=== PATIENT | female | born 1940 | race Caucasian/White ===

== ENCOUNTER 2017-05-14 11:09 | Inpatient (IN) | payer MEDICARE, MEDICAID ==
[~2017-05-14] VITALS: Ht 157.5 cm; Wt 67.7 kg
[~2017-05-14 11:09] MED LIST: BISA-42 PO; ERGO2000 PO; ERGO500027 PO; GLIM4TAB2 PO; LEVO500T59 PO; METF-620 PO; OXYC1TAB8 PO
[2017-05-14] MEDS ORDERED: HYDROcodone/APAP 5/325MG 1 TAB TABLET PO PRN (11:45)
[2017-05-14 11:46] LABS: BASO # 0.1 x10^3/uL (0.0-0.2); BASO % 1 % (0-3); EOS % 3 % (0-3); HEMATOCRIT 37.8 % (36.0-47.0); HEMOGLOBIN 12.8 g/dL (12.0-15.5); LYMPH # 2.2 x10^3/uL (1.0-4.8); LYMPH % 27 % (24-48); MEAN CORPUSCULAR HEMOGLOBIN 29 pg (25-35); MEAN CORPUSCULAR HGB CONC 34 g/dL (31-37); MEAN CORPUSCULAR VOLUME 85 fL (79-100); MONO % 9 % (0-9); NEUT % 61 % (31-73); PLATELET COUNT 182 x10^3/uL (140-400); RED BLOOD COUNT 4.46 x10^6/uL (3.50-5.40); RED CELL DISTRIBUTION WIDTH 16.2 % (11.5-14.5); WHITE BLOOD COUNT 8.3 x10^3/uL (4.0-11.0)
[2017-05-14 11:56] LABS: CALCIUM 8.7 mg/dL (8.5-10.1); CREATININE 0.9 mg/dL (0.6-1.0); GFR 60.7; POTASSIUM 4.2 mmol/L (3.5-5.1)
--- NOTE | 2017-05-14 11:57 | RAD ---
Indication pain in left arm. A single view of the chest was obtained. Comparison is made to an examination 08/11/2016. There are suspect background changes of emphysema or fibrosis. There is no consolidated pneumonia. Heart size is unchanged. There is no gross congestive heart failure. Significant pleural fluid is not seen and there is no pneumothorax. A prosthetic valve is noted. IMPRESSION: No acute or focal process is seen in the chest
[2017-05-14 12:02] LABS: DIRECT BILIRUBIN 0.1 mg/dL (0.0-0.2); TOTAL BILIRUBIN 0.5 mg/dL (0.2-1.0); TOTAL PROTEIN 7.4 g/dL (6.4-8.2)
--- NOTE | 2017-05-14 12:05 | PHYS DOC ---
Past Medical History Past Medical History: COPD, Diabetes-Type II, High Cholesterol Additional Past Medical Histor: CHRONIC BACK PAIN Past Surgical History: Cholecystectomy, Other Additional Past Surgical Histo: HERNIA, heart valve, cardiac stent Alcohol Use: None Drug Use: None Adult General Chief Complaint Chief Complaint: UPPER EXTREMITY PAIN HPI HPI 76-year-old female presenting to the emergency department today with left shoulder pain that is moderate intermittent sharp and present since approximately 8:30 this morning. She has a history of stent placement. She also reports recently having a heart valve replacement. The pain radiates down her left arm. Review of systems is negative for chest pain shortness of breath fevers chills cough nausea vomiting or diaphoresis. She denies unilateral leg swelling hemoptysis personal or family history of blood clotting disorders. All other review of systems is negative unless otherwise noted in history of present illness. ED course: 76-year-old female presenting with left shoulder pain. Triage vital signs afebrile with a normal pulse. Physical exam shows clear lungs to auscultation bilaterally. Regular rate and rhythm. Otherwise the lower extremities are without evidence of unilateral leg swelling. No clinical evidence of DVT. Abdomen is soft and nontender. Chest x-ray reviewed by myself shows no obvious infiltrate or pneumothorax present. No obvious acute cardiopulmonary process present. EKG reviewed by myself shows sinus rhythm with a regular rate. ST segments are congruent. Not suggestive of ACS. Mild nonspecific intraventricular conduction block. Troponin came back positive. Patient received the remainder of the aspirin as she had received aspirin prior to arrival. Serial troponins ordered. Patient admitted to our hospitalist team for further evaluation workup and care with cardiology consultation. Review of Systems Review of Systems SEE ABOVE. Current Medications Current Medications Current Medications Medications (Trade) Dose Ordered Sig/Luisito Start Time Stop Time Status Last Admin Dose Admin Acetaminophen/ Hydrocodone Bitart (Lortab 5/325) 2 tab PRN 1X PRN 05/14/17 11:45 Allergies Allergies Allergies Coded Allergies Type Severity Reaction Last Updated Verified No Known Drug Allergies 07/30/15 No Physical Exam Physical Exam SEE ABOVE Constitutional: Well developed, well nourished, no acute distress, non-toxic appearance. [] HENT: Normocephalic, atraumatic, bilateral external ears normal, oropharynx moist, no oral exudates, nose normal. [] Eyes: PERRLA, EOMI, conjunctiva normal, no discharge. [] Neck: Normal range of motion, no tenderness, supple, no stridor. [] Cardiovascular:Heart rate regular rhythm, no murmur [] Lungs & Thorax: Bilateral breath sounds clear to auscultation [] Abdomen: Bowel sounds normal, soft, no tenderness, no masses, no pulsatile masses. [] Skin: Warm, dry, no erythema, no rash. [] Back: No tenderness, no CVA tenderness. [] Extremities: No tenderness, no cyanosis, no clubbing, ROM intact, no edema. [] Neurologic: Alert and oriented X 3, normal motor function, normal sensory function, no focal deficits noted. [] Psychologic: Affect normal, judgement normal, mood normal. [] Current Patient Data Vital Signs Vital Signs Date Time Temp Pulse Resp B/P (MAP) Pulse Ox O2 Delivery O2 Flow Rate FiO2 05/14/17 12:00 69 18 145/76 (99) 99 Room Air 05/14/17 11:09 98.0 98.0 Lab Values Laboratory Tests Test 05/14/17 11:25 White Blood Count 8.3 x10^3/uL (4.0-11.0) Red Blood Count 4.46 x10^6/uL (3.50-5.40) Hemoglobin 12.8 g/dL (12.0-15.5) Hematocrit 37.8 % (36.0-47.0) Mean Corpuscular Volume 85 fL (79-100) Mean Corpuscular Hemoglobin 29 pg (25-35) Mean Corpuscular Hemoglobin Concent 34 g/dL (31-37) Red Cell Distribution Width 16.2 % (11.5-14.5) H Platelet Count 182 x10^3/uL (140-400) Neutrophils (%) (Auto) 61 % (31-73) Lymphocytes (%) (Auto) 27 % (24-48) Monocytes (%) (Auto) 9 % (0-9) Eosinophils (%) (Auto) 3 % (0-3) Basophils (%) (Auto) 1 % (0-3) Neutrophils # (Auto) 5.1 x10^3uL (1.8-7.7) Lymphocytes # (Auto) 2.2 x10^3/uL (1.0-4.8) Monocytes # (Auto) 0.7 x10^3/uL (0.0-1.1) Eosinophils # (Auto) 0.2 x10^3/uL (0.0-0.7) Basophils # (Auto) 0.1 x10^3/uL (0.0-0.2) Sodium Level 142 mmol/L (136-145) Potassium Level 4.2 mmol/L (3.5-5.1) Chloride Level 104 mmol/L (98-107) Carbon Dioxide Level 24 mmol/L (21-32) Anion Gap 14 (6-14) Blood Urea Nitrogen 19 mg/dL (7-20) Creatinine 0.9 mg/dL (0.6-1.0) Estimated GFR (Cockcroft-Gault) 60.7 Glucose Level 129 mg/dL (70-99) H Calcium Level 8.7 mg/dL (8.5-10.1) Magnesium Level 1.4 mg/dL (1.8-2.4) L Total Bilirubin 0.5 mg/dL (0.2-1.0) Direct Bilirubin 0.1 mg/dL (0.0-0.2) Aspartate Amino Transferase (AST) 18 U/L (15-37) Alanine Aminotransferase (ALT) 21 U/L (14-59) Alkaline Phosphatase 59 U/L (46-116) Troponin I Quantitative 0.119 ng/mL (0.000-0.055) HQ-Etp-F-Type Natriuretic Peptide 223 pg/mL (0-449) Total Protein 7.4 g/dL (6.4-8.2) Albumin 4.0 g/dL (3.4-5.0) Lipase 189 U/L (73-393) Laboratory Tests 05/14/17 11:25 Laboratory Tests 05/14/17 11:25 EKG EKG [] Radiology/Procedures Radiology/Procedures [] Course & Med Decision Making Course & Med Decision Making Pertinent Labs and Imaging studies reviewed. (See chart for details) [] Dragon Disclaimer Dragon Disclaimer This electronic medical record was generated, in whole or in part, using a voice recognition dictation system. Departure Departure Impression: Primary Impression: Left shoulder pain Additional Impressions: Non-STEMI (non-ST elevated myocardial infarction) Magnesium deficiency Disposition: ADMITTED INPATIENT Condition: STABLE Referrals: TERESITA DURAN MD (PCP) Problem Qualifiers CHELY DUPREE MD May 14, 2017 12:05
[2017-05-14] MEDS ORDERED: ONDANSETRON PF 4 MG/2 ML VIAL. IV PRN (12:15)
[2017-05-14] MEDS ORDERED: MORPHINE SULFATE 2 MG/ML DISP.SYRIN. IV PRN (12:15)
--- NOTE | 2017-05-14 12:36 | EKG ---
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
[2017-05-14] MEDS ORDERED: ASPIRIN CHEWABLE 81 MG TABLET. PO ONE (12:45)
[2017-05-14 13:30] VITALS: BP 158/65
[2017-05-14] MEDS ORDERED: MAGNESIUM SULFATE 4GM 100 ML IV ONE (16:00)
[2017-05-14] MEDS ORDERED: OMEG1CAP6 PO (16:48)
[2017-05-14] MEDS ORDERED: BISACODYL 5 MG TABLET.DR. PO PRN (17:00)
[2017-05-14] MEDS: GLIMEPIRIDE 2 MG TABLET. PO SCH (17:16)
[2017-05-14] MEDS ORDERED: NITROGLYCERIN SUBLINGUAL 0.4 MG BOTTLE OF 25. SL PRN (17:30)
[2017-05-14 18:00] VITALS: BP 139/83
[2017-05-14 19:05] VITALS: BP 126/59
--- NOTE | 2017-05-14 19:58 | HP ---
ADMIT DATE: 05/14/2017 CHIEF COMPLAINT: Arm pain. HISTORY OF PRESENT ILLNESS: The patient is a 76-year-old woman with recent history of aortic valve repair and stent placement at [facility] in November of this year. She had been doing well since until this morning at about 8:30 when she started to have left-sided, sharp, stabbing type arm pain that actually radiated down to her wrist. This persisted for a while. She actually got worse when she was in scientologist and she has decided to come to the Emergency Room to make sure she was okay. She did not have any other symptoms. Denies chest pain, shortness of breath, diaphoresis, nausea, vomiting or dizziness. In the ER, she was found with mildly elevated troponin at 0.119 and was admitted for rule out ACS. The patient relates that she actually was out in the sun all day on Monday doing a yard sale with her daughter. She states she "paid for it" in the evening with being very ill, no vomiting, but nausea and overheated. She felt better by Monday. PAST MEDICAL HISTORY: CAD, aortic valve repair, COPD, diabetes mellitus and chronic back pain. FAMILY HISTORY: Positive for diabetes in mother and sisters. SOCIAL HISTORY: Lives by herself. Quit smoking about 7 years ago. No toxic habits. ALLERGIES: No known drug allergies. MEDICATIONS: MAR reconciled with home medications. REVIEW OF SYSTEMS: Her arm pain now has completely resolved. She has no symptoms in entire organ system review. PHYSICAL EXAMINATION: VITAL SIGNS: From today show blood pressure of 158/65, heart rate of 79, respiratory rate at 18. She is afebrile. GENERAL: This is a well-nourished 76-year-old woman, alert and oriented, in no acute distress, very pleasant. HEENT: Shows no scleral icterus. NECK: Supple without any lymphadenopathy. LUNGS: Clear to auscultation bilaterally. HEART: Has regular rate and rhythm without any murmurs. ABDOMEN: Has positive bowel sounds, soft, nontender. EXTREMITIES: Show no edema. SKIN: Warm, soft and dry without any rash. LABORATORY DATA: CBC with a WBC of 8.3, hemoglobin 12.8, platelets of 182. Chemistries with a BUN and creatinine of 19 and 0.9, normal electrolytes. Troponin 0.119. ProBNP within normal. Magnesium at 1.4. IMAGING STUDIES: Chest x-ray in the Emergency Room reveals no acute or focal process seen in the chest. ASSESSMENT AND PLAN: The patient is a 76-year-old woman with heart disease who now presents with sharp stabbing left arm pain. Suspect this is more related to the hypomagnesemia. The latter will be corrected with IV magnesium. Nevertheless, she does have recent heart surgery and stent placements as well as an elevated troponin. We will rule her out for ACS, obtain Cardiology input in the morning. For her diabetes, we will hold her home medication of metformin, continue glimepiride for now. Substitute with insulin sliding scale. Interestingly, she is not on any blood pressure medications in the form of beta laurence or OSVALDO inhibitor. Her blood pressure currently is slightly elevated. We will start her on low dose beta laurence here. For prophylaxis, she will be started on heparin as well as H2 laurence. CHRISTIANO KEY MD DR: AFIA/erinn JOB#: [id number] / [id number] LANI
[2017-05-14] MEDS: OMEGA-3 FATTY ACIDS/FISH OIL 1,000 MG CAPSULE. PO SCH (20:25)
[2017-05-14] MEDS: oxyCODONE/APAP 7.5/325 1 TAB TABLET PO PRN (20:26)
[2017-05-14] MEDS: METOPROLOL TART IMMED RELEASE 25 MG TABLET. PO SCH (20:31)
[2017-05-14 22:22] VITALS: BP 127/70
[2017-05-15 00:29] LABS: BASO # 0.1 x10^3/uL (0.0-0.2); BASO % 1 % (0-3); EOS % 4 % (0-3); HEMATOCRIT 38.5 % (36.0-47.0); HEMOGLOBIN 12.6 g/dL (12.0-15.5); LYMPH # 1.8 x10^3/uL (1.0-4.8); LYMPH % 23 % (24-48); MEAN CORPUSCULAR HEMOGLOBIN 28 pg (25-35); MEAN CORPUSCULAR HGB CONC 33 g/dL (31-37); MEAN CORPUSCULAR VOLUME 87 fL (79-100); MONO % 9 % (0-9); NEUT % 63 % (31-73); PLATELET COUNT 166 x10^3/uL (140-400); RED BLOOD COUNT 4.45 x10^6/uL (3.50-5.40); RED CELL DISTRIBUTION WIDTH 16.8 % (11.5-14.5); WHITE BLOOD COUNT 7.8 x10^3/uL (4.0-11.0)
--- NOTE | 2017-05-15 00:42 | ACF ---
Admission Forms Criteria MYOCARDIAL INFARCTION Clinical Indications for Admission to Inpatient Care (Place 'X' for any and all applicable criteria): Admission is indicated for 1 or more of the following (1)(2)(3)(4): [ X]I. Acute MO [ ]II. Contraindications and/or Inappropriate clinical situations for Observational Care in patients with Myocardial Infarction, when ANY ONE of the following is required: [ ]a) Patient with High risk of cardiac embolism (e.g, patients with previous cardiac embolism, LVEF < 40%, age >75 and patients with prosthetic valve) 18 [ ]b) Patient with Moderate risk including DM patient, CAD and patient aged 65-75 18 [ ]c) Patient with any change in cardiac biomarker especially troponin should be managed as high risk in an inpatient setting 19 [ ]d) Physician judgement irrespective of ECG and other diagnostic findings 20 [ ]III.General contraindications and/or Inappropriate clinical situations for Observational Care in patients with Myocardial Infarction, when ANY ONE of the following is required: [ ]a) Prediction of prolongation of LOS based on ANY ONE of the following may be considered as a contraindication for observational care 2, 3, 4, 5, 6, 7, 8, 9, 10, 11 [ ]i) Age > 65 yrs. [ ]ii) Patient arriving by ambulance [ ]iii) Patient with high acuity [ ]iv) Patient requiring vital sign monitoring [ ]v) Patient on IV medication [ ]b) Systolic blood pressures greater than or equal to 180mmHg 3,12 [ ]c) Patient with altered mental status including delirium and other alteration of consciousness, (3) [ ]d) Patient whose discharge disposition will be to a fpc home or rehabilitation home should not be managed in Emergency Department Observation Unit. CMS rule requires 3 days hospital stay before such placement. 3,13 [ ]e) Patient with failure to thrive due to broad array of etiologies 3 ,16,17 [ ]f) Inability to ambulate 3,14 Extended stay beyond goal length of stay may be needed for (1)(18)(20)(24)(25): [ ]a) Hemodynamic instability, persisting symptoms after intensive medical management, or recurring severe, prolonged symptoms [ ]b) Intravascular procedural complications such as acute vessel closure, stent thrombosis, stent malposition, or vessel dissection (26)(27)(28) [ ]c) Extravascular procedural complications such as retroperitoneal hematoma , pericardial effusion, or cardiac tamponade [ ]d) Entry site complications causing bleeding, hematoma or distal ischemia and requiring ongoing monitoring, surgical repair or surgical thrombectomy. Dangerous arrhythmia [ ]e) Complicated percutaneous coronary intervention (e.g., unsuccessful percutaneous coronary intervention or percutaneous coronary intervention of non- [place] vessel) [ ]f) Urgent or emergent surgery for complications of MO (e.g., ventricular rupture, valvular insufficiency) [ ]g) Surgical revascularization via coronary artery bypass graft [ ]h) Heart failure (e.g., pulmonary edema) [ ]i) Unstable pulmonary comorbidities, including COPD or pneumonia (31) [ ]j) Acute renal failure The original [employer] content created by [employer] has been revised. The portions of the content which have been revised are identified through the use of italic text or in bold, and [facility] [employer] has neither reviewed nor approved the modified material. All other unmodified content is copyright [facility] [employer] Please see references footnoted in the original [facility] edition 2016 Admission Criteria Met?: Yes DAVID CROOK May 15, 2017 00:42 CHELY DUPREE MD May 15, 2017 18:08
[2017-05-15 00:44] LABS: CALCIUM 8.7 mg/dL (8.5-10.1); CREATININE 0.9 mg/dL (0.6-1.0); GFR 60.7
[2017-05-15 01:42] LABS: CHOLESTEROL/HDL RATIO 3.1
[2017-05-15 03:33] VITALS: BP 107/59
[2017-05-15 07:00] VITALS: BP 89/43
[2017-05-15] MEDS: ASPIRIN CHEWABLE 81 MG TABLET. PO SCH (09:03)
[2017-05-15] MEDS: GLIMEPIRIDE 2 MG TABLET. PO SCH ×2 (09:03→18:14)
[2017-05-15] MEDS: oxyCODONE/APAP 7.5/325 1 TAB TABLET PO PRN ×2 (09:04→19:16)
[2017-05-15] MEDS: METOPROLOL TART IMMED RELEASE 25 MG TABLET. PO SCH ×2 (09:10→20:46)
--- NOTE | 2017-05-15 09:33 | PDOC2 ---
RADHA RIVAS PRACTICAL NURSE CLINICAL COORDINATOR 05/15/17 0933: CARDIAC CONSULT DATE OF CONSULT Date of Consult DATE: 05/15/17 TIME: 09:03 REASON FOR CONSULT Reason for Consult: Chest pain REFERRING PHYSICIAN Referring Physician: Melchor SOURCE Source: Chart review, Patient HISTORY OF PRESENT ILLNESS HISTORY OF PRESENT ILLNESS This is a pleasant 76 yo female admitted for complains of left arm pain. Reports of left upper chest pain but more of left arm pain sharp in consistency lasting all day yesterday intermittently. 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 Denies any nausea, palpitations, dizziness, changes in her activity tolerance. She does have EUGENE but blames it on her COPD and no changes as far as her baseline. Reports compliance with her cardiac medications. She is positive for PCI/stent 10/2016 and TAVR 11/2016. Denies any recent falls, shoulder injury, GERD, nor heavy lifting. PAST MEDICAL HISTORY Cardiovascular: CAD, HTN, Hyperlipidemia, Aortic stenosis, Other (AAA, PAD, carotid artery disease) Pulmonary: COPD, Pneumonia, Other (pulmonary fibrosis) CENTRAL NERVOUS SYSTEM: Other (meningioma) GI: Constipation Heme/Onc: No pertinent hx Hepatobiliary: No pertinent hx Psych: No pertinent hx Musculoskeletal: low back pain, Osteoarthritis Rheumatologic: No pertinent hx Infectious disease: No pertinent hx ENT: No pertinent hx Renal/: UTI Endocrine: Diabetes (2) PAST SURGICAL HISTORY Past Surgical History: Cholecystectomy, Cataract Removal, Other (bilateral arterial stents; TAVR; PCI/stent x1 vessel) SOCIAL HISTORY Smoke: No (royer) ALCOHOL: none Drugs: None Lives: with Family CURRENT MEDICATIONS CURRENT MEDICATIONS Current Medications Medications (Trade) Dose Ordered Sig/Luisito Route PRN Reason Start Time Stop Time Status Last Admin Dose Admin Aspirin (Children'S Aspirin) 162 mg 1X ONCE PO 05/14/17 12:45 05/14/17 12:46 DC 05/14/17 12:45 Magnesium Sulfate/ Dextrose 100 ml @ 25 mls/hr 1X ONCE IV 05/14/17 16:00 05/14/17 19:59 DC 05/14/17 16:47 Fish Oil (Fish Oil) 1,000 mg HS PO 05/14/17 21:00 05/14/17 20:25 Oxycodone/ Acetaminophen (Percocet 7.5/ 325) 1 tab PRN Q6HRS PRN PO PAIN 05/14/17 17:00 05/14/17 20:26 Glimepiride (Amaryl) 4 mg BIDWMEALS PO 05/14/17 17:00 05/14/17 17:16 Metoprolol Tartrate (Lopressor) 12.5 mg BID PO 05/14/17 21:00 05/14/17 20:31 ALLERGIES ALLERGIES: Coded Allergies: No Known Drug Allergies (Unverified , 07/30/15) ROS Review of System 14 point ROS evaluated with pertinent positives noted per HPI PHYSICAL EXAM General: Alert, Oriented X3, Cooperative, No acute distress HEENT: Atraumatic, Mucous membr. moist/pink Lungs: Clear to auscultation, Normal air movement, Other (upper wheeze) Heart: Regular rate, Normal S1, Normal S2, Other (3/6 systolic murmur to EUS border) Abdomen: Normal bowel sounds Extremities: No cyanosis, No edema Skin: No breakdown, No significant lesion Neuro: Normal speech, Sensation intact Psych/Mental Status: Mental status NL, Mood NL MUSCULOSKELETAL: Osteoarthritic changes both hands VITALS VITALS Vital Signs Date Time Temp Pulse Resp B/P (MAP) Pulse Ox O2 Delivery O2 Flow Rate FiO2 05/15/17 07:40 Room Air 05/15/17 07:00 97.6 60 20 89/43 (58) 92 97.6 LABS Lab: Laboratory Tests Test 05/14/17 11:25 05/14/17 18:10 05/15/17 00:20 05/15/17 07:49 White Blood Count 8.3 x10^3/uL (4.0-11.0) 7.8 x10^3/uL (4.0-11.0) Red Blood Count 4.46 x10^6/uL (3.50-5.40) 4.45 x10^6/uL (3.50-5.40) Hemoglobin 12.8 g/dL (12.0-15.5) 12.6 g/dL (12.0-15.5) Hematocrit 37.8 % (36.0-47.0) 38.5 % (36.0-47.0) Mean Corpuscular Volume 85 fL (79-100) 87 fL (79-100) Mean Corpuscular Hemoglobin 29 pg (25-35) 28 pg (25-35) Mean Corpuscular Hemoglobin Concent 34 g/dL (31-37) 33 g/dL (31-37) Red Cell Distribution Width 16.2 % (11.5-14.5) 16.8 % (11.5-14.5) Platelet Count 182 x10^3/uL (140-400) 166 x10^3/uL (140-400) Neutrophils (%) (Auto) 61 % (31-73) 63 % (31-73) Lymphocytes (%) (Auto) 27 % (24-48) 23 % (24-48) Monocytes (%) (Auto) 9 % (0-9) 9 % (0-9) Eosinophils (%) (Auto) 3 % (0-3) 4 % (0-3) Basophils (%) (Auto) 1 % (0-3) 1 % (0-3) Neutrophils # (Auto) 5.1 x10^3uL (1.8-7.7) 4.9 x10^3uL (1.8-7.7) Lymphocytes # (Auto) 2.2 x10^3/uL (1.0-4.8) 1.8 x10^3/uL (1.0-4.8) Monocytes # (Auto) 0.7 x10^3/uL (0.0-1.1) 0.7 x10^3/uL (0.0-1.1) Eosinophils # (Auto) 0.2 x10^3/uL (0.0-0.7) 0.3 x10^3/uL (0.0-0.7) Basophils # (Auto) 0.1 x10^3/uL (0.0-0.2) 0.1 x10^3/uL (0.0-0.2) Sodium Level 142 mmol/L (136-145) 144 mmol/L (136-145) Potassium Level 4.2 mmol/L (3.5-5.1) 4.0 mmol/L (3.5-5.1) Chloride Level 104 mmol/L (98-107) 105 mmol/L (98-107) Carbon Dioxide Level 24 mmol/L (21-32) 30 mmol/L (21-32) Anion Gap 14 (6-14) 9 (6-14) Blood Urea Nitrogen 19 mg/dL (7-20) 16 mg/dL (7-20) Creatinine 0.9 mg/dL (0.6-1.0) 0.9 mg/dL (0.6-1.0) Estimated GFR (Cockcroft-Gault) 60.7 60.7 Glucose Level 129 mg/dL (70-99) 187 mg/dL (70-99) Calcium Level 8.7 mg/dL (8.5-10.1) 8.7 mg/dL (8.5-10.1) Magnesium Level 1.4 mg/dL (1.8-2.4) Total Bilirubin 0.5 mg/dL (0.2-1.0) Direct Bilirubin 0.1 mg/dL (0.0-0.2) Aspartate Amino Transf (AST/SGOT) 18 U/L (15-37) Alanine Aminotransferase (ALT/SGPT) 21 U/L (14-59) Alkaline Phosphatase 59 U/L (46-116) Troponin I Quantitative 0.119 ng/mL (0.000-0.055) 0.110 ng/mL (0.000-0.055) 0.113 ng/mL (0.000-0.055) NM-Mkf-C-Type Natriuretic Peptide 223 pg/mL (0-449) Total Protein 7.4 g/dL (6.4-8.2) Albumin 4.0 g/dL (3.4-5.0) Lipase 189 U/L (73-393) Triglycerides Level 169 mg/dL (0-150) Cholesterol Level 85 mg/dL (0-200) LDL Cholesterol, Calculated 24 mg/dL (0-100) VLDL Cholesterol, Calculated 34 mg/dL (0-40) Non-HDL Cholesterol Calculated 58 mg/dL (0-129) HDL Cholesterol 27 mg/dL (40-60) Cholesterol/HDL Ratio 3.1 Glucose (Fingerstick) 107 mg/dL (70-99) ASSESSMENT/PLAN ASSESSMENT/PLAN 1. Atypical chest pain: mainly increasing left arm pain. Troponin peaked at 0.119 likely demand mediated with valvular disease. 2. 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 COPD: stable 4. DM2/HLP 5. Hx of meningioma: noted via brain MRI 07/2016. MRI done also 2017 and verbalized bigger. 6. Hx of PAD with stents and small AAA 7. Chronic LBBB Recommendations 1. Possibly MSK but with elevated troponin, persistent left arm pain will consider for MPI tomorrow. 2. Records reviewed as noted below. 3. TTE today. 4. Resume DAPT. 5. Secondary prevention [facility] Cardiology chart review. * 12/20/2016 * significant for severe symptomatic , severe mitral annular calcification, CAD, moderate infrarenal AAA, chronic diastolic CHF, HLP, DM2, Pulmonary fibrosis/COPD, gastrectomy, Mild to moderate bilateral carotid artery disease * 11/22/2016 PCI/ANNA to LCx: minimal irregularities to LM, 20% to proximal LAD , and 20% to RCA mid vessel * TAVR 12/06/2016 * Last EF at 75% * Via CTA patent stents to right and left common iliac arteries, severe stenosis to celiac artery and moderate stenosis to left renal artery Problems: NIA LÓPEZ MD 05/15/17 1700: CARDIAC CONSULT ALLERGIES ALLERGIES: Coded Allergies: No Known Drug Allergies (Unverified , 07/30/15) ASSESSMENT/PLAN ASSESSMENT/PLAN Patient seen and examined. Agree with CHILD CARE GIVER's assessment and plan. Chest pain with atypical features. Troponin level slightly elevated, most likely demand ischemia. 2-D echo showed normal LV systolic function without any obvious wall motion abnormalities. Plan for Lexiscan nuclear stress test tomorrow in lieu of her history of coronary artery disease. Bioprosthetic AVR appears well seated and functioning well on echo. Thank you for your consultation. Problems: RADHA RIVAS APRN May 15, 2017 09:33 NIA LÓPEZ MD May 15, 2017 17:00
[2017-05-15 11:00] VITALS: BP 109/56
[2017-05-15] MEDS: CLOPIDOGREL BISULFATE 75 MG TABLET PO SCH (11:04)
[2017-05-15] MEDS ORDERED: METO25TA4 PO (11:18)
[2017-05-15] MEDS ORDERED: METF-620 PO (11:18)
--- NOTE | 2017-05-15 14:17 | PDOC ---
Provider Note Provider Note 05/15/2017 1400 [facility] Cardiology chart review. * 12/20/2016 * significant for severe symptomatic , severe mitral annular calcification, CAD, moderate infrarenal AAA, chronic diastolic CHF, HLP, DM2, Pulmonary fibrosis/COPD, gastrectomy, Mild to moderate bilateral carotid artery disease * 11/22/2016 PCI/ANNA to LCx: minimal irregularities to LM, 20% to proximal LAD , and 20% to RCA mid vessel * TAVR 12/06/2016 * Last EF at 75% * Via CTA patent stents to right and left common iliac arteries, severe stenosis to celiac artery and moderate stenosis to left renal artery RADHA RIVAS DENTAL SCHEDULING COORDINATOR May 15, 2017 14:17
[2017-05-15 15:00] VITALS: BP 114/55
--- NOTE | 2017-05-15 15:34 | CARD ---
APPROVED REPORT EXAM: Two-dimensional and M-mode echocardiogram with Doppler and color Doppler. Other Information Quality : Poor INDICATION Cardiac Disease: CAD AVR IN NOVEMBER, ELEVATED TROPONIN, ABNORMAL EKG 2D DIMENSIONS RVDd2.9 (2.9-3.5cm)Left Atrium(2D)3.6 (1.6-4.0cm) IVSd1.1 (0.7-1.1cm)Aortic Root(2D)2.1 (2.0-3.7cm) LVDd5.5 (3.9-5.9cm)LVOT Diameter1.8 (1.8-2.4cm) PWd0.9 (0.7-1.1cm)LVDs4.7 (2.5-4.0cm) SV45.0 mlLVEF(%)50.0 (>50%) Aortic Valve AoV Peak Marv.174.8cm/sAoV VTI40.3cm AO Peak GR.12.2mmHgLVOT Peak Marv.95.1cm/s LVOT VTI 21.27cmAO Mean GR.6mmHg SAE (VMAX)1.11yp2WFB (VTI)1.25cm2 Mitral Valve MV E Gmikildi82.7cm/sMV DECEL HOKN656xc MV A Wioqyeyv937.3cm/sMV E Mean Gr.2mmHg MV [id number]/A Ratio0.6 MV A Nkoevvet041huVUX (PHT)1.95cm2 TDI E/Lateral E'9.4E/Medial E'6.8 Tricuspid Valve TR P. Vqhzkytm748kp/sTR Peak Gr.20mmHg Pulmonary Vein S1 Qkcdvbux17.9cm/sD2 Qdbdklhd61.1cm/s LEFT VENTRICLE The left ventricle is normal size. There is normal left ventricular wall thickness. The left ventricu lar systolic function is normal and the ejection fraction is within normal range. EF 55% Grossly norm al wall motion. Limited images. Transmitral Doppler flow pattern is Grade I-abnormal relaxation patte rn. RIGHT VENTRICLE The right ventricle is normal size. There is normal right ventricular wall thickness. The right ventr icular systolic function is normal. ATRIA The left atrium size is normal. The right atrium size is normal. The interatrial septum is intact wit h no evidence for an atrial septal defect or patent foramen ovale as noted on 2-D or Doppler imaging. AORTIC VALVE Not well visualized. Known recent Jero TAVR Doppler and Color Flow revealed no significant aortic r egurgitation. There is no significant aortic valvular stenosis. MITRAL VALVE The mitral valve leaflets are calcified. Doppler and Color Flow revealed mild mitral regurgitation. TRICUSPID VALVE The tricuspid valve is normal in structure and function. Doppler and Color Flow revealed trace to mil d tricuspid regurgitation. The PA pressure was estimated at 23 mmHg. PULMONIC VALVE NOT WELL VISUALIZED GREAT VESSELS The aortic root is normal in size. Normal pulmonary venous flow (Doppler). The IVC is normal in size and collapses >50% with inspiration. PERICARDIAL EFFUSION There is no pleural effusion. There is no evidence of significant pericardial effusion. Critical Notification Critical Value: No <Conclusion> The left ventricular systolic function is normal and the ejection fraction is within normal range. EF 55% Grossly normal wall motion. Limited images.
--- NOTE | 2017-05-15 15:41 | PDOC ---
PROGRESS NOTES Chief Complaint Chief Complaint 1. left arm pain, resolved, denies chest pain, but + troponin 2. 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 COPD 4. DM2/HLP 5. Hx of meningioma: noted via brain MRI 07/2016. MRI done also 2016 and verbalized mildly bigger. 6. Hx of PAD with stents and small AAA 7. Chronic LBBB chronic back pain plan: fu with card, MPI tmr as per card cont home meds ssi dvt ppx History of Present Illness History of Present Illness no chest pain, sob, left arm pain gone wants to go home but + troponin Vitals Vitals Vital Signs Date Time Temp Pulse Resp B/P (MAP) Pulse Ox O2 Delivery O2 Flow Rate FiO2 05/15/17 15:00 97.7 56 20 114/55 (74) 95 Room Air 97.7 Physical Exam General: Alert, Oriented X3, Cooperative, No acute distress Heart: Regular rate, Normal S1, Normal S2, Other (3/6 systolic murmur to EUS border) Lungs: Wheezing (bl mild) Abdomen: Normal bowel sounds Extremities: No cyanosis, No edema Skin: No breakdown, No significant lesion Labs LABS Laboratory Tests Test 05/14/17 18:10 05/15/17 00:20 05/15/17 07:49 05/15/17 11:49 Troponin I Quantitative 0.110 ng/mL (0.000-0.055) 0.113 ng/mL (0.000-0.055) White Blood Count 7.8 x10^3/uL (4.0-11.0) Red Blood Count 4.45 x10^6/uL (3.50-5.40) Hemoglobin 12.6 g/dL (12.0-15.5) Hematocrit 38.5 % (36.0-47.0) Mean Corpuscular Volume 87 fL (79-100) Mean Corpuscular Hemoglobin 28 pg (25-35) Mean Corpuscular Hemoglobin Concent 33 g/dL (31-37) Red Cell Distribution Width 16.8 % (11.5-14.5) Platelet Count 166 x10^3/uL (140-400) Neutrophils (%) (Auto) 63 % (31-73) Lymphocytes (%) (Auto) 23 % (24-48) Monocytes (%) (Auto) 9 % (0-9) Eosinophils (%) (Auto) 4 % (0-3) Basophils (%) (Auto) 1 % (0-3) Neutrophils # (Auto) 4.9 x10^3uL (1.8-7.7) Lymphocytes # (Auto) 1.8 x10^3/uL (1.0-4.8) Monocytes # (Auto) 0.7 x10^3/uL (0.0-1.1) Eosinophils # (Auto) 0.3 x10^3/uL (0.0-0.7) Basophils # (Auto) 0.1 x10^3/uL (0.0-0.2) Sodium Level 144 mmol/L (136-145) Potassium Level 4.0 mmol/L (3.5-5.1) Chloride Level 105 mmol/L (98-107) Carbon Dioxide Level 30 mmol/L (21-32) Anion Gap 9 (6-14) Blood Urea Nitrogen 16 mg/dL (7-20) Creatinine 0.9 mg/dL (0.6-1.0) Estimated GFR (Cockcroft-Gault) 60.7 Glucose Level 187 mg/dL (70-99) Calcium Level 8.7 mg/dL (8.5-10.1) Triglycerides Level 169 mg/dL (0-150) Cholesterol Level 85 mg/dL (0-200) LDL Cholesterol, Calculated 24 mg/dL (0-100) VLDL Cholesterol, Calculated 34 mg/dL (0-40) Non-HDL Cholesterol Calculated 58 mg/dL (0-129) HDL Cholesterol 27 mg/dL (40-60) Cholesterol/HDL Ratio 3.1 Glucose (Fingerstick) 107 mg/dL (70-99) 158 mg/dL (70-99) Test 05/15/17 14:40 Magnesium Level 2.0 mg/dL (1.8-2.4) Troponin I Quantitative 0.113 ng/mL (0.000-0.055) Review of Systems Review of Systems no fever, chills, sob or chest pain Assessment and Plan Assessmemt and Plan Problems Medical Problems: (1) Left shoulder pain Status: Acute (2) Magnesium deficiency Status: Acute (3) Non-STEMI (non-ST elevated myocardial infarction) Status: Acute Problems: Comment Review of Relevant I have reviewed the following items neida (where applicable) has been applied. Labs Laboratory Tests Test 05/14/17 11:25 05/14/17 18:10 05/15/17 00:20 05/15/17 07:49 White Blood Count 8.3 x10^3/uL (4.0-11.0) 7.8 x10^3/uL (4.0-11.0) Red Blood Count 4.46 x10^6/uL (3.50-5.40) 4.45 x10^6/uL (3.50-5.40) Hemoglobin 12.8 g/dL (12.0-15.5) 12.6 g/dL (12.0-15.5) Hematocrit 37.8 % (36.0-47.0) 38.5 % (36.0-47.0) Mean Corpuscular Volume 85 fL (79-100) 87 fL (79-100) Mean Corpuscular Hemoglobin 29 pg (25-35) 28 pg (25-35) Mean Corpuscular Hemoglobin Concent 34 g/dL (31-37) 33 g/dL (31-37) Red Cell Distribution Width 16.2 % (11.5-14.5) 16.8 % (11.5-14.5) Platelet Count 182 x10^3/uL (140-400) 166 x10^3/uL (140-400) Neutrophils (%) (Auto) 61 % (31-73) 63 % (31-73) Lymphocytes (%) (Auto) 27 % (24-48) 23 % (24-48) Monocytes (%) (Auto) 9 % (0-9) 9 % (0-9) Eosinophils (%) (Auto) 3 % (0-3) 4 % (0-3) Basophils (%) (Auto) 1 % (0-3) 1 % (0-3) Neutrophils # (Auto) 5.1 x10^3uL (1.8-7.7) 4.9 x10^3uL (1.8-7.7) Lymphocytes # (Auto) 2.2 x10^3/uL (1.0-4.8) 1.8 x10^3/uL (1.0-4.8) Monocytes # (Auto) 0.7 x10^3/uL (0.0-1.1) 0.7 x10^3/uL (0.0-1.1) Eosinophils # (Auto) 0.2 x10^3/uL (0.0-0.7) 0.3 x10^3/uL (0.0-0.7) Basophils # (Auto) 0.1 x10^3/uL (0.0-0.2) 0.1 x10^3/uL (0.0-0.2) Sodium Level 142 mmol/L (136-145) 144 mmol/L (136-145) Potassium Level 4.2 mmol/L (3.5-5.1) 4.0 mmol/L (3.5-5.1) Chloride Level 104 mmol/L (98-107) 105 mmol/L (98-107) Carbon Dioxide Level 24 mmol/L (21-32) 30 mmol/L (21-32) Anion Gap 14 (6-14) 9 (6-14) Blood Urea Nitrogen 19 mg/dL (7-20) 16 mg/dL (7-20) Creatinine 0.9 mg/dL (0.6-1.0) 0.9 mg/dL (0.6-1.0) Estimated GFR (Cockcroft-Gault) 60.7 60.7 Glucose Level 129 mg/dL (70-99) 187 mg/dL (70-99) Calcium Level 8.7 mg/dL (8.5-10.1) 8.7 mg/dL (8.5-10.1) Magnesium Level 1.4 mg/dL (1.8-2.4) Total Bilirubin 0.5 mg/dL (0.2-1.0) Direct Bilirubin 0.1 mg/dL (0.0-0.2) Aspartate Amino Transf (AST/SGOT) 18 U/L (15-37) Alanine Aminotransferase (ALT/SGPT) 21 U/L (14-59) Alkaline Phosphatase 59 U/L (46-116) Troponin I Quantitative 0.119 ng/mL (0.000-0.055) 0.110 ng/mL (0.000-0.055) 0.113 ng/mL (0.000-0.055) XI-Ypz-C-Type Natriuretic Peptide 223 pg/mL (0-449) Total Protein 7.4 g/dL (6.4-8.2) Albumin 4.0 g/dL (3.4-5.0) Lipase 189 U/L (73-393) Triglycerides Level 169 mg/dL (0-150) Cholesterol Level 85 mg/dL (0-200) LDL Cholesterol, Calculated 24 mg/dL (0-100) VLDL Cholesterol, Calculated 34 mg/dL (0-40) Non-HDL Cholesterol Calculated 58 mg/dL (0-129) HDL Cholesterol 27 mg/dL (40-60) Cholesterol/HDL Ratio 3.1 Glucose (Fingerstick) 107 mg/dL (70-99) Test 05/15/17 11:49 05/15/17 14:40 Glucose (Fingerstick) 158 mg/dL (70-99) Magnesium Level 2.0 mg/dL (1.8-2.4) Troponin I Quantitative 0.113 ng/mL (0.000-0.055) Laboratory Tests Test 05/14/17 18:10 05/15/17 00:20 05/15/17 07:49 05/15/17 11:49 Troponin I Quantitative 0.110 ng/mL (0.000-0.055) 0.113 ng/mL (0.000-0.055) White Blood Count 7.8 x10^3/uL (4.0-11.0) Red Blood Count 4.45 x10^6/uL (3.50-5.40) Hemoglobin 12.6 g/dL (12.0-15.5) Hematocrit 38.5 % (36.0-47.0) Mean Corpuscular Volume 87 fL (79-100) Mean Corpuscular Hemoglobin 28 pg (25-35) Mean Corpuscular Hemoglobin Concent 33 g/dL (31-37) Red Cell Distribution Width 16.8 % (11.5-14.5) Platelet Count 166 x10^3/uL (140-400) Neutrophils (%) (Auto) 63 % (31-73) Lymphocytes (%) (Auto) 23 % (24-48) Monocytes (%) (Auto) 9 % (0-9) Eosinophils (%) (Auto) 4 % (0-3) Basophils (%) (Auto) 1 % (0-3) Neutrophils # (Auto) 4.9 x10^3uL (1.8-7.7) Lymphocytes # (Auto) 1.8 x10^3/uL (1.0-4.8) Monocytes # (Auto) 0.7 x10^3/uL (0.0-1.1) Eosinophils # (Auto) 0.3 x10^3/uL (0.0-0.7) Basophils # (Auto) 0.1 x10^3/uL (0.0-0.2) Sodium Level 144 mmol/L (136-145) Potassium Level 4.0 mmol/L (3.5-5.1) Chloride Level 105 mmol/L (98-107) Carbon Dioxide Level 30 mmol/L (21-32) Anion Gap 9 (6-14) Blood Urea Nitrogen 16 mg/dL (7-20) Creatinine 0.9 mg/dL (0.6-1.0) Estimated GFR (Cockcroft-Gault) 60.7 Glucose Level 187 mg/dL (70-99) Calcium Level 8.7 mg/dL (8.5-10.1) Triglycerides Level 169 mg/dL (0-150) Cholesterol Level 85 mg/dL (0-200) LDL Cholesterol, Calculated 24 mg/dL (0-100) VLDL Cholesterol, Calculated 34 mg/dL (0-40) Non-HDL Cholesterol Calculated 58 mg/dL (0-129) HDL Cholesterol 27 mg/dL (40-60) Cholesterol/HDL Ratio 3.1 Glucose (Fingerstick) 107 mg/dL (70-99) 158 mg/dL (70-99) Test 05/15/17 14:40 Magnesium Level 2.0 mg/dL (1.8-2.4) Troponin I Quantitative 0.113 ng/mL (0.000-0.055) Medications Current Medications Acetaminophen/ Hydrocodone Bitart (Lortab 5/325) 2 tab PRN 1X PRN PO pain; Start 05/14/17 at 11:45 Ondansetron HCl (Zofran) 4 mg PRN Q8HRS PRN IV NAUSEA/VOMITING; Start 05/14/17 at 12:15; Stop 05/15/17 at 12:14; Status DC Morphine Sulfate 2 mg PRN Q2HR PRN IV PAIN; Start 05/14/17 at 12:15; Stop 05/15 at 12:14; Status DC Aspirin (Children'S Aspirin) 162 mg 1X ONCE PO Last administered on 05/14/17 12:45; Start 05/14/17 at 12:45; Stop 05/14/17 at 12:46; Status DC Magnesium Sulfate/ Dextrose 100 ml @ 25 mls/hr 1X ONCE IV Last administered on 05/14/17 16:47; Start 05/14/17 at 16:00; Stop 05/14/17 at 19:59; Status DC Bisacodyl (Dulcolax Tab) 5 mg PRN DAILY PRN PO CONSTIPATION; Start 05/14/17 at 17:00 Ergocalciferol (Vitamin D2) 50,000 unit WEEKLY PO ; Start 05/21/17 at 09:00 Metformin HCl (Glucophage) 1,000 mg BID PO Last administered on 05/15/17 09:03 ; Start 05/14/17 at 21:00 Fish Oil (Fish Oil) 1,000 mg HS PO Last administered on 05/14/17 20:25; Start 05/14/17 at 21:00 Oxycodone/ Acetaminophen (Percocet 7.5/ 325) 1 tab PRN Q6HRS PRN PO PAIN Last administered on 05/15/17 09:04; Start 05/14/17 at 17:00 Glimepiride (Amaryl) 4 mg BIDWMEALS PO Last administered on 05/15/17 09:03; Start 05/14/17 at 17:00 Nitroglycerin (Nitrostat) 0.4 mg PRN Q5MIN PRN SL CHEST PAIN; Start 05/14/17 at 17:30 Metoprolol Tartrate (Lopressor) 12.5 mg BID PO Last administered on 05/15/17 09:10; Start 05/14/17 at 21:00 Aspirin (Children'S Aspirin) 81 mg DAILYWBKFT PO Last administered on 09:03; Start 05/15/17 at 08:00 Clopidogrel Bisulfate (Plavix) 75 mg DAILYWBKFT PO Last administered on 11:04; Start 05/15/17 at 10:00 Active Scripts Active Reported Metformin Hcl 1,000 Mg Tablet 1,000 PO BID Metoprolol Tartrate 25 Mg Tablet 12.5 PO DAILY Fish Oil 1,000 Mg Capsule (Beatty-3 Fatty Acids/Fish Oil) 1 Each Capsule 1 Each PO HS Oxycodon-Acetaminophen 7.5-325 (Oxycodone Hcl/Acetaminophen) 1 Each Tablet 1 Each PO PRN Q6HRS PRN Dulcolax (Bisacodyl) 5 Mg Tablet.dr 5 Mg PO PRN DAILY PRN Vitamin D2 (Ergocalciferol (Vitamin D2)) 50,000 Unit Capsule 1 Cap PO WEEKLY Glimepiride 4 Mg Tablet 1 Tab PO BID Vitals/I & O Vital Sign - Last 24 Hours 05/14/17 05/14/17 05/14/17 05/14/17 18:00 19:05 19:05 20:26 Temp 98.1 98.1 Pulse 78 73 Resp 16 16 B/P (MAP) 139/83 (101) 126/59 (81) Pulse Ox 94 98 O2 Delivery Room Air Room Air Room Air 05/14/17 05/14/17 05/15/17 05/15/17 20:31 22:22 03:33 07:00 Temp 98.2 98.2 97.6 98.2 98.2 97.6 Pulse 88 92 66 60 Resp 18 16 20 B/P (MAP) 126/59 127/70 (89) 107/59 (75) 89/43 (58) Pulse Ox 91 93 92 O2 Delivery Room Air Room Air Room Air 05/15/17 05/15/17 05/15/17 05/15/17 07:40 09:04 09:10 10:00 Pulse 60 Resp 20 20 B/P (MAP) 116/74 Pulse Ox 92 93 O2 Delivery Room Air Room Air Room Air 05/15/17 05/15/17 11:00 15:00 Temp 97.6 97.7 97.6 97.7 Pulse 55 56 Resp 20 20 B/P (MAP) 109/56 (73) 114/55 (74) Pulse Ox 93 95 O2 Delivery Room Air Intake and Output 05/14/17 05/14/17 05/15/17 15:00 23:00 07:00 Intake Total 200 ml 360 ml Output Total 200 ml Balance 0 ml 360 ml AMBER DE LA PAZ MD May 15, 2017 15:41
[2017-05-15] MEDS ORDERED: ALBUTEROL SULFATE 2.5 MG/3 ML NEBU. NEB PRN (15:45)
[2017-05-15] MEDS ORDERED: DEXTROSE 50% 25 GM / 50ML DISP.SYRIN. IV PRN (15:45)
[2017-05-15] MEDS ORDERED: ENOXAPARIN 40 MG/0.4 ML SYRINGE. SQ SCH (16:00)
[2017-05-15] MEDS: INSULIN ASPART 300 UNITS/3 ML INSULN.PEN SQ SCH (17:00)
[2017-05-15 18:32] VITALS: BP 133/76
[2017-05-15] MEDS: OMEGA-3 FATTY ACIDS/FISH OIL 1,000 MG CAPSULE. PO SCH (20:45)
[2017-05-15 22:18] VITALS: BP 134/50
[2017-05-16 03:33] VITALS: BP 107/69
[2017-05-16 05:13] LABS: BASO # 0.1 x10^3/uL (0.0-0.2); BASO % 1 % (0-3); EOS % 5 % (0-3); HEMATOCRIT 37.1 % (36.0-47.0); HEMOGLOBIN 11.9 g/dL (12.0-15.5); LYMPH # 1.8 x10^3/uL (1.0-4.8); LYMPH % 29 % (24-48); MEAN CORPUSCULAR HEMOGLOBIN 28 pg (25-35); MEAN CORPUSCULAR HGB CONC 32 g/dL (31-37); MEAN CORPUSCULAR VOLUME 88 fL (79-100); MONO % 12 % (0-9); NEUT % 53 % (31-73); PLATELET COUNT 153 x10^3/uL (140-400); RED BLOOD COUNT 4.22 x10^6/uL (3.50-5.40); RED CELL DISTRIBUTION WIDTH 17.1 % (11.5-14.5); WHITE BLOOD COUNT 6.4 x10^3/uL (4.0-11.0)
[2017-05-16 06:01] LABS: CREATININE 0.8 mg/dL (0.6-1.0); GFR 69.6; MAGNESIUM 1.7 mg/dL (1.8-2.4); POTASSIUM 4.4 mmol/L (3.5-5.1)
[2017-05-16 07:00] VITALS: BP 114/70
[2017-05-16 07:15] LABS: BILIRUBIN,URINE NEGATIVE (NEG); GLUCOSE,URINE NEGATIVE (NEG); NITRITE,URINE NEGATIVE (NEG); PH,URINE 7.5; PROTEIN,URINE NEGATIVE (NEG-TRACE)
[2017-05-16 07:36] LABS: BACTERIA,URINE MANY /HPF (0-FEW); SQUAMOUS EPITHELIAL CELL,UR MOD /LPF
[2017-05-16 07:37] LABS: RBC,URINE FOBS /HPF (0-2)
[2017-05-16] MEDS: INSULIN ASPART 300 UNITS/3 ML INSULN.PEN SQ SCH ×2 (08:00→12:00)
[2017-05-16] MEDS ORDERED: REGADENOSON 0.4 MG/5 ML DISP.SYRIN. IV ONE (08:30)
[2017-05-16] MEDS: oxyCODONE/APAP 7.5/325 1 TAB TABLET PO PRN (08:51)
[2017-05-16] MEDS: GLIMEPIRIDE 2 MG TABLET. PO SCH (09:36)
[2017-05-16] MEDS: METOPROLOL TART IMMED RELEASE 25 MG TABLET. PO SCH (09:37)
[2017-05-16] MEDS: CLOPIDOGREL BISULFATE 75 MG TABLET PO SCH (09:37)
[2017-05-16] MEDS: ASPIRIN CHEWABLE 81 MG TABLET. PO SCH (09:37)
[2017-05-16 11:00] VITALS: BP 110/43
[2017-05-16] MEDS ORDERED: MAGNESIUM SULFATE 2GM 50 ML IV ONE (13:00)
--- NOTE | 2017-05-16 13:31 | PDOC ---
RADHA RIVAS [employer] 05/16/17 1330: CARDIO Progress Notes Date and Time Date of Service Time of Evaluation 1250 Subjective Subjective: No Chest Pain, No shortness of breath, No Palpitations, No Dizziness Vitals Vitals Vital Signs Date Time Temp Pulse Resp B/P (MAP) Pulse Ox O2 Delivery O2 Flow Rate FiO2 05/16/17 11:51 20 Room Air 05/16/17 11:00 97.7 61 110/43 (65) 93 97.7 Weight Weight [ ] Input and Output Intake and Output Intake and Output 05/16/17 06:59 Intake Total 100 ml Output Total 1500 ml Balance -1400 ml Intake Oral 100 ml Output Urine Total 1500 ml # Voids 2 Laboratory Labs Laboratory Tests Test 05/15/17 14:40 05/15/17 16:59 05/15/17 20:45 05/16/17 04:25 Magnesium Level 2.0 mg/dL (1.8-2.4) 1.7 mg/dL (1.8-2.4) Troponin I Quantitative 0.113 ng/mL (0.000-0.055) Glucose (Fingerstick) 115 mg/dL (70-99) 165 mg/dL (70-99) White Blood Count 6.4 x10^3/uL (4.0-11.0) Red Blood Count 4.22 x10^6/uL (3.50-5.40) Hemoglobin 11.9 g/dL (12.0-15.5) Hematocrit 37.1 % (36.0-47.0) Mean Corpuscular Volume 88 fL (79-100) Mean Corpuscular Hemoglobin 28 pg (25-35) Mean Corpuscular Hemoglobin Concent 32 g/dL (31-37) Red Cell Distribution Width 17.1 % (11.5-14.5) Platelet Count 153 x10^3/uL (140-400) Neutrophils (%) (Auto) 53 % (31-73) Lymphocytes (%) (Auto) 29 % (24-48) Monocytes (%) (Auto) 12 % (0-9) Eosinophils (%) (Auto) 5 % (0-3) Basophils (%) (Auto) 1 % (0-3) Neutrophils # (Auto) 3.4 x10^3uL (1.8-7.7) Lymphocytes # (Auto) 1.8 x10^3/uL (1.0-4.8) Monocytes # (Auto) 0.8 x10^3/uL (0.0-1.1) Eosinophils # (Auto) 0.3 x10^3/uL (0.0-0.7) Basophils # (Auto) 0.1 x10^3/uL (0.0-0.2) Sodium Level 145 mmol/L (136-145) Potassium Level 4.4 mmol/L (3.5-5.1) Chloride Level 107 mmol/L (98-107) Carbon Dioxide Level 28 mmol/L (21-32) Anion Gap 10 (6-14) Blood Urea Nitrogen 18 mg/dL (7-20) Creatinine 0.8 mg/dL (0.6-1.0) Estimated GFR (Cockcroft-Gault) 69.6 Glucose Level 130 mg/dL (70-99) Calcium Level 8.0 mg/dL (8.5-10.1) Test 05/16/17 06:55 05/16/17 08:06 05/16/17 11:53 Urine Collection Type Void Urine Color Yellow Urine Clarity Cloudy Urine pH 7.5 Urine Specific Wells 1.020 Urine Protein Negative mg/dL (NEG-TRACE) Urine Glucose (UA) Negative mg/dL (NEG) Urine Ketones (Stick) Negative mg/dL (NEG) Urine Blood Negative (NEG) Urine Nitrite Negative (NEG) Urine Bilirubin Negative (NEG) Urine Urobilinogen Dipstick 1.0 mg/dL (0.2 mg/dL) Urine Leukocyte Esterase Moderate (NEG) Urine RBC Fobs /HPF (0-2) Urine WBC 5-10 /HPF (0-4) Urine Squamous Epithelial Cells Mod /LPF Urine Bacteria Many /HPF (0-FEW) Urine Mucus Slight /LPF Glucose (Fingerstick) 125 mg/dL (70-99) 185 mg/dL (70-99) Physical Exam HEENT: Neck Supple W Full Motion Chest: Symmetric LUNGS: Clear to Auscultation Heart: S1S2, RRR (SR) Abdomen: Soft N/T Extremities: No Edema, No Calf Tenderness Neurology: alert, oriented, follow commands Assessment Assessment HOme if MPI neg. follow up with [facility] cardiology 1. Atypical chest pain 2. CAD: S/P PCI/stent x1 10/2016 3. TAVR 11/2016 4. Chronic LBBB Recommendations 1. Continue secondary prevention 2. TTE with well seated AV 3. Contineu with DAPT and secondary prevention measures. 4. May DC if MPI is negative 5. F/U with [facility] =cardiology NIA LÓPEZ MD 05/16/17 1720: CARDIO Progress Notes Assessment Assessment Patient seen and examined. Agree with DATA PROGRAMMER's assessment and plan. MPI did not show any significant ischemia. s/p TAVR - stable. Okay for discharge from cardiac standpoint. Follow-up with primary supply chain coordinator at [facility]. RADHA RIVAS APRN May 16, 2017 13:30 NIA LÓPEZ MD May 16, 2017 17:20
--- NOTE | 2017-05-16 14:46 | RAD ---
APPROVED REPORT Test Type: Pharmacological Stress Nurse/Tech: Joanna Carson R.N. Test Indications: Elevated troponin/chest pain. Cardiac History: Stents, valve surgery, HTN Medications: SEE EMR Medical History: COPD, former smoker, quit 8 years ago, DM. Resting ECG: SR, BBB Resting Heart Rate: 65 bpm Resting Blood Pressure: 134/53mmHg Pretest Chest Pain: None Nurse/Tech Notes S1S2, lungs CTA, diminished throughout, denied chest pain or SOA. Denied dizziness. Consent: The procedure was explained to the patient in lay terms. Informed consent was witnessed. Sheldon eout was entered into [employer]. History and Stress Test performed by Joanna Carson R.N. Pharm. Details Pharmacologic stress testing was performed using 0.4mg per 5ml of regadenoson given intravenously ove r 7-10 seconds. Stress Symptoms Extremely SOA. POST EXERCISE Reason for Termination: Infusion complete Max HR: 65 bpm Max Blood Pressure: 134/53mmHg Blood Pressure response to exercise: Normal blood pressure response during stress. Heart Rate response to exercise: Normal Chest Pain: No. Arrhythmia: Yes. Multiple PVC's ST Change: No. INTERPRETATION Stress EKG Conclusion: No acute changes were noted. Imaging Protocol IMAGE PROTOCOL: Rest Tc-99m/stress Tc-99m 1 day Rest: Stress: Viability: Radiopharm.Tc99m HxoupbbddTf99l Sestamibi Mtlz50hJk 33.6mCi Duration 15min. 10min. Img Date 05/16/2017 Inj-Img Ktlp75dql. 60min. Rest Admin Site:IV - Left HandAdministrator:Regulo Dunlap RT (R)(N) Stress Admin Site: IV - Left HandAdministrator: Lisa Quiroga RT (R)(N) Viability Admin Site: [facility] [place] Net: STRESS DATA End Diast. Vol.61.0mlAv. Heart Rate62.0bpm End Syst. Vol.12.0mlCO Index BSA0.0L/min Myocardial Kttq927.0gEject. Duabohvt27.0% Stress Rates Pk. Fill Rate1.94EDV/secLVtime Pk. Fill 254.50msec Pk. Empty Rate3.30ESV/secLVtime Pk. Ezkup572.84msec 10/25 Pk. Fill1.37EDV/sec Stress Scores Regional WT0.00Summed WT3.00 Regional WM0.00Summed WM2.00 LV Perfusion There is a mild to moderate intensity, small in size, fixed apical perfusion defect suggestive of preethi or infarct. This may also be partially related to LBBB. Wall Motion Grossly normal. EF > 70% LV Perf. Quant 17 Seg. SSS8.00 17 Seg. SRS9.00 17 Seg. SDS2.00 Stress Defect Extent (% LAD)17.50Rest Defect Extent (% LAD)31.30Rev. Defect Extent (% LAD)0.00 Stress Defect Extent (% LCX) 15.00Rest Defect Extent (% LCX)2.50Rev. Defect Extent (% LCX)0.00 Stress Defect Extent (% RCA)2.20Rest Defect Extent (% RCA)0.00Rev. Defect Extent (% RCA)0.00 Stress Defect Extent (% JOSE LUIS)13.30Rest Defect Extent (% JOSE LUIS)16.10Rev. Defect Extent (% JOSE LUIS)0.00 Other Information Quality:Fair Risk Assessment: Low Risk Conclusion 1. Non-diagnostic EKG due to LBBB 2. Fixed apical perfusion defect, likely artifact. No ischemia or infarct noted. 3. Normal EF at > 70% 4. Low risk study
[2017-05-16 15:00] VITALS: BP 133/51
[2017-05-16] MEDS ORDERED: ASPI-630 PO (16:22)
--- NOTE | 2017-05-16 16:27 | PDOC3 ---
Discharge Summary [facility] Date of Admission: May 14, 2017 Discharge Date: May 16, 2017 Admitting Diagnosis 1. left arm pain, resolved, denies chest pain, but + troponin, not clear etiology 2. 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 COPD 4. DM2/HLP 5. Hx of meningioma: noted via brain MRI 07/2016. MRI done also 2017 and verbalized mildly bigger. 6. Hx of PAD with stents and small AAA 7. Chronic LBBB chronic back pain Problems: Final Diagnosis CONSULTS card Brief Hospital Course Ms. Irby is a 76 old F, h/o PCI, TAVr This year, came for left arm pain, no pain on 2nd day, denies chest pain, sob. MPI neg. troponin slightly high, not sure why wo HTN or tachycardia. dc home dc time 35min General: Alert, Oriented X3, Cooperative, No acute distress Heart: Regular rate, Normal S1, Normal S2, Other (3/6 systolic murmur to EUS border) Lungs: Wheezing (bl mild) Abdomen: Normal bowel sounds Extremities: No cyanosis, No edema Skin: No breakdown, No significant lesion Problems: Disposition home CONDITION AT DISCHARGE: Improved, Stable Diet cardiac Scheduled Aspirin (Aspirin), 81 MG PO DAILYWBKFT Ergocalciferol (Vitamin D2) (Vitamin D2), 1 CAP PO WEEKLY, (Reported) Glimepiride (Glimepiride), 1 TAB PO BID, (Reported) Metformin Hcl (Metformin Hcl), 1,000 PO BID, (Reported) Metoprolol Tartrate (Metoprolol Tartrate), 12.5 PO DAILY, (Reported) [place]-3 Fatty Acids/Fish Oil (Fish Oil 1,000 Mg Capsule), 1 EACH PO HS, ( Reported) Scheduled PRN Bisacodyl (Dulcolax), 5 MG PO PRN DAILY PRN for CONSTIPATION, (Reported) Oxycodone Hcl/Acetaminophen (Oxycodon-Acetaminophen 7.5-325), 1 EACH PO PRN Q6HRS PRN for PAIN, (Reported) Discontinued Medications Ergocalciferol (Vitamin D2) (Vitamin D2), 2,000 UNIT PO DAILY, (Reported) Follow Up pcp and card in 2 weeks AMBER DE LA PAZ MD May 16, 2017 16:27
[2017-05-21] MEDS ORDERED: ERGOCALCIFEROL (VITAMIN D2) 50,000 UNIT CAPSULE. PO SCH (09:00)
== END 2017-05-16 17:25 | disposition home or self-care (01) | DRG 282 ==
LOC: ER 11:09 → 2 SOUTH 12:12
PROVIDERS: ADMIT Internal Medicine Hematology & Oncology; ATTEND Internal Medicine Hematology & Oncology
DX: I21.4 Non-ST elevation (NSTEMI) myocardial infarction (principal); E78.5 Hyperlipidemia, unspecified; G89.29 Other chronic pain; I10 Essential (primary) hypertension; I25.10 Atherosclerotic heart disease of native coronary artery without angina pectoris; I44.7 Left bundle-branch block, unspecified; J44.9 Chronic obstructive pulmonary disease, unspecified; I71.4 Abdominal aortic aneurysm, without rupture; M25.512 Pain in left shoulder; M19.90 Unspecified osteoarthritis, unspecified site; E11.51 Type 2 diabetes mellitus with diabetic peripheral angiopathy without gangrene; E63.8 Other specified nutritional deficiencies; M54.9 Dorsalgia, unspecified; Z83.3 Family history of diabetes mellitus; Z86.011 Personal history of benign neoplasm of the brain; Z86.74 Personal history of sudden cardiac arrest; Z87.891 Personal history of nicotine dependence; Z95.2 Presence of prosthetic heart valve; Z95.5 Presence of coronary angioplasty implant and graft; Z87.01 Personal history of pneumonia (recurrent); Z87.440 Personal history of urinary (tract) infections; Z90.49 Acquired absence of other specified parts of digestive tract; Z98.49 Cataract extraction status, unspecified eye
CPT/HCPCS: 36415; 71010; 78452; 80048; 80061; 80076; 81001; 82962; 83690; 83735; 83880; 84484; 85027; 87086; 93005; 93017; 93306; 94250; 96374; 96375; 96376; A9500; J1650; J1815; J2785; J3475; J7060; 99285-25

== ENCOUNTER → 2017-08-02 | Outpatient (CLI) | payer MEDICARE, MEDICAID ==
[~2017-08-02] MED LIST changes: +ASPI-630 PO; +METO25TA4 PO; +OMEG1CAP6 PO
[2017-08-02 09:36] LABS: CALCIUM 8.2 mg/dL (8.5-10.1); CREATININE 0.9 mg/dL (0.6-1.0); GFR 60.6; MAGNESIUM 1.5 mg/dL (1.8-2.4); POTASSIUM 4.9 mmol/L (3.5-5.1)
== END | disposition home or self-care (01) ==
LOC: LAB 09:05
PROVIDERS: ATTEND Internal Medicine Cardiovascular Disease
DX: I11.9 Hypertensive heart disease without heart failure (principal); E11.9 Type 2 diabetes mellitus without complications
CPT/HCPCS: 36415; 80048; 83036; 83735

== ENCOUNTER → 2017-08-09 | Outpatient (CLI) | payer MEDICARE, MEDICAID ==
[~2017-08-09] MED LIST changes: +ATOR40TA59 PO; +CLOP75TA PO; +GADOBUTROL 7.5 MMOL/7.5 ML VIAL IV ONE
--- NOTE | 2017-08-09 11:42 | KCIC ---
MRI of the Brain without and with Contrast 08/09/2017 Clinical History: Meningioma. Dizziness.. Technique: Unenhanced T1-weighted sagittal and axial and FLAIR, T2-weighted, gradient echo and diffusion-weighted axial images of the brain were obtained. After the intravenous administration of 6 cc of Gadavist, enhanced T1-weighted axial, sagittal and coronal images of the brain were obtained. Findings: Comparison study is dated 08/01/2016. There is generalized parenchymal atrophy. Patchy, confluent and multiple small scattered areas of abnormally increased signal intensity are seen within the periventricular and subcortical white matter of both cerebral hemispheres on the FLAIR and T2-weighted images consistent with areas of small vessel ischemic disease. These have not significantly changed. An old area of lacunar infarction seen involving the periventricular white matter of the left temporal/parietal lobe. This measures 6 mm in size. An old area of lacunar infarction is seen involving the periventricular white matter of the left frontal lobe. This measures 9 mm in size. An enhancing extra-axial mass is seen arising superiorly and posteriorly from the mid aspect of the sphenoid bone extending just to the left of midline consistent with a meningioma. It measures 1.8 x 1.7 x 1.6 cm in transverse, AP and craniocaudal dimensions. It has not significantly changed in size when compared to the previous examination. There is very mild mass effect upon the inferior left frontal lobe which is unchanged. No acute parenchymal abnormality is seen. There is no MRI evidence of acute ischemia/infarction. No area of abnormal parenchymal contrast enhancement is noted. Mild mucosal thickening is seen scattered throughout the paranasal sinuses. Normal flow voids are seen within the major vascular structures surrounding the brain parenchyma. IMPRESSION: Stable MRI appearance of the 1.8 cm meningioma arising from the sphenoid bone as outlined above. No acute parenchymal abnormality is seen. Electronically signed by: Shaheen Romano MD (08/09/2017 11:38 AM) [id number]
== END | disposition home or self-care (01) ==
LOC: KCIC MRI 08:42
PROVIDERS: ATTEND Internal Medicine Cardiovascular Disease
DX: D32.9 Benign neoplasm of meninges, unspecified (principal); I63.9 Cerebral infarction, unspecified; R42 Dizziness and giddiness; R90.82 White matter disease, unspecified
CPT/HCPCS: 70553; A9585

== ENCOUNTER → 2017-08-15 | Outpatient (CLI) | payer MEDICARE, MEDICAID ==
[~2017-08-15] MED LIST changes: -GADOBUTROL 7.5 MMOL/7.5 ML VIAL IV ONE
--- NOTE | 2017-08-15 11:51 | RAD ---
Chest, 2 views, 08/15/2017: History: Fibrosis, shortness of breath, COPD Comparison is made to a study from 05/14/2017. The heart is within normal limits in size. A surgical implant is again noted at the level of the aortic valve. There is moderate calcific plaquing and tortuosity of the thoracic aorta. The pulmonary vascularity is normal. There are mild parenchymal scars, particular in the right upper lobe. No acute infiltrate is seen. There is no evidence of pleural fluid. The bony structures are demineralized. IMPRESSION: No acute cardiopulmonary abnormality is detected.
== END | disposition home or self-care (01) ==
LOC: RAD 09:05
PROVIDERS: ATTEND Internal Medicine Critical Care Medicine
DX: J44.9 Chronic obstructive pulmonary disease, unspecified (principal)
CPT/HCPCS: 71020

== ENCOUNTER → 2018-01-17 | Outpatient (CLI) | payer MEDICARE, MEDICAID | END | disposition home or self-care (01) | LOC: RAD 12:11 | DX: J44.9 Chronic obstructive pulmonary disease, unspecified (principal); J84.10 Pulmonary fibrosis, unspecified | CPT/HCPCS: 71046 ==

== ENCOUNTER → 2018-01-26 | Outpatient (CLI) | payer MEDICARE, MEDICAID | END | disposition home or self-care (01) | LOC: ECHO 13:28 | DX: I08.0 Rheumatic disorders of both mitral and aortic valves (principal); Z95.3 Presence of xenogenic heart valve; R06.09 Other forms of dyspnea | CPT/HCPCS: 93306 ==

== ENCOUNTER → 2018-04-17 | Outpatient (CLI) | payer MEDICARE, MEDICAID ==
[2018-04-17] MEDS: IOHEXOL 240 MG/ML 50ML VIAL. PO (08:45)
[2018-04-17 09:08] LABS: BLOOD UREA NITROGEN 12 mg/dL (7-20)
[2018-04-17 09:08] LABS: CREATININE 0.9 mg/dL (0.6-1.0); GFR 60.6
[2018-04-17] MEDS: IOHEXOL 300 MG/ML 100ML VIAL. IV (10:06)
== END | disposition home or self-care (01) ==
LOC: CT 08:22
DX: I71.4 Abdominal aortic aneurysm, without rupture (principal); K76.89 Other specified diseases of liver; M47.896 Other spondylosis, lumbar region; I11.9 Hypertensive heart disease without heart failure; E11.9 Type 2 diabetes mellitus without complications; E78.5 Hyperlipidemia, unspecified; E78.00 Pure hypercholesterolemia, unspecified
CPT/HCPCS: 36415; 74177; 82565; 84520; Q9966; Q9967

== ENCOUNTER 2018-07-24 12:36 | Inpatient (IN) | payer MEDICARE, MEDICAID ==
[~2018-07-24] VITALS: Ht 157.5 cm; Wt 65.8 kg
[~2018-07-24 12:36] MED LIST changes: -METF-620 PO; +METF10007 PO
[2018-07-24] MEDS ORDERED: ONDANSETRON PF 4 MG/2 ML VIAL. IV ONE (13:00)
[2018-07-24] MEDS ORDERED: FAMOTIDINE 20 MG/2 ML VIAL IVP ONE (13:00)
[2018-07-24] MEDS ORDERED: IV NORMAL SALINE 1000ML BAG 1,000 ML IV ONE ×2 (13:00→14:45)
[2018-07-24] MEDS ORDERED: IPRATRPIUM/ALBUTEROL 0.5/2.5MG 3 ML NEBU. NEB ONE ×2 (13:15→15:15)
[2018-07-24] MEDS ORDERED: DEXAMETHASONE SOD PHOS 20 MG/5 ML VIAL. IV ONE (13:15)
[2018-07-24 13:47] LABS: BASO # 0.1 x10^3/uL (0.0-0.2); BASO % 1 % (0-3); EOS # 0.2 x10^3/uL (0.0-0.7); EOS % 2 % (0-3); HEMATOCRIT 38.5 % (36.0-47.0); HEMOGLOBIN 12.7 g/dL (12.0-15.5); LYMPH # 2.2 x10^3/uL (1.0-4.8); LYMPH % 26 % (24-48); MEAN CORPUSCULAR HEMOGLOBIN 28 pg (25-35); MEAN CORPUSCULAR HGB CONC 33 g/dL (31-37); MEAN CORPUSCULAR VOLUME 85 fL (79-100); MONO # 0.9 x10^3/uL (0.0-1.1); MONO % 11 % (0-9); NEUT # 4.9 x10^3uL (1.8-7.7); NEUT % 59 % (31-73); PLATELET COUNT 188 x10^3/uL (140-400); RED BLOOD COUNT 4.54 x10^6/uL (3.50-5.40); RED CELL DISTRIBUTION WIDTH 16.7 % (11.5-14.5); WHITE BLOOD COUNT 8.3 x10^3/uL (4.0-11.0)
[2018-07-24 13:58] LABS: PROTHROMBIN TIME PATIENT 13.1 SEC (11.7-14.0)
[2018-07-24] MEDS ORDERED: IOHEXOL 300 MG/ML 100ML VIAL. IV ONE (14:00)
[2018-07-24 14:03] LABS: CALCIUM 9.3 mg/dL (8.5-10.1); CREATININE 0.9 mg/dL (0.6-1.0); GFR 60.4
[2018-07-24 14:09] LABS: ALBUMIN 3.9 g/dL (3.4-5.0); MAGNESIUM 1.8 mg/dL (1.8-2.4); TOTAL BILIRUBIN 0.5 mg/dL (0.2-1.0); TOTAL PROTEIN 7.8 g/dL (6.4-8.2)
[2018-07-24] MEDS ORDERED: CONTRAST GIVEN. MC PRN (14:15)
[2018-07-24 14:24] LABS: BILIRUBIN,URINE SMALL (NEG); CLARITY,URINE CLEAR; COLOR,URINE YELLOW; NITRITE,URINE POSITIVE (NEG); PROTEIN,URINE NEGATIVE (NEG-TRACE)
[2018-07-24 14:25] LABS: CREATINE KINASE 51 U/L (26-192)
--- NOTE | 2018-07-24 14:40 | EKG ---
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
--- NOTE | 2018-07-24 14:47 | PHYS DOC ---
Past Medical History Past Medical History: CAD, COPD, Diabetes-Type II Additional Past Medical Histor: CHRONIC BACK PAIN Past Surgical History: Angioplasty, Cholecystectomy, Other Additional Past Surgical Histo: hernia repair,heart valve replacement,femoral stents Alcohol Use: None Drug Use: None Adult General Chief Complaint Chief Complaint: ABDOMINAL PAIN HPI HPI Patient is a 78 year old [f__sex] who presents with [] Review of Systems Review of Systems Constitutional: Denies fever or chills [] Eyes: Denies change in visual acuity, redness, or eye pain [] HENT: Denies nasal congestion or sore throat [] Respiratory: Denies cough or shortness of breath [] Cardiovascular: No additional information not addressed in HPI [] GI: Denies abdominal pain, nausea, vomiting, bloody stools or diarrhea [] : Denies dysuria or hematuria [] Musculoskeletal: Denies back pain or joint pain [] Integument: Denies rash or skin lesions [] Neurologic: Denies headache, focal weakness or sensory changes [] Endocrine: Denies polyuria or polydipsia [] All other systems were reviewed and found to be within normal limits, except as documented in this note. Current Medications Current Medications Current Medications Medications (Trade) Dose Ordered Sig/Luisito Start Time Stop Time Status Last Admin Dose Admin Albuterol/ Ipratropium (Duoneb) 3 ml 1X ONCE 07/24/18 15:15 07/24/18 15:16 DC 07/24/18 15:14 3 ML Ceftriaxone Sodium 50 ml @ 100 mls/hr 1X ONCE 07/24/18 15:45 07/24/18 16:14 DC Dexamethasone Sodium Phosphate (Decadron) 10 mg 1X ONCE 07/24/18 13:15 07/24/18 13:16 DC 07/24/18 14:14 10 MG Famotidine (Pepcid Vial) 20 mg 1X ONCE 07/24/18 13:00 07/24/18 13:12 DC 07/24/18 14:15 20 MG Info (CONTRAST GIVEN -- Rx MONITORING) 1 each PRN DAILY PRN 07/24/18 14:15 07/26/18 14:14 Iohexol (Omnipaque 300 Mg/ml) 90 ml 1X ONCE 07/24/18 14:00 07/24/18 14:04 DC Ondansetron HCl (Zofran) 4 mg 1X ONCE 07/24/18 13:00 07/24/18 13:12 DC 07/24/18 14:15 4 MG Sodium Chloride 1,000 ml @ 1,000 mls/hr 1X ONCE 07/24/18 14:45 07/24/18 15:44 DC 07/24/18 14:59 1,000 MLS/HR Allergies Allergies Allergies Coded Allergies Type Severity Reaction Last Updated Verified No Known Drug Allergies 07/30/15 No Physical Exam Physical Exam Constitutional: Well developed, well nourished, no acute distress, non-toxic appearance. [] HENT: Normocephalic, atraumatic, bilateral external ears normal, oropharynx moist, no oral exudates, nose normal. [] Eyes: PERRLA, EOMI, conjunctiva normal, no discharge. [] Neck: Normal range of motion, no tenderness, supple, no stridor. [] Cardiovascular:Heart rate regular rhythm, no murmur [] Lungs & Thorax: Bilateral breath sounds clear to auscultation [] Abdomen: Bowel sounds normal, soft, no tenderness, no masses, no pulsatile masses. [] Skin: Warm, dry, no erythema, no rash. [] Back: No tenderness, no CVA tenderness. [] Extremities: No tenderness, no cyanosis, no clubbing, ROM intact, no edema. [] Neurologic: Alert and oriented X 3, normal motor function, normal sensory function, no focal deficits noted. [] Psychologic: Affect normal, judgement normal, mood normal. [] Current Patient Data Vital Signs Vital Signs Date Time Temp Pulse Resp B/P (MAP) Pulse Ox O2 Delivery O2 Flow Rate FiO2 07/24/18 17:00 76 18 128/65 (86) 94 Room Air 07/24/18 13:00 97.9 97.9 Lab Values Laboratory Tests Test 07/24/18 13:25 07/24/18 14:00 White Blood Count 8.3 x10^3/uL (4.0-11.0) Red Blood Count 4.54 x10^6/uL (3.50-5.40) Hemoglobin 12.7 g/dL (12.0-15.5) Hematocrit 38.5 % (36.0-47.0) Mean Corpuscular Volume 85 fL (79-100) Mean Corpuscular Hemoglobin 28 pg (25-35) Mean Corpuscular Hemoglobin Concent 33 g/dL (31-37) Red Cell Distribution Width 16.7 % (11.5-14.5) H Platelet Count 188 x10^3/uL (140-400) Neutrophils (%) (Auto) 59 % (31-73) Lymphocytes (%) (Auto) 26 % (24-48) Monocytes (%) (Auto) 11 % (0-9) H Eosinophils (%) (Auto) 2 % (0-3) Basophils (%) (Auto) 1 % (0-3) Neutrophils # (Auto) 4.9 x10^3uL (1.8-7.7) Lymphocytes # (Auto) 2.2 x10^3/uL (1.0-4.8) Monocytes # (Auto) 0.9 x10^3/uL (0.0-1.1) Eosinophils # (Auto) 0.2 x10^3/uL (0.0-0.7) Basophils # (Auto) 0.1 x10^3/uL (0.0-0.2) Prothrombin Time 13.1 SEC (11.7-14.0) Prothrombin Time INR 1.0 (0.8-1.1) PTT 27 SEC (24-38) Sodium Level 143 mmol/L (136-145) Potassium Level 4.0 mmol/L (3.5-5.1) Chloride Level 102 mmol/L (98-107) Carbon Dioxide Level 26 mmol/L (21-32) Anion Gap 15 (6-14) H Blood Urea Nitrogen 19 mg/dL (7-20) Creatinine 0.9 mg/dL (0.6-1.0) Estimated GFR (Cockcroft-Gault) 60.4 BUN/Creatinine Ratio 21 (6-20) H Glucose Level 80 mg/dL (70-99) Lactic Acid Level 4.1 mmol/L (0.4-2.0) *H Calcium Level 9.3 mg/dL (8.5-10.1) Magnesium Level 1.8 mg/dL (1.8-2.4) Total Bilirubin 0.5 mg/dL (0.2-1.0) Aspartate Amino Transferase (AST) 18 U/L (15-37) Alanine Aminotransferase (ALT) 23 U/L (14-59) Alkaline Phosphatase 70 U/L (46-116) Creatine Kinase 51 U/L (26-192) Creatine Kinase MB (Mass) 0.9 ng/mL (0.0-3.6) Creatine Kinase MB Relative Index % (0-4) Troponin I Quantitative 0.051 ng/mL (0.000-0.055) NX-Mij-E-Type Natriuretic Peptide 148 pg/mL (0-449) Total Protein 7.8 g/dL (6.4-8.2) Albumin 3.9 g/dL (3.4-5.0) Albumin/Globulin Ratio 1.0 (1.0-1.7) Lipase 192 U/L (73-393) Urine Collection Type Unknown Urine Color Yellow Urine Clarity Clear Urine pH 5.0 Urine Specific [place] 1.025 Urine Protein Negative mg/dL (NEG-TRACE) Urine Glucose (UA) Negative mg/dL (NEG) Urine Ketones (Stick) Negative mg/dL (NEG) Urine Blood Negative (NEG) Urine Nitrite Positive (NEG) Urine Bilirubin Small (NEG) Urine Urobilinogen Dipstick 1.0 mg/dL (0.2 mg/dL) Urine Leukocyte Esterase Small (NEG) Urine RBC 1-2 /HPF (0-2) Urine WBC 5-10 /HPF (0-4) Urine Squamous Epithelial Cells Mod /LPF Urine Bacteria Many /HPF (0-FEW) Laboratory Tests 07/24/18 13:25 Laboratory Tests 07/24/18 13:25 EKG EKG @1341: NSR at 72bpm, nonspecific T wave inversion in aVL, nonspecific intraventricular block, [facility] without significant change from prior. Radiology/Procedures Radiology/Procedures PROCEDURE: CT ANGIOGRAPHY CHEST CTA chest; CT abdomen pelvis with contrast Indication: Pleuritic pain, right lower chest pain, right upper quadrant pain Technique: Postcontrast CT imaging was performed of the chest, multiplanar reconstruction to include MIP reconstruction images submitted. Postcontrast CT imaging was performed and pelvis, multiplanar reconstruction images submitted. No oral contrast was given. One or more of the following individualized dose reduction techniques were utilized for this examination: 1. Automated exposure control 2. Adjustment of the mA and/or kV according to patient size 3. Use of iterative reconstruction technique. Contrast: 75 cc Omnipaque 300 Comparison: April 17, 2018 CT abdomen pelvis exam and noncontrast CT chest January 20, 2016 Chest CTA: Findings: There is coronary calcification. No pulmonary embolism is identified. There is percutaneous aortic valve replacement. There is no pericardial or pleural fluid or pneumothorax. There is fairly severe emphysema, upper zone predominance. There is scattered plaque of the thoracic aorta. Some reticular density of the posterior right upper lobe extending the pleural surface is unchanged. Major airways are patent. There is again some fibrotic change near the left lung base. There is slightly enlarged subcarinal node about 1.2 cm short axis dimension although fairly similar. IMPRESSION: 1. There is no evidence of pulmonary embolic disease or infiltrate. There is emphysema. There is coronary calcification. Borderline enlarged subcarinal node is similar. Abdomen and pelvis: FINDINGS: There are similar small hypodense foci of the spleen otherwise difficult to characterize, largest about 1 cm. Both kidneys enhance. There is mild left renal pelviectasis. Ureters in the pelvis are difficult to visualize in their entirety. There is gas in the urinary bladder lumen. There is again hypodense lesion of the right kidney about 1.9 cm in size, most likely a cyst. There is no adrenal nodularity. Gallbladder is not seen. There is similar degree of extrahepatic biliary duct dilatation estimated about 1.1 cm. There is suspected large descending duodenal diverticulum about 5 cm. There is no new focal abnormality of the pancreas or liver. Evaluation of bowel is limited without oral contrast. There is retained stool the colon. Appendix is not seen if still present. There is no small bowel dilatation, free fluid, free air. There is again infrarenal abdominal aortic aneurysm, distally about 3.5 cm in caliber, similar. There are again stents in the iliac arteries. There is scattered atherosclerotic calcification abdominal aorta, including near origins of the renal arteries bilaterally. There is more advanced degenerative disc disease L4-5. There is grade 1 anterior spondylolisthesis L3-L4, multilevel lumbar facet degenerative change. There is at least mild spinal stenosis L3-4. Impression: 1. There is stable distal infrarenal abdominal aortic aneurysm about 3.5 cm. 2. There is retained stool in the colon. 3. There is right renal cyst. There are stable nonspecific hypodense foci of the spleen. 4. There is similar degree of extra hepatic biliary ductal dilatation. There is a likely large descending duodenal diverticulum. 5. There is nonspecific gas in the urinary bladder. If there is not been recent catheterization, infection with gas-forming organism is not excluded. Electronically signed by: Valeria Her MD (07/24/2018 4:47 PM) [id number] DICTATED and SIGNED BY: VALERIA HER MD Course & Med Decision Making Course & Med Decision Making Pertinent Labs and Imaging studies reviewed. (See chart for details) [] Dragon Disclaimer Dragon Disclaimer This electronic medical record was generated, in whole or in part, using a voice recognition dictation system. Departure Departure Impression: Primary Impression: COPD exacerbation Additional Impressions: Hypoxia Pleurisy Disposition: ADMITTED INPATIENT Admitting Physician: Lanie Irving Condition: STABLE Referrals: LANIE IRVING MD (PCP) Problem Qualifiers JENNIFER THAKKAR DO Jul 24, 2018 14:47
[2018-07-24 15:07] LABS: BACTERIA,URINE MANY /HPF (0-FEW); SQUAMOUS EPITHELIAL CELL,UR MOD /LPF
--- NOTE | 2018-07-24 16:50 | RAD ---
CTA chest; CT abdomen pelvis with contrast Indication: Pleuritic pain, right lower chest pain, right upper quadrant pain Technique: Postcontrast CT imaging was performed of the chest, multiplanar reconstruction to include MIP reconstruction images submitted. Postcontrast CT imaging was performed and pelvis, multiplanar reconstruction images submitted. No oral contrast was given. One or more of the following individualized dose reduction techniques were utilized for this examination: 1. Automated exposure control 2. Adjustment of the mA and/or kV according to patient size 3. Use of iterative reconstruction technique. Contrast: 75 cc Omnipaque 300 Comparison: April 17, 2018 CT abdomen pelvis exam and noncontrast CT chest January 20, 2016 Chest CTA: Findings: There is coronary calcification. No pulmonary embolism is identified. There is percutaneous aortic valve replacement. There is no pericardial or pleural fluid or pneumothorax. There is fairly severe emphysema, upper zone predominance. There is scattered plaque of the thoracic aorta. Some reticular density of the posterior right upper lobe extending the pleural surface is unchanged. Major airways are patent. There is again some fibrotic change near the left lung base. There is slightly enlarged subcarinal node about 1.2 cm short axis dimension although fairly similar. IMPRESSION: 1. There is no evidence of pulmonary embolic disease or infiltrate. There is emphysema. There is coronary calcification. Borderline enlarged subcarinal node is similar. Abdomen and pelvis: FINDINGS: There are similar small hypodense foci of the spleen otherwise difficult to characterize, largest about 1 cm. Both kidneys enhance. There is mild left renal pelviectasis. Ureters in the pelvis are difficult to visualize in their entirety. There is gas in the urinary bladder lumen. There is again hypodense lesion of the right kidney about 1.9 cm in size, most likely a cyst. There is no adrenal nodularity. Gallbladder is not seen. There is similar degree of extrahepatic biliary duct dilatation estimated about 1.1 cm. There is suspected large descending duodenal diverticulum about 5 cm. There is no new focal abnormality of the pancreas or liver. Evaluation of bowel is limited without oral contrast. There is retained stool the colon. Appendix is not seen if still present. There is no small bowel dilatation, free fluid, free air. There is again infrarenal abdominal aortic aneurysm, distally about 3.5 cm in caliber, similar. There are again stents in the iliac arteries. There is scattered atherosclerotic calcification abdominal aorta, including near origins of the renal arteries bilaterally. There is more advanced degenerative disc disease L4-5. There is grade 1 anterior spondylolisthesis L3-L4, multilevel lumbar facet degenerative change. There is at least mild spinal stenosis L3-4. Impression: 1. There is stable distal infrarenal abdominal aortic aneurysm about 3.5 cm. 2. There is retained stool in the colon. 3. There is right renal cyst. There are stable nonspecific hypodense foci of the spleen. 4. There is similar degree of extra hepatic biliary ductal dilatation. There is a likely large descending duodenal diverticulum. 5. There is nonspecific gas in the urinary bladder. If there is not been recent catheterization, infection with gas-forming organism is not excluded. Electronically signed by: Mahin Wilson MD (07/24/2018 4:47 PM) [facility]
[2018-07-24] MEDS ORDERED: DEXTROSE 50% 25 GM / 50ML DISP.SYRIN. IV PRN ×2 (17:15→22:00)
[2018-07-24] MEDS ORDERED: ACETAMINOPHEN 325 MG TABLET. PO PRN (17:15)
[2018-07-24] MEDS ORDERED: ONDANSETRON PF 4 MG/2 ML VIAL. IV PRN (17:15)
[2018-07-24] MEDS ORDERED: ASPIRIN 325 MG TABLET PO ONE (17:30)
[2018-07-24] MEDS ORDERED: HYDROcodone/APAP 7.5/325MG 1 TAB TABLET PO ONE ×2 (17:30→22:00)
[2018-07-24] MEDS: IPRATRPIUM/ALBUTEROL 0.5/2.5MG 3 ML NEBU. NEB SCH (19:41)
[2018-07-24] MEDS ORDERED: NALO25TA2 PO (19:52)
[2018-07-24] MEDS ORDERED: ASPI325T8 PO (19:52)
[2018-07-24] MEDS ORDERED: oxyCODONE/APAP 7.5/325 1 TAB TABLET PO PRN (22:00)
[2018-07-24] MEDS: ATORVASTATIN CALCIUM 40 MG TABLET. PO SCH (22:06)
[2018-07-24] MEDS ORDERED: INSULIN LISPRO 300 UNITS/3 ML INSULN.PEN. SQ ONE (22:30)
[2018-07-24 22:57] VITALS: BP 125/49
[2018-07-24 22:58] VITALS: BP 116/35
[2018-07-25 02:53] VITALS: BP 117/60
[2018-07-25 07:00] VITALS: BP 102/72
[2018-07-25] MEDS ORDERED: INSULIN LISPRO 300 UNITS/3 ML INSULN.PEN. SQ SCH ×2 (07:30→08:00)
[2018-07-25] MEDS: IPRATRPIUM/ALBUTEROL 0.5/2.5MG 3 ML NEBU. NEB SCH ×3 (07:48→15:31)
[2018-07-25] MEDS ORDERED: ACETAMINOPHEN 325 MG TABLET. PO PRN (08:15)
[2018-07-25] MEDS: ASPIRIN 325 MG TABLET PO SCH (08:21)
[2018-07-25] MEDS: GLIMEPIRIDE 2 MG TABLET. PO SCH (08:21)
[2018-07-25] MEDS: INSULIN LISPRO 300 UNITS/3 ML INSULN.PEN. SQ SCH ×3 (08:30→17:00)
[2018-07-25] MEDS: NON FORMULARY ITEM (Naloxegol Oxalate (Movantik) 25 MG) PO SCH (09:00)
--- NOTE | 2018-07-25 09:49 | CONS ---
DATE OF CONSULTATION: ATTENDING PHYSICIAN: Dr. Lanie Irving. REASON FOR CONSULTATION: COPD, abdominal pain. HISTORY OF PRESENT ILLNESS: The patient is a 78-year-old female who is known to me. She has history of chronic obstructive airway disease. She also has chronic crackles, left base and has mild fibrotic changes. The patient was brought into the hospital complaining of pain in the right upper quadrant area. She said she did not have any shortness of breath, no cough, no fever, no chills. No chest pains. No headaches, no nausea, no vomiting, no diarrhea, no leg edema. No focal weakness or rash. CT angiogram was performed in the Emergency Room, which was reviewed by me. The patient has no evidence of pulmonary embolic disease. There are mild fibrotic changes seen in the right lower lobe and mildly enlarged subcarinal adenopathy which is unchanged from before. The patient's CT abdomen and pelvis showed a stable infrarenal abdominal aortic aneurysm about 3.5 cm in size. There was retained stool in the colon and also right renal cyst. There was a large descending duodenal diverticulum. Consultation requested for further evaluation and management. She feels better. She was placed on oxygen, but she feels like she does not need it. Saturations were 91-95% on 2 liters. PAST MEDICAL HISTORY: Significant for history of COPD, type 2 diabetes, chronic back pain, CAD. PAST SURGICAL HISTORY: Angioplasty, cholecystectomy, hernia repair, heart valve replacement and femoral stents. ALLERGIES: None. CURRENT MEDICATIONS: Reviewed as listed in the [facility] including antibiotics, bronchodilators, DuoNeb. REVIEW OF SYSTEMS: Twelve-point system review was obtained. Pertinent positive discussed in my history of present illness, otherwise noncontributory. All systems that were negative were reviewed as well. SOCIAL HISTORY: Smoked for about 35 years before quitting 10 years ago. PHYSICAL EXAMINATION: VITAL SIGNS: Reviewed. They were stable. Pulse ox 95% on 2 liters. NECK: Supple. LUNGS: Clear anteriorly with few fine crackles in the left base. CARDIOVASCULAR: Regular rate. ABDOMEN: Soft, obese. The tenderness in the right upper quadrant is mild on admission, but she says it is resolved. EXTREMITIES: With no pitting edema. LABORATORY DATA: Reviewed. White cell count 8.3, hemoglobin 12.7, platelets are 188. BUN and creatinine was 19 and 0.9. Lactic acid 4.1 on admission, now 2.6. IMPRESSION: 1. Chronic obstructive airway disease with mild fibrotic changes at the left base, clinically stable without any exacerbation. 2. Right upper quadrant pain. CT angiogram was performed and there was no evidence of pulmonary embolism. The etiology of the pain could be related to retained stool in the colon versus a large descending duodenal diverticulum. The patient also has an infrarenal abdominal aneurysm, which is about 3.5 cm in size. I do not find any pulmonary etiology for this pain. 3. Lactic acidosis with no obvious signs of infection. The lactic acid level has improved. Currently on empiric antibiotics. RECOMMENDATIONS: 1. From a pulmonary standpoint, I do not see a need for any further workup. Continue with present bronchodilators. 2. Follow GI recommendations regarding the abnormal CT abdomen and pelvis findings. 3. Follow up with Vascular Surgery regarding the abdominal aneurysm. 4. We will be available for any further recommendations. The patient to follow me in the office post-discharge. HI VILLEDA MD DR: SHAYNE/reinn JOB#: [id number] / [id number]
--- NOTE | 2018-07-25 10:18 | PDOC ---
Provider Note Provider Note Patient seen. History and Physical dictated. See dictation#[id number] CARMEN MARTINEZ MD Jul 25, 2018 10:18
[2018-07-25] MEDS: cefTRIAXone IV Push 1 GM VIAL. IVP SCH (10:59)
[2018-07-25 11:00] VITALS: BP 100/26
--- NOTE | 2018-07-25 11:09 | HP ---
ADMIT DATE: 07/24/2018 HISTORY OF PRESENT ILLNESS: This is a 78-year-old female who presented to my office yesterday with severe right lower chest and right upper abdominal pain that was going on for 4 days. Pain was constant, worse with inspiration. She did not have any nausea, vomiting, diarrhea, blood in stool. She did admit to fever for 2 days, but that day, she only had chills. She denied any coughing, but admitted to some dyspnea. She was splinting the right lower chest and abdomen when I saw her in the office. Pain was worse with deep breathing. The patient has a history of pulmonary fibrosis and I heard decreased breath sounds at both bases with some rales in the right lung with a painful inspiration. The patient was sent to the Emergency Room. CT scan of chest with PE protocol did not show pneumonia, but the patient was also noted to be hypoxic and was noted to have exacerbation of COPD with pleurisy and bronchitis and because of that, the patient was admitted for further evaluation and management. SYSTEMS REVIEW: At present time, the patient's dyspnea is slightly better. She was given steroids in the Emergency Room. The patient was started on Rocephin and oxygen. The patient denies any nausea or vomiting. She denies any dysuria. She does admit to be feeling weak and tired. Other systems reviewed and are negative. PAST MEDICAL HISTORY: The patient is known to have a history of COPD. She has a history of coronary artery disease. The patient had PCI, drug-eluting stent in the left circumflex artery in 09/2017, minimal irregularities of the left main and 20% LAD and 20% RCA. She also had aortic stenosis and had a TAVR bioprosthetic valve and during that hospitalization, the patient also had cardiac arrest. The patient has a history of carotid artery disease, [id number]; celiac artery stenosis; CHF, diastolic with normal EF; constipation; COPD; dry eyes; hyperlipidemia; chronic low back pain; meningioma arising from sphenoid bone, 1.8 cm; peripheral artery disease; pulmonary fibrosis; renal artery stenosis, moderate. PAST SURGICAL HISTORY: As noted earlier, the patient had TAVR bioprosthetic valve at [facility] on 12/06/2016, had a cardiac catheterization and PCI with ANNA in the left circumflex in 09/2017, CTA in 2016 with stents and right and left common iliac artery. The patient also had cataract extraction, cholecystectomy, appendectomy. She is known to have an abdominal aortic aneurysm, infrarenal. ALLERGIES: None known any. MEDICATIONS: Reviewed and reconciled. FAMILY HISTORY: Mother has hypertension and diabetes mellitus type 2. SOCIAL HISTORY: The patient quit smoking previously. No history of alcoholism or drug abuse. PHYSICAL EXAMINATION: GENERAL: The patient is an elderly female who is alert, oriented x 3 and not in any acute distress. VITAL SIGNS: Temperature 97.5, pulse 71 per minute, respirations 18 per minute, blood pressure 125/49 mmHg. The patient is alert, oriented, not in acute distress. EYES: Pupils reacting to light, conjunctivae pale, sclerae white. HENT: Unremarkable except for mild congestion of throat. SKIN: Warm and dry. There is no cyanosis. NECK: Supple. JVP normal. No thyromegaly. Trachea midline. LUNGS: Increased air entry in the right lung today with less splinting, a few rales bilaterally, no wheezing. Yesterday, she had some prolonged expiration and painful inspiration. ABDOMEN: Soft, nontender, no guarding, no rigidity. Bowel sounds present. EXTREMITIES: No edema. CENTRAL NERVOUS SYSTEM: Alert and oriented. No acute changes noted. Has some anxiety. LABORATORY FINDINGS: WBC count 8.3, hemoglobin 12.7, lactic acid 4.1, followup repeat lactic acid is 2.6. Troponin 0.051. BNP is 148. Repeat troponin was 0.054. INR is 1. Urinalysis shows positive nitrite, many bacteria and 5-10 wbc's, small leukocyte esterase, glucose 303. Repeat lactic acid has been 3.4 and 2.6 today, glucose 160. For diagnostics, a CT scan of abdomen and pelvis showed no evidence of pulmonary embolism or infiltrates. Stable distal infrarenal abdominal aortic aneurysm about 3.5 cm, retained stool in the colon, right renal cyst, likely large descending duodenal diverticulum, nonspecific gas in the urinary bladder, abdominal aortic aneurysm is unchanged, degenerative disk disease in the lumbar spine. IMPRESSION: 1. Acute exacerbation of chronic obstructive pulmonary disease. 2. Acute bronchitis. 3. Pleurisy. 4. Acute hypoxic respiratory failure. 5. Urinary tract infection. 6. Diabetes mellitus type 2 with hyperglycemia. 7. Lactic acidosis. 8. Peripheral artery disease. 9. Abdominal aortic aneurysm. 10. Coronary artery disease. 11. Hyperlipidemia. 12. Chronic low back pain with degenerative disk disease. 13. Carotid artery disease. 14. Congestive heart failure, diastolic, with normal ejection fraction, compensated. 15. History of aortic stenosis with bioprosthetic valve. 16. Peripheral artery disease. 17. History of meningioma. PLAN: Consult Dr. Polk for pulmonary evaluation and management. I started the patient on IV Rocephin. The patient was given steroid yesterday. We will continue breathing treatments. Condition and treatment discussed with the patient and her boyfriend. Consult Dr. Luther Brice because of the UTI, lactic acidosis and pleurisy and gas-forming organisms in the urine. For details, please review the orders. Follow up cultures. CARMEN MARTINEZ MD DR: LAYLA/erinn JOB#: [id number] / [id number]
--- NOTE | 2018-07-25 11:12 | PDOC ---
Infectious Disease Note Vital Sign Vital Signs Vital Signs Date Time Temp Pulse Resp B/P (MAP) Pulse Ox O2 Delivery O2 Flow Rate FiO2 07/25/18 07:48 95 Nasal Cannula 2.0 07/25/18 07:00 96.7 113 18 102/72 (82) 96.7 Labs Lab Laboratory Tests Test 07/24/18 13:25 07/24/18 14:00 07/24/18 17:50 07/24/18 20:25 White Blood Count 8.3 x10^3/uL (4.0-11.0) Red Blood Count 4.54 x10^6/uL (3.50-5.40) Hemoglobin 12.7 g/dL (12.0-15.5) Hematocrit 38.5 % (36.0-47.0) Mean Corpuscular Volume 85 fL (79-100) Mean Corpuscular Hemoglobin 28 pg (25-35) Mean Corpuscular Hemoglobin Concent 33 g/dL (31-37) Red Cell Distribution Width 16.7 % (11.5-14.5) Platelet Count 188 x10^3/uL (140-400) Neutrophils (%) (Auto) 59 % (31-73) Lymphocytes (%) (Auto) 26 % (24-48) Monocytes (%) (Auto) 11 % (0-9) Eosinophils (%) (Auto) 2 % (0-3) Basophils (%) (Auto) 1 % (0-3) Neutrophils # (Auto) 4.9 x10^3uL (1.8-7.7) Lymphocytes # (Auto) 2.2 x10^3/uL (1.0-4.8) Monocytes # (Auto) 0.9 x10^3/uL (0.0-1.1) Eosinophils # (Auto) 0.2 x10^3/uL (0.0-0.7) Basophils # (Auto) 0.1 x10^3/uL (0.0-0.2) Prothrombin Time 13.1 SEC (11.7-14.0) Prothromb Time International Ratio 1.0 (0.8-1.1) Activated Partial Thromboplast Time 27 SEC (24-38) Sodium Level 143 mmol/L (136-145) Potassium Level 4.0 mmol/L (3.5-5.1) Chloride Level 102 mmol/L (98-107) Carbon Dioxide Level 26 mmol/L (21-32) Anion Gap 15 (6-14) Blood Urea Nitrogen 19 mg/dL (7-20) Creatinine 0.9 mg/dL (0.6-1.0) Estimated GFR (Cockcroft-Gault) 60.4 BUN/Creatinine Ratio 21 (6-20) Glucose Level 80 mg/dL (70-99) Lactic Acid Level 4.1 mmol/L (0.4-2.0) 2.6 mmol/L (0.4-2.0) Calcium Level 9.3 mg/dL (8.5-10.1) Magnesium Level 1.8 mg/dL (1.8-2.4) Total Bilirubin 0.5 mg/dL (0.2-1.0) Aspartate Amino Transf (AST/SGOT) 18 U/L (15-37) Alanine Aminotransferase (ALT/SGPT) 23 U/L (14-59) Alkaline Phosphatase 70 U/L (46-116) Creatine Kinase 51 U/L (26-192) Creatine Kinase MB (Mass) 0.9 ng/mL (0.0-3.6) Creatine Kinase MB Relative Index % (0-4) Troponin I Quantitative 0.051 ng/mL (0.000-0.055) 0.054 ng/mL (0.000-0.055) 0.058 ng/mL (0.000-0.055) KJ-Tyl-W-Type Natriuretic Peptide 148 pg/mL (0-449) Total Protein 7.8 g/dL (6.4-8.2) Albumin 3.9 g/dL (3.4-5.0) Albumin/Globulin Ratio 1.0 (1.0-1.7) Lipase 192 U/L (73-393) Urine Collection Type Unknown Urine Color Yellow Urine Clarity Clear Urine pH 5.0 Urine Specific [place] 1.025 Urine Protein Negative mg/dL (NEG-TRACE) Urine Glucose (UA) Negative mg/dL (NEG) Urine Ketones (Stick) Negative mg/dL (NEG) Urine Blood Negative (NEG) Urine Nitrite Positive (NEG) Urine Bilirubin Small (NEG) Urine Urobilinogen Dipstick 1.0 mg/dL (0.2 mg/dL) Urine Leukocyte Esterase Small (NEG) Urine RBC 1-2 /HPF (0-2) Urine WBC 5-10 /HPF (0-4) Urine Squamous Epithelial Cells Mod /LPF Urine Bacteria Many /HPF (0-FEW) Test 07/24/18 20:38 07/25/18 01:00 07/25/18 06:04 07/25/18 08:00 Glucose (Fingerstick) 303 mg/dL (70-99) 160 mg/dL (70-99) Lactic Acid Level 3.4 mmol/L (0.4-2.0) 2.6 mmol/L (0.4-2.0) Objective Assessment Chest pain , pleuritic Hypoxia ? COPD exacerbation Plan Plan of Care supportive care keshawn neves/c d/w FELIPA Avila MD Jul 25, 2018 11:12
[2018-07-25 15:00] VITALS: BP 118/40
[2018-07-25 19:00] VITALS: BP 124/44
[2018-07-25] MEDS: LACTOBACILLUS RHAMNOSUS GG 1 CAPSULE. PO SCH (20:21)
[2018-07-25] MEDS: ATORVASTATIN CALCIUM 40 MG TABLET. PO SCH (20:21)
[2018-07-25] MEDS ORDERED: CEFPODOXIME PROXETIL 100 MG TABLET. PO SCH (21:00)
[2018-07-25 23:00] VITALS: BP 93/31
--- NOTE | 2018-07-25 23:50 | CONS ---
DATE OF CONSULTATION: 07/25/2018 REQUESTING PHYSICIAN: Dr. Irving. REASON FOR CONSULTATION: Chest pain and lactic acidosis. HISTORY OF PRESENT ILLNESS: This is a 78-year-old female who came in with right-sided chest and maybe flank pain. The patient was evidently hypoxic in the ER and was admitted for further management. The patient also had lactic acid up to 4.1. The patient was given a dose of Rocephin. The patient now feels so good that she says "can I go home?" The patient denies any nausea, vomiting or diarrhea. Denies any chest pain, shortness of breath or abdominal pain now. Denies any headache or visual symptoms. The patient denies any urinary symptoms or bowel symptoms. PAST MEDICAL HISTORY: Positive for COPD, diabetes and coronary artery disease. PAST SURGICAL HISTORY: Has had angioplasty, cholecystectomy, hernia repair and valve replacement done in the past. SOCIAL HISTORY: Negative for smoking, alcohol or illicit drug use. ALLERGIES: No known drug allergies. CURRENT MEDICATIONS: The patient has received one dose of Rocephin. She is on ceftriaxone written for q. 24 hours. REVIEW OF SYSTEMS: As per HPI; all other systems reviewed are negative. PHYSICAL EXAMINATION: GENERAL: On examination, alert, oriented female, not in any distress. VITAL SIGNS: Stable. Afebrile. HEENT: NAD. NECK: Supple. No JVP, no lymphadenopathy. LUNGS: Clear. Basal crackles present in the lungs. HEART: S1, S2 regular. No gallop or murmur. ABDOMEN: Soft, nontender. No organomegaly. EXTREMITIES: No edema or cyanosis. SKIN EXAMINATION: Unremarkable. NEUROLOGIC: The patient is neurologically intact. LABORATORY DATA: White count is normal. BUN and creatinine are normal. Lactic acid 4.1, which is very quickly cleared down to 2.6. Urinalysis unremarkable. Chest x-ray, chest CT and abdominal CT negative for any acute changes. IMPRESSION: 1. Lactic acidosis. 2. Chest pain, pleuritic in nature. 3. Emergency Room at least reported hypoxemia. 4. Chronic obstructive pulmonary disease exacerbation. 5. Coronary artery disease. RECOMMENDATIONS: Continue supportive care. Rocephin soon to be able to change to p.o. Vantin for discharge in a day or so. Thank you very much, Dr. Irving, for giving me the opportunity to participate in this patient's care. FELIPA FOSS MD DR: HATTIE/erinn JOB#: [id number] / [id number]
[2018-07-26 03:00] VITALS: BP 105/47
[2018-07-26 03:56] LABS: BASO % 1 % (0-3); EOS # 0.1 x10^3/uL (0.0-0.7); EOS % 1 % (0-3); HEMOGLOBIN 10.8 g/dL (12.0-15.5); LYMPH # 2.4 x10^3/uL (1.0-4.8); LYMPH % 30 % (24-48); MEAN CORPUSCULAR HEMOGLOBIN 29 pg (25-35); MEAN CORPUSCULAR HGB CONC 34 g/dL (31-37); MEAN CORPUSCULAR VOLUME 85 fL (79-100); MONO # 0.6 x10^3/uL (0.0-1.1); MONO % 8 % (0-9); NEUT # 4.9 x10^3uL (1.8-7.7); NEUT % 60 % (31-73); PLATELET COUNT 168 x10^3/uL (140-400); RED BLOOD COUNT 3.76 x10^6/uL (3.50-5.40); RED CELL DISTRIBUTION WIDTH 16.8 % (11.5-14.5); WHITE BLOOD COUNT 8.1 x10^3/uL (4.0-11.0)
[2018-07-26 05:27] LABS: ALBUMIN 3.2 g/dL (3.4-5.0); ALBUMIN/GLOBULIN RATIO 1.1 (1.0-1.7); CALCIUM 8.4 mg/dL (8.5-10.1); CREATININE 0.9 mg/dL (0.6-1.0); GFR 60.4; POTASSIUM 4.1 mmol/L (3.5-5.1); TOTAL BILIRUBIN 0.2 mg/dL (0.2-1.0); TOTAL PROTEIN 6.2 g/dL (6.4-8.2)
[2018-07-26 07:00] VITALS: BP 90/69
[2018-07-26] MEDS: INSULIN LISPRO 300 UNITS/3 ML INSULN.PEN. SQ SCH (08:00)
[2018-07-26] MEDS: GLIMEPIRIDE 2 MG TABLET. PO SCH (09:00)
[2018-07-26] MEDS: NON FORMULARY ITEM (Naloxegol Oxalate (Movantik) 25 MG) PO SCH (09:00)
[2018-07-26] MEDS: ASPIRIN 325 MG TABLET PO SCH (09:14)
[2018-07-26] MEDS: LACTOBACILLUS RHAMNOSUS GG 1 CAPSULE. PO SCH (09:14)
[2018-07-26] MEDS: cefTRIAXone IV Push 1 GM VIAL. IVP SCH (09:15)
--- NOTE | 2018-07-26 09:59 | DISCH ---
DISCHARGE INSTRUCTIONS Condition on Discharge Condition on Discharge: Stable Activity After Discharge Activity Instructions for Disc: No restrictions Weight Bearing Status after Di: No restrictions Diet after Discharge Diet after Discharge: Diabetic No Calorie Level Checks after Discharge DC Comment: Check blood sugar daily in AM Contacting the DRKelsey after DC Call your doctor for: Concerns you may have Follow-Up Follow up with: Dr.Pratip Martinez in 5 days CARMEN MARTINEZ MD Jul 26, 2018 09:59
[2018-07-26] MEDS ORDERED: CEFP200T PO (10:03)
[2018-07-26] MEDS ORDERED: PROAIR HFA8.5 GM INH (10:03)
--- NOTE | 2018-07-26 10:10 | PDOC3 ---
IM DISCHARGE SUMMARY Date of Admission Date of Admission Date of Admission: Jul 24, 2018 at 17:25 Date of Discharge Date of Discharge July 26, 2018 Primary Diagnosis Primary Diagnosis 1. Acute exacerbation of chronic obstructive pulmonary disease. 2. Acute bronchitis. No sepsis. 3. Pleurisy. 4. Acute hypoxic respiratory failure. 5. Urinary tract infection. 6. Diabetes mellitus type 2 with hyperglycemia. 7. Lactic acidosis. 8. Peripheral artery disease. 9. Abdominal aortic aneurysm. 10. Coronary artery disease. 11. Hyperlipidemia. 12. Chronic low back pain with degenerative disk disease. 13. Carotid artery disease. 14. Congestive heart failure, diastolic, with normal ejection fraction, compensated. 15. History of aortic stenosis with bioprosthetic valve. 16. Peripheral artery disease. 17. History of meningioma. Consults Consults Luther Brice MD, Dr. Polk Labs Labs Laboratory Tests Test 07/24/18 13:25 07/24/18 14:00 07/24/18 17:50 07/24/18 20:25 White Blood Count 8.3 x10^3/uL (4.0-11.0) Red Blood Count 4.54 x10^6/uL (3.50-5.40) Hemoglobin 12.7 g/dL (12.0-15.5) Hematocrit 38.5 % (36.0-47.0) Mean Corpuscular Volume 85 fL (79-100) Mean Corpuscular Hemoglobin 28 pg (25-35) Mean Corpuscular Hemoglobin Concent 33 g/dL (31-37) Red Cell Distribution Width 16.7 % (11.5-14.5) Platelet Count 188 x10^3/uL (140-400) Neutrophils (%) (Auto) 59 % (31-73) Lymphocytes (%) (Auto) 26 % (24-48) Monocytes (%) (Auto) 11 % (0-9) Eosinophils (%) (Auto) 2 % (0-3) Basophils (%) (Auto) 1 % (0-3) Neutrophils # (Auto) 4.9 x10^3uL (1.8-7.7) Lymphocytes # (Auto) 2.2 x10^3/uL (1.0-4.8) Monocytes # (Auto) 0.9 x10^3/uL (0.0-1.1) Eosinophils # (Auto) 0.2 x10^3/uL (0.0-0.7) Basophils # (Auto) 0.1 x10^3/uL (0.0-0.2) Prothrombin Time 13.1 SEC (11.7-14.0) Prothromb Time International Ratio 1.0 (0.8-1.1) Activated Partial Thromboplast Time 27 SEC (24-38) Sodium Level 143 mmol/L (136-145) Potassium Level 4.0 mmol/L (3.5-5.1) Chloride Level 102 mmol/L (98-107) Carbon Dioxide Level 26 mmol/L (21-32) Anion Gap 15 (6-14) Blood Urea Nitrogen 19 mg/dL (7-20) Creatinine 0.9 mg/dL (0.6-1.0) Estimated GFR (Cockcroft-Gault) 60.4 BUN/Creatinine Ratio 21 (6-20) Glucose Level 80 mg/dL (70-99) Lactic Acid Level 4.1 mmol/L (0.4-2.0) 2.6 mmol/L (0.4-2.0) Calcium Level 9.3 mg/dL (8.5-10.1) Magnesium Level 1.8 mg/dL (1.8-2.4) Total Bilirubin 0.5 mg/dL (0.2-1.0) Aspartate Amino Transf (AST/SGOT) 18 U/L (15-37) Alanine Aminotransferase (ALT/SGPT) 23 U/L (14-59) Alkaline Phosphatase 70 U/L (46-116) Creatine Kinase 51 U/L (26-192) Creatine Kinase MB (Mass) 0.9 ng/mL (0.0-3.6) Creatine Kinase MB Relative Index % (0-4) Troponin I Quantitative 0.051 ng/mL (0.000-0.055) 0.054 ng/mL (0.000-0.055) 0.058 ng/mL (0.000-0.055) YA-Zox-B-Type Natriuretic Peptide 148 pg/mL (0-449) Total Protein 7.8 g/dL (6.4-8.2) Albumin 3.9 g/dL (3.4-5.0) Albumin/Globulin Ratio 1.0 (1.0-1.7) Lipase 192 U/L (73-393) Urine Collection Type Unknown Urine Color Yellow Urine Clarity Clear Urine pH 5.0 Urine Specific [place] 1.025 Urine Protein Negative mg/dL (NEG-TRACE) Urine Glucose (UA) Negative mg/dL (NEG) Urine Ketones (Stick) Negative mg/dL (NEG) Urine Blood Negative (NEG) Urine Nitrite Positive (NEG) Urine Bilirubin Small (NEG) Urine Urobilinogen Dipstick 1.0 mg/dL (0.2 mg/dL) Urine Leukocyte Esterase Small (NEG) Urine RBC 1-2 /HPF (0-2) Urine WBC 5-10 /HPF (0-4) Urine Squamous Epithelial Cells Mod /LPF Urine Bacteria Many /HPF (0-FEW) Test 07/24/18 20:38 07/25/18 01:00 07/25/18 06:04 07/25/18 08:00 Glucose (Fingerstick) 303 mg/dL (70-99) 160 mg/dL (70-99) Lactic Acid Level 3.4 mmol/L (0.4-2.0) 2.6 mmol/L (0.4-2.0) Test 07/25/18 11:27 07/25/18 16:25 07/25/18 20:59 07/26/18 03:00 Glucose (Fingerstick) 249 mg/dL (70-99) 132 mg/dL (70-99) 240 mg/dL (70-99) White Blood Count 8.1 x10^3/uL (4.0-11.0) Red Blood Count 3.76 x10^6/uL (3.50-5.40) Hemoglobin 10.8 g/dL (12.0-15.5) Hematocrit 32.0 % (36.0-47.0) Mean Corpuscular Volume 85 fL (79-100) Mean Corpuscular Hemoglobin 29 pg (25-35) Mean Corpuscular Hemoglobin Concent 34 g/dL (31-37) Red Cell Distribution Width 16.8 % (11.5-14.5) Platelet Count 168 x10^3/uL (140-400) Neutrophils (%) (Auto) 60 % (31-73) Lymphocytes (%) (Auto) 30 % (24-48) Monocytes (%) (Auto) 8 % (0-9) Eosinophils (%) (Auto) 1 % (0-3) Basophils (%) (Auto) 1 % (0-3) Neutrophils # (Auto) 4.9 x10^3uL (1.8-7.7) Lymphocytes # (Auto) 2.4 x10^3/uL (1.0-4.8) Monocytes # (Auto) 0.6 x10^3/uL (0.0-1.1) Eosinophils # (Auto) 0.1 x10^3/uL (0.0-0.7) Basophils # (Auto) 0.0 x10^3/uL (0.0-0.2) Sodium Level 145 mmol/L (136-145) Potassium Level 4.1 mmol/L (3.5-5.1) Chloride Level 107 mmol/L (98-107) Carbon Dioxide Level 27 mmol/L (21-32) Anion Gap 11 (6-14) Blood Urea Nitrogen 17 mg/dL (7-20) Creatinine 0.9 mg/dL (0.6-1.0) Estimated GFR (Cockcroft-Gault) 60.4 BUN/Creatinine Ratio 19 (6-20) Glucose Level 138 mg/dL (70-99) Calcium Level 8.4 mg/dL (8.5-10.1) Total Bilirubin 0.2 mg/dL (0.2-1.0) Aspartate Amino Transf (AST/SGOT) 23 U/L (15-37) Alanine Aminotransferase (ALT/SGPT) 21 U/L (14-59) Alkaline Phosphatase 62 U/L (46-116) Total Protein 6.2 g/dL (6.4-8.2) Albumin 3.2 g/dL (3.4-5.0) Albumin/Globulin Ratio 1.1 (1.0-1.7) Test 07/26/18 07:57 Glucose (Fingerstick) 81 mg/dL (70-99) Brief hospital course Brief hospital course The patient is a 78 year old female who presented with right-sided lower chest and upper abdominal pain that was pruritic in nature lasting for 4 days prior to admission. Patient had some difficulty breathing. Patient was admitted for pleurisy, acute respiratory failure and exacerbation of COPD. For more details regarding the past history, family history, social history, surgical history and other details, please refer to History and Physical. During the stay in the hospital patient was noted to have elevated lactic acid level of 4.1 and then it dropped quickly to 2.6. Patient was given IV fluids. CT scan of chest did not show any acute infiltrates or pulmonary embolism. Patient was treated for acute hypoxic respiratory failure with exacerbation of COPD. Urinalysis was abnormal but urine culture is pending. Patient did not have any significant symptoms suggestive of UTI. Clinically no evidence of sepsis. Consulted Dr. Polk for pulmonary evaluation and management. I started the patient on IV Rocephin. The patient was given steroid yesterday. We will continue breathing treatments. Condition and treatment discussed with the patient and her boyfriend. Consult Dr. Luther Brice because of the UTI, lactic acidosis and pleurisy and gas-forming organisms in the urine. For details, please review the orders. Follow up cultures. Patient was initially treated with IV Rocephin but as she is doing better she' ll be discharged home on Vantin 200 mg twice a day for 5 days. Patient has an albuterol inhaler at home that she will continue to use 2 puffs 4 times a day as needed. Patient is feeling much better and will be discharged today. Medications Medications reviewed and reconciled for discharge. Allergy Allergies Coded Allergies Type Severity Reaction Last Updated Verified No Known Drug Allergies 07/30/15 No Follow up in 5 days. DISPOSITION: Home Comments Discharge Management - 35 minutes. For other details please refer to discharge instructions CARMEN MARTINEZ MD Jul 26, 2018 10:09
--- NOTE | 2018-07-26 10:46 | PDOC ---
Infectious Disease Note Subjective Subjective pt is feeling good, ready to go home ROS ROS no n/v/d/sob Vital Sign Vital Signs Vital Signs Date Time Temp Pulse Resp B/P (MAP) Pulse Ox O2 Delivery O2 Flow Rate FiO2 07/26/18 08:00 Room Air 07/26/18 07:00 97.5 52 18 90/69 (76) 93 2.0 97.5 Physical Exam PHYSICAL EXAM GENERAL: On examination, alert, oriented female, not in any distress. VITAL SIGNS: Stable. Afebrile. HEENT: NAD. NECK: Supple. No JVP, no lymphadenopathy. LUNGS: Clear. Basal crackles present in the lungs. HEART: S1, S2 regular. No gallop or murmur. ABDOMEN: Soft, nontender. No organomegaly. EXTREMITIES: No edema or cyanosis. SKIN EXAMINATION: Unremarkable. NEUROLOGIC: The patient is neurologically intact. Labs Lab Laboratory Tests Test 07/25/18 11:27 07/25/18 16:25 07/25/18 20:59 07/26/18 03:00 Glucose (Fingerstick) 249 mg/dL (70-99) 132 mg/dL (70-99) 240 mg/dL (70-99) White Blood Count 8.1 x10^3/uL (4.0-11.0) Red Blood Count 3.76 x10^6/uL (3.50-5.40) Hemoglobin 10.8 g/dL (12.0-15.5) Hematocrit 32.0 % (36.0-47.0) Mean Corpuscular Volume 85 fL (79-100) Mean Corpuscular Hemoglobin 29 pg (25-35) Mean Corpuscular Hemoglobin Concent 34 g/dL (31-37) Red Cell Distribution Width 16.8 % (11.5-14.5) Platelet Count 168 x10^3/uL (140-400) Neutrophils (%) (Auto) 60 % (31-73) Lymphocytes (%) (Auto) 30 % (24-48) Monocytes (%) (Auto) 8 % (0-9) Eosinophils (%) (Auto) 1 % (0-3) Basophils (%) (Auto) 1 % (0-3) Neutrophils # (Auto) 4.9 x10^3uL (1.8-7.7) Lymphocytes # (Auto) 2.4 x10^3/uL (1.0-4.8) Monocytes # (Auto) 0.6 x10^3/uL (0.0-1.1) Eosinophils # (Auto) 0.1 x10^3/uL (0.0-0.7) Basophils # (Auto) 0.0 x10^3/uL (0.0-0.2) Sodium Level 145 mmol/L (136-145) Potassium Level 4.1 mmol/L (3.5-5.1) Chloride Level 107 mmol/L (98-107) Carbon Dioxide Level 27 mmol/L (21-32) Anion Gap 11 (6-14) Blood Urea Nitrogen 17 mg/dL (7-20) Creatinine 0.9 mg/dL (0.6-1.0) Estimated GFR (Cockcroft-Gault) 60.4 BUN/Creatinine Ratio 19 (6-20) Glucose Level 138 mg/dL (70-99) Calcium Level 8.4 mg/dL (8.5-10.1) Total Bilirubin 0.2 mg/dL (0.2-1.0) Aspartate Amino Transf (AST/SGOT) 23 U/L (15-37) Alanine Aminotransferase (ALT/SGPT) 21 U/L (14-59) Alkaline Phosphatase 62 U/L (46-116) Total Protein 6.2 g/dL (6.4-8.2) Albumin 3.2 g/dL (3.4-5.0) Albumin/Globulin Ratio 1.1 (1.0-1.7) Test 07/26/18 07:57 Glucose (Fingerstick) 81 mg/dL (70-99) Objective Assessment Chest pain , pleuritic Hypoxia ? COPD exacerbation Plan Plan of Care supportive care keshawn neves/FELIPA Delgado MD Jul 26, 2018 10:46
--- NOTE | 2018-07-26 11:28 | PDOC ---
PULMONARY PROGRESS NOTES Subjective no complain Vitals Vital Signs Date Time Temp Pulse Resp B/P (MAP) Pulse Ox O2 Delivery O2 Flow Rate FiO2 07/26/18 08:00 Room Air 07/26/18 07:00 97.5 52 18 90/69 (76) 93 2.0 97.5 General: Alert, No acute distress Lungs: Clear Cardiovascular: S1 Abdomen: Soft Neuro Exam: Alert Extremities: No Edema Skin: Warm Labs Laboratory Tests Test 07/24/18 13:25 07/24/18 14:00 07/24/18 17:50 07/24/18 20:25 White Blood Count 8.3 x10^3/uL (4.0-11.0) Red Blood Count 4.54 x10^6/uL (3.50-5.40) Hemoglobin 12.7 g/dL (12.0-15.5) Hematocrit 38.5 % (36.0-47.0) Mean Corpuscular Volume 85 fL (79-100) Mean Corpuscular Hemoglobin 28 pg (25-35) Mean Corpuscular Hemoglobin Concent 33 g/dL (31-37) Red Cell Distribution Width 16.7 % (11.5-14.5) Platelet Count 188 x10^3/uL (140-400) Neutrophils (%) (Auto) 59 % (31-73) Lymphocytes (%) (Auto) 26 % (24-48) Monocytes (%) (Auto) 11 % (0-9) Eosinophils (%) (Auto) 2 % (0-3) Basophils (%) (Auto) 1 % (0-3) Neutrophils # (Auto) 4.9 x10^3uL (1.8-7.7) Lymphocytes # (Auto) 2.2 x10^3/uL (1.0-4.8) Monocytes # (Auto) 0.9 x10^3/uL (0.0-1.1) Eosinophils # (Auto) 0.2 x10^3/uL (0.0-0.7) Basophils # (Auto) 0.1 x10^3/uL (0.0-0.2) Prothrombin Time 13.1 SEC (11.7-14.0) Prothromb Time International Ratio 1.0 (0.8-1.1) Activated Partial Thromboplast Time 27 SEC (24-38) Sodium Level 143 mmol/L (136-145) Potassium Level 4.0 mmol/L (3.5-5.1) Chloride Level 102 mmol/L (98-107) Carbon Dioxide Level 26 mmol/L (21-32) Anion Gap 15 (6-14) Blood Urea Nitrogen 19 mg/dL (7-20) Creatinine 0.9 mg/dL (0.6-1.0) Estimated GFR (Cockcroft-Gault) 60.4 BUN/Creatinine Ratio 21 (6-20) Glucose Level 80 mg/dL (70-99) Lactic Acid Level 4.1 mmol/L (0.4-2.0) 2.6 mmol/L (0.4-2.0) Calcium Level 9.3 mg/dL (8.5-10.1) Magnesium Level 1.8 mg/dL (1.8-2.4) Total Bilirubin 0.5 mg/dL (0.2-1.0) Aspartate Amino Transf (AST/SGOT) 18 U/L (15-37) Alanine Aminotransferase (ALT/SGPT) 23 U/L (14-59) Alkaline Phosphatase 70 U/L (46-116) Creatine Kinase 51 U/L (26-192) Creatine Kinase MB (Mass) 0.9 ng/mL (0.0-3.6) Creatine Kinase MB Relative Index % (0-4) Troponin I Quantitative 0.051 ng/mL (0.000-0.055) 0.054 ng/mL (0.000-0.055) 0.058 ng/mL (0.000-0.055) FD-Two-Q-Type Natriuretic Peptide 148 pg/mL (0-449) Total Protein 7.8 g/dL (6.4-8.2) Albumin 3.9 g/dL (3.4-5.0) Albumin/Globulin Ratio 1.0 (1.0-1.7) Lipase 192 U/L (73-393) Urine Collection Type Unknown Urine Color Yellow Urine Clarity Clear Urine pH 5.0 Urine Specific [place] 1.025 Urine Protein Negative mg/dL (NEG-TRACE) Urine Glucose (UA) Negative mg/dL (NEG) Urine Ketones (Stick) Negative mg/dL (NEG) Urine Blood Negative (NEG) Urine Nitrite Positive (NEG) Urine Bilirubin Small (NEG) Urine Urobilinogen Dipstick 1.0 mg/dL (0.2 mg/dL) Urine Leukocyte Esterase Small (NEG) Urine RBC 1-2 /HPF (0-2) Urine WBC 5-10 /HPF (0-4) Urine Squamous Epithelial Cells Mod /LPF Urine Bacteria Many /HPF (0-FEW) Test 07/24/18 20:38 07/25/18 01:00 07/25/18 06:04 07/25/18 08:00 Glucose (Fingerstick) 303 mg/dL (70-99) 160 mg/dL (70-99) Lactic Acid Level 3.4 mmol/L (0.4-2.0) 2.6 mmol/L (0.4-2.0) Test 07/25/18 11:27 07/25/18 16:25 07/25/18 20:59 07/26/18 03:00 Glucose (Fingerstick) 249 mg/dL (70-99) 132 mg/dL (70-99) 240 mg/dL (70-99) White Blood Count 8.1 x10^3/uL (4.0-11.0) Red Blood Count 3.76 x10^6/uL (3.50-5.40) Hemoglobin 10.8 g/dL (12.0-15.5) Hematocrit 32.0 % (36.0-47.0) Mean Corpuscular Volume 85 fL (79-100) Mean Corpuscular Hemoglobin 29 pg (25-35) Mean Corpuscular Hemoglobin Concent 34 g/dL (31-37) Red Cell Distribution Width 16.8 % (11.5-14.5) Platelet Count 168 x10^3/uL (140-400) Neutrophils (%) (Auto) 60 % (31-73) Lymphocytes (%) (Auto) 30 % (24-48) Monocytes (%) (Auto) 8 % (0-9) Eosinophils (%) (Auto) 1 % (0-3) Basophils (%) (Auto) 1 % (0-3) Neutrophils # (Auto) 4.9 x10^3uL (1.8-7.7) Lymphocytes # (Auto) 2.4 x10^3/uL (1.0-4.8) Monocytes # (Auto) 0.6 x10^3/uL (0.0-1.1) Eosinophils # (Auto) 0.1 x10^3/uL (0.0-0.7) Basophils # (Auto) 0.0 x10^3/uL (0.0-0.2) Sodium Level 145 mmol/L (136-145) Potassium Level 4.1 mmol/L (3.5-5.1) Chloride Level 107 mmol/L (98-107) Carbon Dioxide Level 27 mmol/L (21-32) Anion Gap 11 (6-14) Blood Urea Nitrogen 17 mg/dL (7-20) Creatinine 0.9 mg/dL (0.6-1.0) Estimated GFR (Cockcroft-Gault) 60.4 BUN/Creatinine Ratio 19 (6-20) Glucose Level 138 mg/dL (70-99) Calcium Level 8.4 mg/dL (8.5-10.1) Total Bilirubin 0.2 mg/dL (0.2-1.0) Aspartate Amino Transf (AST/SGOT) 23 U/L (15-37) Alanine Aminotransferase (ALT/SGPT) 21 U/L (14-59) Alkaline Phosphatase 62 U/L (46-116) Total Protein 6.2 g/dL (6.4-8.2) Albumin 3.2 g/dL (3.4-5.0) Albumin/Globulin Ratio 1.1 (1.0-1.7) Test 07/26/18 07:57 Glucose (Fingerstick) 81 mg/dL (70-99) Laboratory Tests Test 07/25/18 16:25 07/25/18 20:59 07/26/18 03:00 07/26/18 07:57 Glucose (Fingerstick) 132 mg/dL (70-99) 240 mg/dL (70-99) 81 mg/dL (70-99) White Blood Count 8.1 x10^3/uL (4.0-11.0) Red Blood Count 3.76 x10^6/uL (3.50-5.40) Hemoglobin 10.8 g/dL (12.0-15.5) Hematocrit 32.0 % (36.0-47.0) Mean Corpuscular Volume 85 fL (79-100) Mean Corpuscular Hemoglobin 29 pg (25-35) Mean Corpuscular Hemoglobin Concent 34 g/dL (31-37) Red Cell Distribution Width 16.8 % (11.5-14.5) Platelet Count 168 x10^3/uL (140-400) Neutrophils (%) (Auto) 60 % (31-73) Lymphocytes (%) (Auto) 30 % (24-48) Monocytes (%) (Auto) 8 % (0-9) Eosinophils (%) (Auto) 1 % (0-3) Basophils (%) (Auto) 1 % (0-3) Neutrophils # (Auto) 4.9 x10^3uL (1.8-7.7) Lymphocytes # (Auto) 2.4 x10^3/uL (1.0-4.8) Monocytes # (Auto) 0.6 x10^3/uL (0.0-1.1) Eosinophils # (Auto) 0.1 x10^3/uL (0.0-0.7) Basophils # (Auto) 0.0 x10^3/uL (0.0-0.2) Sodium Level 145 mmol/L (136-145) Potassium Level 4.1 mmol/L (3.5-5.1) Chloride Level 107 mmol/L (98-107) Carbon Dioxide Level 27 mmol/L (21-32) Anion Gap 11 (6-14) Blood Urea Nitrogen 17 mg/dL (7-20) Creatinine 0.9 mg/dL (0.6-1.0) Estimated GFR (Cockcroft-Gault) 60.4 BUN/Creatinine Ratio 19 (6-20) Glucose Level 138 mg/dL (70-99) Calcium Level 8.4 mg/dL (8.5-10.1) Total Bilirubin 0.2 mg/dL (0.2-1.0) Aspartate Amino Transf (AST/SGOT) 23 U/L (15-37) Alanine Aminotransferase (ALT/SGPT) 21 U/L (14-59) Alkaline Phosphatase 62 U/L (46-116) Total Protein 6.2 g/dL (6.4-8.2) Albumin 3.2 g/dL (3.4-5.0) Albumin/Globulin Ratio 1.1 (1.0-1.7) Medications Active Scripts Medications Dose Route/Sig Max Daily Dose Days Date Category Cefpodoxime Proxetil 200 Mg Tablet 1 Tab PO BID 07/26/18 Rx Proair Hfa Inhaler (Albuterol Sulfate) 8.5 Gm Hfa.aer.ad 2 Puff INH PRN Q6HRS PRN 07/26/18 Rx Movantik (Naloxegol Oxalate) 25 Mg Tablet 25 Mg PO DAILY 07/24/18 Reported Aspirin 325 Mg Tablet 1 Tab PO DAILY 07/24/18 Reported Atorvastatin Calcium 40 Mg Tablet 40 Mg PO DAILY 08/09/17 Reported Metformin Hcl 1,000 Mg Tablet 1,000 PO BID 05/15/17 Reported Oxycodon-Acetaminophen 7.5-325 (Oxycodone Hcl/Acetaminophen) 1 Each Tablet 1 Each PO PRN Q6HRS PRN 02/17/16 Reported Glimepiride 4 Mg Tablet 1 Tab PO DAILY 02/17/16 Reported Impression . 1. Chronic obstructive airway disease with mild fibrotic changes at the left base, clinically stable without any exacerbation. 2. Right upper quadrant pain. CT angiogram was performed and there was no evidence of pulmonary embolism. The etiology of the pain could be related to retained stool in the colon versus a large descending duodenal diverticulum. The patient also has an infrarenal abdominal aneurysm, which is about 3.5 cm in size. I do not find any pulmonary etiology for this pain. 3. Lactic acidosis with no obvious signs of infection. The lactic acid level has improved. Currently on empiric antibiotics. Plan . 1. From a pulmonary standpoint, I do not see a need for any further workup. Continue with present bronchodilators. 2. Follow GI recommendations regarding the abnormal CT abdomen and pelvis findings. 3. Follow up with Vascular Surgery regarding the abdominal aneurysm. 4. We will be available for any further recommendations. The patient to follow me in the office post-discharge. HI VILLEDA MD Jul 26, 2018 11:28
[2018-07-26] MEDS ORDERED: IPRATRPIUM/ALBUTEROL 0.5/2.5MG 3 ML NEBU. NEB SCH (12:00)
== END 2018-07-26 11:10 | disposition home or self-care (01) | DRG 189 ==
LOC: ER 12:36 → 5 NORTH 17:25
PROVIDERS: ADMIT Internal Medicine; ATTEND Internal Medicine
DX: J96.01 Acute respiratory failure with hypoxia (principal); N39.0 Urinary tract infection, site not specified; E87.2 Acidosis; I50.32 Chronic diastolic (congestive) heart failure; J44.0 Chronic obstructive pulmonary disease with (acute) lower respiratory infection; J44.1 Chronic obstructive pulmonary disease with (acute) exacerbation; E11.51 Type 2 diabetes mellitus with diabetic peripheral angiopathy without gangrene; E11.65 Type 2 diabetes mellitus with hyperglycemia; E78.5 Hyperlipidemia, unspecified; G89.29 Other chronic pain; I25.10 Atherosclerotic heart disease of native coronary artery without angina pectoris; R74.0 Nonspecific elevation of levels of transaminase and lactic acid dehydrogenase [LDH]; I35.0 Nonrheumatic aortic (valve) stenosis; I70.1 Atherosclerosis of renal artery; H04.123 Dry eye syndrome of bilateral lacrimal glands; I71.4 Abdominal aortic aneurysm, without rupture; J20.9 Acute bronchitis, unspecified; K57.10 Diverticulosis of small intestine without perforation or abscess without bleeding; M51.36 Other intervertebral disc degeneration, lumbar region; N28.1 Cyst of kidney, acquired; Z82.49 Family history of ischemic heart disease and other diseases of the circulatory system; Z86.011 Personal history of benign neoplasm of the brain; Z86.74 Personal history of sudden cardiac arrest; Z87.891 Personal history of nicotine dependence; Z95.2 Presence of prosthetic heart valve; Z83.3 Family history of diabetes mellitus; Z90.49 Acquired absence of other specified parts of digestive tract; Z95.5 Presence of coronary angioplasty implant and graft; Z79.899 Other long term (current) drug therapy
CPT/HCPCS: 36415; 71275; 74177; 80053; 81001; 82553; 82962; 83605; 83690; 83735; 83880; 84484; 85025; 85610; 85730; 87086; 87186; 93005; 94640; 94760; 96361; 96374; 96375; J0696; J1100; J1815; J2405; J7030; J7620; S0028; 99285-25

== ENCOUNTER 2018-08-14 07:16 | Emergency (ER) | payer MEDICARE, MEDICAID ==
[~2018-08-14] VITALS: Ht 157.5 cm; Wt 64.4 kg
[~2018-08-14 07:16] MED LIST changes: +ASPI325T8 PO; +CEFP200T PO; +NALO25TA2 PO; +PROAIR HFA8.5 GM INH
[2018-08-14] MEDS ORDERED: IV NORMAL SALINE 1000ML BAG 1,000 ML IV SCH (07:34)
--- NOTE | 2018-08-14 07:40 | PHYS DOC ---
Past Medical History Past Medical History: CAD, COPD, Diabetes-Type II Additional Past Medical Histor: CHRONIC BACK PAIN, pulmonary fibrosis Past Surgical History: Angioplasty, Cholecystectomy, Other Additional Past Surgical Histo: hernia repair,heart valve replacement,femoral stents Smoking: Quit Greater Than 1 Year Alcohol Use: None Drug Use: None Adult General Chief Complaint Chief Complaint: WEAKNESS/GENERALIZED HPI HPI Patient is a very pleasant 78-year-old female presents to the emergency department for evaluation. She states that "I just haven't felt well for the past 4 days". She reports pain in her throat with swallowing, and has had a cough, productive of greenish/yellowish sputum. She states her PCP put her on an antibiotic yesterday although she is uncertain of the name (a subsequent call to the pharmacy reveals that it was Augmentin). She does have some discomfort in her chest only with coughing, but has not had any other pain. She has not had any fevers or chills, and denies any exertional chest pain. She states she is chronically short of breath but is no more short of breath than she normally is. She has not had any abdominal pain, nausea, or vomiting. She is ambulatory without any difficulty. There are no alleviating or exacerbating factors to her symptoms except as noted above. Review of Systems Review of Systems Constitutional: Denies fever or chills. Reports generalized malaise [] Eyes: Denies change in visual acuity, redness, or eye pain [] HENT: Reports nasal congestion & sore throat [] Respiratory: Reports productive cough, denies pleuritic chest pain, or shortness of breath different than baseline [] Cardiovascular:The patient denies any shortness of breath, chest pain, palpitations, or orthopnea [] GI: Denies abdominal pain, nausea, vomiting, bloody stools or diarrhea [] : Denies dysuria or hematuria [] Musculoskeletal: Denies back pain or joint pain [] Integument: Denies rash or skin lesions [] Neurologic: Denies headache, focal weakness or sensory changes [] Endocrine: Denies polyuria or polydipsia [] All other systems were reviewed and found to be within normal limits, except as documented in this note. Current Medications Current Medications Current Medications Medications (Trade) Dose Ordered Sig/Luisito Start Time Stop Time Status Last Admin Dose Admin Sodium Chloride 1,000 ml @ 100 mls/hr Q10H 10/23/18 07:34 08/14/18 17:33 08/14/18 08:05 100 MLS/HR Allergies Allergies Allergies Coded Allergies Type Severity Reaction Last Updated Verified No Known Drug Allergies 07/30/15 No Physical Exam Physical Exam PHYSICAL EXAM: CONSTITUTIONAL: Well developed, well nourished HEAD: normocephalic, atraumatic EENT: PERRL, EOMI. Conjunctivae normal color, sclerae non-icteric; moist mucous membranes. The oropharynx is nonerythematous. The uvula is midline. There is no edema. NECK: Supple, non-tender; no meningismus. LUNGS: There are globally diminished breath sounds, without any wheezes, rales, or rhonchi, breathing even and unlabored. Normal air movement. HEART: Regular rate and rhythm, no murmur CHEST: No deformity; non-tender ABDOMEN: The abdomen is soft, and non-tender, no masses or bruits. EXTREM: Normal ROM; no deformity, no calf tenderness. Normal pulses palpable in all extremities. There is no pedal edema. SKIN: No rash; no diaphoresis NEURO: Alert; normal speech and cognition; CN's grossly intact; strength grossly intact without focal deficit. BACK: No CVA TTP. Current Patient Data Vital Signs Vital Signs Date Time Temp Pulse Resp B/P (MAP) Pulse Ox O2 Delivery O2 Flow Rate FiO2 08/14/18 07:29 98.0 82 18 127/71 (89) Room Air 96.0 98.0 Lab Values Laboratory Tests Test 08/14/18 07:43 08/14/18 07:45 08/14/18 08:05 08/14/18 10:20 Group A Streptococcus Rapid Negative (NEGATIVE) Influenza Type A Antigen Negative (NEGATIVE) Influenza Type B Antigen Negative (NEGATIVE) White Blood Count 9.8 x10^3/uL (4.0-11.0) Red Blood Count 4.48 x10^6/uL (3.50-5.40) Hemoglobin 12.6 g/dL (12.0-15.5) Hematocrit 37.5 % (36.0-47.0) Mean Corpuscular Volume 84 fL (79-100) Mean Corpuscular Hemoglobin 28 pg (25-35) Mean Corpuscular Hemoglobin Concent 34 g/dL (31-37) Red Cell Distribution Width 16.5 % (11.5-14.5) H Platelet Count 218 x10^3/uL (140-400) Neutrophils (%) (Auto) 70 % (31-73) Lymphocytes (%) (Auto) 17 % (24-48) L Monocytes (%) (Auto) 11 % (0-9) H Eosinophils (%) (Auto) 1 % (0-3) Basophils (%) (Auto) 1 % (0-3) Neutrophils # (Auto) 6.9 x10^3uL (1.8-7.7) Lymphocytes # (Auto) 1.7 x10^3/uL (1.0-4.8) Monocytes # (Auto) 1.0 x10^3/uL (0.0-1.1) Eosinophils # (Auto) 0.1 x10^3/uL (0.0-0.7) Basophils # (Auto) 0.1 x10^3/uL (0.0-0.2) Sodium Level 139 mmol/L (136-145) Potassium Level 4.5 mmol/L (3.5-5.1) Chloride Level 100 mmol/L (98-107) Carbon Dioxide Level 24 mmol/L (21-32) Anion Gap 15 (6-14) H Blood Urea Nitrogen 17 mg/dL (7-20) Creatinine 1.0 mg/dL (0.6-1.0) Estimated GFR (Cockcroft-Gault) 53.5 BUN/Creatinine Ratio 17 (6-20) Glucose Level 162 mg/dL (70-99) H Calcium Level 8.3 mg/dL (8.5-10.1) L Total Bilirubin 0.6 mg/dL (0.2-1.0) Aspartate Amino Transferase (AST) 22 U/L (15-37) Alanine Aminotransferase (ALT) 21 U/L (14-59) Alkaline Phosphatase 89 U/L (46-116) Creatine Kinase 42 U/L (26-192) Creatine Kinase MB (Mass) 0.5 ng/mL (0.0-3.6) Creatine Kinase MB Relative Index % (0-4) Troponin I Quantitative 0.314 ng/mL (0.000-0.055) 0.304 ng/mL (0.000-0.055) TY-Wox-A-Type Natriuretic Peptide 301 pg/mL (0-449) Total Protein 7.4 g/dL (6.4-8.2) Albumin 4.0 g/dL (3.4-5.0) Albumin/Globulin Ratio 1.2 (1.0-1.7) Laboratory Tests 08/14/18 08:05 Laboratory Tests 08/14/18 08:05 EKG EKG [Normal sinus rhythm at a rate of 77 beats for minute, left axis deviation, left bundle branch block. There are no acute ischemic ST/T changes. The EKG is not significantly changed compared to patient's prior EKG from earlier this month.] Radiology/Procedures Radiology/Procedures [PROCEDURE: CHEST PA & LATERAL Chest, 2 views, 08/14/2018: HISTORY: Productive cough, weakness Comparison is made to a study from 01/17/2018. A radiopacity projected over the heart is compatible with an aortic valve replacement. Coronary artery radiopacities are present. The heart size and pulmonary vascularity are normal. There is moderate calcific plaquing of the aorta. There are minimal scattered parenchymal scars. No acute infiltrate is seen. There is no evidence of pleural fluid. The bony structures are demineralized. IMPRESSION: 1. Stable chronic findings as described above. 2. No acute abnormality is detected.] Course & Med Decision Making Course & Med Decision Making Pertinent Labs and Imaging studies reviewed. (See chart for details) [11:00 AM:] The patient's condition remains stable. She was noted to have a slight troponin elevation, and although she has had troponin elevations in the past, that have not been quite to this level. A second troponin was repeated and does not show any increasing troponin. The patient's symptoms are not highly suggestive of a acute coronary syndrome, but rather a viral upper respiratory process. She was put on Augmentin yesterday by her PCP. I did discuss the case with the patient's PCP, and we both agree that given the lack of clinical evidence suggesting acute coronary syndrome, the patient does not need a formal cardiac evaluation in the hospital at this time. I discussed the importance of close follow-up with the patient, and the PCP stated that he will see the patient in the office in the coming days. We discussed return precautions in detail. Dragon Disclaimer Dragon Disclaimer This electronic medical record was generated, in whole or in part, using a voice recognition dictation system. Departure Departure Impression: Primary Impression: Upper respiratory infection Disposition: 01 HOME, SELF-CARE Condition: STABLE Referrals: CARMEN MARTINEZ MD (PCP) Patient Instructions: Upper Respiratory Infection, Adult JOSHUA SELBY MD Aug 14, 2018 07:40
[2018-08-14 08:15] LABS: BASO # 0.1 x10^3/uL (0.0-0.2); BASO % 1 % (0-3); EOS # 0.1 x10^3/uL (0.0-0.7); EOS % 1 % (0-3); HEMATOCRIT 37.5 % (36.0-47.0); HEMOGLOBIN 12.6 g/dL (12.0-15.5); LYMPH # 1.7 x10^3/uL (1.0-4.8); LYMPH % 17 % (24-48); MEAN CORPUSCULAR HEMOGLOBIN 28 pg (25-35); MEAN CORPUSCULAR HGB CONC 34 g/dL (31-37); MEAN CORPUSCULAR VOLUME 84 fL (79-100); MONO % 11 % (0-9); NEUT # 6.9 x10^3uL (1.8-7.7); NEUT % 70 % (31-73); PLATELET COUNT 218 x10^3/uL (140-400); RED BLOOD COUNT 4.48 x10^6/uL (3.50-5.40); RED CELL DISTRIBUTION WIDTH 16.5 % (11.5-14.5); WHITE BLOOD COUNT 9.8 x10^3/uL (4.0-11.0)
[2018-08-14 08:15] LABS: INFLUENZA A PATIENT NEGATIVE (NEGATIVE); INFLUENZA B PATIENT NEGATIVE (NEGATIVE)
--- NOTE | 2018-08-14 08:19 | EKG ---
[facility] [address] [place] [address] Test Date: 2018-08-14 Test Time: 07:49:36 Pat Name: MIRTHA REYES Department: Room: Gender: F [employer] Director: SYBIL : 1940 Requested By: JOSHUA SELBY Order Number: [id number] Reading MD: Amandeep Jeffrey MD Measurements Intervals Hurley Rate: 76 P: 44 TN: 148 QRS: -53 QRSD: 140 T: 89 QT: 418 QTc: 475 Interpretive Statements SINUS RHYTHM LBBB PRIOR INFERIOR INFARCT Electronically Signed On 08-14-2018 9:50:02 CDT by Amandeep Jeffrey MD
[2018-08-14 08:22] LABS: CALCIUM 8.3 mg/dL (8.5-10.1); GFR 53.5; POTASSIUM 4.5 mmol/L (3.5-5.1)
--- NOTE | 2018-08-14 08:33 | RAD ---
Chest, 2 views, 08/14/2018: HISTORY: Productive cough, weakness Comparison is made to a study from 01/17/2018. A radiopacity projected over the heart is compatible with an aortic valve replacement. Coronary artery radiopacities are present. The heart size and pulmonary vascularity are normal. There is moderate calcific plaquing of the aorta. There are minimal scattered parenchymal scars. No acute infiltrate is seen. There is no evidence of pleural fluid. The bony structures are demineralized. IMPRESSION: 1. Stable chronic findings as described above. 2. No acute abnormality is detected. Electronically signed by: Jeronimo Haji MD (08/14/2018 8:29 AM) [facility]
[2018-08-14 08:37] LABS: ALBUMIN/GLOBULIN RATIO 1.2 (1.0-1.7); TOTAL BILIRUBIN 0.6 mg/dL (0.2-1.0); TOTAL PROTEIN 7.4 g/dL (6.4-8.2)
[2018-08-14 08:49] LABS: CREATINE KINASE 42 U/L (26-192)
[2018-08-14 11:19] VITALS: BP 148/67
== END 2018-08-14 11:28 | disposition home or self-care (01) ==
LOC: ER 07:16
DX: J06.9 Acute upper respiratory infection, unspecified (principal); I25.10 Atherosclerotic heart disease of native coronary artery without angina pectoris; J44.9 Chronic obstructive pulmonary disease, unspecified; E11.9 Type 2 diabetes mellitus without complications; G89.29 Other chronic pain; M54.9 Dorsalgia, unspecified; Z90.49 Acquired absence of other specified parts of digestive tract; Z87.891 Personal history of nicotine dependence
CPT/HCPCS: 36415; 71046; 80053; 82553; 83880; 84484; 85025; 87070; 87804; 87880; 93005; 99285; J7030

== ENCOUNTER → 2019-01-17 | Outpatient (CLI) | payer MEDICARE, MEDICAID ==
[~2019-01-17] MED LIST changes: +ALBU2.5V8 INH; -PROAIR HFA8.5 GM INH
--- NOTE | 2019-01-17 11:50 | RAD ---
EXAM: Left hip, 2 views. HISTORY: Instability. COMPARISON: None. FINDINGS: 2 views of the right hip are obtained. There is no fracture, dislocation or subluxation. The femoral head is normal in configuration and seated appropriately. There are few soft tissue calcifications. There is degenerative change involving the lumbosacral junction, right sacroiliac joints and pubis symphysis. IMPRESSION: No acute osseous finding. Electronically signed by: Lisa Valdez MD (01/17/2019 11:47 AM) [place] [id number]
--- NOTE | 2019-01-25 14:35 | RAD ---
EXAM: Right hip, 2 views. HISTORY: Instability. COMPARISON: None. FINDINGS: 2 views of the right hip are obtained. There is no fracture, dislocation or subluxation. The femoral head is normal in configuration and seated appropriately. There are few soft tissue calcifications. There is degenerative change involving the lumbosacral junction, right sacroiliac joints and pubis symphysis. IMPRESSION: No acute osseous finding. Electronically signed by: Lisa Valdez MD (01/17/2019 11:47 AM) [place] [id number] DICTATED and SIGNED BY: LISA VALDEZ MD DATE: 01/17/19 1147 MTDD
== END | disposition home or self-care (01) ==
LOC: RAD 08:38
PROVIDERS: ATTEND Internal Medicine
DX: M25.551 Pain in right hip (principal); M47.817 Spondylosis without myelopathy or radiculopathy, lumbosacral region
CPT/HCPCS: 73502

== ENCOUNTER → 2019-02-27 | Outpatient (CLI) | payer MEDICARE, MEDICAID ==
--- NOTE | 2019-02-27 08:19 | RAD ---
Carotid ultrasound, 02/27/2019: HISTORY: Atherosclerosis, peripheral vascular disease Duplex evaluation of the carotid arteries and neck was performed including grayscale, color-flow and spectral Doppler analysis. There is mild intimal thickening and smooth plaquing in the common carotid arteries and to a greater degree at the carotid bifurcations. The bifurcation plaques are partially calcified. The peak systolic velocity in the right internal carotid artery is 50 cm/s with an end-diastolic velocity of 13 cm/s and an internal carotid to common carotid artery ratio of 0.8. The peak systolic velocity in the left internal carotid artery is 63 cm/s with an end-diastolic velocity of 17 cm/s and an internal carotid to common carotid artery ratio 1.0. These Doppler findings suggest luminal narrowing in the 0-50 percent diameter range. Antegrade flow is present in both vertebral arteries in the neck. IMPRESSION: Mild to moderate atherosclerotic plaquing at both carotid bifurcations with underlying luminal narrowing in the 0-50 percent diameter range bilaterally. Note: Stenosis calculations for CT, MRA and conventional angiography are based upon determination of the distal ICA diameter in accordance with the NASCET methodology. Stenosis calculations for Doppler studies are derived from validated velocity criteria which are known to correlate with NASCET methodology of determining stenosis. Electronically signed by: Jeronimo Haji MD (02/27/2019 8:16 AM) [facility]
--- NOTE | 2019-02-27 08:26 | RAD ---
Abdominal aortic ultrasound, 02/27/2019: HISTORY: Abdominal aortic aneurysm, peripheral vascular disease Duplex evaluation of the abdominal aorta was performed including grayscale, color-flow and spectral Doppler analysis. There is moderate atherosclerotic plaquing of the abdominal aorta. There is mild dilatation of the infrarenal abdominal aorta which measures approximately 2.7 cm in greatest AP diameter and 3.5 cm in width. Similar findings were present on the CT study of 07/24/2018. Measurements on the CT images are more reproducible and CT follow-up is suggested for surveillance. IMPRESSION: Small infrarenal abdominal aortic aneurysm. Electronically signed by: Jeronimo Haji MD (02/27/2019 8:23 AM) [facility]
[2019-02-27 08:29] LABS: CHOLESTEROL/HDL RATIO 2.4
--- NOTE | 2019-02-27 08:41 | RAD ---
Bilateral lower extremity arterial ultrasound with CHILO measurements, 02/27/2019: HISTORY: Peripheral vascular disease Duplex evaluation of the major arteries in both lower extremities was performed including grayscale, color-flow and spectral Doppler analysis. On the left, the common femoral Doppler waveform is triphasic. There are mild scattered atherosclerotic plaques. The left superficial femoral and popliteal Doppler waveforms are biphasic. No significant focal velocity acceleration is seen in the left femoral or popliteal arteries to suggest high-grade focal stenosis. Patent posterior tibial, peroneal and anterior tibial arteries are present in the left lower leg demonstrating biphasic Doppler waveforms. The left dorsalis pedis artery is patent with a good amplitude biphasic Doppler waveform. On the right, the common femoral Doppler waveform is monophasic. The peak systolic velocity in that vessel is 245 cm/s compared to a value of 191 cm per sec on the left. There are moderate scattered atherosclerotic plaques in the right femoral and popliteal arteries. Those Doppler waveforms are biphasic. The peak systolic velocity in the right femoral and popliteal arteries is lower than on the left. No significant focal velocity acceleration is seen in these vessels to suggest high-grade focal stenosis. Patent posterior tibial and anterior tibial arteries are evident in the right lower leg demonstrating monophasic Doppler waveforms. The right peroneal artery could not be visualized. A patent right dorsalis pedis artery is present demonstrating monophasic Doppler waveform. Resting CHILO measurements were also obtained. The left CHILO of 0.98 is within normal limits. The right CHILO of 0.69 is moderately decreased. IMPRESSION: 1. Mild to moderate scattered atherosclerotic plaquing bilaterally. 2. Probable iliac/common femoral inflow disease on the right 3. No high-grade focal right femoral/popliteal stenosis is identified. 4. Probable peroneal artery occlusion in the right lower leg. 5. Degradation of the distal Doppler waveforms on the right with a moderately decreased right resting CHILO measurement of 0.69. 6. No evidence of significant arterial occlusive disease in the left lower extremity with a normal left resting CHILO measurement of 0.98. Electronically signed by: Jeronimo Haji MD (02/27/2019 8:38 AM) [facility]
--- NOTE | 2019-02-27 08:52 | CARD ---
MR#: [id number] Date of Study: 02/27/2019 Ordering Physician: WENDIE VINCENT, Referring Physician: WENDIE VINCENT, Tech: Radha Miller [facility] APPROVED REPORT EXAM: Two-dimensional and M-mode echocardiogram with Doppler and color Doppler. Other Information Quality : AverageHR: 65bpm Rhythm : NSR INDICATION CAD 2D DIMENSIONS RVDd2.9 (2.9-3.5cm)Left Atrium(2D)3.7 (1.6-4.0cm) IVSd1.2 (0.7-1.1cm)Aortic Root(2D)2.0 (2.0-3.7cm) LVDd4.4 (3.9-5.9cm)LVOT Diameter1.8 (1.8-2.4cm) PWd1.0 (0.7-1.1cm)LVDs3.1 (2.5-4.0cm) FS (%) 29.6 %SV50.6 ml LVEF(%)56.8 (>50%) Aortic Valve AoV Peak Marv.224.4cm/sAoV VTI55.2cm AO Peak GR.20.1mmHgLVOT Peak Marv.105.4cm/s AO Mean GR.12mmHgAVA (VMAX)1.20cm2 SAE (VTI)1.30cm2 Mitral Valve MV E Zhxhwpte39.4cm/sMV E Peak Gr.12mmHg MV DECEL [id number] A Jdnvsuqu827.4cm/s MV E Mean Gr.4mmHgE/A Ratio0.6 MV A [id number] Tricuspid Valve TR P. Iclcogfu362vs/sRAP [id number] TR Peak Gr.06xaDfUVAZ68tdAm LEFT VENTRICLE The left ventricle is normal size. Proximal septal thickening is noted. The left ventricular systolic function is normal. The Ejection Fraction is 55-60%. There is normal LV segmental wall motion. Trans mitral Doppler flow pattern is Grade I-abnormal relaxation pattern. RIGHT VENTRICLE The right ventricle is normal size. There is normal right ventricular wall thickness. The right ventr icular systolic function is normal. ATRIA The left atrium size is normal. The right atrium size is normal. The interatrial septum is intact wit h no evidence for an atrial septal defect or patent foramen ovale as noted on 2-D or Doppler imaging. AORTIC VALVE The aortic valve is not well visualized. Doppler and Color Flow revealed trace aortic regurgitation. There is a bioprosthetic aortic valve prosthesis with a maximum pressure gradient of 20 mmHg and mean pressure gradient of 12 mmHg. MITRAL VALVE Mitral annular calcification is moderate. There is no evidence of mitral valve prolapse. There is no mitral valve stenosis. Doppler and Color-flow revealed trace to mild mitral regurgitation. TRICUSPID VALVE The tricuspid valve is normal in structure and function. Doppler and Color Flow revealed trace tricus pid regurgitation. The PA pressure was estimated at 25 mmHg. There is no tricuspid valve prolapse or vegetation. There is no tricuspid valve stenosis. PULMONIC VALVE The pulmonic valve is not well visualized. GREAT VESSELS The aortic root is normal in size. The ascending aorta is normal in size. The IVC is normal in size a nd collapses >50% with inspiration. PERICARDIAL EFFUSION There is no evidence of significant pericardial effusion. Critical Notification Critical Value: No <Conclusion> The left ventricular systolic function is normal. The Ejection Fraction is 55-60%. There is normal LV segmental wall motion. Transmitral Doppler flow pattern is Grade I-abnormal relaxation pattern. Bioprosthetic aortic valve prosthesis appears well seated and functioning well. Trace to mild mitral regurgitation. Trace tricuspid regurgitation. The PA pressure was estimated at 25 mmHg. There is no evidence of significant pericardial effusion. Signed by : Morales Oropeza, Electronically Approved : 02/27/2019 08:52:05
== END | disposition home or self-care (01) ==
LOC: US 06:36
PROVIDERS: ATTEND Internal Medicine Cardiovascular Disease
DX: I34.0 Nonrheumatic mitral (valve) insufficiency (principal); I65.23 Occlusion and stenosis of bilateral carotid arteries; I71.4 Abdominal aortic aneurysm, without rupture; I70.203 Unspecified atherosclerosis of native arteries of extremities, bilateral legs; I25.10 Atherosclerotic heart disease of native coronary artery without angina pectoris
CPT/HCPCS: 36415; 76770; 80061; 83721; 93306; 93880; 93922; 93925

== ENCOUNTER → 2019-03-08 | Outpatient (CLI) | payer MEDICARE, MEDICAID ==
--- NOTE | 2019-03-08 09:37 | RAD ---
CT chest without contrast dated 03/08/2019. Comparison made to 07/24/2018. CLINICAL INDICATION: Evaluate pulmonary fibrosis. TECHNIQUE: Continues axial imaging the chest performed without the administration of IV contrast. One or more of the following individualized dose reduction techniques were utilized for this examination: 1. Automated exposure control 2. Adjustment of the mA and/or kV according to patient size 3. Use of iterative reconstruction technique. FINDINGS: Central airways are patent. Severe emphysema. Mild diffuse bronchial wall thickening. There are some linear peripheral opacities at both lung bases that are similar to prior study. There are also linear peripheral densities in the right upper lobe posteriorly that are unchanged, likely related to scarring. No suspicious pulmonary nodule or mass. There are a few scattered calcified granuloma. No pleural effusion. No pneumothorax. Heart size upper limits of normal. No pericardial effusion. Aortic valve graft in place. There are dense calcifications of the mitral valve with scattered coronary calcifications. Borderline enlarged free carinal and subcarinal lymph nodes are unchanged. Thyroid gland unremarkable. No axillary or hilar adenopathy is apparent. Images of upper abdomen unremarkable. There are multiple duodenal diverticulum Bone windows show no acute findings. Multilevel spondylosis. IMPRESSION: 1. Moderate to severe emphysema with mild basilar predominant fibrosis or scarring, unchanged. 2. Borderline enlarged mediastinal lymph nodes, nonspecific but stable. 3. Coronary artery calcifications with prominent mitral valve calcifications. There is evidence of prior aortic valve grafting, stable. 4. Duodenal diverticulosis. Electronically signed by: Pankaj Gamez MD (03/08/2019 9:34 AM) [facility]
== END | disposition home or self-care (01) ==
LOC: CT 08:25
PROVIDERS: ATTEND Internal Medicine Critical Care Medicine
DX: J43.9 Emphysema, unspecified (principal); J84.10 Pulmonary fibrosis, unspecified; I25.10 Atherosclerotic heart disease of native coronary artery without angina pectoris; I34.8 Other nonrheumatic mitral valve disorders; J98.59 Other diseases of mediastinum, not elsewhere classified; R91.8 Other nonspecific abnormal finding of lung field; K57.10 Diverticulosis of small intestine without perforation or abscess without bleeding; M47.819 Spondylosis without myelopathy or radiculopathy, site unspecified
CPT/HCPCS: 71250

== ENCOUNTER 2019-08-02 13:59 | Inpatient (IN) | payer MEDICARE, MEDICAID ==
[~2019-08-02] VITALS: Ht 157.5 cm; Wt 70.0 kg
[~2019-08-02 13:59] MED LIST changes: -GLIM4TAB2 PO; +GLIM4TAB4 PO
[2019-08-02 14:28] LABS: BASO # 0.1 x10^3/uL (0.0-0.2); BASO % 1 % (0-3); EOS # 0.2 x10^3/uL (0.0-0.7); EOS % 2 % (0-3); HEMATOCRIT 35.2 % (36.0-47.0); HEMOGLOBIN 11.3 g/dL (12.0-15.5); LYMPH # 1.9 x10^3/uL (1.0-4.8); LYMPH % 13 % (24-48); MEAN CORPUSCULAR HEMOGLOBIN 26 pg (25-35); MEAN CORPUSCULAR HGB CONC 32 g/dL (31-37); MEAN CORPUSCULAR VOLUME 81 fL (79-100); MONO % 7 % (0-9); NEUT # 11.2 x10^3/uL (1.8-7.7); NEUT % 78 % (31-73); PLATELET COUNT 186 x10^3/uL (140-400); RED BLOOD COUNT 4.36 x10^6/uL (3.50-5.40); RED CELL DISTRIBUTION WIDTH 18.5 % (11.5-14.5); WHITE BLOOD COUNT 14.3 x10^3/uL (4.0-11.0)
[2019-08-02 14:41] LABS: CALCIUM 8.6 mg/dL (8.5-10.1); CREATININE 0.8 mg/dL (0.6-1.0); POTASSIUM 4.2 mmol/L (3.5-5.1)
[2019-08-02 14:46] LABS: ALBUMIN 3.6 g/dL (3.4-5.0); ALBUMIN/GLOBULIN RATIO 1.2 (1.0-1.7); MAGNESIUM 1.6 mg/dL (1.8-2.4); TOTAL BILIRUBIN 0.2 mg/dL (0.2-1.0); TOTAL PROTEIN 6.6 g/dL (6.4-8.2)
--- NOTE | 2019-08-02 14:46 | RAD ---
EXAM: Chest, single view. HISTORY: Chest pain. COMPARISON: CT dated 02/26/2019. FINDINGS: A frontal view of the chest is obtained. There is mild diffuse increased interstitial opacity suggesting chronic interstitial changes superimposed on emphysema. There is no consolidation, pleural effusion or pneumothorax. The heart is normal in size. There is postoperative change involving the aortic valve. IMPRESSION: Suspected chronic interstitial changes superimposed on emphysema. The possibly of superimposed interstitial infiltrate is not excluded. Electronically signed by: Lisa Valdez MD (08/02/2019 2:43 PM) [place] [id number]
--- NOTE | 2019-08-02 14:49 | PHYS DOC ---
Past Medical History Past Medical History: CAD, COPD, Diabetes-Type II Additional Past Medical Histor: CHRONIC BACK PAIN, pulmonary fibrosis Past Surgical History: Angioplasty, Cholecystectomy, Other Additional Past Surgical Histo: hernia repair,heart valve replacement,femoral stents Alcohol Use: None Drug Use: None Adult General Chief Complaint Chief Complaint: CHEST PAIN [place] [facility] [employer] [facility] HPI 79-year-old female presents to the emergency department with complaints of chest pain. Patient describes pain started around 9 AM this morning with pain in her left shoulder and left arm and center aspect of her chest. Nothing makes the pain worse, nothing makes the pain better. Patient describes as an achy sensation. She denies any nausea, vomiting, shortness of breath, abdominal pain patient has underlying history of stent placement in the past. She has a remote history of tobacco use. Review of Systems Review of Systems Constitutional: Denies fever or chills [] HENT: Denies nasal congestion or sore throat [] Respiratory: Denies cough or shortness of breath [] Cardiovascular: No additional information not addressed in HPI [] GI: Denies abdominal pain, nausea, vomiting, bloody stools or diarrhea [] : Denies dysuria or hematuria [] Musculoskeletal: Denies back pain or joint pain [] Integument: Denies rash or skin lesions [] Neurologic: Denies headache, focal weakness or sensory changes [] All other systems were reviewed and found to be within normal limits, except as documented in this note. Current Medications Current Medications Current Medications Medications (Trade) Dose Ordered Sig/Luisito Start Time Stop Time Status Last Admin Dose Admin Heparin Sodium (Porcine) (Heparin Sodium) 1,700 unit PRN Q6HRS PRN 08/02/19 15:26 Heparin Sodium/ Dextrose 500 ml @ 0 mls/hr CONT PRN 08/02/19 15:30 08/02/19 15:54 16.1 MLS/HR Nitroglycerin (Nitrostat) 0.4 mg PRN Q5MIN PRN 08/02/19 14:15 08/03/19 14:14 Allergies Allergies Allergies Coded Allergies Type Severity Reaction Last Updated Verified No Known Drug Allergies 07/30/15 No Physical Exam Physical Exam Constitutional: Well developed, well nourished, no acute distress, non-toxic appearance. [] HENT: Normocephalic, atraumatic, bilateral external ears normal, oropharynx moist, no oral exudates, nose normal. [] Eyes: PERRLA, EOMI, conjunctiva normal, no discharge. [] Cardiovascular:Heart rate regular rhythm, no murmur [] Lungs & Thorax: Bilateral breath sounds clear to auscultation [] Abdomen: Bowel sounds normal, soft, no tenderness, no masses, no pulsatile masses. [] Skin: Warm, dry, no erythema, no rash. [] Back: No tenderness, no CVA tenderness. [] Extremities: No tenderness, no cyanosis, no clubbing, ROM intact, no edema. [] Neurologic: Alert and oriented X 3, no focal deficits noted. [] Psychologic: Affect normal, judgement normal, mood normal. [] Current Patient Data Vital Signs Vital Signs Date Time Temp Pulse Resp B/P (MAP) Pulse Ox O2 Delivery O2 Flow Rate FiO2 08/02/19 14:00 99.0 78 18 149/70 (96) 99 Room Air 99.0 Lab Values Laboratory Tests Test 08/02/19 14:15 White Blood Count 14.3 x10^3/uL (4.0-11.0) H Red Blood Count 4.36 x10^6/uL (3.50-5.40) Hemoglobin 11.3 g/dL (12.0-15.5) L Hematocrit 35.2 % (36.0-47.0) L Mean Corpuscular Volume 81 fL (79-100) Mean Corpuscular Hemoglobin 26 pg (25-35) Mean Corpuscular Hemoglobin Concent 32 g/dL (31-37) Red Cell Distribution Width 18.5 % (11.5-14.5) H Platelet Count 186 x10^3/uL (140-400) Neutrophils (%) (Auto) 78 % (31-73) H Lymphocytes (%) (Auto) 13 % (24-48) L Monocytes (%) (Auto) 7 % (0-9) Eosinophils (%) (Auto) 2 % (0-3) Basophils (%) (Auto) 1 % (0-3) Neutrophils # (Auto) 11.2 x10^3/uL (1.8-7.7) H Lymphocytes # (Auto) 1.9 x10^3/uL (1.0-4.8) Monocytes # (Auto) 1.0 x10^3/uL (0.0-1.1) Eosinophils # (Auto) 0.2 x10^3/uL (0.0-0.7) Basophils # (Auto) 0.1 x10^3/uL (0.0-0.2) Sodium Level 147 mmol/L (136-145) H Potassium Level 4.2 mmol/L (3.5-5.1) Chloride Level 109 mmol/L (98-107) H Carbon Dioxide Level 27 mmol/L (21-32) Anion Gap 11 (6-14) Blood Urea Nitrogen 15 mg/dL (7-20) Creatinine 0.8 mg/dL (0.6-1.0) Estimated GFR (Cockcroft-Gault) 69.0 BUN/Creatinine Ratio 19 (6-20) Glucose Level 274 mg/dL (70-99) H Calcium Level 8.6 mg/dL (8.5-10.1) Magnesium Level 1.6 mg/dL (1.8-2.4) L Total Bilirubin 0.2 mg/dL (0.2-1.0) Aspartate Amino Transferase (AST) 17 U/L (15-37) Alanine Aminotransferase (ALT) 26 U/L (14-59) Alkaline Phosphatase 77 U/L (46-116) Troponin I Quantitative 0.119 ng/mL (0.000-0.055) Total Protein 6.6 g/dL (6.4-8.2) Albumin 3.6 g/dL (3.4-5.0) Albumin/Globulin Ratio 1.2 (1.0-1.7) Laboratory Tests 08/02/19 14:15 Laboratory Tests 08/02/19 14:15 EKG EKG EKG reveals heart rate 88, sinus rhythm with PVCs. No evidence of acute ST elevation ND[] Interpretation Time: Interpretation time 1446 Radiology/Procedures Radiology/Procedures [facility] [address] [place] [address] IMAGING REPORT Signed PATIENT: MIRTHA REYES ACCOUNT: [id number] : 1940 LOCATION: ER AGE: 79 SEX: F EXAM STATUS: REG ER ORD. PHYSICIAN: YESENIA FLETCHER MD REASON: chest pain PROCEDURE: PORTABLE CHEST 1V EXAM: Chest, single view. HISTORY: Chest pain. COMPARISON: CT dated 02/26/2019. FINDINGS: A frontal view of the chest is obtained. There is mild diffuse increased interstitial opacity suggesting chronic interstitial changes superimposed on emphysema. There is no consolidation, pleural effusion or pneumothorax. The heart is normal in size. There is postoperative change involving the aortic valve. IMPRESSION: Suspected chronic interstitial changes superimposed on emphysema. The possibly of superimposed interstitial infiltrate is not excluded. Electronically signed by: Lisa Cruz MD (08/02/2019 2:43 PM) [facility] DICTATED and SIGNED BY: LISA CRUZ MD DATE: 08/02/19 1443 [] Course & Med Decision Making Course & Med Decision Making Pertinent Labs and Imaging studies reviewed. (See chart for details) []79-year-old female presents to the emergency department with complaints of chest pain. Patient describes pain started around 9 AM this morning with pain in her left shoulder and left arm and center aspect of her chest. Nothing makes the pain worse, nothing makes the pain better. Patient describes as an achy sensation. She denies any nausea, vomiting, shortness of breath, abdominal pain patient has underlying history of stent placement in the past. She has a remote history of tobacco use. Labs reviewed, sodium 147, white blood count 14.3, troponin 0.119. Patient currently chest pain-free. Heparin bolus with drip initiated in the emergency department. Cardiology consultation placed in ER. Discussed admit with Dr. Irving CXR without evidence of acute consolidation Dragon Disclaimer Dragon Disclaimer This electronic medical record was generated, in whole or in part, using a voice recognition dictation system. Departure Departure Impression: Primary Impression: NSTEMI (non-ST elevated myocardial infarction) Additional Impression: Chest pain Disposition: 09 ADMITTED INPATIENT Admitting Physician: Carmen Irving Condition: STABLE Referrals: CARMEN IRVING MD (PCP) Problem Qualifiers Additional Impression: Chest pain Chest pain type: chest pain due to myocardial ischemia Ischemic chest pain type: stable angina pectoris Qualified Codes: I20.8 - Other forms of a ngina pectoris YESENIA FLETCHER MD Aug 02, 2019 14:49
--- NOTE | 2019-08-02 15:17 | EKG ---
[facility] [address] [place] [address] Test Date: 2019-08-02 Test Time: 14:06:57 Pat Name: MIRTHA REYES Department: Room: Gender: F Brim Shaper: : 1940 Requested By: YESENIA FLETCHER Order Number: [id number] Reading MD: Amandeep Jeffrey MD Measurements Intervals [place] Rate: 88 P: 36 UT: 120 QRS: 63 QRSD: 148 T: -6 QT: 402 QTc: 490 Interpretive Statements SINUS RHYTHM VENTRICULAR PREMATURE COMPLEX(ES) Electronically Signed On 08-03-2019 22:48:09 CDT by Amandeep Jeffrey MD
[2019-08-02] MEDS ORDERED: HEPARIN for IV BOLUS 10,000 UNIT/10 ML VIAL. IV ONE (15:26)
[2019-08-02] MEDS ORDERED: HEPARIN for IV BOLUS 10,000 UNIT/10 ML VIAL. IV PRN (15:26)
[2019-08-02] MEDS ORDERED: HEPARIN 25,000UTS/500ML PREMIX 500 ML IV PRN (15:30)
[2019-08-02] MEDS ORDERED: oxyCODONE/APAP 5/325 1 TAB TABLET PO ONE (16:15)
[2019-08-02] MEDS ORDERED: ONDANSETRON PF 4 MG/2 ML VIAL. IV PRN (17:45)
[2019-08-02] MEDS ORDERED: NITROGLYCERIN SUBLINGUAL 0.4 MG BOTTLE OF 25. SL PRN (17:45)
[2019-08-02] MEDS ORDERED: MORPHINE SULFATE 2 MG/ML VIAL. IV PRN (17:45)
[2019-08-02 17:55] VITALS: BP 166/78
[2019-08-02] MEDS ORDERED: GLIM4TAB4 PO (17:59)
[2019-08-02] MEDS ORDERED: ASPI81TA59 PO (18:01)
[2019-08-02] MEDS ORDERED: ATOR40TA PO (18:03)
[2019-08-02] MEDS ORDERED: FLUT1BLS3 IH (18:04)
[2019-08-02] MEDS ORDERED: ACETAMINOPHEN 325 MG TABLET. PO PRN (18:30)
--- NOTE | 2019-08-02 18:30 | NUR ---
Patient arrived to room 204 from ED via wheelchair, alert and oriented, ambulated to bed with standby assistance. Vitals stable, heparin gtt running. Will continue to monitor.
[2019-08-02] MEDS ORDERED: MAGNESIUM SULFATE 2GM 50 ML IV ONE (18:45)
[2019-08-02] MEDS ORDERED: ALBUTEROL SULFATE 2.5 MG/3 ML NEBU. NEB PRN (18:45)
--- NOTE | 2019-08-02 18:55 | PDOC ---
Provider Note Provider Note Patient seen. History and Physical dictated. See dictation#[id number] CARMEN MARTINEZ MD Aug 02, 2019 18:55
--- NOTE | 2019-08-02 19:18 | HP ---
ADMIT DATE: 08/02/2019 HISTORY OF PRESENT ILLNESS: This [id number] female who is known to have coronary artery disease and who has had a drug-eluting stent in the left circumflex artery in 09/2017, started having pain in the left shoulder. The pain gradually got worse and then extended to the left side of the chest and also radiating to the left arm. Because of that, 911 was called and the patient was sent to the Emergency Room. In the Emergency Room, the patient's EKG shows a wide QRS complex rhythm with multiple PVCs. Her troponin level was 0.119. Chest x-ray did not show any infiltrates, but has chronic interstitial changes. Her WBC count was 14.3, hemoglobin 11.3. Magnesium was 1.6, sodium 147, potassium 4.2, BUN 15, creatinine 0.8. Troponin 0.119. Because of the chest pain and elevated troponin level, the patient was admitted for further evaluation and management. REVIEW OF SYSTEMS: At present time, the patient's pain is better. She denies any nausea, vomiting, abdominal pain, heartburn, or chest pains. When she had this pain, she did not have any dyspnea, dizziness or diaphoresis or palpitations. Today, she does not have any constipation. Other systems reviewed and are negative. She has chronic joint pains and takes Percocet for the same. PAST MEDICAL HISTORY: The patient is known to have history of COPD, coronary artery disease, had a PCI drug-eluting stent in the left circumflex artery in 09/2017, minimal irregularities of the left main and 20% LAD and 20% RCA. She also had aortic stenosis and had a TAVR, bioprosthetic valve and during that hospitalization, the patient also had cardiac arrest. 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 PAST SURGICAL HISTORY: The patient has had TAVR to bioprosthetic valve at [facility] on 12/06/2016, had a cardiac catheterization and PCI with ANNA in the left circumflex in 09/2017. CTA in 2016 with stents in right and left common iliac artery. The patient also had cataract extraction, cholecystectomy, and appendectomy. She is known to have an abdominal aortic aneurysm, infrarenal. ALLERGIES: None known any. MEDICATIONS: Reviewed and reconciled. FAMILY HISTORY: Mother has hypertension and diabetes mellitus type 2. SOCIAL HISTORY: The patient quit smoking previously. No history of alcoholism or drug abuse. PHYSICAL EXAMINATION: GENERAL: The patient is an elderly female, who is alert, oriented x 3, and not in acute distress. VITAL SIGNS: Temperature 99, pulse 78 per minute, respirations 18 per minute, and blood pressure 149/70 mmHg. EYES: Pupils reacting to light. Conjunctivae pale. Sclerae muddy. HENT: Unremarkable. The patient is alert and oriented, not in acute distress. No tenderness of the left shoulder or chest. SKIN: Warm and dry. There is no cyanosis, no rash. LUNGS: Decreased breath sounds at bases. No wheezing. No rales. CARDIOVASCULAR SYSTEM: S1, S2 regular with occasional extra beats. ABDOMEN: Soft, nontender, no guarding, no rigidity. Bowel sounds present. EXTREMITIES: No edema. CENTRAL NERVOUS SYSTEM: Alert and oriented. LABORATORY FINDINGS: As noted earlier. IMPRESSION: 1. Chest pain, likely due to non-ST elevation myocardial infarction. 2. Coronary artery disease, history of left circumflex artery stent. 3. Chronic obstructive pulmonary disease. 4. Leukocytosis, etiology not clear. I will get a urinalysis and monitor temperature and leukocytosis. This could be reactive. 5. Diabetes mellitus type 2 with hyperglycemia. 6. Lactic acidosis. 7. Peripheral artery disease. 8. Abdominal aortic aneurysm. 9. Coronary artery disease. 10. Hyperlipidemia. 11. Chronic low back pain with degenerative disk disease. 12. Carotid artery disease. 13. Congestive heart failure, diastolic, with normal ejection fraction, compensated. 14. History of aortic stenosis with bioprosthetic valve. 15. Peripheral artery disease. 16. History of meningioma. PLAN: Consult Dr. Oropeza for cardiology evaluation and management. Replace magnesium because the patient has hypomagnesemia. Monitor PVCs. The patient has been admitted to telemetry unit for cardiac monitoring. Monitor serial EKG and enzymes. I have advised the patient to keep nitroglycerin at home for use at home. For details, please refer to the orders. PRATIP B. MARTINEZ, MD DR: LAYLA/erinn JOB#: [id number] / [id number]
[2019-08-02 19:20] VITALS: BP 117/65
[2019-08-02] MEDS: ALBUTEROL SULFATE 2.5 MG/3 ML NEBU. NEB SCH (20:00)
[2019-08-02] MEDS: BUDESONIDE 0.5 MG/2 ML NEBU. NEB SCH (20:00)
[2019-08-02 20:10] LABS: BILIRUBIN,URINE NEGATIVE (NEG); CLARITY,URINE CLEAR; COLOR,URINE YELLOW; NITRITE,URINE NEGATIVE (NEG); PROTEIN,URINE NEGATIVE (NEG-TRACE)
[2019-08-02 20:16] LABS: SQUAMOUS EPITHELIAL CELL,UR MOD /LPF
[2019-08-02 20:18] LABS: BACTERIA,URINE MANY /HPF (0-FEW); RBC,URINE 0 /HPF (0-2); WBC,URINE 20-40 /HPF (0-4)
[2019-08-02] MEDS: ATORVASTATIN CALCIUM 40 MG TABLET. PO SCH (20:34)
[2019-08-02] MEDS: oxyCODONE/APAP 7.5/325 1 TAB TABLET PO PRN (20:34)
[2019-08-02] MEDS: MAGNESIUM OXIDE 400 MG TABLET PO SCH (20:53)
[2019-08-02 23:25] VITALS: BP 114/50
[2019-08-03 03:45] VITALS: BP 116/64
[2019-08-03] MEDS: oxyCODONE/APAP 7.5/325 1 TAB TABLET PO PRN ×3 (04:23→20:07)
[2019-08-03] MEDS: NITROGLYCERIN SUBLINGUAL 0.4 MG BOTTLE OF 25. SL PRN ×2 (04:28→04:33)
--- NOTE | 2019-08-03 04:55 | EKG ---
[facility] [address] [place] [address] Test Date: 2019-08-03 Test Time: 05:45:24 Pat Name: MIRTHA REYES Department: Room: 204 1 Gender: F Pediatric Oncologist: CQ : 1940 Requested By: WENDIE VINCENT Order Number: [id number] Reading MD: Wendie Vincent MD Measurements Intervals [place] Rate: 85 P: 29 IL: 158 QRS: -49 QRSD: 126 T: 80 QT: 402 QTc: 479 Interpretive Statements SINUS RHYTHM VENTRICULAR PREMATURE COMPLEX(ES) Electronically Signed On 08-03-2019 22:48:30 CDT by Wendie Vincent MD
[2019-08-03] MEDS ORDERED: CONTRAST GIVEN. MC PRN (05:00)
[2019-08-03 05:20] LABS: BASO # 0.1 x10^3/uL (0.0-0.2); BASO % 1 % (0-3); EOS # 0.3 x10^3/uL (0.0-0.7); EOS % 3 % (0-3); HEMATOCRIT 32.3 % (36.0-47.0); HEMOGLOBIN 10.5 g/dL (12.0-15.5); LYMPH # 2.5 x10^3/uL (1.0-4.8); LYMPH % 24 % (24-48); MEAN CORPUSCULAR HEMOGLOBIN 26 pg (25-35); MEAN CORPUSCULAR HGB CONC 32 g/dL (31-37); MEAN CORPUSCULAR VOLUME 80 fL (79-100); MONO # 1.1 x10^3/uL (0.0-1.1); MONO % 10 % (0-9); NEUT # 6.5 x10^3/uL (1.8-7.7); NEUT % 63 % (31-73); PLATELET COUNT 166 x10^3/uL (140-400); RED BLOOD COUNT 4.02 x10^6/uL (3.50-5.40); RED CELL DISTRIBUTION WIDTH 18.4 % (11.5-14.5); WHITE BLOOD COUNT 10.4 x10^3/uL (4.0-11.0)
[2019-08-03] MEDS ORDERED: IOHEXOL 350 MG/ML 100 ML VIAL. IV ONE (05:30)
--- NOTE | 2019-08-03 05:45 | RAD ---
Study: CT CHEST WITH CONTRAST - PULMONARY ANGIOGRAM History: Chest pain. Elevated d-dimer. Shortness of air. Clinical concern for pulmonary embolism. Comparison: CT chest 03/08/2019 Technique: Helical CT of the chest performed after the administration of 100 cc Omnipaque 300 intravenous contrast and timed for angiographic evaluation of the pulmonary arteries per PE protocol. Coronal and sagittal 3D MIP reformations were obtained. One or more of the following individualized dose reduction techniques were utilized for this examination: 1. Automated exposure control 2. Adjustment of the mA and/or kV according to patient size 3. Use of iterative reconstruction technique. Findings: No pulmonary embolism identified. Normal main pulmonary artery caliber. Calcified and noncalcified plaque involving the thoracic and visualized abdominal aorta. The thoracic aorta is tortuous. The great vessel origins remain patent but with mild stenosis at the left common carotid artery origin. Retrotracheal course of the common carotid arteries. Extensive noncalcified atheromatous plaque of the thoracic aorta seen intermittently approaching the diaphragmatic hiatus. Operative changes at the aortic valve. Calcific coronary artery disease. Scattered mildly prominent hilar lymph nodes. No pericardial effusion. Severe emphysematous changes of the lungs with scattered areas of fibrosis. No superimposed findings to suggest atypical pneumonia. No pleural effusion or pneumothorax. No newly seen suspicious pulmonary nodule. A localized area of spiculation in the right lower lobe, image 85 series 3 again measures 0.9 cm. Short segment of mucous plugging within a airway supplying the medial aspect of the right lower lobe, image 104 series 3. Scattered calcified granulomas. No suspicious abnormality seen at the upper abdomen. Diffuse osteopenia. A few remote rib fractures are noted. Vertebral body height is maintained. IMPRESSION: 1. No pulmonary embolism identified. 2. Extensive calcified and noncalcified atheromatous plaque involving the aorta and branch vessels. No flow-limiting stenosis. No dissection or aneurysm. Calcific coronary artery disease is noted is well. 3. Redemonstrated severe emphysematous changes of the lungs with superimposed regions of fibrosis. No findings to suggest a superimposed typical infectious process. Scattered spiculated areas involving both lungs most notable at the right middle lobe, are unchanged from the prior and likely related to scarring. Yearly low dose CT of the chest would be beneficial in this patient to confirm stability. Electronically signed by: HARMAN KIMBLE MD (08/03/2019 5:42 AM) [place] [id number]
[2019-08-03 05:50] LABS: ALBUMIN 3.3 g/dL (3.4-5.0); CALCIUM 8.5 mg/dL (8.5-10.1); CREATININE 0.8 mg/dL (0.6-1.0); TOTAL BILIRUBIN 0.5 mg/dL (0.2-1.0); TOTAL PROTEIN 6.5 g/dL (6.4-8.2)
--- NOTE | 2019-08-03 06:42 | NUR ---
Overnight, pt had an episode of chest pressure after going to the restroom. She has dyspnea on exertion since admit which she states is new for her. She states she is having 9/10 chest pressure. 2Lnc was placed for comfort, an EKG was obtained, 2 SL nitro were given with some relief. She was taken to CT for R/O PE- was negative for PE. She is therapeutic on heparin. She was resting quietly after CT appearing to be sleeping, will monitor.
[2019-08-03 07:00] VITALS: BP 111/50
[2019-08-03] MEDS: INSULIN LISPRO 300 UNITS/3 ML VIAL. SQ SCH ×3 (07:30→16:30)
[2019-08-03] MEDS: ALBUTEROL SULFATE 2.5 MG/3 ML NEBU. NEB SCH ×4 (08:00→19:57)
[2019-08-03] MEDS: BUDESONIDE 0.5 MG/2 ML NEBU. NEB SCH ×2 (08:00→19:57)
[2019-08-03] MEDS: MAGNESIUM OXIDE 400 MG TABLET PO SCH ×3 (08:20→20:07)
[2019-08-03] MEDS: ASPIRIN CHEWABLE 81 MG TABLET. PO SCH (08:20)
--- NOTE | 2019-08-03 08:56 | PDOC ---
IM PROGRESS NOTES- Subjective Subjective Patient had dyspnea and chest tightness all night. She is congested. Left arm pain is improving. Objective Vitals/I&O Vital Signs Date Time Temp Pulse Resp B/P (MAP) Pulse Ox O2 Delivery O2 Flow Rate FiO2 08/03/19 07:00 98.1 65 16 111/50 (70) 98 Nasal Cannula 2.0 98.1 I & O 08/02/19 08/02/19 08/03/19 15:00 23:00 07:00 Intake Total 50 ml 185 ml Output Total 900 ml Balance 50 ml -715 ml Physical Exam Physical Exam General appearance - alert,ill appearing, and in no distress and oriented to person, place, and time Mental Status - alert, oriented to person, place, and time, affect appropriate to mood Head - normal Chest -decreased breath sounds at bases bilateral wheezing Heart - S1 and S2 normal Abdomen - soft, nontender, nondistended, Neurological - alert and oriented Musculoskeletal - no muscular tenderness noted Extremities - no pedal edema Skin - warm and dry Labs Laboratory Tests Test 08/02/19 14:15 08/02/19 18:03 08/02/19 18:50 08/02/19 19:15 White Blood Count 14.3 x10^3/uL (4.0-11.0) H Red Blood Count 4.36 x10^6/uL (3.50-5.40) Hemoglobin 11.3 g/dL (12.0-15.5) L Hematocrit 35.2 % (36.0-47.0) L Mean Corpuscular Volume 81 fL (79-100) Mean Corpuscular Hemoglobin 26 pg (25-35) Mean Corpuscular Hemoglobin Concent 32 g/dL (31-37) Red Cell Distribution Width 18.5 % (11.5-14.5) H Platelet Count 186 x10^3/uL (140-400) Neutrophils (%) (Auto) 78 % (31-73) H Lymphocytes (%) (Auto) 13 % (24-48) L Monocytes (%) (Auto) 7 % (0-9) Eosinophils (%) (Auto) 2 % (0-3) Basophils (%) (Auto) 1 % (0-3) Neutrophils # (Auto) 11.2 x10^3/uL (1.8-7.7) H Lymphocytes # (Auto) 1.9 x10^3/uL (1.0-4.8) Monocytes # (Auto) 1.0 x10^3/uL (0.0-1.1) Eosinophils # (Auto) 0.2 x10^3/uL (0.0-0.7) Basophils # (Auto) 0.1 x10^3/uL (0.0-0.2) Sodium Level 147 mmol/L (136-145) H Potassium Level 4.2 mmol/L (3.5-5.1) Chloride Level 109 mmol/L (98-107) H Carbon Dioxide Level 27 mmol/L (21-32) Anion Gap 11 (6-14) Blood Urea Nitrogen 15 mg/dL (7-20) Creatinine 0.8 mg/dL (0.6-1.0) Estimated GFR (Cockcroft-Gault) 69.0 BUN/Creatinine Ratio 19 (6-20) Glucose Level 274 mg/dL (70-99) H Calcium Level 8.6 mg/dL (8.5-10.1) Magnesium Level 1.6 mg/dL (1.8-2.4) L Total Bilirubin 0.2 mg/dL (0.2-1.0) Aspartate Amino Transferase (AST) 17 U/L (15-37) Alanine Aminotransferase (ALT) 26 U/L (14-59) Alkaline Phosphatase 77 U/L (46-116) Troponin I Quantitative 0.119 ng/mL (0.000-0.055) 0.138 ng/mL (0.000-0.055) Total Protein 6.6 g/dL (6.4-8.2) Albumin 3.6 g/dL (3.4-5.0) Albumin/Globulin Ratio 1.2 (1.0-1.7) Glucose (Fingerstick) 122 mg/dL (70-99) H Urine Collection Type Unknown Urine Color Yellow Urine Clarity Clear Urine pH 5.0 Urine Specific [place] 1.020 Urine Protein Negative mg/dL (NEG-TRACE) Urine Glucose (UA) 500 mg/dL (NEG) Urine Ketones (Stick) Negative mg/dL (NEG) Urine Blood Negative (NEG) Urine Nitrite Negative (NEG) Urine Bilirubin Negative (NEG) Urine Urobilinogen Dipstick 1.0 mg/dL (0.2 mg/dL) Urine Leukocyte Esterase Negative (NEG) Urine RBC 0 /HPF (0-2) Urine WBC 20-40 /HPF (0-4) Urine Squamous Epithelial Cells Mod /LPF Urine Bacteria Many /HPF (0-FEW) Urine Mucus Slight /LPF D-Dimer (Tete) 0.98 ug/mlFEU (0.00-0.50) H Test 08/02/19 20:58 08/02/19 23:15 08/03/19 05:00 08/03/19 07:50 Glucose (Fingerstick) 173 mg/dL (70-99) H 138 mg/dL (70-99) H Heparin Anti-Xa Act, Unfractionated 0.48 IU/mL (0.30-0.70) 0.48 IU/mL (0.30-0.70) Troponin I Quantitative 0.136 ng/mL (0.000-0.055) White Blood Count 10.4 x10^3/uL (4.0-11.0) Red Blood Count 4.02 x10^6/uL (3.50-5.40) Hemoglobin 10.5 g/dL (12.0-15.5) L Hematocrit 32.3 % (36.0-47.0) L Mean Corpuscular Volume 80 fL (79-100) Mean Corpuscular Hemoglobin 26 pg (25-35) Mean Corpuscular Hemoglobin Concent 32 g/dL (31-37) Red Cell Distribution Width 18.4 % (11.5-14.5) H Platelet Count 166 x10^3/uL (140-400) Neutrophils (%) (Auto) 63 % (31-73) Lymphocytes (%) (Auto) 24 % (24-48) Monocytes (%) (Auto) 10 % (0-9) H Eosinophils (%) (Auto) 3 % (0-3) Basophils (%) (Auto) 1 % (0-3) Neutrophils # (Auto) 6.5 x10^3/uL (1.8-7.7) Lymphocytes # (Auto) 2.5 x10^3/uL (1.0-4.8) Monocytes # (Auto) 1.1 x10^3/uL (0.0-1.1) Eosinophils # (Auto) 0.3 x10^3/uL (0.0-0.7) Basophils # (Auto) 0.1 x10^3/uL (0.0-0.2) Sodium Level 144 mmol/L (136-145) Potassium Level 4.0 mmol/L (3.5-5.1) Chloride Level 105 mmol/L (98-107) Carbon Dioxide Level 26 mmol/L (21-32) Anion Gap 13 (6-14) Blood Urea Nitrogen 12 mg/dL (7-20) Creatinine 0.8 mg/dL (0.6-1.0) Estimated GFR (Cockcroft-Gault) 69.0 BUN/Creatinine Ratio 15 (6-20) Glucose Level 152 mg/dL (70-99) H Calcium Level 8.5 mg/dL (8.5-10.1) Magnesium Level 2.3 mg/dL (1.8-2.4) Total Bilirubin 0.5 mg/dL (0.2-1.0) Aspartate Amino Transferase (AST) 18 U/L (15-37) Alanine Aminotransferase (ALT) 23 U/L (14-59) Alkaline Phosphatase 72 U/L (46-116) Total Protein 6.5 g/dL (6.4-8.2) Albumin 3.3 g/dL (3.4-5.0) L Albumin/Globulin Ratio 1.0 (1.0-1.7) Laboratory Tests 08/02/19 14:15 08/03/19 05:00 Laboratory Tests 08/02/19 14:15 08/03/19 05:00 Meds Current Medications Medications (Trade) Dose Ordered Sig/Luisito Route PRN Reason Start Time Stop Time Status Last Admin Dose Admin Nitroglycerin (Nitrostat) 0.4 mg PRN Q5MIN PRN SL CP RATING > 11/0108/02/19 14:15 08/03/19 14:14 08/03/19 04:33 Heparin Sodium (Porcine) (Heparin Sodium) 4,000 unit 1X ONCE IV 08/02/19 15:26 08/02/19 15:39 DC 08/02/19 15:52 Heparin Sodium/ Dextrose 500 ml @ 0 mls/hr CONT PRN IV PER PROTOCOL 08/02/19 15:30 08/02/19 15:54 Oxycodone/ Acetaminophen (Percocet 5/325) 1 tab 1X ONCE PO 08/02/19 16:15 08/02/19 16:18 DC 08/02/19 16:24 Morphine Sulfate (Morphine Sulfate) 2 mg PRN Q2HR PRN IV PAIN 08/02/19 17:45 08/03/19 17:44 08/02/19 20:54 Aspirin (Children'S Aspirin) 81 mg DAILY PO 08/03/19 09:00 08/03/19 08:20 Atorvastatin Calcium (Lipitor) 40 mg QHS PO 08/02/19 21:00 08/02/19 20:34 Oxycodone/ Acetaminophen (Percocet 7.5/ 325) 1 tab PRN Q6HRS PRN PO PAIN 08/02/19 18:30 08/03/19 04:23 Budesonide (Pulmicort) 0.5 mg RTBID BANNER 08/02/19 20:00 08/02/19 20:00 Magnesium Sulfate 50 ml @ 25 mls/hr 1X ONCE IV 08/02/19 18:45 08/02/19 20:44 DC 08/02/19 20:35 Magnesium Oxide (Magnesium Oxide) 400 mg TID PO 08/02/19 21:00 08/03/19 08:20 Albuterol Sulfate (Ventolin Neb Soln) 2.5 mg RTQID BANNER 08/02/19 20:00 08/02/19 20:00 Iohexol (Omnipaque 350 Mg/ml) 100 ml 1X ONCE IV 08/03/19 05:30 08/03/19 05:31 DC 08/03/19 05:14 Assessment Assessment 1. Chest pain, likely due to non-ST elevation myocardial infarction. 2. Coronary artery disease, history of left circumflex artery stent. 3. Chronic obstructive pulmonary disease. 4. Leukocytosis, etiology not clear. I will get a urinalysis and monitor temperature and leukocytosis. This could be reactive. 5. Diabetes mellitus type 2 with hyperglycemia. 6. Lactic acidosis. 7. Peripheral artery disease. 8. Abdominal aortic aneurysm. 9. Coronary artery disease. 10. Hyperlipidemia. 11. Chronic low back pain with degenerative disk disease. 12. Carotid artery disease. 13. Congestive heart failure, diastolic, with normal ejection fraction, compensated. 14. History of aortic stenosis with bioprosthetic valve. 15. Peripheral artery disease. 16. History of meningioma. PLAN: Consult Dr. Oropeza for cardiology evaluation and management. Replace magnesium because the patient has hypomagnesemia. Monitor PVCs. The patient has been admitted to telemetry unit for cardiac monitoring. Monitor serial EKG and enzymes. I have advised the patient to keep nitroglycerin at home for use at home. For details, please refer to the orders. Non-ST elevation [place].- Patient is on heparin drip. Elevated d-dimer- CT reviewed and is negative for pulmonary embolism. Old spiculated areas in the lungs likely scarring. Leukocytosis-resolved. Exacerbation of COPD- IV Solu-Medrol 40 mg �1. Consult Dr. Briggs Diabetes mellitus type 2 improving control. Plan Plan For more details regarding further plans, please refer to the orders. CARMEN MARTINEZ MD Aug 03, 2019 08:56
[2019-08-03] MEDS ORDERED: methylPREDNISolone SOD SUCC PF 40 MG/ML VIAL. IV ONE (10:30)
[2019-08-03 11:02] VITALS: BP 133/65
[2019-08-03] MEDS: GLIMEPIRIDE 2 MG TABLET. PO SCH ×2 (12:45→18:03)
--- NOTE | 2019-08-03 13:35 | PDOC ---
PULMONARY PROGRESS NOTES Vitals Vital Signs Date Time Temp Pulse Resp B/P (MAP) Pulse Ox O2 Delivery O2 Flow Rate FiO2 08/03/19 11:02 98.2 76 18 133/65 (87) 97 Nasal Cannula 2.0 98.2 General: Alert, No acute distress Lungs: Clear Cardiovascular: S1 Abdomen: Soft Extremities: No Edema Labs Laboratory Tests Test 08/02/19 14:15 08/02/19 18:03 08/02/19 18:50 08/02/19 19:15 White Blood Count 14.3 x10^3/uL (4.0-11.0) Red Blood Count 4.36 x10^6/uL (3.50-5.40) Hemoglobin 11.3 g/dL (12.0-15.5) Hematocrit 35.2 % (36.0-47.0) Mean Corpuscular Volume 81 fL (79-100) Mean Corpuscular Hemoglobin 26 pg (25-35) Mean Corpuscular Hemoglobin Concent 32 g/dL (31-37) Red Cell Distribution Width 18.5 % (11.5-14.5) Platelet Count 186 x10^3/uL (140-400) Neutrophils (%) (Auto) 78 % (31-73) Lymphocytes (%) (Auto) 13 % (24-48) Monocytes (%) (Auto) 7 % (0-9) Eosinophils (%) (Auto) 2 % (0-3) Basophils (%) (Auto) 1 % (0-3) Neutrophils # (Auto) 11.2 x10^3/uL (1.8-7.7) Lymphocytes # (Auto) 1.9 x10^3/uL (1.0-4.8) Monocytes # (Auto) 1.0 x10^3/uL (0.0-1.1) Eosinophils # (Auto) 0.2 x10^3/uL (0.0-0.7) Basophils # (Auto) 0.1 x10^3/uL (0.0-0.2) Sodium Level 147 mmol/L (136-145) Potassium Level 4.2 mmol/L (3.5-5.1) Chloride Level 109 mmol/L (98-107) Carbon Dioxide Level 27 mmol/L (21-32) Anion Gap 11 (6-14) Blood Urea Nitrogen 15 mg/dL (7-20) Creatinine 0.8 mg/dL (0.6-1.0) Estimated GFR (Cockcroft-Gault) 69.0 BUN/Creatinine Ratio 19 (6-20) Glucose Level 274 mg/dL (70-99) Calcium Level 8.6 mg/dL (8.5-10.1) Magnesium Level 1.6 mg/dL (1.8-2.4) Total Bilirubin 0.2 mg/dL (0.2-1.0) Aspartate Amino Transf (AST/SGOT) 17 U/L (15-37) Alanine Aminotransferase (ALT/SGPT) 26 U/L (14-59) Alkaline Phosphatase 77 U/L (46-116) Troponin I Quantitative 0.119 ng/mL (0.000-0.055) 0.138 ng/mL (0.000-0.055) Total Protein 6.6 g/dL (6.4-8.2) Albumin 3.6 g/dL (3.4-5.0) Albumin/Globulin Ratio 1.2 (1.0-1.7) Glucose (Fingerstick) 122 mg/dL (70-99) Urine Collection Type Unknown Urine Color Yellow Urine Clarity Clear Urine pH 5.0 Urine Specific [place] 1.020 Urine Protein Negative mg/dL (NEG-TRACE) Urine Glucose (UA) 500 mg/dL (NEG) Urine Ketones (Stick) Negative mg/dL (NEG) Urine Blood Negative (NEG) Urine Nitrite Negative (NEG) Urine Bilirubin Negative (NEG) Urine Urobilinogen Dipstick 1.0 mg/dL (0.2 mg/dL) Urine Leukocyte Esterase Negative (NEG) Urine RBC 0 /HPF (0-2) Urine WBC 20-40 /HPF (0-4) Urine Squamous Epithelial Cells Mod /LPF Urine Bacteria Many /HPF (0-FEW) Urine Mucus Slight /LPF D-Dimer (Tete) 0.98 ug/mlFEU (0.00-0.50) Test 08/02/19 20:58 08/02/19 23:15 08/03/19 05:00 08/03/19 07:50 Glucose (Fingerstick) 173 mg/dL (70-99) 138 mg/dL (70-99) Heparin Anti-Xa Act, Unfractionated 0.48 IU/mL (0.30-0.70) 0.48 IU/mL (0.30-0.70) Troponin I Quantitative 0.136 ng/mL (0.000-0.055) White Blood Count 10.4 x10^3/uL (4.0-11.0) Red Blood Count 4.02 x10^6/uL (3.50-5.40) Hemoglobin 10.5 g/dL (12.0-15.5) Hematocrit 32.3 % (36.0-47.0) Mean Corpuscular Volume 80 fL (79-100) Mean Corpuscular Hemoglobin 26 pg (25-35) Mean Corpuscular Hemoglobin Concent 32 g/dL (31-37) Red Cell Distribution Width 18.4 % (11.5-14.5) Platelet Count 166 x10^3/uL (140-400) Neutrophils (%) (Auto) 63 % (31-73) Lymphocytes (%) (Auto) 24 % (24-48) Monocytes (%) (Auto) 10 % (0-9) Eosinophils (%) (Auto) 3 % (0-3) Basophils (%) (Auto) 1 % (0-3) Neutrophils # (Auto) 6.5 x10^3/uL (1.8-7.7) Lymphocytes # (Auto) 2.5 x10^3/uL (1.0-4.8) Monocytes # (Auto) 1.1 x10^3/uL (0.0-1.1) Eosinophils # (Auto) 0.3 x10^3/uL (0.0-0.7) Basophils # (Auto) 0.1 x10^3/uL (0.0-0.2) Sodium Level 144 mmol/L (136-145) Potassium Level 4.0 mmol/L (3.5-5.1) Chloride Level 105 mmol/L (98-107) Carbon Dioxide Level 26 mmol/L (21-32) Anion Gap 13 (6-14) Blood Urea Nitrogen 12 mg/dL (7-20) Creatinine 0.8 mg/dL (0.6-1.0) Estimated GFR (Cockcroft-Gault) 69.0 BUN/Creatinine Ratio 15 (6-20) Glucose Level 152 mg/dL (70-99) Calcium Level 8.5 mg/dL (8.5-10.1) Magnesium Level 2.3 mg/dL (1.8-2.4) Total Bilirubin 0.5 mg/dL (0.2-1.0) Aspartate Amino Transf (AST/SGOT) 18 U/L (15-37) Alanine Aminotransferase (ALT/SGPT) 23 U/L (14-59) Alkaline Phosphatase 72 U/L (46-116) Total Protein 6.5 g/dL (6.4-8.2) Albumin 3.3 g/dL (3.4-5.0) Albumin/Globulin Ratio 1.0 (1.0-1.7) Test 08/03/19 11:37 Glucose (Fingerstick) 120 mg/dL (70-99) Laboratory Tests Test 08/02/19 14:15 08/02/19 18:03 08/02/19 18:50 08/02/19 19:15 White Blood Count 14.3 x10^3/uL (4.0-11.0) Red Blood Count 4.36 x10^6/uL (3.50-5.40) Hemoglobin 11.3 g/dL (12.0-15.5) Hematocrit 35.2 % (36.0-47.0) Mean Corpuscular Volume 81 fL (79-100) Mean Corpuscular Hemoglobin 26 pg (25-35) Mean Corpuscular Hemoglobin Concent 32 g/dL (31-37) Red Cell Distribution Width 18.5 % (11.5-14.5) Platelet Count 186 x10^3/uL (140-400) Neutrophils (%) (Auto) 78 % (31-73) Lymphocytes (%) (Auto) 13 % (24-48) Monocytes (%) (Auto) 7 % (0-9) Eosinophils (%) (Auto) 2 % (0-3) Basophils (%) (Auto) 1 % (0-3) Neutrophils # (Auto) 11.2 x10^3/uL (1.8-7.7) Lymphocytes # (Auto) 1.9 x10^3/uL (1.0-4.8) Monocytes # (Auto) 1.0 x10^3/uL (0.0-1.1) Eosinophils # (Auto) 0.2 x10^3/uL (0.0-0.7) Basophils # (Auto) 0.1 x10^3/uL (0.0-0.2) Sodium Level 147 mmol/L (136-145) Potassium Level 4.2 mmol/L (3.5-5.1) Chloride Level 109 mmol/L (98-107) Carbon Dioxide Level 27 mmol/L (21-32) Anion Gap 11 (6-14) Blood Urea Nitrogen 15 mg/dL (7-20) Creatinine 0.8 mg/dL (0.6-1.0) Estimated GFR (Cockcroft-Gault) 69.0 BUN/Creatinine Ratio 19 (6-20) Glucose Level 274 mg/dL (70-99) Calcium Level 8.6 mg/dL (8.5-10.1) Magnesium Level 1.6 mg/dL (1.8-2.4) Total Bilirubin 0.2 mg/dL (0.2-1.0) Aspartate Amino Transf (AST/SGOT) 17 U/L (15-37) Alanine Aminotransferase (ALT/SGPT) 26 U/L (14-59) Alkaline Phosphatase 77 U/L (46-116) Troponin I Quantitative 0.119 ng/mL (0.000-0.055) 0.138 ng/mL (0.000-0.055) Total Protein 6.6 g/dL (6.4-8.2) Albumin 3.6 g/dL (3.4-5.0) Albumin/Globulin Ratio 1.2 (1.0-1.7) Glucose (Fingerstick) 122 mg/dL (70-99) Urine Collection Type Unknown Urine Color Yellow Urine Clarity Clear Urine pH 5.0 [address] [place] 1.020 Urine Protein Negative mg/dL (NEG-TRACE) Urine Glucose (UA) 500 mg/dL (NEG) Urine Ketones (Stick) Negative mg/dL (NEG) Urine Blood Negative (NEG) Urine Nitrite Negative (NEG) Urine Bilirubin Negative (NEG) Urine Urobilinogen Dipstick 1.0 mg/dL (0.2 mg/dL) Urine Leukocyte Esterase Negative (NEG) Urine RBC 0 /HPF (0-2) Urine WBC 20-40 /HPF (0-4) Urine Squamous Epithelial Cells Mod /LPF Urine Bacteria Many /HPF (0-FEW) Urine Mucus Slight /LPF D-Dimer (Tete) 0.98 ug/mlFEU (0.00-0.50) Test 08/02/19 20:58 08/02/19 23:15 08/03/19 05:00 08/03/19 07:50 Glucose (Fingerstick) 173 mg/dL (70-99) 138 mg/dL (70-99) Heparin Anti-Xa Act, Unfractionated 0.48 IU/mL (0.30-0.70) 0.48 IU/mL (0.30-0.70) Troponin I Quantitative 0.136 ng/mL (0.000-0.055) White Blood Count 10.4 x10^3/uL (4.0-11.0) Red Blood Count 4.02 x10^6/uL (3.50-5.40) Hemoglobin 10.5 g/dL (12.0-15.5) Hematocrit 32.3 % (36.0-47.0) Mean Corpuscular Volume 80 fL (79-100) Mean Corpuscular Hemoglobin 26 pg (25-35) Mean Corpuscular Hemoglobin Concent 32 g/dL (31-37) Red Cell Distribution Width 18.4 % (11.5-14.5) Platelet Count 166 x10^3/uL (140-400) Neutrophils (%) (Auto) 63 % (31-73) Lymphocytes (%) (Auto) 24 % (24-48) Monocytes (%) (Auto) 10 % (0-9) Eosinophils (%) (Auto) 3 % (0-3) Basophils (%) (Auto) 1 % (0-3) Neutrophils # (Auto) 6.5 x10^3/uL (1.8-7.7) Lymphocytes # (Auto) 2.5 x10^3/uL (1.0-4.8) Monocytes # (Auto) 1.1 x10^3/uL (0.0-1.1) Eosinophils # (Auto) 0.3 x10^3/uL (0.0-0.7) Basophils # (Auto) 0.1 x10^3/uL (0.0-0.2) Sodium Level 144 mmol/L (136-145) Potassium Level 4.0 mmol/L (3.5-5.1) Chloride Level 105 mmol/L (98-107) Carbon Dioxide Level 26 mmol/L (21-32) Anion Gap 13 (6-14) Blood Urea Nitrogen 12 mg/dL (7-20) Creatinine 0.8 mg/dL (0.6-1.0) Estimated GFR (Cockcroft-Gault) 69.0 BUN/Creatinine Ratio 15 (6-20) Glucose Level 152 mg/dL (70-99) Calcium Level 8.5 mg/dL (8.5-10.1) Magnesium Level 2.3 mg/dL (1.8-2.4) Total Bilirubin 0.5 mg/dL (0.2-1.0) Aspartate Amino Transf (AST/SGOT) 18 U/L (15-37) Alanine Aminotransferase (ALT/SGPT) 23 U/L (14-59) Alkaline Phosphatase 72 U/L (46-116) Total Protein 6.5 g/dL (6.4-8.2) Albumin 3.3 g/dL (3.4-5.0) Albumin/Globulin Ratio 1.0 (1.0-1.7) Test 08/03/19 11:37 Glucose (Fingerstick) 120 mg/dL (70-99) Medications Active Scripts Medications Dose Route/Sig Max Daily Dose Days Date Category Trelegy Ellipta 100-62.5-25 (Fluticasone/Umeclidin/Vilanter) 1 Each Blst.w.dev 1 Each IH DAILY 08/02/19 Reported Lipitor (Atorvastatin Calcium) 40 Mg Tablet 1 Tab PO QHS 08/02/19 Reported Children's Aspirin (Aspirin) 81 Mg Tab.chew 1 Tab PO DAILY 30 08/02/19 Reported Glimepiride 4 Mg Tablet 1 Tab PO BID 08/02/19 Reported Metformin Hcl 1,000 Mg Tablet 1,000 PO BID 05/15/17 Reported Oxycodon-Acetaminophen 7.5-325 (Oxycodone Hcl/Acetaminophen) 1 Each Tablet 1 Each PO PRN Q6HRS PRN 02/17/16 Reported Impression . FULL NOTE DICTATED PLEURISY AECOPD CHEST PAIN SEE ORDERS THANKS BASSEM ROSAS MD Aug 03, 2019 13:35
--- NOTE | 2019-08-03 14:57 | CONS ---
DATE OF CONSULTATION: 08/03/2019 ATTENDING PHYSICIAN: Dr. Lanie Irving. CONSULTING PHYSICIAN: Dr. Bassem Rosas. REASON FOR CONSULTATION: The patient is seen in pulmonary consultation at the request of Dr. Irving for increasing shortness of air. HISTORY OF PRESENT ILLNESS: The patient is an 79-year-old female who quit tobacco 12 years ago, normally uses oxygen with exertion at home. She is also on Trelegy, she has been on Trelegy inhaler for approximately 2 months. She states that it has greatly helped her symptoms. She presents with subacute onset of a combination of left arm pain, chest discomfort and shortness of air, increasing chest pain with deep inspiration. No wheezing. No cough. No fever, chills or night sweats. The patient presented with the above complaints. She underwent CT angiogram in the Emergency Room revealing no evidence of pulmonary emboli. There were extensive calcified and noncalcified plaques involving the aorta and its branches. There was also redemonstration of severe emphysematous changes with areas of fibrosis. There were no new findings. She has a history of peripheral vascular disease. PAST MEDICAL HISTORY: Remarkable for COPD, type 2 diabetes, chronic pain, coronary artery disease, pulmonary fibrosis, tobacco dependence, in remission. PAST SURGICAL HISTORY: Previous angioplasty, cholecystectomy, hernia repair, heart valve replacement and femoral stents. ALLERGIES: No known drug allergies. CURRENT MEDICATIONS: List was reviewed. SOCIAL HISTORY: She quit tobacco approximately 12 years ago, has a [id number] history of tobacco use. REVIEW OF SYSTEMS: CONSTITUTIONAL: No fever or chills. EYES: No change in visual acuity. HEENT: No nasal congestion or sore throat. PULMONARY: As indicated above. CARDIOVASCULAR: As indicated above. GASTROINTESTINAL: No nausea, vomiting, or diarrhea. GENITOURINARY: No dysuria or frequency. MUSCULOSKELETAL: No localized muscle aches or joint pains. SKIN: No new skin rashes. NEUROLOGIC: No headaches, diplopia or blurred vision. CURRENT MEDICATION: List was reviewed. PHYSICAL EXAMINATION: VITAL SIGNS: Stable. O2 saturation was greater than 92% on 2 liters. HEENT: Eyes, the sclerae were nonicteric. NECK: Jugular venous distention was not elevated. No lymphadenopathy. CHEST: Full expansion. LUNGS: Crackles in the bases. No wheezes. CARDIOVASCULAR: Regular rate and rhythm with S1, S2, no S3. ABDOMEN: Soft, nontender, nondistended. EXTREMITIES: No clubbing, cyanosis or edema. NEUROLOGICAL: The patient was awake, alert, following commands. A detailed neuro exam was not performed. LABORATORY DATA: Reviewed. CT as indicated above. White count was normal. Hemoglobin and hematocrit were noted. IMPRESSION: 1. Chest pain secondary to pleurisy. 2. Acute exacerbation of chronic obstructive pulmonary disease. 3. Pulmonary fibrosis. 4. Elevated troponin level. 5. Coronary artery disease. 6. Peripheral vascular disease. PLAN: 1. We will continue support with oxygen supplementation, nebulized treatments. 2. Steroids. 3. No need for antibiotics. 4. Follow Cardiology input. I do appreciate the privilege in sharing the patient's care. BASSEM ROSAS MD DR: NANNETTE/erinn JOB#: [id number] / [id number]
[2019-08-03 15:00] VITALS: BP 112/64
--- NOTE | 2019-08-03 17:01 | NUR ---
Fall: Approximately 1615 patient pressed the call light and began walking to the bathroom before assistance arrive. JORGE Summers assisted patient the rest of the way to the bathroom. Patient was pushing her IV pole. Patient in bathroom and insisted she did not need help. Patient left in bathroom per request. A few minutes later the bathroom call light was pressed. JORGE Summers entered the bathroom and patient was found on the floor. Patient reported she hit her head on the toilet. Patient denies pain. Vital signs assessed and stable. Patient assisted to standing position and back to room by nurse with gait belt and IV pole. Dr. Irving paged at [phone]. Dr. Irving returned paged at [phone]. New orders received. Dr. Jeffrey paged at [phone], awaiting return call. 1652: Patient assisted to wheelchair and taken to stat CT head. Upon return to room, Reviewed fall precautions with patient. Bed alarm set. Will continue to closely monitor.
--- NOTE | 2019-08-03 17:43 | RAD ---
Exam: CT head INDICATION: Fall TECHNIQUE: Sequential axial images through the head were obtained without the administration of IV contrast. Comparisons: None FINDINGS: No focal parenchymal lesion or hemorrhage is identified. There is no midline shift or sulcal effacement. Asymmetric hypodensity in the subcortical white matter of the right frontal lobe superiorly. Lacunar infarct at the left basal ganglia. Monteiro-white distinction is preserved. The ventricular system is within normal limits without compression hydrocephalus. The basal cisterns are well maintained. The visualized portions of the paranasal sinuses and mastoid air cells are well-pneumatized. No acute fractures. IMPRESSION: 1. Asymmetric hypodensity in the subcortical white matter of the right frontal lobe and a hypodense lacunar infarct at the left basal ganglia, which are age indeterminate without prior imaging. If there are concerns for acute ischemia MRI should BE performed. 2. No sequela of acute traumatic injury identified. Exposure: One or more of the following in the visualized dose reduction techniques were utilized for this examination: 1. Automated exposure control 2. Adjustment of the MA and/or KV according to patient size Use of iterative of reconstructive technique Electronically signed by: Jolie Sepulveda MD (08/03/2019 5:40 PM) [id number]
[2019-08-03 19:30] VITALS: BP 126/61
[2019-08-03] MEDS: ATORVASTATIN CALCIUM 40 MG TABLET. PO SCH (20:08)
--- NOTE | 2019-08-03 22:50 | PDOC2 ---
CARDIOLOGY CONSULT NOTE CHEIF COMPLAINT: Chest pain with deep breathing. HPI: Dimple is a pleasant 79 y.o woman with pmhx as noted below presenting with classic pleuritic chest pain. No clear angina. Chronic dyspnea persists. No abd pain, nausea, vomiting, diarrhea, fevers or chills. Cardiology was asked to evaluate patient due to troponin elevation. No recent cardiac interventions. No orthpnea, PND or LE edema. PMHX: 1. CAD s/p LCx PCI in 2017 2. TAVR in 2017 3. Small infra-renal AAA 4. COPD - severe SOCHX: No alcohol, tob or illicit drug use. Retired. FAMHX: NC CURRENT MEDS: Current Medications Medications (Trade) Dose Ordered Sig/Luisito Route PRN Reason Start Time Stop Time Status Last Admin Dose Admin Aspirin (Children'S Aspirin) 81 mg DAILY PO 08/03/19 09:00 08/03/19 08:20 Glimepiride (Amaryl) 4 mg BIDWMEALS PO 08/03/19 08:00 08/03/19 18:03 Iohexol (Omnipaque 350 Mg/ml) 100 ml 1X ONCE IV 08/03/19 05:30 08/03/19 05:31 DC 08/03/19 05:14 Methylprednisolone Sodium Succinate (SOLU-Medrol 40MG VIAL) 40 mg 1X ONCE IV 08/03/19 10:30 08/03/19 10:31 DC 08/03/19 11:19 ALLERGIES: Allergies Coded Allergies Type Severity Reaction Last Updated Verified No Known Drug Allergies 07/30/15 No ROS: Negative unless otherwise noted above in HPI PHYSICAL EXAM: Vital Signs/I&O: Vital Signs Date Time Temp Pulse Resp B/P (MAP) Pulse Ox O2 Delivery O2 Flow Rate FiO2 08/03/19 21:10 Room Air 2.0 08/03/19 19:58 93 08/03/19 19:30 98.2 80 22 126/61 (82) 98.2 I & O 08/02/19 08/02/19 08/03/19 14:59 22:59 06:59 Intake Total 50 ml 185 ml Output Total 900 ml Balance 50 ml -715 ml Physical Exam: GEN.: No apparent distress. Alert and oriented. HEENT: Head is normocephalic, atraumatic NECK: Supple. LUNGS: Decreased breath sounds. No pain to palpation of the chest wall HEART: RRR, S1, S2 present. Peripheral pulses intact ABDOMEN: Soft, nontender. Positive bowel sounds. EXTREMITIES: Without any cyanosis. NEUROLOGIC: Normal speech, normal tone PSYCHIATRIC: Normal affect, normal mood. SKIN: No ulcerations DIAGNOSTIC TESTING: EKG reviewed. No acute ischemic findings. MPI in 2017 wnl Tele unremarkable. Labs reviewed. Trop with minimal elevation. CT angio reviewed. Lab Laboratory Tests Test 08/02/19 23:15 08/03/19 05:00 08/03/19 07:50 08/03/19 11:37 Heparin Anti-Xa Act, Unfractionated 0.48 IU/mL (0.30-0.70) 0.48 IU/mL (0.30-0.70) White Blood Count 10.4 x10^3/uL (4.0-11.0) Red Blood Count 4.02 x10^6/uL (3.50-5.40) Hemoglobin 10.5 g/dL (12.0-15.5) L Hematocrit 32.3 % (36.0-47.0) L Mean Corpuscular Volume 80 fL (79-100) Mean Corpuscular Hemoglobin 26 pg (25-35) Mean Corpuscular Hemoglobin Concent 32 g/dL (31-37) Red Cell Distribution Width 18.4 % (11.5-14.5) H Platelet Count 166 x10^3/uL (140-400) Neutrophils (%) (Auto) 63 % (31-73) Lymphocytes (%) (Auto) 24 % (24-48) Monocytes (%) (Auto) 10 % (0-9) H Eosinophils (%) (Auto) 3 % (0-3) Basophils (%) (Auto) 1 % (0-3) Neutrophils # (Auto) 6.5 x10^3/uL (1.8-7.7) Lymphocytes # (Auto) 2.5 x10^3/uL (1.0-4.8) Monocytes # (Auto) 1.1 x10^3/uL (0.0-1.1) Eosinophils # (Auto) 0.3 x10^3/uL (0.0-0.7) Basophils # (Auto) 0.1 x10^3/uL (0.0-0.2) Sodium Level 144 mmol/L (136-145) Potassium Level 4.0 mmol/L (3.5-5.1) Chloride Level 105 mmol/L (98-107) Carbon Dioxide Level 26 mmol/L (21-32) Anion Gap 13 (6-14) Blood Urea Nitrogen 12 mg/dL (7-20) Creatinine 0.8 mg/dL (0.6-1.0) Estimated GFR (Cockcroft-Gault) 69.0 BUN/Creatinine Ratio 15 (6-20) Glucose Level 152 mg/dL (70-99) H Calcium Level 8.5 mg/dL (8.5-10.1) Total Bilirubin 0.5 mg/dL (0.2-1.0) Aspartate Amino Transf (AST/SGOT) 18 U/L (15-37) Alkaline Phosphatase 72 U/L (46-116) Total Protein 6.5 g/dL (6.4-8.2) Albumin 3.3 g/dL (3.4-5.0) L Albumin/Globulin Ratio 1.0 (1.0-1.7) Glucose (Fingerstick) 138 mg/dL (70-99) H 120 mg/dL (70-99) H Test 08/03/19 17:16 08/03/19 20:39 Glucose (Fingerstick) 232 mg/dL (70-99) H 408 mg/dL (70-99) H Laboratory Tests 08/03/19 05:00 ASSESSMENT: 1. NSTEMI - Type 2 2. CAD - stable. 3. s/p TAVR - stable on exam. PLAN: 1. Hold heparin given fall and possible head contusion 2. Low suspicion for cardiac issues with unremarkable EKG, trivial troponin and recent echo in 02/2019 with normal LV function. I spoke extensively with the patient regarding possible ischemic w/u but she prefers conservative mgmt, which is quite reasonable. -Continue asa, statin. -Check limited echo, if wnl, no further CV testing. Thanks. WENDIE VINCENT MD Aug 03, 2019 22:50
[2019-08-03 22:55] VITALS: BP 127/60
[2019-08-04 03:10] VITALS: BP 115/53
[2019-08-04 07:00] VITALS: BP 140/55
[2019-08-04] MEDS: INSULIN LISPRO 300 UNITS/3 ML VIAL. SQ SCH ×2 (07:30→16:30)
[2019-08-04] MEDS: ALBUTEROL SULFATE 2.5 MG/3 ML NEBU. NEB SCH ×4 (07:43→20:00)
[2019-08-04] MEDS: BUDESONIDE 0.5 MG/2 ML NEBU. NEB SCH ×2 (07:43→20:00)
[2019-08-04] MEDS: ASPIRIN CHEWABLE 81 MG TABLET. PO SCH (07:45)
[2019-08-04] MEDS: oxyCODONE/APAP 7.5/325 1 TAB TABLET PO PRN ×2 (07:45→21:56)
--- NOTE | 2019-08-04 08:41 | PDOC ---
PULMONARY PROGRESS NOTES Subjective Pt. is resting comfortably on 2 liters N/C Pt. wears 2 liters N/c PRN at home Reports her breathing is at baseline Vitals Vital Signs Date Time Temp Pulse Resp B/P (MAP) Pulse Ox O2 Delivery O2 Flow Rate FiO2 08/04/19 07:35 Nasal Cannula 2.0 08/04/19 07:00 97.7 73 22 140/55 (83) 94 97.7 ROS: No Nausea, No Chest Pain, No Abdominal Pain General: Alert, No acute distress Lungs: Clear Cardiovascular: S1, S2 Abdomen: Soft Neuro Exam: Alert, Oriented Extremities: No Edema Impression Labs Laboratory Tests Test 08/02/19 14:15 08/02/19 18:03 08/02/19 18:50 08/02/19 19:15 White Blood Count 14.3 x10^3/uL (4.0-11.0) Red Blood Count 4.36 x10^6/uL (3.50-5.40) Hemoglobin 11.3 g/dL (12.0-15.5) Hematocrit 35.2 % (36.0-47.0) Mean Corpuscular Volume 81 fL (79-100) Mean Corpuscular Hemoglobin 26 pg (25-35) Mean Corpuscular Hemoglobin Concent 32 g/dL (31-37) Red Cell Distribution Width 18.5 % (11.5-14.5) Platelet Count 186 x10^3/uL (140-400) Neutrophils (%) (Auto) 78 % (31-73) Lymphocytes (%) (Auto) 13 % (24-48) Monocytes (%) (Auto) 7 % (0-9) Eosinophils (%) (Auto) 2 % (0-3) Basophils (%) (Auto) 1 % (0-3) Neutrophils # (Auto) 11.2 x10^3/uL (1.8-7.7) Lymphocytes # (Auto) 1.9 x10^3/uL (1.0-4.8) Monocytes # (Auto) 1.0 x10^3/uL (0.0-1.1) Eosinophils # (Auto) 0.2 x10^3/uL (0.0-0.7) Basophils # (Auto) 0.1 x10^3/uL (0.0-0.2) Sodium Level 147 mmol/L (136-145) Potassium Level 4.2 mmol/L (3.5-5.1) Chloride Level 109 mmol/L (98-107) Carbon Dioxide Level 27 mmol/L (21-32) Anion Gap 11 (6-14) Blood Urea Nitrogen 15 mg/dL (7-20) Creatinine 0.8 mg/dL (0.6-1.0) Estimated GFR (Cockcroft-Gault) 69.0 BUN/Creatinine Ratio 19 (6-20) Glucose Level 274 mg/dL (70-99) Calcium Level 8.6 mg/dL (8.5-10.1) Magnesium Level 1.6 mg/dL (1.8-2.4) Total Bilirubin 0.2 mg/dL (0.2-1.0) Aspartate Amino Transf (AST/SGOT) 17 U/L (15-37) Alanine Aminotransferase (ALT/SGPT) 26 U/L (14-59) Alkaline Phosphatase 77 U/L (46-116) Troponin I Quantitative 0.119 ng/mL (0.000-0.055) 0.138 ng/mL (0.000-0.055) Total Protein 6.6 g/dL (6.4-8.2) Albumin 3.6 g/dL (3.4-5.0) Albumin/Globulin Ratio 1.2 (1.0-1.7) Glucose (Fingerstick) 122 mg/dL (70-99) Urine Collection Type Unknown Urine Color Yellow Urine Clarity Clear Urine pH 5.0 Urine Specific Ray 1.020 Urine Protein Negative mg/dL (NEG-TRACE) Urine Glucose (UA) 500 mg/dL (NEG) Urine Ketones (Stick) Negative mg/dL (NEG) Urine Blood Negative (NEG) Urine Nitrite Negative (NEG) Urine Bilirubin Negative (NEG) Urine Urobilinogen Dipstick 1.0 mg/dL (0.2 mg/dL) Urine Leukocyte Esterase Negative (NEG) Urine RBC 0 /HPF (0-2) Urine WBC 20-40 /HPF (0-4) Urine Squamous Epithelial Cells Mod /LPF Urine Bacteria Many /HPF (0-FEW) Urine Mucus Slight /LPF D-Dimer (Tete) 0.98 ug/mlFEU (0.00-0.50) Test 08/02/19 20:58 08/02/19 23:15 08/03/19 05:00 08/03/19 07:50 Glucose (Fingerstick) 173 mg/dL (70-99) 138 mg/dL (70-99) Heparin Anti-Xa Act, Unfractionated 0.48 IU/mL (0.30-0.70) 0.48 IU/mL (0.30-0.70) Troponin I Quantitative 0.136 ng/mL (0.000-0.055) White Blood Count 10.4 x10^3/uL (4.0-11.0) Red Blood Count 4.02 x10^6/uL (3.50-5.40) Hemoglobin 10.5 g/dL (12.0-15.5) Hematocrit 32.3 % (36.0-47.0) Mean Corpuscular Volume 80 fL (79-100) Mean Corpuscular Hemoglobin 26 pg (25-35) Mean Corpuscular Hemoglobin Concent 32 g/dL (31-37) Red Cell Distribution Width 18.4 % (11.5-14.5) Platelet Count 166 x10^3/uL (140-400) Neutrophils (%) (Auto) 63 % (31-73) Lymphocytes (%) (Auto) 24 % (24-48) Monocytes (%) (Auto) 10 % (0-9) Eosinophils (%) (Auto) 3 % (0-3) Basophils (%) (Auto) 1 % (0-3) Neutrophils # (Auto) 6.5 x10^3/uL (1.8-7.7) Lymphocytes # (Auto) 2.5 x10^3/uL (1.0-4.8) Monocytes # (Auto) 1.1 x10^3/uL (0.0-1.1) Eosinophils # (Auto) 0.3 x10^3/uL (0.0-0.7) Basophils # (Auto) 0.1 x10^3/uL (0.0-0.2) Sodium Level 144 mmol/L (136-145) Potassium Level 4.0 mmol/L (3.5-5.1) Chloride Level 105 mmol/L (98-107) Carbon Dioxide Level 26 mmol/L (21-32) Anion Gap 13 (6-14) Blood Urea Nitrogen 12 mg/dL (7-20) Creatinine 0.8 mg/dL (0.6-1.0) Estimated GFR (Cockcroft-Gault) 69.0 BUN/Creatinine Ratio 15 (6-20) Glucose Level 152 mg/dL (70-99) Calcium Level 8.5 mg/dL (8.5-10.1) Magnesium Level 2.3 mg/dL (1.8-2.4) Total Bilirubin 0.5 mg/dL (0.2-1.0) Aspartate Amino Transf (AST/SGOT) 18 U/L (15-37) Alanine Aminotransferase (ALT/SGPT) 23 U/L (14-59) Alkaline Phosphatase 72 U/L (46-116) Total Protein 6.5 g/dL (6.4-8.2) Albumin 3.3 g/dL (3.4-5.0) Albumin/Globulin Ratio 1.0 (1.0-1.7) Test 08/03/19 11:37 08/03/19 17:16 08/03/19 20:39 08/04/19 04:30 Glucose (Fingerstick) 120 mg/dL (70-99) 232 mg/dL (70-99) 408 mg/dL (70-99) Heparin Anti-Xa Act, Unfractionated < 0.10 IU/mL (0.30-0.70) Test 08/04/19 07:37 Glucose (Fingerstick) 175 mg/dL (70-99) Laboratory Tests Test 08/03/19 11:37 08/03/19 17:16 08/03/19 20:39 08/04/19 04:30 Glucose (Fingerstick) 120 mg/dL (70-99) 232 mg/dL (70-99) 408 mg/dL (70-99) Heparin Anti-Xa Act, Unfractionated < 0.10 IU/mL (0.30-0.70) Test 08/04/19 07:37 Glucose (Fingerstick) 175 mg/dL (70-99) Medications Active Scripts Medications Dose Route/Sig Max Daily Dose Days Date Category Trelegy Ellipta 100-62.5-25 (Fluticasone/Umeclidin/Vilanter) 1 Each Blst.w.dev 1 Each IH DAILY 08/02/19 Reported Lipitor (Atorvastatin Calcium) 40 Mg Tablet 1 Tab PO QHS 08/02/19 Reported Children's Aspirin (Aspirin) 81 Mg Tab.chew 1 Tab PO DAILY 30 08/02/19 Reported Glimepiride 4 Mg Tablet 1 Tab PO BID 08/02/19 Reported Metformin Hcl 1,000 Mg Tablet 1,000 PO BID 05/15/17 Reported Oxycodon-Acetaminophen 7.5-325 (Oxycodone Hcl/Acetaminophen) 1 Each Tablet 1 Each PO PRN Q6HRS PRN 02/17/16 Reported Impression . IMPRESSION: 1. Chest pain secondary to pleurisy. 2. Acute exacerbation of chronic obstructive pulmonary disease. 3. Pulmonary fibrosis. 4. Elevated troponin level. 5. Coronary artery disease. 6. Peripheral vascular disease. 08/03/19 CTA chest : IMPRESSION: 1. No pulmonary embolism identified. 2. Extensive calcified and noncalcified atheromatous plaque involving the aorta and branch vessels. No flow-limiting stenosis. No dissection or aneurysm. Calcific coronary artery disease is noted is well. 3. Redemonstrated severe emphysematous changes of the lungs with superimposed regions of fibrosis. No findings to suggest a superimposed typical infectious process. Scattered spiculated areas involving both lungs most notable at the right middle lobe, are unchanged from the prior and likely related to scarring. Yearly low dose CT of the chest would be beneficial in this patient to confirm stability. CXR: IMPRESSION: Suspected chronic interstitial changes superimposed on emphysema. The possibly of superimposed interstitial infiltrate is not excluded. 08/04/19 ECHO pending Plan . 1. We will continue support with oxygen supplementation, nebulized treatments 2. Steroids. 3. No need for antibiotics. 4. Trop. max 0.138, cardiology following--- no need for heart cath at this time per cards D/C heparin gtt 5.ECHO pending 6. CTA and CXR reviewed 7. D/W RN and cardiology hopefully D/C home tomorrow BASSEM ROSAS MD Aug 04, 2019 08:41
[2019-08-04] MEDS: MAGNESIUM OXIDE 400 MG TABLET PO SCH (09:00)
--- NOTE | 2019-08-04 10:08 | PDOC ---
IM PROGRESS NOTES- Subjective Subjective Patient fell yesterday in the bathroom and hit her head. CT scan of head was obtained. Staff was advised to call the supervisor product inspection to see if heparin drip needs to be continued. Heparin drip was discontinued. Patient denies any dizziness. She says that she just slipped and fell. Objective Vitals/I&O Vital Signs Date Time Temp Pulse Resp B/P (MAP) Pulse Ox O2 Delivery O2 Flow Rate FiO2 08/04/19 07:35 Nasal Cannula 2.0 08/04/19 07:00 97.7 73 22 140/55 (83) 94 97.7 I & O 08/03/19 08/03/19 08/04/19 14:59 22:59 06:59 Intake Total 360 ml 400 ml Output Total 1000 ml 650 ml Balance 360 ml -1000 ml -250 ml Physical Exam Physical Exam General appearance - alert,ill appearing, and in no distress and oriented to person, place, and time Mental Status - alert, oriented to person, place, and time, affect appropriate to mood Head -she has a bruising on the left periorbital area Chest -decreased breath sounds at bases , occasional rhonchi. Heart - S1 and S2 normal Abdomen - soft, nontender, nondistended, Neurological - alert and oriented, knows extremities. Musculoskeletal - no muscular tenderness noted Extremities - no pedal edema Skin - warm and dry Labs Laboratory Tests Test 08/03/19 11:37 08/03/19 17:16 08/03/19 20:39 08/04/19 04:30 Glucose (Fingerstick) 120 mg/dL (70-99) H 232 mg/dL (70-99) H 408 mg/dL (70-99) H Heparin Anti-Xa Act, Unfractionated < 0.10 IU/mL (0.30-0.70) L Test 08/04/19 07:37 Glucose (Fingerstick) 175 mg/dL (70-99) H Meds Current Medications Medications (Trade) Dose Ordered Sig/Luisito Route PRN Reason Start Time Stop Time Status Last Admin Dose Admin Methylprednisolone Sodium Succinate (SOLU-Medrol 40MG VIAL) 40 mg 1X ONCE IV 08/03/19 10:30 08/03/19 10:31 DC 08/03/19 11:19 Assessment Assessment 1. Chest pain, likely due to non-ST elevation myocardial infarction. 2. Coronary artery disease, history of left circumflex artery stent. 3. Chronic obstructive pulmonary disease. 4. Leukocytosis, etiology not clear. I will get a urinalysis and monitor temperature and leukocytosis. This could be reactive. 5. Diabetes mellitus type 2 with hyperglycemia. 6. Lactic acidosis. 7. Peripheral artery disease. 8. Abdominal aortic aneurysm. 9. Coronary artery disease. 10. Hyperlipidemia. 11. Chronic low back pain with degenerative disk disease. 12. Carotid artery disease. 13. Congestive heart failure, diastolic, with normal ejection fraction, compensated. 14. History of aortic stenosis with bioprosthetic valve. 15. Peripheral artery disease. 16. History of meningioma. PLAN: Consult Dr. Oropeza for cardiology evaluation and management. Replace magnesium because the patient has hypomagnesemia. Monitor PVCs. The patient has been admitted to telemetry unit for cardiac monitoring. Monitor serial EKG and enzymes. I have advised the patient to keep nitroglycerin at home for use at home. For details, please refer to the orders. Non-ST elevation [place].- Patient is on heparin drip. Limited echocardiogram has been ordered. Patient is nothing by mouth for possible cardiac catheterization. Elevated d-dimer- CT reviewed and is negative for pulmonary embolism. Old spiculated areas in the lungs likely scarring. Leukocytosis-resolved. Exacerbation of COPD- IV Solu-Medrol 40 mg �1. Consult Dr. Briggs Diabetes mellitus type 2 - not controlled. Add sliding scale insulin. Fall with head injury- patient is off IV heparin. CT scan of head 1. Asymmetric hypodensity in the subcortical white matter of the right frontal lobe and a hypodense lacunar infarct at the left basal ganglia, which are age indeterminate without prior imaging. If there are concerns for acute ischemia MRI should BE performed. 2. No sequela of acute traumatic injury identified. Consult Dr. Singer for neurology evaluation and management because of abnormal CT, head injury and patient was on heparin. Plan Plan For more details regarding further plans, please refer to the orders. CAMREN MARTINEZ MD Aug 04, 2019 10:08
[2019-08-04 11:05] VITALS: BP 114/59
[2019-08-04] MEDS: predniSONE 20 MG TABLET PO SCH (11:15)
[2019-08-04] MEDS: GLIMEPIRIDE 2 MG TABLET. PO SCH ×2 (11:15→18:17)
--- NOTE | 2019-08-04 11:40 | PDOC2 ---
NEUROLOGY CONSULT Date of Admission Date of Admission DATE: 08/04/19 TIME: 11:34 Reason for Consult Reason for Consult: Fall, abnormal head CT Referring Physician Referring Physician: Dr. Irving Source Source: Chart review, Patient History of Present Illness History of Present Illness The patient is an 79-year-old right-handed female admitted for chest pain. She is on heparin and fell in the bathroom yesterday. She feels fine today and denies any headache. There is no history of stroke, seizure, or prior head injury. She denies confusion, diplopia, dysphagia, dysarthria, local numbness or weakness, or headache. Past Medical History Cardiovascular: CAD, CHF, HTN, Hyperlipidemia Pulmonary: COPD, Pneumonia, Other (pulmonary fibrosis) GI: Constipation Endocrine: Diabetes Past Surgical History Past Surgical History: Appendectomy, Cholecystectomy, Cataract Removal, Other (coronary stent, iliac stent, valve replacement) Family History Family History: CAD Social History Social History , ex smoker, rare alcohol, retired Current Medications Current Medications Current Medications Nitroglycerin (Nitrostat) 0.4 mg PRN Q5MIN PRN SL CP RATING > 1/10 Last administered on 08/03/19at 04:33; Start 08/02/19 at 14:15; Stop 08/03/19 at 13:37; Status DC Heparin Sodium (Porcine) (Heparin Sodium) 4,000 unit 1X ONCE IV Last administered on 08/02/19at 15:52; Start 08/02/19 at 15:26; Stop 08/02/19 at 15:39; Status DC Heparin Sodium/ Dextrose 500 ml @ 0 mls/hr CONT PRN IV PER PROTOCOL Last administered on 08/02/19at 15:54; Start 08/02/19 at 15:30; Stop 08/03/19 at 17:34; Status DC Heparin Sodium (Porcine) (Heparin Sodium) 1,700 unit PRN Q6HRS PRN IV FOR UFH LEVEL LESS THAN 0.2; Start 08/02/19 at 15:26; Stop 08/03/19 at 17:34; Status DC Oxycodone/ Acetaminophen (Percocet 5/325) 1 tab 1X ONCE PO Last administered on 08/02/19at 16:24; Start 08/02/19 at 16:15; Stop 08/02/19 at 16:18; Status DC Ondansetron HCl (Zofran) 4 mg PRN Q8HRS PRN IV NAUSEA/VOMITING; Start 08/02/19 at 17:45; Stop 08/03/19 at 17:44; Status DC Morphine Sulfate (Morphine Sulfate) 2 mg PRN Q2HR PRN IV PAIN Last administered on 08/02/19at 20:54; Start 08/02/19 at 17:45; Stop 08/03/19 at 17:44; Status DC Nitroglycerin (Nitrostat) 0.4 mg PRN Q5MIN PRN SL CHEST PAIN; Start 08/02/19 at 17:45; Stop 08/03/19 at 17:44; Status DC Aspirin (Children'S Aspirin) 81 mg DAILY PO Last administered on 08/04/19at 07:45; Start 08/03/19 at 09:00 Atorvastatin Calcium (Lipitor) 40 mg QHS PO Last administered on 08/03/19at 20:08; Start 08/02/19 at 21:00 Oxycodone/ Acetaminophen (Percocet 7.5/ 325) 1 tab PRN Q6HRS PRN PO MODERATE PAIN, SEVERE PAIN Last administered on 08/04/19at 07:45; Start 08/02/19 at 18:30 Budesonide (Pulmicort) 0.5 mg RTBID NEB Last administered on 08/02/19at 20:00; Start 08/02/19 at 20:00 Glimepiride (Amaryl) 4 mg BIDWMEALS PO Last administered on 08/04/19at 11:15; Start 08/03/19 at 08:00 Albuterol Sulfate (Ventolin Neb Soln) 2.5 mg PRN Q4HRS PRN NEB SHORTNESS OF BREATH; Start 08/02/19 at 18:45 Insulin Human Lispro (HumaLOG) 0-10 UNITS TIDBFRMEAL SQ ; Start 08/03/19 at 07:30; Stop 08/04/19 at 10:08; Status DC Acetaminophen (Tylenol) 650 mg PRN Q6HRS PRN PO MILD PAIN / TEMP; Start 08/02/19 at 18:30 Magnesium Sulfate 50 ml @ 25 mls/hr 1X ONCE IV Last administered on 08/02/19at 20:35; Start 08/02/19 at 18:45; Stop 08/02/19 at 20:44; Status DC Magnesium Oxide (Magnesium Oxide) 400 mg TID PO Last administered on 08/03/19at 20:07; Start 08/02/19 at 21:00; Stop 08/04/19 at 11:07; Status DC Albuterol Sulfate (Ventolin Neb Soln) 2.5 mg RTQID NEB Last administered on 08/02/19at 20:00; Start 08/02/19 at 20:00 Iohexol (Omnipaque 350 Mg/ml) 100 ml 1X ONCE IV Last administered on 08/03/19at 05:14; Start 08/03/19 at 05:30; Stop 08/03/19 at 05:31; Status DC Info (CONTRAST GIVEN -- Rx MONITORING) 1 each PRN DAILY PRN MC SEE COMMENTS; Start 08/03/19 at 05:00; Stop 08/05/19 at 04:59 Methylprednisolone Sodium Succinate (SOLU-Medrol 40MG VIAL) 40 mg 1X ONCE IV Last administered on 08/03/19at 11:19; Start 08/03/19 at 10:30; Stop 08/03/19 at 10:31; Status DC Prednisone (Prednisone) 20 mg DAILY PO Last administered on 08/04/19at 11:15; Start 08/04/19 at 09:00 Insulin Human Lispro (HumaLOG) 0-10 UNITS BIDBFRMEAL SQ ; Start 08/04/19 at 16:30 Magnesium Oxide (Magnesium Oxide) 400 mg DAILY PO ; Start 08/05/19 at 09:00 Active Scripts Active Reported Trelegy Ellipta 100-62.5-25 (Fluticasone/Umeclidin/Vilanter) 1 Each Blst.w.dev 1 Each IH DAILY Lipitor (Atorvastatin Calcium) 40 Mg Tablet 1 Tab PO QHS Children's Aspirin (Aspirin) 81 Mg Tab.chew 1 Tab PO DAILY 30 Days Glimepiride 4 Mg Tablet 1 Tab PO BID Metformin Hcl 1,000 Mg Tablet 1,000 PO BID Oxycodon-Acetaminophen 7.5-325 (Oxycodone Hcl/Acetaminophen) 1 Each Tablet 1 Each PO PRN Q6HRS PRN Allergies Allergies: Coded Allergies: No Known Drug Allergies (Unverified , 07/30/15) ROS Review of System Negative for fever, chills, weight loss, shortness of breath, chest pain, indigestion, hematochezia, melena, and dysuria. Full 14-point review of systems is negative. Physical Exam Physical Examination General: Well-developed, well-nourished white female in no acute distress HEENT: Normocephalic, ecchymosis left orbit. Temporal arteries�pulsatile and nontender.� Neck: Supple without bruit, no meningismus� Musculoskeletal: Stability:�see neurologic. Gait exam:�see neurologic. Tone:�see neurologic.�Strength:�see neurologic.� Neurological: Mental Status:�intact, orientation, memory, attention span/concentration, language, fund of knowledge normal. Cranial Nerves:�Pupils equal and reactive to light, extraocular movements are�intact, visual wilson are full to confrontation. Facial sensation is normal. There is no facial asymmetry. Vestibulo-ocular reflex is intact. Palate elevates and tongue protrudes in midline. All other cranial related problems are negative except as mentioned before.�Reflexes:�2+ and symmetric with flexor plantar responses. Motor:�5/5 strength with normal tone and bulk. Coordination:�Finger-nose finger and [id number] testing are normal. Rapid alternating movements and fine finger movements are intact. Gait: not tested. Sensory:�stocking loss.� Vitals VITALS Vital Signs Date Time Temp Pulse Resp B/P (MAP) Pulse Ox O2 Delivery O2 Flow Rate FiO2 08/04/19 11:05 97.8 64 20 114/59 (77) 99 Nasal Cannula 2.0 97.8 Labs Labs Laboratory Tests Test 08/02/19 14:15 08/02/19 18:03 08/02/19 18:50 08/02/19 19:15 White Blood Count 14.3 x10^3/uL (4.0-11.0) Red Blood Count 4.36 x10^6/uL (3.50-5.40) Hemoglobin 11.3 g/dL (12.0-15.5) Hematocrit 35.2 % (36.0-47.0) Mean Corpuscular Volume 81 fL (79-100) Mean Corpuscular Hemoglobin 26 pg (25-35) Mean Corpuscular Hemoglobin Concent 32 g/dL (31-37) Red Cell Distribution Width 18.5 % (11.5-14.5) Platelet Count 186 x10^3/uL (140-400) Neutrophils (%) (Auto) 78 % (31-73) Lymphocytes (%) (Auto) 13 % (24-48) Monocytes (%) (Auto) 7 % (0-9) Eosinophils (%) (Auto) 2 % (0-3) Basophils (%) (Auto) 1 % (0-3) Neutrophils # (Auto) 11.2 x10^3/uL (1.8-7.7) Lymphocytes # (Auto) 1.9 x10^3/uL (1.0-4.8) Monocytes # (Auto) 1.0 x10^3/uL (0.0-1.1) Eosinophils # (Auto) 0.2 x10^3/uL (0.0-0.7) Basophils # (Auto) 0.1 x10^3/uL (0.0-0.2) Sodium Level 147 mmol/L (136-145) Potassium Level 4.2 mmol/L (3.5-5.1) Chloride Level 109 mmol/L (98-107) Carbon Dioxide Level 27 mmol/L (21-32) Anion Gap 11 (6-14) Blood Urea Nitrogen 15 mg/dL (7-20) Creatinine 0.8 mg/dL (0.6-1.0) Estimated GFR (Cockcroft-Gault) 69.0 BUN/Creatinine Ratio 19 (6-20) Glucose Level 274 mg/dL (70-99) Calcium Level 8.6 mg/dL (8.5-10.1) Magnesium Level 1.6 mg/dL (1.8-2.4) Total Bilirubin 0.2 mg/dL (0.2-1.0) Aspartate Amino Transf (AST/SGOT) 17 U/L (15-37) Alanine Aminotransferase (ALT/SGPT) 26 U/L (14-59) Alkaline Phosphatase 77 U/L (46-116) Troponin I Quantitative 0.119 ng/mL (0.000-0.055) 0.138 ng/mL (0.000-0.055) Total Protein 6.6 g/dL (6.4-8.2) Albumin 3.6 g/dL (3.4-5.0) Albumin/Globulin Ratio 1.2 (1.0-1.7) Glucose (Fingerstick) 122 mg/dL (70-99) Urine Collection Type Unknown Urine Color Yellow Urine Clarity Clear Urine pH 5.0 Urine Specific [place] 1.020 Urine Protein Negative mg/dL (NEG-TRACE) Urine Glucose (UA) 500 mg/dL (NEG) Urine Ketones (Stick) Negative mg/dL (NEG) Urine Blood Negative (NEG) Urine Nitrite Negative (NEG) Urine Bilirubin Negative (NEG) Urine Urobilinogen Dipstick 1.0 mg/dL (0.2 mg/dL) Urine Leukocyte Esterase Negative (NEG) Urine RBC 0 /HPF (0-2) Urine WBC 20-40 /HPF (0-4) Urine Squamous Epithelial Cells Mod /LPF Urine Bacteria Many /HPF (0-FEW) Urine Mucus Slight /LPF D-Dimer (Tete) 0.98 ug/mlFEU (0.00-0.50) Test 08/02/19 20:58 08/02/19 23:15 08/03/19 05:00 08/03/19 07:50 Glucose (Fingerstick) 173 mg/dL (70-99) 138 mg/dL (70-99) Heparin Anti-Xa Act, Unfractionated 0.48 IU/mL (0.30-0.70) 0.48 IU/mL (0.30-0.70) Troponin I Quantitative 0.136 ng/mL (0.000-0.055) White Blood Count 10.4 x10^3/uL (4.0-11.0) Red Blood Count 4.02 x10^6/uL (3.50-5.40) Hemoglobin 10.5 g/dL (12.0-15.5) Hematocrit 32.3 % (36.0-47.0) Mean Corpuscular Volume 80 fL (79-100) Mean Corpuscular Hemoglobin 26 pg (25-35) Mean Corpuscular Hemoglobin Concent 32 g/dL (31-37) Red Cell Distribution Width 18.4 % (11.5-14.5) Platelet Count 166 x10^3/uL (140-400) Neutrophils (%) (Auto) 63 % (31-73) Lymphocytes (%) (Auto) 24 % (24-48) Monocytes (%) (Auto) 10 % (0-9) Eosinophils (%) (Auto) 3 % (0-3) Basophils (%) (Auto) 1 % (0-3) Neutrophils # (Auto) 6.5 x10^3/uL (1.8-7.7) Lymphocytes # (Auto) 2.5 x10^3/uL (1.0-4.8) Monocytes # (Auto) 1.1 x10^3/uL (0.0-1.1) Eosinophils # (Auto) 0.3 x10^3/uL (0.0-0.7) Basophils # (Auto) 0.1 x10^3/uL (0.0-0.2) Sodium Level 144 mmol/L (136-145) Potassium Level 4.0 mmol/L (3.5-5.1) Chloride Level 105 mmol/L (98-107) Carbon Dioxide Level 26 mmol/L (21-32) Anion Gap 13 (6-14) Blood Urea Nitrogen 12 mg/dL (7-20) Creatinine 0.8 mg/dL (0.6-1.0) Estimated GFR (Cockcroft-Gault) 69.0 BUN/Creatinine Ratio 15 (6-20) Glucose Level 152 mg/dL (70-99) Calcium Level 8.5 mg/dL (8.5-10.1) Magnesium Level 2.3 mg/dL (1.8-2.4) Total Bilirubin 0.5 mg/dL (0.2-1.0) Aspartate Amino Transf (AST/SGOT) 18 U/L (15-37) Alanine Aminotransferase (ALT/SGPT) 23 U/L (14-59) Alkaline Phosphatase 72 U/L (46-116) Total Protein 6.5 g/dL (6.4-8.2) Albumin 3.3 g/dL (3.4-5.0) Albumin/Globulin Ratio 1.0 (1.0-1.7) Test 08/03/19 11:37 08/03/19 17:16 08/03/19 20:39 08/04/19 04:30 Glucose (Fingerstick) 120 mg/dL (70-99) 232 mg/dL (70-99) 408 mg/dL (70-99) Heparin Anti-Xa Act, Unfractionated < 0.10 IU/mL (0.30-0.70) Test 08/04/19 07:37 08/04/19 11:18 Glucose (Fingerstick) 175 mg/dL (70-99) 119 mg/dL (70-99) Laboratory Tests Test 08/03/19 11:37 08/03/19 17:16 08/03/19 20:39 08/04/19 04:30 Glucose (Fingerstick) 120 mg/dL (70-99) 232 mg/dL (70-99) 408 mg/dL (70-99) Heparin Anti-Xa Act, Unfractionated < 0.10 IU/mL (0.30-0.70) Test 08/04/19 07:37 08/04/19 11:18 Glucose (Fingerstick) 175 mg/dL (70-99) 119 mg/dL (70-99) Images Images CT head INDICATION: Fall TECHNIQUE: Sequential axial images through the head were obtained without the administration of IV contrast. Comparisons: None FINDINGS: No focal parenchymal lesion or hemorrhage is identified. There is no midline shift or sulcal effacement. Asymmetric hypodensity in the subcortical white matter of the right frontal lobe superiorly. Lacunar infarct at the left basal ganglia. Monteiro-white distinction is preserved. The ventricular system is within normal limits without compression hydrocephalus. The basal cisterns are well maintained. The visualized portions of the paranasal sinuses and mastoid air cells are well-pneumatized. No acute fractures. IMPRESSION: 1. Asymmetric hypodensity in the subcortical white matter of the right frontal lobe and a hypodense lacunar infarct at the left basal ganglia, which are age indeterminate without prior imaging. If there are concerns for acute ischemia MRI should BE performed. 2. No sequela of acute traumatic injury identified. Assessment/Plan Assessment/Plan Impression: Mechanical fall while on heparin, no evidence of any acute intracranial problem. Hypodensity subcortical white matter of the right frontal lobe and lacunar infarct at the left basal ganglia, these are old findings and no evidence of any acute ischemia all stop Diabetic neuropathy. Recommendations: No additional neurological studies needed. Specifically, no need for MRI brain Monitor for fall risk. Thank you for letting me help with the patient's care. NAOMI TODD MD Aug 04, 2019 11:40
[2019-08-04 13:12] LABS: BASO % 0 % (0-3); EOS # 0.1 x10^3/uL (0.0-0.7); EOS % 1 % (0-3); HEMATOCRIT 31.5 % (36.0-47.0); HEMOGLOBIN 10.4 g/dL (12.0-15.5); LYMPH % 17 % (24-48); MEAN CORPUSCULAR HEMOGLOBIN 26 pg (25-35); MEAN CORPUSCULAR HGB CONC 33 g/dL (31-37); MEAN CORPUSCULAR VOLUME 80 fL (79-100); MONO % 9 % (0-9); NEUT # 8.5 x10^3/uL (1.8-7.7); NEUT % 73 % (31-73); PLATELET COUNT 179 x10^3/uL (140-400); RED BLOOD COUNT 3.96 x10^6/uL (3.50-5.40); RED CELL DISTRIBUTION WIDTH 18.6 % (11.5-14.5); WHITE BLOOD COUNT 11.7 x10^3/uL (4.0-11.0)
[2019-08-04 13:20] LABS: ALBUMIN 3.3 g/dL (3.4-5.0); ALBUMIN/GLOBULIN RATIO 0.9 (1.0-1.7); CALCIUM 8.3 mg/dL (8.5-10.1); CREATININE 0.9 mg/dL (0.6-1.0); GFR 60.2; MAGNESIUM 2.4 mg/dL (1.8-2.4); POTASSIUM 4.4 mmol/L (3.5-5.1); TOTAL BILIRUBIN 0.4 mg/dL (0.2-1.0); TOTAL PROTEIN 6.8 g/dL (6.4-8.2)
[2019-08-04 15:09] VITALS: BP 131/67
[2019-08-04 19:25] VITALS: BP_SYST 156; BP_SYST 164; BP_DIAS 78; BP_DIAS 85
[2019-08-04] MEDS: ATORVASTATIN CALCIUM 40 MG TABLET. PO SCH (21:55)
[2019-08-04 22:45] VITALS: BP 140/74
[2019-08-05 03:00] VITALS: BP 138/75
[2019-08-05 07:00] VITALS: BP 168/86
[2019-08-05] MEDS: INSULIN LISPRO 300 UNITS/3 ML VIAL. SQ SCH (07:30)
[2019-08-05] MEDS: ALBUTEROL SULFATE 2.5 MG/3 ML NEBU. NEB SCH (08:00)
[2019-08-05] MEDS: BUDESONIDE 0.5 MG/2 ML NEBU. NEB SCH (08:00)
[2019-08-05] MEDS ORDERED: MAGNESIUM OXIDE 400 MG TABLET PO SCH (09:00)
[2019-08-05] MEDS ORDERED: ALBU2.5V8 NEB (09:03)
[2019-08-05] MEDS ORDERED: NITR0.4T22 SL (09:03)
[2019-08-05] MEDS: ASPIRIN CHEWABLE 81 MG TABLET. PO SCH (09:06)
[2019-08-05] MEDS: GLIMEPIRIDE 2 MG TABLET. PO SCH (09:06)
--- NOTE | 2019-08-05 09:07 | DISCH ---
DISCHARGE INSTRUCTIONS Condition on Discharge Condition on Discharge: Stable Activity After Discharge Activity Instructions for Disc: Activity as tolerated (Walk with cane) Weight Bearing Status after Di: No restrictions Diet after Discharge Diet after Discharge: Cardiac, Diabetic No Calorie Level Contacting the [facility]Kelsey after DC Call your doctor for: Concerns you may have Follow-Up Follow up with: Dr.Pratip Martinez in 5 days. CARMEN MARTINEZ MD Aug 05, 2019 09:07
[2019-08-05] MEDS: predniSONE 20 MG TABLET PO SCH (09:09)
--- NOTE | 2019-08-05 09:48 | PDOC3 ---
IM DISCHARGE SUMMARY Date of Admission Date of Admission Date of Admission: Aug 02, 2019 at 15:44 Date of Discharge Date of Discharge August 05, 2019 Primary Diagnosis Primary Diagnosis 1. Chest pain, likely due to non-ST elevation myocardial infarction. 2. Coronary artery disease, history of left circumflex artery stent. 3. Chronic obstructive pulmonary disease. 4. Leukocytosis, etiology not clear. I will get a urinalysis and monitor temperature and leukocytosis. This could be reactive. 5. Diabetes mellitus type 2 with hyperglycemia. 6. Lactic acidosis. 7. Peripheral artery disease. 8. Abdominal aortic aneurysm. 9. Coronary artery disease. 10. Hyperlipidemia. 11. Chronic low back pain with degenerative disk disease. 12. Carotid artery disease. 13. Congestive heart failure, diastolic, with normal ejection fraction, compensated. 14. History of aortic stenosis with bioprosthetic valve. 15. Peripheral artery disease. 16. History of meningioma. 17. Follow with closed head injury. Consults Consults Edil Singer MD; Amandeep Jeffrey MD; Richard Briggs MD Labs Labs Laboratory Tests Test 08/04/19 11:18 08/04/19 12:37 08/04/19 16:48 08/04/19 20:32 Glucose (Fingerstick) 119 mg/dL (70-99) H 338 mg/dL (70-99) H 381 mg/dL (70-99) H White Blood Count 11.7 x10^3/uL (4.0-11.0) H Red Blood Count 3.96 x10^6/uL (3.50-5.40) Hemoglobin 10.4 g/dL (12.0-15.5) L Hematocrit 31.5 % (36.0-47.0) L Mean Corpuscular Volume 80 fL (79-100) Mean Corpuscular Hemoglobin 26 pg (25-35) Mean Corpuscular Hemoglobin Concent 33 g/dL (31-37) Red Cell Distribution Width 18.6 % (11.5-14.5) H Platelet Count 179 x10^3/uL (140-400) Neutrophils (%) (Auto) 73 % (31-73) Lymphocytes (%) (Auto) 17 % (24-48) L Monocytes (%) (Auto) 9 % (0-9) Eosinophils (%) (Auto) 1 % (0-3) Basophils (%) (Auto) 0 % (0-3) Neutrophils # (Auto) 8.5 x10^3/uL (1.8-7.7) H Lymphocytes # (Auto) 2.0 x10^3/uL (1.0-4.8) Monocytes # (Auto) 1.0 x10^3/uL (0.0-1.1) Eosinophils # (Auto) 0.1 x10^3/uL (0.0-0.7) Basophils # (Auto) 0.0 x10^3/uL (0.0-0.2) Sodium Level 140 mmol/L (136-145) Potassium Level 4.4 mmol/L (3.5-5.1) Chloride Level 106 mmol/L (98-107) Carbon Dioxide Level 27 mmol/L (21-32) Anion Gap 7 (6-14) Blood Urea Nitrogen 17 mg/dL (7-20) Creatinine 0.9 mg/dL (0.6-1.0) Estimated GFR (Cockcroft-Gault) 60.2 BUN/Creatinine Ratio 19 (6-20) Glucose Level 210 mg/dL (70-99) H Calcium Level 8.3 mg/dL (8.5-10.1) L Magnesium Level 2.4 mg/dL (1.8-2.4) Total Bilirubin 0.4 mg/dL (0.2-1.0) Aspartate Amino Transferase (AST) 16 U/L (15-37) Alanine Aminotransferase (ALT) 24 U/L (14-59) Alkaline Phosphatase 67 U/L (46-116) Total Protein 6.8 g/dL (6.4-8.2) Albumin 3.3 g/dL (3.4-5.0) L Albumin/Globulin Ratio 0.9 (1.0-1.7) L Test 08/05/19 07:10 Glucose (Fingerstick) 100 mg/dL (70-99) H Laboratory Tests 08/04/19 12:37 Laboratory Tests 08/04/19 12:37 Brief hospital course Brief hospital course This [id number] female who is known to have coronary artery disease and who has had a drug-eluting stent in the left circumflex artery in 09/2017, started having pain in the left shoulder. The pain gradually got worse and then extended to the left side of the chest and also radiating to the left arm. Because of that, 911 was called and the patient was sent to the Emergency Room. In the Emergency Room, the patient's EKG shows a wide QRS complex rhythm with multiple PVCs. Her troponin level was 0.119. Chest x-ray did not show any infiltrates, but has chronic interstitial changes. Her WBC count was 14.3, hemoglobin 11.3. Magnesium was 1.6, sodium 147, potassium 4.2, BUN 15, creatinine 0.8. Troponin 0.119. Because of the chest pain and elevated troponin level, the patient was admitted for further evaluation and management. For more details regarding the past history, family history, social history, surgical history and other details, please refer to History and Physical. Consult Dr. Oropeza for cardiology evaluation and management. Replace magnesium because the patient has hypomagnesemia. Monitor PVCs. The patient has been admitted to telemetry unit for cardiac monitoring. Monitor serial EKG and enzymes. I have advised the patient to keep nitroglycerin at home for use at home. For details, please refer to the orders. Non-ST elevation MO.- Patient is on heparin drip. Limited echocardiogram has been ordered. Patient is nothing by mouth for possible cardiac catheterization. Elevated d-dimer- CT reviewed and is negative for pulmonary embolism. Old spiculated areas in the lungs likely scarring. Leukocytosis-resolved. Exacerbation of COPD- IV Solu-Medrol 40 mg �1. Consult Dr. Briggs. No new findings on the CT scan of chest. Discontinue steroids. Diabetes mellitus type 2 - not controlled. Add sliding scale insulin. Patient does not want any insulin at home. Exacerbation of COPD is better and steroids are discontinued. Patient will go home on no other regular home medications. Monitor glucoses at home. Blood sugars 100 this morning. Fall with head injury- patient is off IV heparin. CT scan of head 1. Asymmetric hypodensity in the subcortical white matter of the right frontal lobe and a hypodense lacunar infarct at the left basal ganglia, which are age indeterminate without prior imaging. If there are concerns for acute ischemia MRI should BE performed. 2. No sequela of acute traumatic injury identified. Consult Dr. Singer for neurology evaluation and management because of abnormal CT, head injury and patient was on heparin. Dr. Singer recommended no new treatment or MRI. He felt that the CT scan findings were old and patient is stable. Overall patient is feeling much better. She'll be discharged home. Her cardiac condition is managed conservatively. I have given her a prescription for nitroglycerin 0.4 mg sublingually to be used when necessary for chest pain. See me in the office in 5 days. Await today's cardiac evaluation and echocardiogram report. Patient will walk with a cane at home. Medications Current Medications Medications (Trade) Dose Ordered Sig/Luisito Route PRN Reason Start Time Stop Time Status Last Admin Dose Admin Magnesium Oxide (Magnesium Oxide) 400 mg DAILY PO 08/05/19 09:00 08/05/19 09:06 Medications reviewed and reconciled for discharge. Allergy Allergies Coded Allergies Type Severity Reaction Last Updated Verified No Known Drug Allergies 07/30/15 No Follow up in 5 days. DISPOSITION: Home Comments Discharge Management - 35 minutes. For other details please refer to discharge instructions CARMEN MARTINEZ MD Aug 05, 2019 09:48
--- NOTE | 2019-08-05 10:00 | PDOC ---
PULMONARY PROGRESS NOTES Subjective Pt. is resting comfortably on 2 liters N/C Pt. wears 2 liters N/c PRN at home Reports her breathing is at baseline Vitals Vital Signs Date Time Temp Pulse Resp B/P (MAP) Pulse Ox O2 Delivery O2 Flow Rate FiO2 08/05/19 08:02 96 Room Air 08/05/19 07:00 98.1 68 18 168/86 (113) 98.1 08/04/19 19:25 ROS: No Nausea, No Chest Pain, No Abdominal Pain General: Alert, No acute distress Lungs: Clear Cardiovascular: S1, S2 Abdomen: Soft Neuro Exam: Alert, Oriented Extremities: No Edema Impression Labs Laboratory Tests Test 08/03/19 11:37 08/03/19 17:16 08/03/19 20:39 08/04/19 04:30 Glucose (Fingerstick) 120 mg/dL (70-99) 232 mg/dL (70-99) 408 mg/dL (70-99) Heparin Anti-Xa Act, Unfractionated < 0.10 IU/mL (0.30-0.70) Test 08/04/19 07:37 08/04/19 11:18 08/04/19 12:37 08/04/19 16:48 Glucose (Fingerstick) 175 mg/dL (70-99) 119 mg/dL (70-99) 338 mg/dL (70-99) White Blood Count 11.7 x10^3/uL (4.0-11.0) Red Blood Count 3.96 x10^6/uL (3.50-5.40) Hemoglobin 10.4 g/dL (12.0-15.5) Hematocrit 31.5 % (36.0-47.0) Mean Corpuscular Volume 80 fL (79-100) Mean Corpuscular Hemoglobin 26 pg (25-35) Mean Corpuscular Hemoglobin Concent 33 g/dL (31-37) Red Cell Distribution Width 18.6 % (11.5-14.5) Platelet Count 179 x10^3/uL (140-400) Neutrophils (%) (Auto) 73 % (31-73) Lymphocytes (%) (Auto) 17 % (24-48) Monocytes (%) (Auto) 9 % (0-9) Eosinophils (%) (Auto) 1 % (0-3) Basophils (%) (Auto) 0 % (0-3) Neutrophils # (Auto) 8.5 x10^3/uL (1.8-7.7) Lymphocytes # (Auto) 2.0 x10^3/uL (1.0-4.8) Monocytes # (Auto) 1.0 x10^3/uL (0.0-1.1) Eosinophils # (Auto) 0.1 x10^3/uL (0.0-0.7) Basophils # (Auto) 0.0 x10^3/uL (0.0-0.2) Sodium Level 140 mmol/L (136-145) Potassium Level 4.4 mmol/L (3.5-5.1) Chloride Level 106 mmol/L (98-107) Carbon Dioxide Level 27 mmol/L (21-32) Anion Gap 7 (6-14) Blood Urea Nitrogen 17 mg/dL (7-20) Creatinine 0.9 mg/dL (0.6-1.0) Estimated GFR (Cockcroft-Gault) 60.2 BUN/Creatinine Ratio 19 (6-20) Glucose Level 210 mg/dL (70-99) Calcium Level 8.3 mg/dL (8.5-10.1) Magnesium Level 2.4 mg/dL (1.8-2.4) Total Bilirubin 0.4 mg/dL (0.2-1.0) Aspartate Amino Transf (AST/SGOT) 16 U/L (15-37) Alanine Aminotransferase (ALT/SGPT) 24 U/L (14-59) Alkaline Phosphatase 67 U/L (46-116) Total Protein 6.8 g/dL (6.4-8.2) Albumin 3.3 g/dL (3.4-5.0) Albumin/Globulin Ratio 0.9 (1.0-1.7) Test 08/04/19 20:32 08/05/19 07:10 Glucose (Fingerstick) 381 mg/dL (70-99) 100 mg/dL (70-99) Laboratory Tests Test 08/04/19 11:18 08/04/19 12:37 08/04/19 16:48 08/04/19 20:32 Glucose (Fingerstick) 119 mg/dL (70-99) 338 mg/dL (70-99) 381 mg/dL (70-99) White Blood Count 11.7 x10^3/uL (4.0-11.0) Red Blood Count 3.96 x10^6/uL (3.50-5.40) Hemoglobin 10.4 g/dL (12.0-15.5) Hematocrit 31.5 % (36.0-47.0) Mean Corpuscular Volume 80 fL (79-100) Mean Corpuscular Hemoglobin 26 pg (25-35) Mean Corpuscular Hemoglobin Concent 33 g/dL (31-37) Red Cell Distribution Width 18.6 % (11.5-14.5) Platelet Count 179 x10^3/uL (140-400) Neutrophils (%) (Auto) 73 % (31-73) Lymphocytes (%) (Auto) 17 % (24-48) Monocytes (%) (Auto) 9 % (0-9) Eosinophils (%) (Auto) 1 % (0-3) Basophils (%) (Auto) 0 % (0-3) Neutrophils # (Auto) 8.5 x10^3/uL (1.8-7.7) Lymphocytes # (Auto) 2.0 x10^3/uL (1.0-4.8) Monocytes # (Auto) 1.0 x10^3/uL (0.0-1.1) Eosinophils # (Auto) 0.1 x10^3/uL (0.0-0.7) Basophils # (Auto) 0.0 x10^3/uL (0.0-0.2) Sodium Level 140 mmol/L (136-145) Potassium Level 4.4 mmol/L (3.5-5.1) Chloride Level 106 mmol/L (98-107) Carbon Dioxide Level 27 mmol/L (21-32) Anion Gap 7 (6-14) Blood Urea Nitrogen 17 mg/dL (7-20) Creatinine 0.9 mg/dL (0.6-1.0) Estimated GFR (Cockcroft-Gault) 60.2 BUN/Creatinine Ratio 19 (6-20) Glucose Level 210 mg/dL (70-99) Calcium Level 8.3 mg/dL (8.5-10.1) Magnesium Level 2.4 mg/dL (1.8-2.4) Total Bilirubin 0.4 mg/dL (0.2-1.0) Aspartate Amino Transf (AST/SGOT) 16 U/L (15-37) Alanine Aminotransferase (ALT/SGPT) 24 U/L (14-59) Alkaline Phosphatase 67 U/L (46-116) Total Protein 6.8 g/dL (6.4-8.2) Albumin 3.3 g/dL (3.4-5.0) Albumin/Globulin Ratio 0.9 (1.0-1.7) Test 08/05/19 07:10 Glucose (Fingerstick) 100 mg/dL (70-99) Medications Active Scripts Medications Dose Route/Sig Max Daily Dose Days Date Category Trelegy Ellipta 100-62.5-25 (Fluticasone/Umeclidin/Vilanter) 1 Each Blst.w.dev 1 Each IH DAILY 08/02/19 Reported Lipitor (Atorvastatin Calcium) 40 Mg Tablet 1 Tab PO QHS 08/02/19 Reported Children's Aspirin (Aspirin) 81 Mg Tab.chew 1 Tab PO DAILY 30 08/02/19 Reported Glimepiride 4 Mg Tablet 1 Tab PO BID 08/02/19 Reported Metformin Hcl 1,000 Mg Tablet 1,000 PO BID 05/15/17 Reported Oxycodon-Acetaminophen 7.5-325 (Oxycodone Hcl/Acetaminophen) 1 Each Tablet 1 Each PO PRN Q6HRS PRN 02/17/16 Reported Impression . IMPRESSION: 1. Chest pain secondary to pleurisy. 2. Acute exacerbation of chronic obstructive pulmonary disease. 3. Pulmonary fibrosis. 4. Elevated troponin level. 5. Coronary artery disease. 6. Peripheral vascular disease. 08/03/19 CTA chest : IMPRESSION: 1. No pulmonary embolism identified. 2. Extensive calcified and noncalcified atheromatous plaque involving the aorta and branch vessels. No flow-limiting stenosis. No dissection or aneurysm. Calcific coronary artery disease is noted is well. 3. Redemonstrated severe emphysematous changes of the lungs with superimposed regions of fibrosis. No findings to suggest a superimposed typical infectious process. Scattered spiculated areas involving both lungs most notable at the right middle lobe, are unchanged from the prior and likely related to scarring. Yearly low dose CT of the chest would be beneficial in this patient to confirm stability. CXR: IMPRESSION: Suspected chronic interstitial changes superimposed on emphysema. The possibly of superimposed interstitial infiltrate is not excluded. 08/04/19 ECHO pending Plan . 1. We will continue support with oxygen supplementation, nebulized treatments 2. Steroids. 3. No need for antibiotics. 4. Trop. max 0.138, cardiology following--- no need for heart cath at this time per cards D/C heparin gtt 5.ECHO pending 6. CTA and CXR reviewed 7. D/W RN and cardiology hopefully D/C home tomorrow BASSEM ROSAS MD Aug 05, 2019 10:00
[2019-08-05 10:26] VITALS: BP 132/79
--- NOTE | 2019-08-05 11:24 | CARD ---
MR#: [id number] Date of Study: 08/04/2019 Ordering Physician: WENDIE VINCENT, Referring Physician: WENDIE VINCENT, Tech: Deana Marshall APPROVED REPORT EXAM: Two-dimensional and M-mode echocardiogram with Doppler and color Doppler. Other Information Quality : FairHR: 68bpm Technically limited study due to COPD INDICATION COPD Cardiac Disease: CAD Chest Pain Non STEMI RISK FACTORS Diabetes 2D DIMENSIONS RVDd3.5 (2.9-3.5cm)Left Atrium(2D)4.0 (1.6-4.0cm) IVSd1.5 (0.7-1.1cm)Aortic Root(2D)2.9 (2.0-3.7cm) LVDd4.5 (3.9-5.9cm)LVOT Diameter2.1 (1.8-2.4cm) PWd1.3 (0.7-1.1cm)LVDs3.1 (2.5-4.0cm) FS (%) 30.2 %SV53.5 ml LVEF(%)57.7 (>50%) LEFT VENTRICLE Limited study. The left ventricle is normal size. There is mild concentric left ventricular hypertrop hy. The left ventricular systolic function is low normal. The Ejection Fraction is 50-55%. There is n ormal LV segmental wall motion. Diastology not performed. RIGHT VENTRICLE The right ventricle is normal size. There is normal right ventricular wall thickness. The right ventr icular systolic function is normal. ATRIA The left atrium size is normal. The right atrium size is normal. The interatrial septum is intact wit h no evidence for an atrial septal defect or patent foramen ovale as noted on 2-D or Doppler imaging. AORTIC VALVE The aortic valve is not well visualized. Doppler and color-flow analysis was not performed. MITRAL VALVE Mitral annular calcification is mild to moderate. There is no evidence of mitral valve prolapse. Ther e is no mitral valve stenosis. Doppler and color-flow analysis was not performed. TRICUSPID VALVE The tricuspid valve is not well visualized. Doppler and color-flow analysis was not performed. PULMONIC VALVE The pulmonic valve is not visualized. Doppler and color-flow analysis was not performed. GREAT VESSELS The aortic root is normal in size. The IVC is normal in size and collapses >50% with inspiration. PERICARDIAL EFFUSION There is no evidence of significant pericardial effusion. Critical Notification Critical Value: No <Conclusion> Limited study. The left ventricle is normal size. The left ventricular systolic function is low normal. The Ejection Fraction is 50-55%. There is mild concentric left ventricular hypertrophy. There is no evidence of significant pericardial effusion. Signed by : Phil Maurice MD Electronically Approved : 08/05/2019 09:26:05
--- NOTE | 2019-08-05 12:10 | PDOC ---
PROGRESS NOTES Assessment Problems Medical Problems: (1) Chest pain Status: Acute (2) NSTEMI (non-ST elevated myocardial infarction) Status: Acute Mechanical fall while on heparin, no evidence of any acute intracranial problem. Hypodensity subcortical white matter of the right frontal lobe and lacunar infarct at the left basal ganglia, these are old findings and no evidence of any acute ischemia all stop Diabetic neuropathy. Plan Okay for discharge, follow-up with neurology as needed. No additional neurological studies needed. Specifically, no need for MRI brain Monitor for fall risk. Subjective No complaints, wants to go home Objective Vital Signs Date Time Temp Pulse Resp B/P (MAP) Pulse Ox O2 Delivery O2 Flow Rate FiO2 08/05/19 10:26 97.6 71 18 132/79 (96) 93 Room Air 97.6 08/05/19 08:00 2.0 Intake and Output 08/05/19 07:00 Intake Total 880 ml Output Total 2195 ml Balance -1315 ml Intake Oral 880 ml Output Urine Total 2195 ml PHYSICAL EXAM Alert. Oriented to time, place and person. PERRL. EOMI. CN: no focal findings. Muscle tone: normal. Muscle strength: 5/5 DTR: 2+ Plantar reflex: flexor Gait: not examined in bed. Sensory exam: no abnormal findings. No cerebellar signs elicited. Review of Relevant I have reviewed the following items neida (where applicable) has been applied. Labs Laboratory Tests Test 08/03/19 17:16 08/03/19 20:39 08/04/19 04:30 08/04/19 07:37 Glucose (Fingerstick) 232 mg/dL (70-99) 408 mg/dL (70-99) 175 mg/dL (70-99) Heparin Anti-Xa Act, Unfractionated < 0.10 IU/mL (0.30-0.70) Test 08/04/19 11:18 08/04/19 12:37 08/04/19 16:48 08/04/19 20:32 Glucose (Fingerstick) 119 mg/dL (70-99) 338 mg/dL (70-99) 381 mg/dL (70-99) White Blood Count 11.7 x10^3/uL (4.0-11.0) Red Blood Count 3.96 x10^6/uL (3.50-5.40) Hemoglobin 10.4 g/dL (12.0-15.5) Hematocrit 31.5 % (36.0-47.0) Mean Corpuscular Volume 80 fL (79-100) Mean Corpuscular Hemoglobin 26 pg (25-35) Mean Corpuscular Hemoglobin Concent 33 g/dL (31-37) Red Cell Distribution Width 18.6 % (11.5-14.5) Platelet Count 179 x10^3/uL (140-400) Neutrophils (%) (Auto) 73 % (31-73) Lymphocytes (%) (Auto) 17 % (24-48) Monocytes (%) (Auto) 9 % (0-9) Eosinophils (%) (Auto) 1 % (0-3) Basophils (%) (Auto) 0 % (0-3) Neutrophils # (Auto) 8.5 x10^3/uL (1.8-7.7) Lymphocytes # (Auto) 2.0 x10^3/uL (1.0-4.8) Monocytes # (Auto) 1.0 x10^3/uL (0.0-1.1) Eosinophils # (Auto) 0.1 x10^3/uL (0.0-0.7) Basophils # (Auto) 0.0 x10^3/uL (0.0-0.2) Sodium Level 140 mmol/L (136-145) Potassium Level 4.4 mmol/L (3.5-5.1) Chloride Level 106 mmol/L (98-107) Carbon Dioxide Level 27 mmol/L (21-32) Anion Gap 7 (6-14) Blood Urea Nitrogen 17 mg/dL (7-20) Creatinine 0.9 mg/dL (0.6-1.0) Estimated GFR (Cockcroft-Gault) 60.2 BUN/Creatinine Ratio 19 (6-20) Glucose Level 210 mg/dL (70-99) Calcium Level 8.3 mg/dL (8.5-10.1) Magnesium Level 2.4 mg/dL (1.8-2.4) Total Bilirubin 0.4 mg/dL (0.2-1.0) Aspartate Amino Transf (AST/SGOT) 16 U/L (15-37) Alanine Aminotransferase (ALT/SGPT) 24 U/L (14-59) Alkaline Phosphatase 67 U/L (46-116) Total Protein 6.8 g/dL (6.4-8.2) Albumin 3.3 g/dL (3.4-5.0) Albumin/Globulin Ratio 0.9 (1.0-1.7) Test 08/05/19 07:10 Glucose (Fingerstick) 100 mg/dL (70-99) Laboratory Tests Test 08/04/19 12:37 08/04/19 16:48 08/04/19 20:32 08/05/19 07:10 White Blood Count 11.7 x10^3/uL (4.0-11.0) Red Blood Count 3.96 x10^6/uL (3.50-5.40) Hemoglobin 10.4 g/dL (12.0-15.5) Hematocrit 31.5 % (36.0-47.0) Mean Corpuscular Volume 80 fL (79-100) Mean Corpuscular Hemoglobin 26 pg (25-35) Mean Corpuscular Hemoglobin Concent 33 g/dL (31-37) Red Cell Distribution Width 18.6 % (11.5-14.5) Platelet Count 179 x10^3/uL (140-400) Neutrophils (%) (Auto) 73 % (31-73) Lymphocytes (%) (Auto) 17 % (24-48) Monocytes (%) (Auto) 9 % (0-9) Eosinophils (%) (Auto) 1 % (0-3) Basophils (%) (Auto) 0 % (0-3) Neutrophils # (Auto) 8.5 x10^3/uL (1.8-7.7) Lymphocytes # (Auto) 2.0 x10^3/uL (1.0-4.8) Monocytes # (Auto) 1.0 x10^3/uL (0.0-1.1) Eosinophils # (Auto) 0.1 x10^3/uL (0.0-0.7) Basophils # (Auto) 0.0 x10^3/uL (0.0-0.2) Sodium Level 140 mmol/L (136-145) Potassium Level 4.4 mmol/L (3.5-5.1) Chloride Level 106 mmol/L (98-107) Carbon Dioxide Level 27 mmol/L (21-32) Anion Gap 7 (6-14) Blood Urea Nitrogen 17 mg/dL (7-20) Creatinine 0.9 mg/dL (0.6-1.0) Estimated GFR (Cockcroft-Gault) 60.2 BUN/Creatinine Ratio 19 (6-20) Glucose Level 210 mg/dL (70-99) Calcium Level 8.3 mg/dL (8.5-10.1) Magnesium Level 2.4 mg/dL (1.8-2.4) Total Bilirubin 0.4 mg/dL (0.2-1.0) Aspartate Amino Transf (AST/SGOT) 16 U/L (15-37) Alanine Aminotransferase (ALT/SGPT) 24 U/L (14-59) Alkaline Phosphatase 67 U/L (46-116) Total Protein 6.8 g/dL (6.4-8.2) Albumin 3.3 g/dL (3.4-5.0) Albumin/Globulin Ratio 0.9 (1.0-1.7) Glucose (Fingerstick) 338 mg/dL (70-99) 381 mg/dL (70-99) 100 mg/dL (70-99) Medications Current Medications Nitroglycerin (Nitrostat) 0.4 mg PRN Q5MIN PRN SL CP RATING > 10 Last administered on 08/03/19at 04:33; Start 08/02/19 at 14:15; Stop 08/03/19 at 13:37; Status DC Heparin Sodium (Porcine) (Heparin Sodium) 4,000 unit 1X ONCE IV Last administered on 08/02/19at 15:52; Start 08/02/19 at 15:26; Stop 08/02/19 at 15:39; Status DC Heparin Sodium/ Dextrose 500 ml @ 0 mls/hr CONT PRN IV PER PROTOCOL Last administered on 08/02/19at 15:54; Start 08/02/19 at 15:30; Stop 08/03/19 at 17:34; Status DC Heparin Sodium (Porcine) (Heparin Sodium) 1,700 unit PRN Q6HRS PRN IV FOR UFH LEVEL LESS THAN 0.2; Start 08/02/19 at 15:26; Stop 08/03/19 at 17:34; Status DC Oxycodone/ Acetaminophen (Percocet 5/325) 1 tab 1X ONCE PO Last administered on 08/02/19at 16:24; Start 08/02/19 at 16:15; Stop 08/02/19 at 16:18; Status DC Ondansetron HCl (Zofran) 4 mg PRN Q8HRS PRN IV NAUSEA/VOMITING; Start 08/02/19 at 17:45; Stop 08/03/19 at 17:44; Status DC Morphine Sulfate (Morphine Sulfate) 2 mg PRN Q2HR PRN IV PAIN Last administered on 08/02/19at 20:54; Start 08/02/19 at 17:45; Stop 08/03/19 at 17:44; Status DC Nitroglycerin (Nitrostat) 0.4 mg PRN Q5MIN PRN SL CHEST PAIN; Start 08/02/19 at 17:45; Stop 08/03/19 at 17:44; Status DC Aspirin (Children'S Aspirin) 81 mg DAILY PO Last administered on 08/05/19at 09:06; Start 08/03/19 at 09:00 Atorvastatin Calcium (Lipitor) 40 mg QHS PO Last administered on 08/04/19at 21:55; Start 08/02/19 at 21:00 Oxycodone/ Acetaminophen (Percocet 7.5/ 325) 1 tab PRN Q6HRS PRN PO MODERATE PAIN, SEVERE PAIN Last administered on 08/04/19at 21:56; Start 08/02/19 at 18:30 Budesonide (Pulmicort) 0.5 mg RTBID NEB Last administered on 08/02/19at 20:00; Start 08/02/19 at 20:00 Glimepiride (Amaryl) 4 mg BIDWMEALS PO Last administered on 08/05/19at 09:06; Start 08/03/19 at 08:00 Albuterol Sulfate (Ventolin Neb Soln) 2.5 mg PRN Q4HRS PRN NEB SHORTNESS OF BREATH; Start 08/02/19 at 18:45 Insulin Human Lispro (HumaLOG) 0-10 UNITS TIDBFRMEAL SQ ; Start 08/03/19 at 07:30; Stop 08/04/19 at 10:08; Status DC Acetaminophen (Tylenol) 650 mg PRN Q6HRS PRN PO MILD PAIN / TEMP; Start 08/02/19 at 18:30 Magnesium Sulfate 50 ml @ 25 mls/hr 1X ONCE IV Last administered on 08/02/19at 20:35; Start 08/02/19 at 18:45; Stop 08/02/19 at 20:44; Status DC Magnesium Oxide (Magnesium Oxide) 400 mg TID PO Last administered on 08/03/19at 20:07; Start 08/02/19 at 21:00; Stop 08/04/19 at 11:07; Status DC Albuterol Sulfate (Ventolin Neb Soln) 2.5 mg RTQID NEB Last administered on 08/02/19at 20:00; Start 08/02/19 at 20:00 Iohexol (Omnipaque 350 Mg/ml) 100 ml 1X ONCE IV Last administered on 08/03/19at 05:14; Start 08/03/19 at 05:30; Stop 08/03/19 at 05:31; Status DC Info (CONTRAST GIVEN -- Rx MONITORING) 1 each PRN DAILY PRN MC SEE COMMENTS; Start 08/03/19 at 05:00; Stop 08/05/19 at 04:59; Status DC Methylprednisolone Sodium Succinate (SOLU-Medrol 40MG VIAL) 40 mg 1X ONCE IV Last administered on 08/03/19at 11:19; Start 08/03/19 at 10:30; Stop 08/03/19 at 10:31; Status DC Prednisone (Prednisone) 20 mg DAILY PO Last administered on 08/05/19at 09:09; Start 08/04/19 at 09:00 Insulin Human Lispro (HumaLOG) 0-10 UNITS BIDBFRMEAL SQ ; Start 08/04/19 at 16:30 Magnesium Oxide (Magnesium Oxide) 400 mg DAILY PO Last administered on 08/05/19at 09:06; Start 08/05/19 at 09:00 Active Scripts Active NITROGLYCERIN SubLingual (Nitroglycerin) 0.4 Mg Tab.subl 0.4 Mg SL PRN Q5MIN PRN Proair Hfa (Albuterol Sulfate) 8.5 Gm Hfa.aer.ad 2.5 Mg NEB RTQID Reported Trelegy Ellipta 100-62.5-25 (Fluticasone/Umeclidin/Vilanter) 1 Each Blst.w.dev 1 Each IH DAILY Lipitor (Atorvastatin Calcium) 40 Mg Tablet 1 Tab PO QHS Children's Aspirin (Aspirin) 81 Mg Tab.chew 1 Tab PO DAILY 30 Days Glimepiride 4 Mg Tablet 1 Tab PO BID Metformin Hcl 1,000 Mg Tablet 1,000 PO BID Oxycodon-Acetaminophen 7.5-325 (Oxycodone Hcl/Acetaminophen) 1 Each Tablet 1 Each PO PRN Q6HRS PRN Vitals/I & O Vital Sign - Last 24 Hours 08/04/19 08/04/19 08/04/19 08/04/19 15:09 19:25 19:45 21:56 Temp 97.5 97.9 97.5 97.9 Pulse 86 74 Resp 20 20 20 B/P (MAP) 131/67 (88) 164/78 (106) Pulse Ox 94 93 O2 Delivery Room Air Room Air Room Air Room Air O2 Flow Rate 08/04/19 08/04/19 08/05/19 08/05/19 22:45 22:56 03:00 07:00 Temp 97.8 97.9 98.1 97.8 97.9 98.1 Pulse 67 63 68 Resp 18 20 18 18 B/P (MAP) 140/74 (96) 138/75 (96) 168/86 (113) Pulse Ox 93 93 94 90 O2 Delivery Room Air Room Air Room Air Room Air 08/05/19 08/05/19 08/05/19 08:00 08:02 10:26 Temp 97.6 97.6 Pulse 71 Resp 18 B/P (MAP) 132/79 (96) Pulse Ox 96 93 O2 Delivery Room Air Room Air Room Air O2 Flow Rate 2.0 Intake and Output 08/04/19 08/04/19 08/05/19 15:00 23:00 07:00 Intake Total 240 ml 240 ml 400 ml Output Total 520 ml 1075 ml 600 ml Balance -280 ml -835 ml -200 ml NAOMI TODD MD Aug 05, 2019 12:10
--- NOTE | 2019-08-05 12:17 | NUR ---
Patient is discharged to home. Discharge instructions given. PIV and heart monitor removed. Escorted patient per wheelchair into a private vehicle.
== END 2019-08-05 12:15 | disposition home or self-care (01) | DRG 190 ==
LOC: ER 13:59 → 2 NORTH 15:44
PROVIDERS: ADMIT Internal Medicine; ATTEND Internal Medicine
DX: J44.1 Chronic obstructive pulmonary disease with (acute) exacerbation (principal); I21.A1 Myocardial infarction type 2; E87.2 Acidosis; I50.32 Chronic diastolic (congestive) heart failure; R09.1 Pleurisy; D72.829 Elevated white blood cell count, unspecified; E11.51 Type 2 diabetes mellitus with diabetic peripheral angiopathy without gangrene; E11.65 Type 2 diabetes mellitus with hyperglycemia; E78.5 Hyperlipidemia, unspecified; E83.42 Hypomagnesemia; G89.29 Other chronic pain; I11.0 Hypertensive heart disease with heart failure; I25.10 Atherosclerotic heart disease of native coronary artery without angina pectoris; I35.0 Nonrheumatic aortic (valve) stenosis; I49.3 Ventricular premature depolarization; I71.4 Abdominal aortic aneurysm, without rupture; W01.0XXA Fall on same level from slipping, tripping and stumbling without subsequent striking against object, initial encounter; Z82.49 Family history of ischemic heart disease and other diseases of the circulatory system; Z83.3 Family history of diabetes mellitus; Z86.011 Personal history of benign neoplasm of the brain; Z86.74 Personal history of sudden cardiac arrest; Z87.891 Personal history of nicotine dependence; Z95.2 Presence of prosthetic heart valve; Z95.5 Presence of coronary angioplasty implant and graft; Y93.89 Activity, other specified; Y92.89 Other specified places as the place of occurrence of the external cause; Y99.8 Other external cause status
CPT/HCPCS: 36415; 70450; 71045; 71275; 80053; 81001; 82962; 83735; 84484; 85025; 85379; 85520; 93005; 93308; 94640; 94760; 96365; 96376; J1644; J1815; J2270; J2920; J3475; J7512; J7613; J7626; Q9967; 97116; 97530; 99285-25; G0378

== ENCOUNTER 2020-05-17 07:33 | Inpatient (IN) | payer MEDICARE, MEDICAID ==
[~2020-05-17] VITALS: Ht 152.4 cm; Wt 63.3 kg
[~2020-05-17 07:33] MED LIST changes: +ALBU2.5V8 NEB; +ASPI81TA59 PO; +ATOR40TA PO; +DOXY100T PO; +FLUT1BLS3 IH; -GLIM4TAB4 PO; +GLIM4TAB8 PO; +NITR0.4T22 SL; +PRED-220 PO
[2020-05-17 08:59] LABS: BASO # 0.1 x10^3/uL (0.0-0.2); BASO % 1 % (0-3); EOS # 0.2 x10^3/uL (0.0-0.7); EOS % 2 % (0-3); HEMATOCRIT 35.3 % (36.0-47.0); HEMOGLOBIN 11.2 g/dL (12.0-15.5); LYMPH # 2.2 x10^3/uL (1.0-4.8); LYMPH % 22 % (24-48); MEAN CORPUSCULAR HEMOGLOBIN 26 pg (25-35); MEAN CORPUSCULAR HGB CONC 32 g/dL (31-37); MEAN CORPUSCULAR VOLUME 81 fL (79-100); MONO % 10 % (0-9); NEUT # 6.6 x10^3/uL (1.8-7.7); NEUT % 66 % (31-73); PLATELET COUNT 179 x10^3/uL (140-400); RED BLOOD COUNT 4.36 x10^6/uL (3.50-5.40); RED CELL DISTRIBUTION WIDTH 19.9 % (11.5-14.5)
--- NOTE | 2020-05-17 09:18 | RAD ---
EXAM: Right wrist, 4 views. HISTORY: Fall. Pain. COMPARISON: None. FINDINGS: 4 views of the right wrist are obtained. There is severe first carpometacarpal joint space narrowing with bony remodeling, subchondral sclerosis, subchondral cyst formation and marginal osteophytosis. There is a chronic fragmented osteophyte adjacent to the first carpometacarpal joint. There is also a corticated ossicle likely due to a chronic nonunited fracture adjacent to the radial styloid and tiny suspected nonunited avulsion fracture fragment or calcification distal to the ulnar styloid. There is bone demineralization. There is lucency traversing the triquetrum which is likely projectional. IMPRESSION: 1. No acute osseous finding. 2. Severe first carpal metacarpal joint osteoarthritis with associated bony remodeling and chronic fragmented spur. 3. Bone demineralization. Electronically signed by: Lisa Valdez MD (05/17/2020 9:14 AM) [id number]
--- NOTE | 2020-05-17 09:19 | RAD ---
PROCEDURE: RIBS RIGHT AND PA CHEST STUDY DATE: 05/17/2020 CLINICAL INDICATION / HISTORY: Reason: fell yesterday, right side ribs pain / Spl. Instructions: / History: . TECHNIQUE: PA chest and right rib series 4 views COMPARISON: 09/07/2019 chest x-ray FINDINGS: Heart and mediastinal contours again demonstrate aortic tortuosity with prosthetic aortic valve. Normal heart size. No mediastinal mass or adenopathy is apparent. Lungs are without focal infiltrates and show hyperlucency at the apices consistent with COPD. No pneumothorax or pleural effusion. No acute or aggressive appearing osseous lesions. The right rib series shows old healed rib fractures of the fourth and fifth ribs but no acute rib fractures or aggressive osseous lesions are noted. IMPRESSION: 1. COPD and aortic valve prosthesis with no acute superimposed cardiopulmonary process 2. Old posterior lateral right fourth and fifth rib fractures with no acute osseous abnormality noted. Electronically signed by: Mely Galdamez MD (05/17/2020 9:16 AM) [facility] [place]
[2020-05-17 09:54] LABS: CALCIUM 8.1 mg/dL (8.5-10.1); CREATININE 1.1 mg/dL (0.6-1.0); GFR 47.8; POTASSIUM 4.5 mmol/L (3.5-5.1)
[2020-05-17 09:57] LABS: ALBUMIN 3.5 g/dL (3.4-5.0); ALBUMIN/GLOBULIN RATIO 1.2 (1.0-1.7); MAGNESIUM 1.6 mg/dL (1.8-2.4); TOTAL BILIRUBIN 0.3 mg/dL (0.2-1.0); TOTAL PROTEIN 6.4 g/dL (6.4-8.2)
[2020-05-17] MEDS ORDERED: MAGNESIUM SULFATE 2GM 50 ML IV ONE (10:00)
--- NOTE | 2020-05-17 10:45 | PHYS DOC ---
Past Medical History Past Medical History: CAD, COPD, Diabetes-Type II Additional Past Medical Histor: CHRONIC BACK PAIN, pulmonary fibrosis Past Surgical History: Angioplasty, Cholecystectomy, Other Additional Past Surgical Histo: hernia repair,heart valve replacement,femoral stents Smoking Status: Former Smoker Alcohol Use: None Drug Use: None General Adult EDM: Chief Complaint: UPPER EXTREMITY PAIN HPI: HPI: Patient is a 79 year old female who presented to ER today for evaluation of right-sided rib pain and right wrist pain after she fell yesterday. Patient says she was walking outside walking and suddenly she just collapsed on her side. Patient denied any chest pain or any headache or any neck pain before she fell. Patient denies head or neck injury, no back pain. Patient denies any hip pain or knee no extremity pain. Patient broke her ribs on the right side before and patient felt like it moved again. Review of Systems: Review of Systems: Constitutional: Denies fever or chills. [] Eyes: Denies change in visual acuity. [] HENT: Denies nasal congestion or sore throat. [] Respiratory: Denies cough or shortness of breath. [] Cardiovascular: Denies chest pain or edema. [] GI: Denies abdominal pain, nausea, vomiting, bloody stools or diarrhea. [] : Denies dysuria. [] Musculoskeletal: Positive for right wrist pain, right side rib pain. Integument: Denies rash. [] Neurologic: Denies headache, focal weakness or sensory changes. [] Endocrine: Denies polyuria or polydipsia. [] Lymphatic: Denies swollen glands. [] Psychiatric: Denies depression or anxiety. [] Heart Score: Risk Factors: Risk Factors: DM, Current or recent (<one month) smoker, HTN, HLP, family hi story of CAD, obesity. Risk Scores: Score 0 - 3: 2.5% MACE over next 6 weeks - Discharge Home Score 4 - 6: 20.3% MACE over next 6 weeks - Admit for Clinical Observation Score 7 - 10: 72.7% MACE over next 6 weeks - Early Invasive Strategies Current Medications: Current Medications Medications (Trade) Dose Ordered Sig/Luisito Start Time Stop Time Status Last Admin Dose Admin Magnesium Sulfate 50 ml @ 25 mls/hr 1X ONCE 05/17/20 10:00 05/17/20 11:59 05/17/20 10:25 25 MLS/HR Allergies: Allergies: Allergies Coded Allergies Type Severity Reaction Last Updated Verified No Known Drug Allergies 07/30/15 No Physical Exam: PE: Constitutional: Well developed, well nourished, no acute distress, non-toxic appearance. [] HENT: Normocephalic, atraumatic, bilateral external ears normal, oropharynx moist, no oral exudates, nose normal. [] Eyes: PERRLA, EOMI, conjunctiva normal, no discharge. [] Neck: Normal range of motion, no tenderness, supple, no stridor. [] Cardiovascular:Heart rate regular rhythm, no murmur [] Lungs & Thorax: Bilateral breath sounds clear to auscultation . Right lateral rib tender to palpation, no crepitus. Abdomen: Bowel sounds normal, soft, no tenderness, no masses, no pulsatile masses. [] Skin: Warm, dry, no erythema, no rash. [] Back: No tenderness, no CVA tenderness. [] Extremities: Right wrist is swollen and tender to palpation with erythema. No hip tenderness to palpation, no knee tenderness to palpation. Neurologic: Alert and oriented X 3, normal motor function, normal sensory function, no focal deficits noted. [] Psychologic: Affect normal, judgement normal, mood normal. [] Current Patient Data: Labs: Laboratory Tests Test 05/17/20 08:25 05/17/20 09:20 White Blood Count 10.0 x10^3/uL (4.0-11.0) Red Blood Count 4.36 x10^6/uL (3.50-5.40) Hemoglobin 11.2 g/dL (12.0-15.5) L Hematocrit 35.3 % (36.0-47.0) L Mean Corpuscular Volume 81 fL (79-100) Mean Corpuscular Hemoglobin 26 pg (25-35) Mean Corpuscular Hemoglobin Concent 32 g/dL (31-37) Red Cell Distribution Width 19.9 % (11.5-14.5) H Platelet Count 179 x10^3/uL (140-400) Neutrophils (%) (Auto) 66 % (31-73) Lymphocytes (%) (Auto) 22 % (24-48) L Monocytes (%) (Auto) 10 % (0-9) H Eosinophils (%) (Auto) 2 % (0-3) Basophils (%) (Auto) 1 % (0-3) Neutrophils # (Auto) 6.6 x10^3/uL (1.8-7.7) Lymphocytes # (Auto) 2.2 x10^3/uL (1.0-4.8) Monocytes # (Auto) 1.0 x10^3/uL (0.0-1.1) Eosinophils # (Auto) 0.2 x10^3/uL (0.0-0.7) Basophils # (Auto) 0.1 x10^3/uL (0.0-0.2) Sodium Level 140 mmol/L (136-145) Potassium Level 4.5 mmol/L (3.5-5.1) Chloride Level 103 mmol/L (98-107) Carbon Dioxide Level 23 mmol/L (21-32) Anion Gap 14 (6-14) Blood Urea Nitrogen 16 mg/dL (7-20) Creatinine 1.1 mg/dL (0.6-1.0) H Estimated GFR (Cockcroft-Gault) 47.8 BUN/Creatinine Ratio 15 (6-20) Glucose Level 111 mg/dL (70-99) H Calcium Level 8.1 mg/dL (8.5-10.1) L Magnesium Level 1.6 mg/dL (1.8-2.4) L Total Bilirubin 0.3 mg/dL (0.2-1.0) Aspartate Amino Transferase (AST) 16 U/L (15-37) Alanine Aminotransferase (ALT) 21 U/L (14-59) Alkaline Phosphatase 87 U/L (46-116) Troponin I Quantitative 0.086 ng/mL (0.000-0.055) Total Protein 6.4 g/dL (6.4-8.2) Albumin 3.5 g/dL (3.4-5.0) Albumin/Globulin Ratio 1.2 (1.0-1.7) Laboratory Tests 05/17/20 08:25 Laboratory Tests 05/17/20 09:20 Vital Signs: Vital Signs Date Time Temp Pulse Resp B/P (MAP) Pulse Ox O2 Delivery O2 Flow Rate FiO2 05/17/20 07:50 97.9 80 17 138/60 (86) 93 Room Air 97.9 EKG: EKG: EKG was done at age 13, heart rate 79 bpm, no ST segment elevation. Left bundle branch block. Radiology/Procedures: Radiology/Procedures: [facility] [address] [place], [place] [id number] IMAGING REPORT Signed PATIENT: MIRTHA REYES ACCOUNT: [id number] : 1940 LOCATION: ER AGE: 79 SEX: F EXAM STATUS: REG ER ORD. PHYSICIAN: VANESSA WILLARD DO REASON: fell yesterday, right wrist pain PROCEDURE: WRIST 3V RIGHT EXAM: Right wrist, 4 views. HISTORY: Fall. Pain. COMPARISON: None. FINDINGS: 4 views of the right wrist are obtained. There is severe first carpometacarpal joint space narrowing with bony remodeling, subchondral sclerosis, subchondral cyst formation and marginal osteophytosis. There is a chronic fragmented osteophyte adjacent to the first carpometacarpal joint. There is also a corticated ossicle likely due to a chronic nonunited fracture adjacent to the radial styloid and tiny suspected nonunited avulsion fracture fragment or calcification distal to the ulnar styloid. There is bone demineralization. There is lucency traversing the triquetrum which is likely projectional. IMPRESSION: 1. No acute osseous finding. 2. Severe first carpal metacarpal joint osteoarthritis with associated bony remodeling and chronic fragmented spur. 3. Bone demineralization. Electronically signed by: Lisa rCuz MD (05/17/2020 9:14 AM) [id number] DICTATED and SIGNED BY: LISA CRUZ MD DATE: 05/17/20 09[id number] [place], [place] [id number] IMAGING REPORT Signed PATIENT: MIRTHA REYES ACCOUNT: [id number] : 1940 LOCATION: ER AGE: 79 SEX: F EXAM STATUS: REG ER ORD. PHYSICIAN: VANESSA WILLARD DO REASON: fell yesterday, right side ribs pain PROCEDURE: RIBS RIGHT AND PA CHEST PROCEDURE: RIBS RIGHT AND PA CHEST STUDY DATE: 05/17/2020 CLINICAL INDICATION / HISTORY: Reason: fell yesterday, right side ribs pain / Spl. Instructions: / History: . TECHNIQUE: PA chest and right rib series 4 views COMPARISON: 09/07/2019 chest x-ray FINDINGS: Heart and mediastinal contours again demonstrate aortic tortuosity with prosthetic aortic valve. Normal heart size. No mediastinal mass or adenopathy is apparent. Lungs are without focal infiltrates and show hyperlucency at the apices consistent with COPD. No pneumothorax or pleural effusion. No acute or aggressive appearing osseous lesions. The right rib series shows old healed rib fractures of the fourth and fifth ribs but no acute rib fractures or aggressive osseous lesions are noted. IMPRESSION: 1. COPD and aortic valve prosthesis with no acute superimposed cardiopulmonary process 2. Old posterior lateral right fourth and fifth rib fractures with no acute osseous abnormality noted. Electronically signed by: Joanna Galdamez MD (05/17/2020 9:16 AM) [facility] [place] DICTATED and SIGNED BY: JOANNA GALDAMEZ MD DATE: 05/17/20 0916 Course & Med Decision Making: Course & Med Decision Making Pertinent Labs and Imaging studies reviewed. (See chart for details) Patient is a 79-year-old female who was evaluated in ER today due to right wrist pain and right rib pain after she fell yesterday. Patient did not know why she fall. Patient troponin is elevated. Patient will be admitted to hospital for observation and trending her troponin. Patient denies any chest pain at this time. Discussed with Dr. Bradley who agrees to admit the patient. A colle's Velcro wrist splint was applied to right wrist by patient RN. Lisha Disclaimer: Lisha Disclaimer: This electronic medical record was generated, in whole or in part, using a voice recognition dictation system. Departure Departure Impression: Primary Impression: Syncope and collapse Additional Impressions: Right wrist sprain Hypomagnesemia Disposition: ADMITTED INPATIENT Admitting Physician: Edwin Bradley Condition: STABLE Referrals: CARMEN MARTINEZ MD (PCP) Justicifation of Admission Dx: Justifications for Admission: Justification of Admission Dx: N/A VANESSA WILLARD DO May 17, 2020 10:45
[2020-05-17] MEDS ORDERED: IV DEXTROSE 5% 250 ML BAG. IV PRN ×2 (12:45)
[2020-05-17] MEDS ORDERED: NITROGLYCERIN SUBLINGUAL 0.4 MG BOTTLE OF 25. SL PRN (12:45)
[2020-05-17] MEDS ORDERED: DEXTROSE 50% 25 GM / 50ML DISP.SYRIN. IV PRN ×2 (12:45)
--- NOTE | 2020-05-17 12:46 | PDOC ---
Provider Note Provider Note Pt seen in ER.H&P dictated.#[id number]. Justicifation of Admission Dx: Justifications for Admission: Justification of Admission Dx: N/A MACARIO KUNZ MD May 17, 2020 12:46
[2020-05-17 13:16] VITALS: BP 148/79
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
--- NOTE | 2020-05-17 13:30 | NUR ---
The patient, MIRTHA REYES, 79 y/o, F admitted by CARMEN MARTINEZ MD, was given written information regarding hospital policies, unit procedures and contact persons. Valuables were checked and left in room with patient. Pt admitted to room 201 from ED. Arrived via wheelchair with ED nurse. Standby assistance to the bed, no complaints of dizziness or shortness of breath. VSS, on room air. Pt complaining of back pain 04/01. Call light within reach. Will continue to monitor.
[2020-05-17] MEDS: ASPIRIN CHEWABLE 81 MG TABLET. PO SCH (14:38)
[2020-05-17] MEDS: oxyCODONE/APAP 7.5/325 1 TAB TABLET PO PRN (14:38)
[2020-05-17] MEDS: ENOXAPARIN 30 MG/0.3 ML SYRINGE. SQ SCH (14:39)
[2020-05-17 15:00] VITALS: BP 115/75
[2020-05-17] MEDS: IPRATRPIUM/ALBUTEROL 0.5/2.5MG 3 ML NEBU. NEB SCH ×2 (15:08→20:54)
[2020-05-17] MEDS ORDERED: ALBUTEROL SULFATE 2.5 MG/3 ML NEBU. NEB SCH (16:00)
[2020-05-17] MEDS ORDERED: INSULIN LISPRO 300 UNITS/3 ML VIAL. SQ SCH (17:00)
[2020-05-17] MEDS: metFORMIN 500 MG TABLET PO SCH (17:11)
[2020-05-17] MEDS: INSULIN LISPRO 300 UNITS/3 ML VIAL. SQ SCH (17:16)
[2020-05-17 18:36] VITALS: BP 112/50
[2020-05-17] MEDS ORDERED: ATORVASTATIN CALCIUM 40 MG TABLET. PO SCH (21:00)
[2020-05-17 22:41] VITALS: BP 128/61
[2020-05-18] MEDS: oxyCODONE/APAP 7.5/325 1 TAB TABLET PO PRN ×2 (00:36→14:59)
[2020-05-18 03:37] VITALS: BP 136/64
[2020-05-18 06:58] LABS: CHOLESTEROL/HDL RATIO 2.6
[2020-05-18 07:00] VITALS: BP 101/63
[2020-05-18] MEDS: IPRATRPIUM/ALBUTEROL 0.5/2.5MG 3 ML NEBU. NEB SCH ×3 (07:15→15:30)
[2020-05-18] MEDS: INSULIN LISPRO 300 UNITS/3 ML VIAL. SQ SCH ×2 (08:00→12:00)
[2020-05-18] MEDS: ASPIRIN CHEWABLE 81 MG TABLET. PO SCH (08:29)
[2020-05-18] MEDS: metFORMIN 500 MG TABLET PO SCH (08:30)
[2020-05-18] MEDS ORDERED: NON FORMULARY ITEM (Fluticasone/Umeclidin/Vilanter (Trelegy Ellipta 100-62.5-25) 1 EACH) IH SCH (09:00)
--- NOTE | 2020-05-18 10:07 | PDOC2 ---
AIED HENNESSY RADIATION CONTROL TECHNICIAN 05/18/20 1007: CARDIAC CONSULT DATE OF CONSULT Date of Consult DATE: 05/18/20 TIME: 09:57 REASON FOR CONSULT Reason for Consult: syncope REFERRING PHYSICIAN Referring Physician: Dr. Bradley SOURCE Source: Chart review, Patient HISTORY OF PRESENT ILLNESS HISTORY OF PRESENT ILLNESS This is an 79 yo female who presented secondary to right rib and wrist pain secondary to fall yesterday. Reports she was walking outside yesterday and collapsed on her side. No precipitating dizziness, diaphoresis, chest pain, palpitations, or nausea/vomiting. Does noted think she tripped. Had brief LOC. Denies any recent chest pain, EUGENE, SOA, or fatigue. No recent fevers/illness. Has been seen in our office twice in 2019, but did not show to her most recent appointment at the end of the year. PAST MEDICAL HISTORY Past Medical History Cardiovascular: CAD, CHF, HTN, Hyperlipidemia, Aortic stenosis, AAA Pulmonary: COPD, Pneumonia, Other CENTRAL NERVOUS SYSTEM: Other GI: Constipation Heme/Onc: No pertinent hx Hepatobiliary: No pertinent hx Psych: No pertinent hx Musculoskeletal: low back pain, Osteoarthritis Rheumatologic: No pertinent hx Infectious disease: No pertinent hx Renal/: UTI Endocrine: Diabetes PAST SURGICAL HISTORY Past Surgical History Appendectomy, Cholecystectomy, Cataract Removal, Other (TAVR, bilateral iliac stents) FAMILY HISTORY Family History: Diabetes, Hypertension SOCIAL HISTORY Social History Tobacco: quit 2011 ALCOHOL: none Drugs: None Lives: with Family CURRENT MEDICATIONS CURRENT MEDICATIONS Current Medications Medications (Trade) Dose Ordered Sig/Luisito Route PRN Reason Start Time Stop Time Status Last Admin Dose Admin Magnesium Sulfate 50 ml @ 25 mls/hr 1X ONCE IV 05/17/20 10:00 05/17/20 11:59 DC 05/17/20 10:25 Aspirin (Aspirin Chewable) 81 mg DAILY PO 05/17/20 13:00 05/18/20 08:29 Atorvastatin Calcium (Lipitor) 40 mg QHS PO 05/17/20 21:00 05/17/20 20:59 Oxycodone/ Acetaminophen (Percocet 7.5/ 325) 1 tab PRN Q6HRS PRN PO PAIN 05/17/20 12:45 05/18/20 00:36 Metformin HCl (Glucophage) 1,000 mg BIDWMEALS PO 05/17/20 17:00 05/18/20 08:30 Insulin Human Lispro (HumaLOG) 0-5 UNITS TIDWMEALS SQ 05/17/20 17:00 05/17/20 17:16 Enoxaparin Sodium (Lovenox 30mg Syringe) 30 mg Q24H SQ 05/17/20 13:00 05/17/20 14:39 Albuterol/ Ipratropium (Duoneb) 3 ml RTQID NEB 05/17/20 16:00 05/18/20 07:15 ALLERGIES ALLERGIES: Coded Allergies: No Known Drug Allergies (Unverified , 07/30/15) ROS Review of System 14 point ROS conducted with pertinent positives noted above in HPI PHYSICAL EXAM General: Alert, Oriented X3, Cooperative, No acute distress HEENT: Atraumatic, Mucous membr. moist/pink Lungs: Clear to auscultation Heart: Regular rate, Other (2/6 systolic murmur ) Abdomen: Soft, No tenderness Extremities: No edema, Normal pulses Neuro: Normal speech, Sensation intact Psych/Mental Status: Mental status NL, Mood NL MUSCULOSKELETAL: Osteoarthritic changes both hands VITALS/I&O VITALS/I&O: Vital Signs Date Time Temp Pulse Resp B/P (MAP) Pulse Ox O2 Delivery O2 Flow Rate FiO2 05/18/20 08:00 Room Air 05/18/20 07:15 96 05/18/20 07:00 98.6 71 20 101/63 (76) 98.6 I & O 05/17/20 05/17/20 05/18/20 15:00 23:00 07:00 Intake Total 50 ml 390 ml 500 ml Output Total 400 ml 500 ml 300 ml Balance -350 ml -110 ml 200 ml LABS Lab: Laboratory Tests Test 05/17/20 12:30 05/17/20 16:38 05/17/20 18:10 05/17/20 19:13 Troponin I Quantitative 0.079 ng/mL (0.000-0.055) 0.071 ng/mL (0.000-0.055) Glucose (Fingerstick) 222 mg/dL (70-99) H 203 mg/dL (70-99) H Test 05/18/20 00:05 05/18/20 06:00 05/18/20 06:10 05/18/20 07:09 Troponin I Quantitative 0.088 ng/mL (0.000-0.055) Thyroid Stimulating Hormone (TSH) 4.247 uIU/mL (0.358-3.74) H Triglycerides Level 117 mg/dL (0-150) Cholesterol Level 82 mg/dL (0-200) LDL Cholesterol, Calculated 27 mg/dL (0-100) VLDL Cholesterol, Calculated 23 mg/dL (0-40) Non-HDL Cholesterol Calculated 50 mg/dL (0-129) HDL Cholesterol 32 mg/dL (40-60) L Cholesterol/HDL Ratio 2.6 Glucose (Fingerstick) 120 mg/dL (70-99) H ECHOCARDIOGRAM ECHOCARDIOGRAM <Conclusion> The left ventricular systolic function is normal. The Ejection Fraction is 55-60%. There is normal LV segmental wall motion. Transmitral Doppler flow pattern is Grade I-abnormal relaxation pattern. Bioprosthetic aortic valve prosthesis appears well seated and functioning well. Trace to mild mitral regurgitation. Trace tricuspid regurgitation. The PA pressure was estimated at 25 mmHg. There is no evidence of significant pericardial effusion. DATE: 02/27/19 0852 <Conclusion> Limited study. The left ventricle is normal size. The left ventricular systolic function is low normal. The Ejection Fraction is 50-55%. There is mild concentric left ventricular hypertrophy. There is no evidence of significant pericardial effusion. DATE: 08/04/19 1338 STRESS TEST STRESS TEST Conclusion 1. Non-diagnostic EKG due to LBBB 2. Fixed apical perfusion defect, likely artifact. No ischemia or infarct noted. 3. Normal EF at > 70% 4. Low risk study DATE: 05/16/17 1445 ASSESSMENT/PLAN ASSESSMENT/PLAN 1. Syncope; etiology unclear. No acute event on tele. Carotid US without significant stenosis 2. Right rib and wrist pain; imaging without acute fracture 3. Aortic stenosis; s/p TAVR 2016 4. Mild troponin elevation; peak 0.086. CP free. EKG with chronic LBBB. Possibly type II, demand ischemia, but type I cannot be ruled out 5. CAD s/p PCI/stent to LCx 2016 6. PAD s/p bilateral iliac stents. Clinically stable 7. Hypertension; controlled 8. Hyperlipidemia; statin 9. Diabetes, II 10. Hypomagnesemia; replaced Recommendations Echo to assess LV systolic function/aortic valve Lipids Resume secondary prevention Will arrange for outpatient stress and event monitor given syncope, h/o CAD, and mildly elevated troponin Follow up in our office with Dr. Jeffrey as scheduled. WENDIE JEFFREY MD 05/18/20 1722: CARDIAC CONSULT ASSESSMENT/PLAN ASSESSMENT/PLAN Patient seen and examined. Agree with above nurse practitioner note. Thank you for this consultation. AIDE HENNESSY APRN May 18, 2020 10:07 WENDIE JEFFREY MD May 18, 2020 17:22
--- NOTE | 2020-05-18 10:13 | DISCH ---
DISCHARGE INSTRUCTIONS Condition on Discharge Condition on Discharge: Stable Activity After Discharge Activity Instructions for Disc: Activity as tolerated (Walks with cane) Weight Bearing Status after Di: As tolerated Diet after Discharge Diet after Discharge: Cardiac (ADA), Diabetic No Calorie Level Checks after Discharge Checks after discharge: Check blood press - daily, Check blood sugar, ac/hs Contacting the DRKelsey after DC Call your doctor for: Concerns you may have Follow-Up Follow up with: Dr. Carmen Irving in 5 days Treatment/Equipment after DC Discharge Respiratory Equipmen: CARMEN Espana MD May 18, 2020 10:12
--- NOTE | 2020-05-18 10:17 | PDOC3 ---
IM DISCHARGE SUMMARY Date of Admission Date of Admission Date of Admission: May 17, 2020 at 12:07 Date of Discharge Date of Discharge May 18, 2020 Primary Diagnosis Primary Diagnosis 1. Syncopal episode. 2. Slightly elevated troponin. 3. Known history of coronary artery disease. 4. History of aortic valve bioprosthesis. 5. Chronic obstructive pulmonary disease. 6. History of smoking. 7. Hypertension. 8. Old rib fractures. Consults Consults Morales Oropeza MD Labs Labs Laboratory Tests Test 05/17/20 12:30 05/17/20 16:38 05/17/20 18:10 05/17/20 19:13 Troponin I Quantitative 0.079 ng/mL (0.000-0.055) 0.071 ng/mL (0.000-0.055) Glucose (Fingerstick) 222 mg/dL (70-99) H 203 mg/dL (70-99) H Test 05/18/20 00:05 05/18/20 06:00 05/18/20 06:10 05/18/20 07:09 Troponin I Quantitative 0.088 ng/mL (0.000-0.055) Thyroid Stimulating Hormone (TSH) 4.247 uIU/mL (0.358-3.74) H Triglycerides Level 117 mg/dL (0-150) Cholesterol Level 82 mg/dL (0-200) LDL Cholesterol, Calculated 27 mg/dL (0-100) VLDL Cholesterol, Calculated 23 mg/dL (0-40) Non-HDL Cholesterol Calculated 50 mg/dL (0-129) HDL Cholesterol 32 mg/dL (40-60) L Cholesterol/HDL Ratio 2.6 Glucose (Fingerstick) 120 mg/dL (70-99) H Brief hospital course Brief hospital course The patient is an 79-year-old female who has a history of COPD, coronary artery disease, had a bioprosthetic aortic valve and she lives in a high-rise apartment. She was walking yesterday in front of her apartment and she fell and she landed on her hand and she was having pain. She came to the hospital to make sure she did not have a fracture and x-ray shows no fracture of the arm, but her troponin was slightly elevated and the patient was admitted to the hospital. She did not recall any prodromal symptoms and she just passed out. She had no chest pain or shortness of breath at that time. The patient was in the hospital last year. She had a non-STEMI and she has a history of bioprosthetic valve replacement couple of years ago. For more details regarding the past history, family history, social history, surgical history and other details, please refer to History and Physical. Patient was noted to have severe osteoarthritis of the wrist. No fracture noted. Consultation was obtained with Dr. Oropeza for cardiology evaluation and management. Serial EKG and enzymes were obtained. Troponin level was slightly elevated. Echocardiogram and carotid Doppler has been ordered. Advised her to use either cane or walker when she is walking. She has both available at home If the patient remains stable and if the cardiac work-up is negative she will be discharged home. Medications Current Medications Medications (Trade) Dose Ordered Sig/Luisito Route PRN Reason Start Time Stop Time Status Last Admin Dose Admin Aspirin (Aspirin Chewable) 81 mg DAILY PO 05/17/20 13:00 05/18/20 08:29 Atorvastatin Calcium (Lipitor) 40 mg QHS PO 05/17/20 21:00 05/17/20 20:59 Oxycodone/ Acetaminophen (Percocet 7.5/ 325) 1 tab PRN Q6HRS PRN PO PAIN 05/17/20 12:45 05/18/20 00:36 Metformin HCl (Glucophage) 1,000 mg BIDWMEALS PO 05/17/20 17:00 05/18/20 08:30 Insulin Human Lispro (HumaLOG) 0-5 UNITS TIDWMEALS SQ 05/17/20 17:00 05/17/20 17:16 Enoxaparin Sodium (Lovenox 30mg Syringe) 30 mg Q24H SQ 05/17/20 13:00 05/17/20 14:39 Albuterol/ Ipratropium (Duoneb) 3 ml RTQID NEB 05/17/20 16:00 05/18/20 07:15 Medications reviewed and reconciled for discharge. Allergy Allergies Coded Allergies Type Severity Reaction Last Updated Verified No Known Drug Allergies 07/30/15 No Follow up in 5 days. DISPOSITION: Home Comments Discharge Management - 35 minutes. For other details please refer to discharge instructions Justicifation of Admission Dx: Justifications for Admission: Justification of Admission Dx: N/A CARMEN MARTINEZ MD May 18, 2020 10:17
[2020-05-18 11:00] VITALS: BP 127/69
--- NOTE | 2020-05-18 11:55 | CARD ---
MR#: [id number] Date of Study: 05/18/2020 Ordering Physician: MACARIO KUNZ, Referring Physician: MACARIO KUNZ, Tech: Sweetie Luna RDCS APPROVED REPORT EXAM: Two-dimensional and M-mode echocardiogram with Doppler and color Doppler. Other Information Quality : Good INDICATION Aortic Valve Disease Syncope Surgery/Intervention Status/Post Aortic Valve Replacement: Bioprosthetic 2D DIMENSIONS RVDd2.5 (2.9-3.5cm)Left Atrium(2D)3.6 (1.6-4.0cm) IVSd1.3 (0.7-1.1cm)Aortic Root(2D)2.3 (2.0-3.7cm) LVDd3.2 (3.9-5.9cm)LVOT Diameter2.0 (1.8-2.4cm) PWd1.3 (0.7-1.1cm)LVDs2.8 (2.5-4.0cm) FS (%) 13.2 %SV12.1 ml LVEF(%)29.2 (>50%) Aortic Valve AoV Peak Marv.196.6cm/sAoV VTI35.3cm AO Peak GR.15.5mmHgLVOT Peak Marv.106.6cm/s AO Mean GR.8mmHgAVA (VMAX)1.70cm2 SAE (VTI)1.90cm2 Mitral Valve MV E Pdpozhfe70.4cm/sMV DECEL WLDV871ks MV A Kmnlumsl298.3cm/sE/A Ratio0.4 Pulmonary Vein S1 Xcrlzzxl915.5cm/sD2 Rajwgygu05.1cm/s LEFT VENTRICLE The left ventricle is normal size. There is mild concentric left ventricular hypertrophy. The left ve ntricular systolic function is normal and the ejection fraction is within normal range. The Ejection Fraction is 60-65%. Septal motion consistent with conduction abnormality. Otherwise, normal segmental wall motion. Transmitral Doppler flow pattern is Grade I-abnormal relaxation pattern. RIGHT VENTRICLE The right ventricle is normal size. The right ventricular systolic function is normal. ATRIA The left atrium size is normal. The right atrium size is normal. The interatrial septum is intact wit h no evidence for an atrial septal defect or patent foramen ovale as noted on 2-D or Doppler imaging. AORTIC VALVE Doppler and Color Flow revealed no significant aortic regurgitation. Calculated aortic valve area is 1.9 cm2 with maximum pressure gradient of 15 mmHg and mean pressure gradient of 8 mmHg. Bioprosthesis leaflets are not well visualized. MITRAL VALVE The mitral valve is calcified but opens well. Mitral annular calcification is mild to moderate. There is no evidence of mitral valve prolapse. There is no mitral valve stenosis. Doppler and Color-flow r evealed trace to mild mitral regurgitation. TRICUSPID VALVE The tricuspid valve is normal in structure and function. Doppler and Color Flow revealed no tricuspid valve regurgitation noted. There is no tricuspid valve stenosis. PULMONIC VALVE The pulmonic valve is not well visualized. Doppler and Color Flow revealed no pulmonic valvular regur gitation. There is no pulmonic valvular stenosis. GREAT VESSELS The aortic root is normal in size. The ascending aorta is normal in size. The IVC is normal in size a nd collapses >50% with inspiration. PERICARDIAL EFFUSION There is no evidence of significant pericardial effusion. Critical Notification Critical Value: No <Conclusion> The left ventricular systolic function is normal and the ejection fraction is within normal range. Th e Ejection Fraction is 60-65%. Septal motion consistent with conduction abnormality. Otherwise, normal segmental wall motion. Signed by : Amandeep Jeffrey, Electronically Approved : 05/18/2020 11:54:37
--- NOTE | 2020-05-18 11:57 | NUR ---
SS following for discharge planning. SS reviewed pt chart and discussed with pt RN. Pt is from home and is currently on room air. PT recommended home with home healthcare. Pt declining home healthcare. Discharge order on the chart for home with self care.
--- NOTE | 2020-05-18 12:55 | RAD ---
EXAM: Carotid Doppler sonogram. HISTORY: Syncope. Carotid atherosclerotic is. TECHNIQUE: Monteiro scale and color Doppler sonographic evaluation of the neck with spectral waveform analysis was performed and static images are submitted for review. FINDINGS: There is atherosclerotic plaque within the carotid bulbs and distal right common carotid artery. The peak systolic velocity within the right common carotid artery is 68 cm/sec. The peak systolic velocity within the right internal carotid artery is 78 cm/sec and the end diastolic velocity within the right internal carotid artery is 24 cm/sec. The right ICA/CCA ratio is 1.2. The peak systolic velocity within the left common carotid artery is 79 cm/sec. The peak systolic velocity within the left internal carotid artery is 75 cm/sec and the end diastolic velocity within the left internal carotid artery is 17 cm/sec. The left ICA/CCA ratio is 0.94. There is normal antegrade flow within both vertebral arteries. IMPRESSION: No Doppler evidence of greater than 50 percent stenosis involving the internal carotid arteries. PQRS Compliance Statement - Stenosis calculations for CT, MR and conventional angiography are based upon measurement of the distal ICA diameter in accordance with the NASCET methodology. Stenosis calculations for carotid ultrasound studies are derived from validated velocity criteria which are known to correlate with the NASCET methodology. Electronically signed by: Lisa Valdez MD (05/18/2020 12:52 PM) [email or web address]
[2020-05-18] MEDS: ENOXAPARIN 30 MG/0.3 ML SYRINGE. SQ SCH (13:00)
[2020-05-18 15:00] VITALS: BP 98/58
--- NOTE | 2020-05-18 17:01 | NUR ---
Discharge Note: MIRTHA REYES Discharge instructions and discharge home medications reviewed with Patient and a copy given. All questions have been answered and understanding verbalized.
[2020-05-19 01:08] LABS: HEMOGLOBIN A1C 6.9 % (4.8-5.6)
--- NOTE | 2020-05-19 10:38 | EKG ---
[facility] [address] [place] [address] Test Date: 2020-05-17 Test Time: 08:14:25 Pat Name: MIRTHA REYES Department: Room: Gender: F [employer] Operator: : 1940 Requested By: VANESSA WILLARD Order Number: [id number] Reading MD: Measurements Intervals Brooks Rate: P: GA: QRS: QRSD: T: QT: QTc: Interpretive Statements
== END 2020-05-18 17:02 | disposition home or self-care (01) | DRG 74 ==
LOC: ER 07:33 → OBSVTOIN 12:07 → 2 NORTH 12:07
PROVIDERS: ADMIT Internal Medicine; ATTEND Internal Medicine
DX: G90.8 Other disorders of autonomic nervous system (principal); E83.42 Hypomagnesemia; M19.039 Primary osteoarthritis, unspecified wrist; E78.5 Hyperlipidemia, unspecified; I11.0 Hypertensive heart disease with heart failure; I25.10 Atherosclerotic heart disease of native coronary artery without angina pectoris; I25.2 Old myocardial infarction; I44.7 Left bundle-branch block, unspecified; I50.9 Heart failure, unspecified; J44.9 Chronic obstructive pulmonary disease, unspecified; J84.10 Pulmonary fibrosis, unspecified; M81.0 Age-related osteoporosis without current pathological fracture; S63.501A Unspecified sprain of right wrist, initial encounter; G89.29 Other chronic pain; W19.XXXA Unspecified fall, initial encounter; Z82.49 Family history of ischemic heart disease and other diseases of the circulatory system; Z83.3 Family history of diabetes mellitus; Z87.891 Personal history of nicotine dependence; Z95.2 Presence of prosthetic heart valve; Z95.5 Presence of coronary angioplasty implant and graft; W18.39XA Other fall on same level, initial encounter; Y93.89 Activity, other specified; Y92.89 Other specified places as the place of occurrence of the external cause; Y99.8 Other external cause status; E11.51 Type 2 diabetes mellitus with diabetic peripheral angiopathy without gangrene; Z79.4 Long term (current) use of insulin
CPT/HCPCS: 36415; 71101; 73110; 80053; 80061; 82962; 83036; 83735; 84443; 84484; 85025; 93005; 93306; 93880; 94640; 96365; 96366; 99285; J1650; J1815; J3475; G0378

== ENCOUNTER → 2020-06-01 | Outpatient (CLI) | payer MEDICARE, MEDICAID ==
[2020-05-18 15:00] VITALS: BP 98/58
[~2020-06-01] MED LIST changes: +REGADENOSON 0.4 MG/5 ML DISP.SYRIN. IV ONE
--- NOTE | 2020-06-01 16:06 | RAD ---
MR#: [id number] Date of Study: 06/01/2020 Ordering Physician: SHARMILA FREED, Referring Physician: MAXINE PICKERING Tech: BARON Gentile APPROVED REPORT Test Type: Pharmacological Stress Nurse/Tech: Karla Cueva R.N. Test Indications: Arrythmia Cardiac History: Diabetes. valve replacement Medications: See Electronic Medical Record Medical History: See Electronic Medical Record Resting ECG: NSR with BBB Resting Heart Rate: 86 bpm Resting Blood Pressure: 139/68mmHg Pretest Chest Pain: No chest pain Nurse/Tech Notes S1S2, lungs sound clear Consent: The procedure was explained to the patient in lay terms. Informed consent was witnessed. Sheldon eout was entered into [employer]. History and Stress Test performed by Karla Cueva R.N. Pharm. Details Pharmacologic stress testing was performed using 0.4mg per 5ml of regadenoson given intravenously ove r 7-10 seconds. Stress Symptoms Dyspnea POST EXERCISE Reason for Termination: Infusion complete Target HR: 119 Max HR: 101 bpm Max Blood Pressure: 165/44mmHg Blood Pressure response to exercise: Normal blood pressure response during stress. Chest Pain: Yes. states she had a pressure in mid chest about 7 minutes after injection. No changes noted in EKG. pressure lasted about 30 sec. Arrhythmia: No. ST Change: No. INTERPRETATION Stress EKG Conclusion: No evidence of stress induced EKG changes. Imaging Protocol IMAGE PROTOCOL: Rest Tc-99m/stress Tc-99m 1 day Rest: Stress: Viability: Radiopharm.Tc99m OrrtfconmDw87k Sestamibi Xlyg57fXb 33mCi Duration 15min. 13min. Img Date 06/01/2020 06/01/2020 Inj-Img Lvcr98dwh. 60min. Rest Admin Site:IV - Left ForearmAdministrator:BARON Gentile Stress Admin Site: IV - Left ForearmAdministrator: RT Neil (R)(N) STRESS DATA End Diast. Vol.49.0mlEnd Syst. Vol.14.0ml Myocardial Mass99.0gEject. Kdccwzds72.0% Stress Scores Regional WT2.00Summed WT22.00 Regional WM0.00Summed WM4.00 The rest and stress images show normal perfusion, normal contraction and thickening. LV Perf. Quant 17 Seg. SSS0.00 17 Seg. SRS2.00 17 Seg. SDS0.00 Stress Defect Extent (% LAD)0.00Rest Defect Extent (% LAD)3.10Rev. Defect Extent (% LAD)0.00 Stress Defect Extent (% LCX) 0.00Rest Defect Extent (% LCX)5.00Rev. Defect Extent (% LCX)0.00 Stress Defect Extent (% RCA)0.00Rest Defect Extent (% RCA)0.00Rev. Defect Extent (% RCA)0.00 Stress Defect Extent (% JOSE LUIS)0.00Rest Defect Extent (% JOSE LUIS)3.30Rev. Defect Extent (% JOSE LUIS)0.00 Other Information Quality:Good Risk Assessment: Low Risk Conclusion 1. No evidence of EKG changes with stress testing. 2. Normal perfusion at stress/rest. 3. Low risk study. 4. EF > 60%. Signed by : Amandeep Jeffrey, Electronically Approved : 06/01/2020 16:06:26
== END | disposition home or self-care (01) ==
LOC: NM 12:25
PROVIDERS: ATTEND Internal Medicine Cardiovascular Disease
DX: R07.9 Chest pain, unspecified (principal)
CPT/HCPCS: 78452; 93017; A9500; J2785

== ENCOUNTER → 2020-08-06 | Outpatient (CLI) | payer MEDICARE, MEDICAID ==
[~2020-08-06] MED LIST changes: -NALO25TA2 PO; +NALO25TA4 PO; -REGADENOSON 0.4 MG/5 ML DISP.SYRIN. IV ONE
--- NOTE | 2020-08-06 15:05 | RAD ---
MR#: [id number] Date of Study: 08/06/2020 Ordering Physician: WENDIE VINCENT, Referring Physician: WENDIE VINCENT, Tech: APPROVED REPORT Patient Location: OUT-PATIENT Indications AAA Risk Factors PAD Diabetes Smoking Duplex Results A/PTransverseLongitudinal Mid Aorta 2.2cm3.0cm Distal Aorta 3.3cm3.0cm Doppler VelocityWaveform Aorta Mid. 86.7 cm/sec Distal Aorta 59.6 cm/sec Findings Proximal abdominal aorta was not well visualized on this study. The mid and distal abdominal aorta measure approximately 3 cm on ultrasound. Normal velocities are o btained. No focal aneurysmal dilatation is noted. Critical Notification Critical Value: No <Conclusion> 1. Limited study but no obvious evidence of abdominal aortic aneurysm Signed by : Wendie Vincent, Electronically Approved : 08/06/2020 15:04:47
--- NOTE | 2020-08-06 15:08 | RAD ---
MR#: [id number] Date of Study: 08/06/2020 Ordering Physician: WENDIE VINCENT, Referring Physician: WENDIE VINCENT, Tech: APPROVED REPORT Patient Location: OUT-PATIENT Exam Type: Ankle to Brachial Index Indications PAD Risk Factors Diabetes Smoking Pressures/Indices RightABI LeftABI Brachial 153mmHg.59Brachial 144mmHg.83 Ankle(PT) 82mmHgAnkle(PT) 127mmHg Ankle(DP) 91mmHgAnkle(DP) 125mmHg Critical Notification Critical Value: No <Conclusion> 1. Severely abnormal right-sided CHILO at 0.59 2. Moderately abnormal CHILO on the left side at 0.83 Signed by : Wendie Vincent, Electronically Approved : 08/06/2020 15:08:10
--- NOTE | 2020-08-06 15:09 | RAD ---
MR#: [id number] Date of Study: 08/06/2020 Ordering Physician: WENDIE VINCENT, Referring Physician: WENDIE VINCENT, Tech: APPROVED REPORT Patient Location: OUT-PATIENT Indications PAD Risk Factors Diabetes Smoking VELOCITY AND DOPPLER WAVEFORM ANALYSIS RIGHT cm/secWaveformSeverity LEFT cm/secWaveform Severity dCFA 77.0MonophasicdCFA 99.0Biphasic Prof Fem Art. 67.0MonophasicProf Fem Art. 70.0Biphasic Fem Art Prox. 52.0MonophasicFem Art Prox. 80.0Biphasic Fem Art Mid. 62.0MonophasicFem Art Mid. 72.0Biphasic Fem Art Dist. 67.0MonophasicFem Art Dist. 70.0Biphasic Pop Art(Fossa) 37.0MonophasicPop Art(AK) 57.0Biphasic LEATHER ROLLER Prox. 30.0MonophasicPTA Prox. 58.0Biphasic LEATHER ROLLER Dist. 29.0MonophasicPTA Dist. 40.0Biphasic Per Art Dist.37.0MonophasicPer Art Dist.74.0Biphasic LILIBETH Prox. 45.0MonophasicATA Prox. 74.0Biphasic LILIBETH Dist. LILIBETH Dist. Biphasic DPA 44MonophasicDPA 56Biphasic Findings Heavy calcific plaque is noted in the bilateral lower extremity arterial vessels There is likely heavy calcific plaque burden at the ostium of the superficial femoral artery at the j unction of the distal common femoral artery. Monophasic waveforms are diminished velocities are noted throughout the right lower extremity extendi ng from the popliteal artery to the below-knee vessels although there is three-vessel runoff. On the left side there is mild diffuse plaque with mostly biphasic waveforms with normal velocities t hroughout and three-vessel runoff. Critical Notification Critical Value: No <Conclusion> 1. Severe right lower extremity arterial disease Signed by : Wendie Vincent, Electronically Approved : 08/06/2020 15:09:17
== END ==
LOC: US 12:52
PROVIDERS: ATTEND Internal Medicine Cardiovascular Disease
DX: I65.23 Occlusion and stenosis of bilateral carotid arteries (principal); I10 Essential (primary) hypertension; Z87.891 Personal history of nicotine dependence
CPT/HCPCS: 76770; 93922; 93925

== ENCOUNTER 2021-06-12 17:44 | Emergency (ER) | payer MEDICARE, MEDICAID ==
[~2021-06-12] VITALS: Ht 157.5 cm; Wt 69.0 kg
--- NOTE | 2021-06-12 19:24 | PHYS DOC ---
Past Medical History Past Medical History: CAD, COPD, Diabetes-Type II Additional Past Medical Histor: CHRONIC BACK PAIN, pulmonary fibrosis Past Surgical History: Angioplasty, Cholecystectomy, Other Additional Past Surgical Histo: hernia repair,heart valve replacement,femoral stents Smoking Status: Former Smoker Alcohol Use: None Drug Use: None General Adult EDM: Chief Complaint: LOWEREXTREMITY INJURY HPI: HPI: Patient is a 80 year old female presents with right lower extremity injury that occurred 9 hours ago s/p mechanical fall. Reports she fell off of a step stool onto the extremity and immediately had right ankle/foot pain. Now reports a ssociated swelling of the ankle and radiation of the pain into her calf. She has been able to ambulate short distances with the assistance of a walker, which she uses normally. Took a Percocet one hour ago and feels it is managing her pain well currently. Pain worsens with weight bearing. Denies numbness/tingling/weakness. No head injury or LOC. Patient is not on any blood thinners. Review of Systems: Review of Systems: Constitutional: Denies fever or chills Eyes: Denies redness or eye pain HENT: Denies nasal congestion or sore throat Respiratory: Denies cough or shortness of breath Cardiovascular: Denies chest pain or palpitations GI: Denies abdominal pain, nausea, or vomiting : Denies dysuria or hematuria Musculoskeletal: Reports left ankle and foot pain. Reports left calf pain and swelling. Denies back pain Integument: Denies rash or skin lesions Neurologic: Denies headache, LOC, focal weakness or sensory changes Complete systems were reviewed and found to be within normal limits, except as documented in this note. Heart Score: C/O Chest Pain: N/A Allergies: Allergies: Allergies Coded Allergies Type Severity Reaction Last Updated Verified No Known Drug Allergies 07/30/15 No Physical Exam: PE: Constitutional: Well developed, well nourished, no acute distress, non-toxic appearance HENT: Normocephalic, atraumatic Eyes: PERRL, EOMI, conjunctiva normal, no discharge Neck: Normal range of motion, no tenderness, supple Lungs & Thorax: No respiratory distress, equal chest rise and fall Abdomen: Soft, no tenderness Skin: Warm, dry, no erythema, no rash Back: No tenderness, no CVA tenderness Extremities: Tenderness, swelling, and bruising present over the right lateral malleolus. Right ankle ROM limited secondary to pain. There is also mild calf tenderness noted. 2+ DPP bilaterally Neurologic: Alert and oriented X 3, normal motor function, normal sensory function, no focal deficits noted Psychologic: Affect normal, judgment normal Current Patient Data: Vital Signs: Vital Signs Date Time Temp Pulse Resp B/P (MAP) Pulse Ox O2 Delivery O2 Flow Rate FiO2 06/12/21 18:47 98.3 74 20 142/83 (71) 98 Room Air 98.3 EKG: EKG: [] Radiology/Procedures: Radiology/Procedures: ADDENDUM #1 Addendum: Voice recognition dictation error, impression should read acute nondisplaced fracture of the proximal fibular diaphysis. Electronically signed by: Mahin Waller MD (06/12/2021 8:04 PM) PAULINE ORIGINAL REPORT XR RT TIBIA+FIBULA DATE: 06/12/2021 7:23 PM INDICATION: Reason: Pain, swelling s/p fall / Spl. Instructions: / History: COMPARISON: None. FINDINGS: Bones: Acute nondisplaced fracture of the proximal fibular diaphysis. No joint dislocation is noted. Miscellaneous: Atherosclerotic vascular calculations IMPRESSION: Acute mental status fracture of the proximal fibular diaphysis Electronically signed by: Mahin Waller MD (06/12/2021 7:37 PM) PAULINE Course & Med Decision Making: Course & Med Decision Making 80 year old female presents with right ankle and foot pain s/p fall earlier today. Patient declined pain medication. Imaging positive for a nondisplaced fracture at the proximal fibula and placed in a sugar tong and posterior OCL splint prior to discharge. See procedure note. Patient stable for discharge with outpatient follow-up with PCP/orthopedics. Referral for orthopedics given. Discussed findings and plan with patient, who acknowledges understanding and agreement. Lisha Disclaimer: Lisha Disclaimer: This electronic medical record was generated, in whole or in part, using a voice recognition dictation system. Departure Departure Impression: Primary Impression: Acute right ankle pain Additional Impressions: Fracture of proximal end of fibula Qualified Codes: S82.831A - Other fracture of upper and lower end of right fibula, initial encounter for closed fracture Fall from stool Disposition: 01 HOME / SELF CARE / HOMELESS Condition: STABLE Referrals: CARMEN MARTINEZ MD (PCP) HARDIK ROBLES Jr. DO Patient Instructions: Ankle Pain, Fibular Fracture, Ankle, Adult, Undisplaced, Treated with Immobilization, Splint Care, [place]-rx-Ywpc, Walker Use Additional Instructions: Attempt to nonweight-bear to right lower extremity as there is concern for possible occult fracture of right ankle. Please use walker at all times, Use previously prescribed pain medication as needed. JENNIFER THAKKAR DO Jun 12, 2021 19:24
--- NOTE | 2021-06-12 19:39 | RAD ---
XR RT TIBIA+FIBULA DATE: 06/12/2021 7:23 PM INDICATION: Reason: Pain, swelling s/p fall / Spl. Instructions: / History: COMPARISON: None. FINDINGS: Bones: Acute nondisplaced fracture of the proximal fibular diaphysis. No joint dislocation is noted. Miscellaneous: Atherosclerotic vascular calculations IMPRESSION: Acute mental status fracture of the proximal fibular diaphysis Electronically signed by: Mahin Waller MD (06/12/2021 7:37 PM) PAULINE
[2021-06-12 19:43] VITALS: BP 111/79
== END 2021-06-12 20:30 | disposition home or self-care (01) ==
LOC: ER 17:44
DX: S82.831A Other fracture of upper and lower end of right fibula, initial encounter for closed fracture (principal); J44.9 Chronic obstructive pulmonary disease, unspecified; E11.9 Type 2 diabetes mellitus without complications; I25.10 Atherosclerotic heart disease of native coronary artery without angina pectoris; G89.29 Other chronic pain; Z87.891 Personal history of nicotine dependence; Z95.5 Presence of coronary angioplasty implant and graft; W08.XXXA Fall from other furniture, initial encounter; Y93.89 Activity, other specified; Y92.89 Other specified places as the place of occurrence of the external cause; Y99.8 Other external cause status
CPT/HCPCS: 73590; 99284

== ENCOUNTER → 2021-07-08 | Outpatient (CLI) | payer MEDICARE, MEDICAID ==
[2021-06-12 19:43] VITALS: BP 111/79
--- NOTE | 2021-07-08 16:48 | CARD ---
MR#: [id number] Date of Study: 07/08/2021 Ordering Physician: WENDIE VINCENT, Referring Physician: WENDIE VINCENT, Tech: Blake Byrne [facility] APPROVED REPORT EXAM: Two-dimensional and M-mode echocardiogram with Doppler and color Doppler. Other Information Quality : FairHR: 71bpm Rhythm : NSR INDICATION Murmur 2D DIMENSIONS Left Atrium(2D)5.1 (1.6-4.0cm)IVSd1.0 (0.7-1.1cm) Aortic Root(2D)2.3 (2.0-3.7cm)LVDd4.0 (3.9-5.9cm) LVOT Diameter1.9 (1.8-2.4cm)PWd1.0 (0.7-1.1cm) LVDs2.9 (2.5-4.0cm)FS (%) 29.2 % SV40.5 mlLVEF(%)56.6 (>50%) Aortic Valve AoV Peak Marv.192.2cm/sAoV VTI39.3cm AO Peak GR.14.8mmHgLVOT Peak Marv.101.8cm/s AO Mean GR.9mmHgAVA (VMAX)1.53cm2 Mitral Valve MV E Fkevjixb42.5cm/sMV E Peak Gr.13mmHg MV DECEL [id number] A Aiswymwi854.2cm/s MV E Mean Gr.3mmHgE/A Ratio0.4 Pulmonary Valve PV Peak Rvbghexm58.6cm/s Tricuspid Valve TR P. Umggqson207lw/sTR Peak Gr.19mmHg Pulmonary Vein S1 Czhfegje32.7cm/sD2 Gqptxxtz36.1cm/s LEFT VENTRICLE The left ventricle is normal size. There is normal left ventricular wall thickness. The left ventricu lar systolic function is normal and the ejection fraction is within normal range. EF 55% There is nor mal LV segmental wall motion. Tissue Doppler imaging reveals moderate left ventricular diastolic dysf unction. No left ventricle thrombus noted on this study. There is no ventricular septal defect visual ized. There is no left ventricular aneurysm. There is no mass noted in the left ventricle. RIGHT VENTRICLE The right ventricle is normal size. There is normal right ventricular wall thickness. The right ventr icular systolic function is normal. ATRIA The left atrium is mildly dilated. The right atrium size is normal. The interatrial septum is intact with no evidence for an atrial septal defect or patent foramen ovale as noted on 2-D or Doppler imagi ng. AORTIC VALVE The aortic valve is calcified but opens well. Doppler and Color Flow revealed no significant aortic r egurgitation. There is no significant aortic valvular stenosis. There is no aortic valvular vegetatio n. MITRAL VALVE Mitral annular calcification is severe. There is no evidence of mitral valve prolapse. There is mild mitral valve stenosis. Calculated mitral valve area is 1.7 cm2 with maximum pressure gradient of 13 m mHg and mean pressure gradient of 3 mmHg. Doppler and Color-flow revealed trace to mild mitral regurg itation. TRICUSPID VALVE The tricuspid valve is normal in structure and function. Doppler and Color Flow revealed no tricuspid valve regurgitation noted. There is no tricuspid valve prolapse or vegetation. There is no tricuspid valve stenosis. PULMONIC VALVE Doppler and Color Flow revealed no pulmonic valvular regurgitation. There is no pulmonic valvular megan nosis. GREAT VESSELS The aortic root is normal in size. The ascending aorta is normal in size. The IVC is normal in size a nd collapses >50% with inspiration. PERICARDIAL EFFUSION There is no pleural effusion. There is no evidence of significant pericardial effusion. Critical Notification Critical Value: No <Conclusion> The left ventricular systolic function is normal and the ejection fraction is within normal range. EF 55% There is normal LV segmental wall motion. There is mild mitral valve stenosis. Calculated mitral valve area is 1.7 cm2 with maximum pressure gr adient of 13 mmHg and mean pressure gradient of 3 mmHg. Aortic valve is not well visualized. By doppler criteria there is no significant stenosis. Signed by : Wendie Vincent, Electronically Approved : 07/08/2021 16:48:07
== END ==
LOC: US 14:18
PROVIDERS: ATTEND Internal Medicine Cardiovascular Disease
DX: I08.0 Rheumatic disorders of both mitral and aortic valves (principal)
CPT/HCPCS: 93306

== ENCOUNTER → 2021-07-21 | Outpatient (CLI) | payer MEDICARE, MEDICAID ==
--- NOTE | 2021-07-21 17:24 | RAD ---
MR#: [id number] Date of Study: 07/21/2021 Ordering Physician: WENDIE VINCENT, Referring Physician: WENDIE VINCENT, Tech: Deana Simpson RDMS, RVT, RTR APPROVED REPORT Patient Location: OUT-PATIENT Exam Type: Ankle to Brachial Index Indications PAD LEG PAIN Risk Factors Diabetes Surgery/Intervention Stent : Pressures/Indices RightABI LeftABI Brachial 144mmHg.58Brachial 155mmHg.89 Ankle(PT) 89mmHgAnkle(PT) 121mmHg Ankle(DP) 91mmHgAnkle(DP) 139mmHg Critical Notification Critical Value: No <Conclusion> 1. Abnormal CHILO as noted above with 0.58 on the right and 0.89 on the left. Signed by : Wendie Vincent, Electronically Approved : 07/21/2021 17:24:13
--- NOTE | 2021-07-21 17:27 | RAD ---
MR#: [id number] Date of Study: 07/21/2021 Ordering Physician: WENDIE VINCENT, Referring Physician: WENDIE VINCENT, Tech: Deana Simpson, AMARILIS, RVT, RTR APPROVED REPORT Patient Location: OUT-PATIENT Indications PAD LEG PAIN Risk Factors Diabetes Surgery/Intervention Stent : Site : BILAT FEM A VELOCITY AND DOPPLER WAVEFORM ANALYSIS RIGHT cm/secWaveformSeverity LEFT cm/secWaveform Severity pCFA 84.8MonophasicpCFA 169.2Biphasic dCFA 241.7MonophasicdCFA 164.9Biphasic Prof Fem Art. 143.0MonophasicProf Fem Art. 60.4Biphasic Fem Art Prox. 156.8MonophasicFem Art Prox. 79.7Biphasic Fem Art Mid. 77.8MonophasicFem Art Mid. 92.5Biphasic Fem Art Dist. 65.2MonophasicFem Art Dist. 104.1Biphasic Pop Art(AK) 48.2MonophasicPop Art(AK) 44.5Biphasic AUTO AIR CONDITIONING APPRENTICE Prox. 19.9MonophasicPTA Prox. 39.8Biphasic AUTO AIR CONDITIONING APPRENTICE Dist. 10.4MonophasicPTA Dist. 17.4Biphasic Per Art Prox. 76.5MonophasicPer Art Prox. 46.9Biphasic LILIBETH Prox. 74.6MonophasicATA Prox. 61.1Biphasic DPA 77MonophasicDPA 67Biphasic Findings Grayscale images demonstrate moderate diffuse atherosclerosis. On the right side there is likely greater than 50% stenosis involving the common femoral and superfic ial femoral arteries. Monophasic waveforms are noted throughout the right lower extremity suggestive of likely aortoiliac inflow disease. There are diminished waveforms in the posterior tibial artery likely suggestive of a subtotal occlusion. Otherwise there is two-vessel runoff. On the left side there is mild to moderate diffuse disease without any focal high-grade stenosis and three-vessel runoff. There is again likely moderate to severe diffuse disease involving the left pos terior tibial artery Critical Notification Critical Value: No <Conclusion> 1. Stable bilateral CHILO and stable arterial Doppler study of the lower extremities with severe diffu se disease noted on the right side Signed by : Wendie Vincent, Electronically Approved : 07/21/2021 17:27:29
== END ==
LOC: US 12:41
PROVIDERS: ATTEND Internal Medicine Cardiovascular Disease
DX: I73.9 Peripheral vascular disease, unspecified (principal)
CPT/HCPCS: 93922; 93925

== ENCOUNTER 2021-07-29 06:33 | Outpatient (CLI) | payer MEDICARE, MEDICAID ==
[2021-07-29] VITALS (18 sets, daily range): BP systolic 136–200; BP diastolic 56–102
[~2021-07-29] VITALS: Ht 157.5 cm; Wt 67.0 kg
[2021-07-29] MEDS ORDERED: IODIXANOL 320 MG/ML 100 ML VIAL. ONE (07:35)
[2021-07-29] MEDS ORDERED: HEPARIN for ARTERIAL LINE 1,500 ML ONE (07:35)
[2021-07-29] MEDS ORDERED: LIDOCAINE 1% Multi-Dose 20 ML VIAL. ONE (07:35)
[2021-07-29 08:10] LABS: HEMATOCRIT 39.3 % (36.0-47.0); HEMOGLOBIN 12.6 g/dL (12.0-15.5); RED BLOOD COUNT 4.42 x10^6/uL (3.50-5.40); RED CELL DISTRIBUTION WIDTH 16.6 % (11.5-14.5); WHITE BLOOD COUNT 8.8 x10^3/uL (4.0-11.0)
[2021-07-29 08:17] LABS: PROTHROMBIN TIME PATIENT 13.7 SEC (11.7-14.0)
[2021-07-29 08:18] LABS: CALCIUM 8.3 mg/dL (8.5-10.1); CREATININE 0.9 mg/dL (0.6-1.0); GFR 59.9; POTASSIUM 4.2 mmol/L (3.5-5.1)
[2021-07-29] MEDS ORDERED: MIDAZOLAM HCL/PF 2 MG/2 ML VIAL. ONE (08:33)
[2021-07-29] MEDS ORDERED: fentaNYL PF VIAL 100 MCG/2 ML VIAL ONE ×2 (08:33→13:06)
[2021-07-29] MEDS ORDERED: HEPARIN for IV BOLUS 10,000 UNIT/10 ML VIAL. ONE (08:33)
[2021-07-29] MEDS ORDERED: VERAPAMIL 5 MG/2 ML VIAL. ONE (09:11)
[2021-07-29] MEDS ORDERED: NITROGLYCERIN 200 MCG/2 ML SYRINGE FOR CATH/VASC LAB. ONE (09:13)
[2021-07-29] MEDS ORDERED: MIDAZOLAM HCL/PF 2 MG/2 ML VIAL. IV ONE (09:45)
[2021-07-29] MEDS ORDERED: HEPARIN for IV BOLUS 10,000 UNIT/10 ML VIAL. IART ONE (09:45)
[2021-07-29] MEDS ORDERED: VERAPAMIL 5 MG/2 ML VIAL. IART ONE (09:45)
[2021-07-29] MEDS ORDERED: IODIXANOL 320 MG/ML 100 ML VIAL. IART ONE (09:45)
[2021-07-29] MEDS ORDERED: LIDOCAINE 1% Multi-Dose 20 ML VIAL. INJ ONE (09:45)
[2021-07-29] MEDS ORDERED: NITROGLYCERIN 200 MCG/2 ML SYRINGE FOR CATH/VASC LAB. IART ONE (09:45)
[2021-07-29] MEDS ORDERED: fentaNYL PF VIAL 100 MCG/2 ML VIAL IV ONE (09:45)
--- NOTE | 2021-07-29 11:04 | CARD ---
MR#: [id number] Date of Study: 07/29/2021 Ordering Physician: WENDIE VINCENT, Referring Physician: WENDIE VINCENT, Tech: Jai Alonzo RT(R)() APPROVED REPORT Patient StatusOUT-PATIENT Senior C Software Engineer: Jai Alonzo RT(R)() Procedure(s) performed: FL TIME: 13.4 MINS DOSE: 83 GYCM2 CONTRAST: 83 ML MODERATE SEDATION: 89 MINS Aortogram with bilateral run-off HISTORY : The patient is a 81 year-old female with a history of . INDICATION FOR PROCEDURE The indication(s) include : Unilateral claudication: Right. PROCEDURE NARRATIVE Clinical information: 81-year-old woman presented to the office in the setting of right greater than left claudication with a abnormal CHILO of 0.58 in the right leg and a Doppler evaluation suggestive of right SFA disease. Procedure details: After appropriate informed consent the left groin was prepped and draped in usual sterile fashion. U nder 1% lidocaine local anesthesia initial attempts to place a wire in the left common femoral artery in the midsegment were unsuccessful due to heavy calcific disease. Ultimately, the wire and needle were able to be placed in the upper one third of the common femoral artery and a 5 Macedonian sheath was then delivered. Initial attempts to cross the left common iliac artery stent with a J-tipped guidewi re and a JR4 catheter were unsuccessful. Subsequently, a Glidewire advantage was also used and this was also unsuccessful. Therefore the left femoral approach was abandoned and left radial access was obtained. Under 1% lidocaine local anesthesia a 6 Macedonian sheath was placed in the left radial artery via the Seldinger technique. Next, a JR4 catheter and a Glidewire were used to traverse the aortic arch and a pigtail catheter was placed in the abdominal aorta and digital subtraction angiography and runoff were then performed. At case completion, the left radial sheath was removed and hemostasis w as achieved via Terumo radial band. The left groin sheath was removed and hemostasis was achieved vi a manual compression. No acute complications are noted. Findings: Aorta 150/80 Aorta: Is heavily calcified with a distal abdominal aortic aneurysm of moderate size prior to the bif urcation. Right common iliac artery has a stent with an ostial heavily calcific 95% stenosis. Distal to the st ent there is a calcified 50% stenosis Left common iliac artery has a stent with an ostial 95% stenosis. Right external iliac artery has no significant disease Left external iliac artery has no significant disease Bilateral internal iliac arteries have no significant disease Right common femoral artery has a distal calcific 90% stenosis Left common femoral artery has circumferential heavily calcific disease involving the mid segment of up to 70% Bilateral profunda femoral arteries have no significant disease Bilateral SFA has no significant disease Bilateral popliteal arteries have no significant disease The right anterior tibial artery is patent The right posterior tibial and peroneal vessels have diffuse severe disease The left anterior tibial and posterior tibial vessels appear to be patent. Conclusion 1. Severe aortoiliac calcific disease with prior bifurcation stents 2. Severe bilateral common femoral arterial disease 3. Moderate abdominal aortic aneurysm Recommendations 1. Plan for CT aortogram for evaluation of the aortic aneurysm 2. Referral to vascular surgery for consideration of high risk endovascular therapy of aortic bifurc ation disease and bilateral common femoral endarterectomies. Signed by : Wendie Vincent, Electronically Approved : 07/29/2021 11:04:19
--- NOTE | 2021-07-29 13:05 | NUR ---
Patient began having abdominal pain 06/01 at 1345. Lower pelvic region. No bruising noted, no sign of hematoma. RN called Dr. Jeffrey and notified. Order received for STAT CT Abd/Pelv, 50mcg Fentanyl IVP x1, type and screen, 2U PRBC on standby. Patient's VS stable.
--- NOTE | 2021-07-29 13:14 | RAD ---
EXAM: Abdomen and pelvis CT without intravenous contrast. HISTORY: Retroperitoneal hemorrhage. TECHNIQUE: Computed tomographic images of the abdomen and pelvis were obtained without contrast. Mult iplanar reformatting was performed. *One or more of the following individualized dose reduction techniques were utilized for this examina tion: 1. Automated exposure control. 2. Adjustment of the mA and/or kV according to patient size. 3. Use of iterative reconstruction technique. COMPARISON: 07/24/2018. FINDINGS: Evaluation of the lower thorax demonstrates pulmonary emphysema and fibrosis. There is supe rimposed left greater than right basilar atelectasis. There is no pleural effusion. There is no conso lidation. There is postoperative change involving the aortic valve. There is dense mitral valve annul us calcification. No hepatic lesion is seen. The gallbladder is absent. There is a large air-filled proximal duodenal d iverticulum. The pancreas, spleen and adrenal glands are unremarkable. There is renal atrophy and anterior inferior right renal cortical scarring. There is a 1.8 cm simple cyst within the inferior pole the right kidney. Follow-up is not routinely performed for simple cysts . There is contrast within the renal collecting system due to a recent contrast-enhanced exam. This l imits evaluation for nephrolithiasis. There are striated nephrograms. There is no appendicitis. There is a large amount of stool within the mid and distal colon. There is no evidence of small bowel obstruction. The bladder is distended with contrast. There are uterine par enchymal calcifications. There is a 2.1 cm right ovarian cyst. There is an infrarenal abdominal aortic aneurysm measuring 3.6 cm. There is calcified atherosclerotic plaque throughout the abdominal aorta and main aortic branch vessels. There are bilateral common leatha ac artery stents. There is a tiny fat-containing right inguinal hernia. There is stranding within the left inguinal fat due to recent catheterization. This stranding extends to the inferior aspect of th e left iliac is muscle. There are degenerative changes throughout the spine and involving both hips. There is no acute osseous finding. IMPRESSION: 1. Soft tissue stranding likely due to a trace amount of hemorrhage within the left inguinal region a nd inferior aspect of the left iliac fossa. No retroperitoneal hematoma is seen. 2. Large amount of mid and distal colonic stool. Correlate for constipation. 3. Bilateral renal atrophy and right renal cortical scarring. There are striated nephrograms. Correla te with renal function laboratory values. 4. Pulmonary emphysema and pulmonary fibrosis. 5. Stable 2.1 cm right ovarian cyst. The 3 year course of stability favors benignity in this postmeno pausal patient. 6. Small simple right renal cyst. 7. 3.6 cm distal abdominal aortic aneurysm, increased compared to a measurement of 3.3 cm on the stud y performed 07/24/2018. Electronically signed by: Lisa Valdez MD (07/29/2021 1:12 PM) [id number]
[2021-07-29] MEDS ORDERED: fentaNYL PF VIAL 100 MCG/2 ML VIAL IVP ONE (13:15)
--- NOTE | 2021-07-29 13:52 | PDOC ---
Provider Note Date of Service: DATE: 07/29/21 TIME: 13:50 Provider Note Called by nursing staff approximately 3 hours after the procedure. Patient previously was doing well and had sudden onset of left-sided back pain and abdominal pain. Patient had recently eaten. Her vital signs were stable. In this setting given her vascular disease a decision was made to obtain a stat abdomen and pelvis CT. No evidence of retroperitoneal bleed. Clinically and examination the patient's left groin is soft without any evidence of hematoma. Possible musculoskeletal pain at this time. Type and screen and 2 units on hold of the blood bank. We will repeat a CBC and the patient is due for ambulation in the next 30 minutes. Continue monitoring for now. Depending on her clinical progress we will make a decision regarding discharge. Justifications for Admission Other Justification WENDIE VINCENT MD Jul 29, 2021 13:52
[2021-07-29 13:58] LABS: HEMATOCRIT 37.1 % (36.0-47.0); RED BLOOD COUNT 4.17 x10^6/uL (3.50-5.40); RED CELL DISTRIBUTION WIDTH 16.9 % (11.5-14.5); WHITE BLOOD COUNT 9.2 x10^3/uL (4.0-11.0)
--- NOTE | 2021-07-29 14:22 | NUR ---
Dr. Jeffrey reviewed imaging, assessed patient. Order given to d/c patient once she has walked as long as there is no sign of bleeding, no pain. Patient able to have BM. Pain stable, VS stable. Patient able to sit for 15 min at this time. No bleeding, no pain.
--- NOTE | 2021-07-29 15:00 | NUR ---
Patient able to use restroom, walk unit. No bleeding or sign of hematoma. No increased pain, VS stable.
--- NOTE | 2021-07-29 15:13 | NUR ---
Patient d/c. Verbalized instructions of site care. RN told to go to nearest ER if bleeding occurs. driving home. All belongings, including purse and medications, taken w/ patient. Pain subsided after BM x2. VS stable. No bleeding.
== END 2021-07-29 15:05 | disposition home or self-care (01) ==
LOC: CCL 06:33
PROVIDERS: ATTEND Internal Medicine Cardiovascular Disease
DX: I73.9 Peripheral vascular disease, unspecified (principal); I71.4 Abdominal aortic aneurysm, without rupture; R58 Hemorrhage, not elsewhere classified; N28.1 Cyst of kidney, acquired; J84.10 Pulmonary fibrosis, unspecified; J43.9 Emphysema, unspecified; N83.201 Unspecified ovarian cyst, right side; N95.9 Unspecified menopausal and perimenopausal disorder; I11.0 Hypertensive heart disease with heart failure; I50.9 Heart failure, unspecified; E78.00 Pure hypercholesterolemia, unspecified; I25.10 Atherosclerotic heart disease of native coronary artery without angina pectoris; E11.9 Type 2 diabetes mellitus without complications; E66.9 Obesity, unspecified; Z79.82 Long term (current) use of aspirin; Z79.84 Long term (current) use of oral hypoglycemic drugs; Z79.899 Other long term (current) drug therapy; Z98.890 Other specified postprocedural states; Z87.891 Personal history of nicotine dependence
CPT/HCPCS: 36246; 36415; 74176; 75630; 80048; 85027; 85610; 86850; 86900; 86901; 99152; 99153; C1769; C1894; J1644; J2250; J3010; J3490; Q9967

== ENCOUNTER → 2021-08-25 | Outpatient (CLI) | payer MEDICARE, MEDICAID ==
[2021-07-29 14:45] VITALS: BP 140/70
--- NOTE | 2021-08-25 08:13 | RAD ---
PA and lateral chest. HISTORY: Preop, history of COPD PA and lateral views of the chest were compared with a study from April 2020. The heart is normal in s ize. There is no pleural effusion. There are mild chronic changes at the left costophrenic angle on t he lateral right upper lobe similar to the old exam. There is mild scoliosis. IMPRESSION: 1. COPD. 2. No confluent infiltrates. Electronically signed by: Jose West MD (08/25/2021 8:11 AM) [id number]
--- NOTE | 2021-08-25 08:59 | RAD ---
EXAM: Bilateral carotid duplex with waveform analysis. CLINICAL HISTORY: Carotid stenosis. . TECHNIQUE: Longitudinal and transverse sonographic images of the bilateral carotid arteries was perfo rmed utilizing grayscale, color and spectral Doppler techniques. COMPARISON: Carotid ultrasound 02/27/2019 FINDINGS: There are calcifications of both carotid bulbs and at the internal and external carotid artery origin s. Vertebrals: Antegrade flow bilaterally. Right: PSV CCA (cm/s): 45 PSV ICA (cm/s): 56 EDV ICA (cm/s): 14 PSV ECA (cm/s): 201 Subclavian PSV (cm/s): 77 ICA/CCA Ratio: 1.3 Left: PSV CCA (cm/s): 64 PSV ICA (cm/s): 47 EDV ICA (cm/s): 14 PSV ECA (cm/s): 83 Subclavian PSV (cm/s): 64 ICA/CCA Ratio: 0.75 IMPRESSION: 1. Less than 50 percent stenosis of the internal carotid arteries bilaterally. 2. Mildly elevated peak systolic velocity in the right external carotid artery suggesting stenosis. Consensus Panel Monteiro-scale and Doppler US Criteria for Diagnosis of ICA Stenosis Degree of Stenosis (%) ICA PSV (Cm/sec) Plaque Estimate (%)* Normal <125 None <50 <125 <50 50-69 125-230 >50 >70 but < near occlusion >230 >50 Near occlusion High, low, or undetectable Visible Total occlusion Undetectable Visible, no detectable lumen *Plaque estimate (diameter reduction) with monteiro-scale and color Doppler US Degree of Stenosis (%) ICA/CCA PSV Ratio ICA EDV (cm/sec) Normal <2.0 <40 <50 <2.0 <40 50-69 2.0-4.0 40-100 >70 but < near occlusion >4.0 >100 Near occlusion Variable Variable Total occlusion Not applicable Not applicable Electronically signed by: Nikki Sauceda MD (08/25/2021 8:56 AM) [id number]
== END ==
LOC: US 08:40
PROVIDERS: ATTEND Internal Medicine Hematology & Oncology
DX: I65.23 Occlusion and stenosis of bilateral carotid arteries (principal); J44.9 Chronic obstructive pulmonary disease, unspecified; M41.84 Other forms of scoliosis, thoracic region
CPT/HCPCS: 71046; 93880

== ENCOUNTER → 2021-08-27 | Outpatient (CLI) | payer MEDICARE, MEDICAID ==
[2021-07-29 14:45] VITALS: BP 140/70
[2021-08-27 11:11] LABS: BASO % 1 % (0-3); EOS # 0.4 x10^3/uL (0.0-0.7); EOS % 4 % (0-3); HEMATOCRIT 38.9 % (36.0-47.0); HEMOGLOBIN 12.2 g/dL (12.0-15.5); LYMPH # 1.9 x10^3/uL (1.0-4.8); LYMPH % 22 % (24-48); MEAN CORPUSCULAR HEMOGLOBIN 28 pg (25-35); MEAN CORPUSCULAR HGB CONC 31 g/dL (31-37); MEAN CORPUSCULAR VOLUME 89 fL (79-100); MONO # 0.8 x10^3/uL (0.0-1.1); MONO % 9 % (0-9); NEUT # 5.7 x10^3/uL (1.8-7.7); NEUT % 64 % (31-73); PLATELET COUNT 227 x10^3/uL (140-400); RED BLOOD COUNT 4.36 x10^6/uL (3.50-5.40); WHITE BLOOD COUNT 8.9 x10^3/uL (4.0-11.0)
[2021-08-27 11:14] LABS: CALCIUM 8.2 mg/dL (8.5-10.1); CREATININE 0.9 mg/dL (0.6-1.0); GFR 59.9; POTASSIUM 4.3 mmol/L (3.5-5.1)
[2021-08-28 01:09] LABS: HEMOGLOBIN A1C 7.5 % (4.8-5.6)
== END ==
LOC: LAB 10:40
PROVIDERS: ATTEND Surgery Vascular Surgery
DX: I73.9 Peripheral vascular disease, unspecified (principal); Z79.899 Other long term (current) drug therapy
CPT/HCPCS: 36415; 80048; 83036; 85025

== ENCOUNTER 2021-09-21 10:12 | Inpatient (IN) | payer MEDICARE, MEDICAID ==
[~2021-09-21] VITALS: Ht 157.5 cm; Wt 67.8 kg
[~2021-09-21 10:12] MED LIST changes: +HEPARIN SODIUM 5,000 UNIT in IV NORMAL SALINE 500ML BAG 500 ML IRR ONE; +HYDR-2765 PO; +HYDROmorphone 2 MG/ML VIAL IVP PRN; +IV RINGERS,LACTATED 1000ML 1,000 ML IV SCH; +PROCHLORPERAZINE 10 MG/2 ML VIAL. IVP PRN; +fentaNYL PF VIAL 100 MCG/2 ML VIAL IVP PRN
--- NOTE | 2021-09-21 10:55 | PDOC1 ---
History and Physical Date of Admission Date of Admission DATE: 09/21/21 TIME: 10:49 Identification/Chief Complaint Chief Complaint Claudication Source Source: Patient History of Present Illness History of Present Illness 81 yo F with remote history of iliac stents who presents for planned bilateral iliofemoral endarterectomy with biliateral common iliac artery stenting and shockwave angioplasty. She denies any acute concerns since previous visit on 08/13/21. NO fevers, chills or signs of infection. She continues to have short distance claudication on right worse then left. She is a former smoker quitting many years ago. resting CHILO on the right was 0.48 preoperatively. She has previous groin incisions from hernia repairs bilaterally. She denies any new wounds, rashes or lesions. No chest pain or shortness of breath. Dr. Jeffrey had no concerns on preoperative cardiac evaluation for general anesthesia Past Medical History Cardiovascular: CAD, CHF, HTN, Hyperlipidemia, Aortic stenosis Pulmonary: COPD, Pneumonia, Other CENTRAL NERVOUS SYSTEM: Other GI: Constipation Heme/Onc: No pertinent hx Hepatobiliary: No pertinent hx Psych: No pertinent hx Musculoskeletal: low back pain, Osteoarthritis Rheumatologic: No pertinent hx Infectious disease: No pertinent hx Renal/: UTI Endocrine: Diabetes Past Surgical History Past Surgical History: Appendectomy, Cholecystectomy, Cataract Removal, Other Family History Family History: Diabetes, Hypertension Social History ALCOHOL: none Drugs: None Current Medications Current Medications Current Medications Heparin Sodium (Porcine) 5000 unit/Sodium Chloride 505 ml @ 505 mls/hr 1X ONCE IRR ; Start 09/21/21 at 06:00; Stop 09/21/21 at 06:59; Status DC Cefazolin Sodium 1 gm/Sodium Chloride 500 ml @ 500 mls/hr 1X ONCE IRR ; Start 09/21/21 at 06:00; Stop 09/21/21 at 06:59; Status DC Fentanyl Citrate (Fentanyl 2ml Vial) 25 mcg PRN Q5MIN PRN IVP MILD PAIN 1-3; Start 09/21/21 at 06:00; Stop 09/21/21 at 20:00 Fentanyl Citrate (Fentanyl 2ml Vial) 50 mcg PRN Q5MIN PRN IVP MODERATE PAIN 4- 6; Start 09/21/21 at 06:00; Stop 09/21/21 at 20:00 Morphine Sulfate (Morphine Sulfate) 1 mg PRN Q10MIN PRN IVP SEVERE PAIN 7-10; Start 09/21/21 at 06:00; Stop 09/21/21 at 20:00 Ringer's Solution 1,000 ml @ 30 mls/hr Q24H IV ; Start 09/21/21 at 06:00; Stop 09/21/21 at 17:59 Hydromorphone HCl (Dilaudid) 0.5 mg PRN Q10MIN PRN IVP SEVERE PAIN 7-10, 2nd CHOICE; Start 09/21/21 at 06:00; Stop 09/21/21 at 20:00 Prochlorperazine Edisylate (Compazine) 5 mg PACU PRN PRN IVP NAUSEA, MRX1; Start 09/21/21 at 06:00; Stop 09/21/21 at 20:00 Cefazolin Sodium/ Dextrose 50 ml @ 100 mls/hr 1X PREOP PRN IV PRIOR TO PROCEDURE; Start 09/21/21 at 06:00; Stop 09/21/21 at 18:00 Active Scripts Active Reported Hydrocodone-Apap 7.5-325 (Hydrocodone Bit/Acetaminophen) 1 Tab Tablet 1 Tab PO PRN Q6HRS PRN Trelegy Ellipta 100-62.5-25 (Fluticasone/Umeclidin/Vilanter) 1 Each Blst.w.dev 1 Each IH DAILY Lipitor (Atorvastatin Calcium) 40 Mg Tablet 1 Tab PO QHS Children's Aspirin (Aspirin) 81 Mg Tab.chew 1 Tab PO DAILY 30 Days Glimepiride 4 Mg Tablet 1 Tab PO BID Metformin Hcl 1,000 Mg Tablet 1,000 PO BID Allergies Allergies: Coded Allergies: No Known Drug Allergies (Unverified , 09/20/21) Physical Exam General: Alert, Oriented X3 HEENT: Atraumatic, EOMI Lungs: Normal air movement Heart: RRR, other (nonpalpable right femoral pulse, weakly palpable left femoral pulse) Abdomen: Soft, Other (well healed laparotomy incision from previous hysterectomy) Extremities: No edema, Other (nonpalpable pedal pulses bilaterally) Skin: No rashes, Other (groins without any rashes) Neuro: Normal speech, Cranial nerves 3-12 NL VTE Prophylaxis Ordered VTE Prophylaxis Devices: Yes VTE Pharmacological Prophylaxi: Yes Assessment/Plan Assessment/Plan 1. short distance claudication with bilateral common iliac artery stenosis and bilateral common femoral artery stenosis Will proceed with planned bilateral iliofemoral endarterectomy and bilateral LUIS stenting as planned. Preoperative type and screen. Questions answered. Risks, benefits and alternative reviewed with patient and she agrees to proceed. She consents to blood transfusion. TOYIN COSME MD Sep 21, 2021 10:55
[2021-09-21 11:00] VITALS: BP 139/65
[2021-09-21] MEDS ORDERED: PAPAVERINE 60 MG/2 ML VIAL. ONE (11:06)
[2021-09-21] MEDS ORDERED: THROMBIN TOPICAL 20,000 UNIT SPRAY.SYRN KIT TP ONE (11:06)
[2021-09-21] MEDS ORDERED: GELATIN SPONGE SIZE 100. ONE (11:06)
[2021-09-21] MEDS ORDERED: SURGICEL FIBRILLAR 1X2 EACH. ONE ×2 (11:06→11:07)
[2021-09-21] MEDS ORDERED: IOHEXOL 300 MG/ML 50 ML VIAL. ONE (11:06)
[2021-09-21] MEDS ORDERED: PROPOFOL 100 ML IV ONE ×2 (11:17→11:18)
[2021-09-21] MEDS ORDERED: MIDAZOLAM HCL/PF 2 MG/2 ML VIAL. ONE (11:18)
[2021-09-21] MEDS ORDERED: LIDOCAINE 2% PF 5 ML VIAL. ONE (11:18)
[2021-09-21 11:20] LABS: BASO # 0.1 x10^3/uL (0.0-0.2); BASO % 1 % (0-3); EOS # 0.2 x10^3/uL (0.0-0.7); EOS % 3 % (0-3); HEMATOCRIT 40.5 % (36.0-47.0); HEMOGLOBIN 12.7 g/dL (12.0-15.5); LYMPH # 2.5 x10^3/uL (1.0-4.8); LYMPH % 28 % (24-48); MEAN CORPUSCULAR HEMOGLOBIN 28 pg (25-35); MEAN CORPUSCULAR HGB CONC 31 g/dL (31-37); MEAN CORPUSCULAR VOLUME 88 fL (79-100); MONO # 0.8 x10^3/uL (0.0-1.1); MONO % 9 % (0-9); NEUT # 5.4 x10^3/uL (1.8-7.7); NEUT % 60 % (31-73); PLATELET COUNT 237 x10^3/uL (140-400); RED CELL DISTRIBUTION WIDTH 16.6 % (11.5-14.5)
[2021-09-21] MEDS ORDERED: fentaNYL PF VIAL 100 MCG/2 ML VIAL ONE (11:21)
[2021-09-21 11:28] LABS: CALCIUM 8.6 mg/dL (8.5-10.1); CREATININE 0.9 mg/dL (0.6-1.0); GFR 59.9; POTASSIUM 4.4 mmol/L (3.5-5.1)
[2021-09-21] MEDS ORDERED: IODIXANOL 320 MG/ML 100 ML VIAL. ONE (11:35)
[2021-09-21] MEDS ORDERED: ONDANSETRON PF 4 MG/2 ML VIAL. ONE (12:01)
[2021-09-21] MEDS ORDERED: DEXAMETHASONE SOD PHOS 4 MG/ML VIAL ONE (12:02)
[2021-09-21] MEDS ORDERED: HEPARIN for IV BOLUS 10,000 UNIT/10 ML VIAL. ONE (12:48)
[2021-09-21] MEDS ORDERED: 0.9 % SODIUM CHLORIDE 10 ML DISP.SYRIN. IV PRN (13:00)
[2021-09-21] MEDS ORDERED: PROCHLORPERAZINE 10 MG/2 ML VIAL. IV PRN (13:00)
[2021-09-21] MEDS ORDERED: hydrALAZINE 20 MG/ML VIAL. IVP PRN (13:00)
[2021-09-21] MEDS: IV NORMAL SALINE 1000ML BAG 1,000 ML IV SCH ×3 (13:00→23:00)
[2021-09-21] MEDS ORDERED: oxyCODONE/APAP 5/325 1 TAB TABLET PO PRN ×2 (13:00)
[2021-09-21] MEDS ORDERED: ONDANSETRON PF 4 MG/2 ML VIAL. IVP PRN (13:00)
[2021-09-21] MEDS ORDERED: NALOXONE 0.4 MG/ML VIAL. IV PRN (13:00)
[2021-09-21] MEDS ORDERED: IV NORMAL SALINE 1000ML BAG 1,000 ML IV SCH (13:00)
[2021-09-21] MEDS ORDERED: LABETALOL 20 MG/4 ML DISP.SYRIN. IVP PRN (13:00)
[2021-09-21] MEDS ORDERED: PROTAMINE 50 MG/5 ML VIAL. IV ONE (13:09)
[2021-09-21] MEDS ORDERED: PHENYLEPHRINE 10 MG/ML VIAL. ONE (13:10)
--- NOTE | 2021-09-21 15:32 | PDOC4 ---
BRIEF OPERATIVE NOTE Date: Sep 21, 2021 Pre-Op Diagnosis short distance claudication with bilateral common iliac artery stenosis and bilateral common femoral artery stenosis Post-Op Diagnosis short distance claudication with bilateral common iliac artery stenosis and bilateral common femoral artery stenosis Procedure Performed Bilateral common femoral endartectomies with bovine pericardial patch angioplasty Bilateral common iliac stent placement Surgeon Dr. Ziegler Co-brent Huggins Senior Radiation Protection Technician Karen Payton NP Anesthesia Type: General Blood Loss 100cc Specimens Obtained discarded Findings palpable bilateral DP pulses post procedure Complications none, stable to PACU Operative Note see dictated note for additional information KAREN PAYTON CERTIFIED ATHLETIC TRAINER Sep 21, 2021 15:32
[2021-09-21] MEDS ORDERED: CLOP75TA PO (15:41)
[2021-09-21] MEDS ORDERED: HYDR-2765 PO (15:41)
[2021-09-21] MEDS ORDERED: INSULIN LISPRO 100 UNIT/ML 3ML VIAL for OP,RR ONLY. SQ PRN (15:45)
[2021-09-21] MEDS: MORPHINE SULFATE 2 MG/ML INJ. IVP PRN ×3 (16:04→18:58)
[2021-09-21 17:00] VITALS: BP 183/79
[2021-09-21] MEDS ORDERED: IPRATROPIUM BROMIDE 0.5 MG/2.5 ML NEBU. NEB SCH (18:00)
--- NOTE | 2021-09-21 18:29 | OP ---
DATE OF SURGERY: 09/21/2021 SURGEON: Bayron Ziegler MD ASSISTANTS: 1. Jt Huggins MD 2. Natalia Lopez APRN PREOPERATIVE DIAGNOSES: 1. Lifestyle-limiting claudication. 2. Diabetes mellitus, type 2, on oral glycemics, controlled. 3. History of common iliac artery stents with bilateral common iliac artery stenosis and common femoral artery stenosis. POSTOPERATIVE DIAGNOSES: 1. Lifestyle-limiting claudication. 2. Diabetes mellitus, type 2, on oral glycemics, controlled. 3. History of common iliac artery stents with bilateral common iliac artery stenosis and common femoral artery stenosis. INDICATIONS FOR PROCEDURE: This is an 81-year-old female who had short distance lifestyle-limiting claudication. She had evidence on angiographic imaging of severe stenosis of bilateral common iliac arteries with severe calcific disease immediately proximal to the previously placed common iliac artery stents and disease distal to the common iliac artery stents in the common iliac arteries as well, as well as severe stenosis of the bilateral common femoral arteries with posterior plaque. Therefore, she was consented for bilateral femoral endarterectomy and bilateral common iliac artery stents. ANESTHESIA: General endotracheal. DESCRIPTION OF PROCEDURE: The patient was brought to the operative theater in the biplane room and positioned supine on the operating table. Preoperative antibiotics were administered. Surgical time-out was performed. The abdomen to the knees were prepped in standard sterile fashion. Bilateral longitudinal groin incisions were then made and the common femoral arteries exposed bilaterally exposing from the distal external iliac to the superficial femoral artery and profunda bilaterally. The bilateral common femoral arteries were then accessed using an 18-gauge needle and upsized to a 5-Uzbek sheath bilaterally after administration of 7000 units of heparin over a J wire. Then, using a Berenstein and a soft angled Glidewire 0.035 platform, I was able to cannulate the aorta bilaterally from the common femoral artery access bilaterally and I was then able to navigate a Quick-Cross catheter into the aorta bilaterally and then on the left side over an Amplatz wire, I was able to advance an 8-Uzbek sheath into the aorta. On the right side due to severe stenosis, I was unable to pass the sheath past the stenosis without predilatation. We then exchanged for 0.014 Spartacore wires bilaterally over a Quick-Cross catheter and then placed a 7 mm x 5 cm shockwave balloon in the left common iliac with a 6 x 4 cm 0.018 balloon in the right common iliac extending into the aorta to perform kissing balloon angioplasty at the aortic bifurcation. We then attempted intravascular lithotripsy with the shockwave balloon in the left common iliac; however, this was unsuccessful as there was an equipment failure with the catheter not allowing it to be utilized for lithotripsy. Given that the balloons adequately expanded, I then elected to proceed with placement of VBX stents without pretreatment of the calcific lesions of the common iliac at the aortic bifurcation. Aortography was performed prior to intervention and to neida the hypogastric arteries bilaterally and to assess the length of the lesions using Omniflush catheter with markers. I then exchanged back for Amplatz wires bilaterally and was able to then cross both common iliac artery lesions with the sheath and position the distal tip of the sheath in the aorta with 8-Uzbek sheaths bilaterally. I then selected 8 x 59 stents based on the initial angiographic measurements of the length of the lesions as well as the initial CT scan demonstrating the previous stents were 8 mm in diameter and these were then positioned as kissing stents just proximal to the previous iliac artery stents extending into the distal common iliac artery covering to treat lesions in both distal common iliac arteries bilaterally prior to the iliac bifurcation. These were then deployed with excellent angiographic results with repeat angiography and abdominal aortogram demonstrating no significant iliac or inflow disease following stent placement. The hypogastrics were also patent bilaterally as well as the proximal external iliac arteries were patent. I should state that prior to insertion of the 8-Uzbek sheaths, we did occlude the outflow in the bilateral superficial femoral arteries and bilateral profunda deep femoral arteries in order to prevent distal embolization from this calcific lesions during treatment. Additionally, the patient was heparinized prior to intervention. I then proceeded to perform longitudinal arteriotomies after removing the 8-Uzbek sheaths and occluding the external iliac artery with small Satinsky clamps bilaterally. The SFA on the right was occluded with an angled DeBakey clamp and the other outflow vessels were occluded with vessel loops. I then performed endarterectomy bilaterally of the common femoral arteries. On the right side, the plaque was causing at least 70-80% stenosis of the common femoral artery and mostly posterior. This extended down to the femoral artery bifurcation with clean endpoints obtained with endarterectomy distally without requiring extension onto the superficial femoral artery or the deep femoral artery and feathering proximally in the external iliac artery. I then ensured there was no loose fronds and cleaned the endarterectomized surface until there was no residual disease. I then performed a patch angioplasty with a bovine pericardial patch on the right common femoral artery sewing this in with a 5-0 Prolene circumferentially. A similar procedure was then performed on the left common femoral artery. In the left common femoral artery, there was a posterior plaque; however, it was much more focal and near the inguinal ligament and this was then endarterectomized from the distal external iliac artery into the distal common femoral artery without nearing the common femoral artery bifurcation. Once this was completed, a bovine pericardial patch angioplasty was also sewn into position on the left common femoral artery again with a 5-0 Prolene. Prior to completion of both anastomoses, the arteries were fore and backbled and flushed and additional heparin was given during the procedure to maintain therapeutic anticoagulation with 2000 units of heparin given 1 hour into the procedure. The patch closure was then completed and there was then good hemostasis with additional repair sutures required on the right common femoral artery patch angioplasty site. Once this was completed, both groins were then closed with running 2-0 Vicryl, 3-0 Vicryl for subcutaneous tissue and then a 4-0 Monocryl for the skin in running subcuticular fashion. Prevena negative pressure wound therapy VACs were then applied to both groins in standard fashion with a good seal noted. The patient at completion of the procedure then had palpable dorsalis pedis and pedal pulses bilaterally. The heparin was reversed with protamine after cheondoism of flow and after cheondoism of flow, there was confirmation of strong biphasic Doppler signals in the SFA and deep femoral artery bilaterally. The patient was then awakened, extubated and transferred to the recovery room in stable condition. SPECIMENS: None. IMPLANTS: The 8 x 59 VBX stents bilaterally. PROCEDURES: 1. Abdominal aortogram. 2. Bilateral common iliac artery stent placement. 3. Bilateral iliofemoral endarterectomy. COMPLICATIONS: None. MARCIA DR: Ziyad TID: [id number]
[2021-09-21] MEDS: HYDROcodone/APAP 7.5/325MG 1 TAB TABLET PO PRN (18:48)
[2021-09-21] MEDS: ACETAMINOPHEN 325 MG TABLET. PO SCH (18:48)
[2021-09-21] MEDS: metFORMIN 500 MG TABLET PO SCH (18:49)
[2021-09-21] MEDS: ceFAZolin SODIUM IV Push 1 GM VIAL. IVP SCH (18:49)
[2021-09-21 19:00] VITALS: BP 156/74
[2021-09-21] MEDS: MORPHINE SULFATE 2 MG/ML INJ. IV PRN (19:00)
[2021-09-21] MEDS: GLIMEPIRIDE 2 MG TABLET. PO SCH (21:30)
[2021-09-21] MEDS: ATORVASTATIN CALCIUM 40 MG TABLET. PO SCH (21:31)
[2021-09-21 22:30] VITALS: BP 154/69
[2021-09-22] MEDS: ceFAZolin SODIUM IV Push 1 GM VIAL. IVP SCH ×2 (00:02→05:41)
[2021-09-22] MEDS: ACETAMINOPHEN 325 MG TABLET. PO SCH ×4 (00:02→20:01)
[2021-09-22] MEDS: MORPHINE SULFATE 2 MG/ML INJ. IV PRN ×2 (00:10→22:21)
[2021-09-22 02:30] VITALS: BP 129/62
[2021-09-22] MEDS: oxyCODONE IR 5 MG TABLET PO PRN (05:49)
--- NOTE | 2021-09-22 05:50 | NUR ---
Right groin site "hurting me" . Patient rolled slightly to the side to change Purewick and chux. Geraldine and Tylenol given po. Right Prevena dressing reinforced w/ transparent film.
[2021-09-22 07:00] VITALS: BP 120/67
--- NOTE | 2021-09-22 07:17 | PDOC ---
Provider Note Date of Service: DATE: 09/22/21 TIME: 07:13 Provider Note Provider Note Patient reports significant pain in both groins that is slowly improving. Otherwise vital signs stable overnight. Prevena vacs did alarm some overnight but currently with good seal. O: GEN: awake, alert, conversant CV: RRR, palpable DP pulse bilaterally RESP: On 3 L NC, no respiratory distress MSK: Normal strength ble NEURO: no numbness to thighs SKIN: prevena vacs in place, groins soft. Some ecchymosis present in right groin. A: POD 1 bilateral iliofemoral endarterectomy and bilateral LUIS stent placement Diabetes mellitus, a1c 7.5 on oral medications Disucssed postoperative care instructions. Prevena wound vacs may be removed monday evening (at home) Ambulate today SLIV PO analgesia Appreciate assistance of hospitalist with glycemic control ASA/plavix. Plavix for 3 months postoperatively then aspirin lifelong DVT chemoppx Justicifation of Admission Dx: Justifications for Admission: Justification of Admission Dx: N/A TOYIN COSME MD Sep 22, 2021 07:17
[2021-09-22] MEDS: BUDESONIDE 0.5 MG/2 ML NEBU. NEB SCH ×2 (07:21→20:00)
[2021-09-22] MEDS: IPRATRPIUM/ALBUTEROL 0.5/2.5MG 3 ML NEBU. NEB SCH ×3 (07:21→20:47)
[2021-09-22 07:29] LABS: BASO % 0 % (0-3); EOS # 0.1 x10^3/uL (0.0-0.7); EOS % 1 % (0-3); HEMOGLOBIN 11.6 g/dL (12.0-15.5); LYMPH # 2.4 x10^3/uL (1.0-4.8); LYMPH % 21 % (24-48); MEAN CORPUSCULAR HEMOGLOBIN 27 pg (25-35); MEAN CORPUSCULAR HGB CONC 31 g/dL (31-37); MEAN CORPUSCULAR VOLUME 87 fL (79-100); MONO % 9 % (0-9); NEUT # 7.7 x10^3/uL (1.8-7.7); NEUT % 68 % (31-73); PLATELET COUNT 234 x10^3/uL (140-400); RED BLOOD COUNT 4.25 x10^6/uL (3.50-5.40); WHITE BLOOD COUNT 11.2 x10^3/uL (4.0-11.0)
[2021-09-22 07:57] LABS: CREATININE 0.9 mg/dL (0.6-1.0); GFR 59.9; MAGNESIUM 2.2 mg/dL (1.8-2.4); PHOSPHORUS 5.3 mg/dL (2.6-4.7); POTASSIUM 4.8 mmol/L (3.5-5.1)
[2021-09-22] MEDS: ASPIRIN CHEWABLE 81 MG TABLET. PO SCH (08:23)
[2021-09-22] MEDS: GLIMEPIRIDE 2 MG TABLET. PO SCH (08:23)
[2021-09-22] MEDS: metFORMIN 500 MG TABLET PO SCH ×2 (08:24→17:04)
[2021-09-22] MEDS: ENOXAPARIN 30 MG/0.3 ML SYRINGE. SQ SCH ×2 (08:24→20:01)
[2021-09-22] MEDS ORDERED: CLOPIDOGREL BISULFATE 75 MG TABLET PO ONE (09:00)
[2021-09-22] MEDS: IV NORMAL SALINE 1000ML BAG 1,000 ML IV SCH (09:00)
[2021-09-22] MEDS: FLUTICASONE/VILANTEROL 100/25 INHALER. INH SCH (09:00)
[2021-09-22] MEDS ORDERED: NON FORMULARY ITEM (Fluticasone/Umeclidin/Vilanter (Trelegy Ellipta 100-62.5-25) 1 EACH) IH SCH (09:00)
[2021-09-22] MEDS: ELECTROLYTE (NON-ICU) PROTOCOL. MC SCH (09:00)
--- NOTE | 2021-09-22 10:16 | PDOC ---
Provider Note Date of Service: DATE: 09/22/21 TIME: 10:15 Provider Note Consult dictated #[id number] Justifications for Admission Other Justification CARMEN MARTINEZ MD Sep 22, 2021 10:16
--- NOTE | 2021-09-22 10:21 | NUR ---
SS following for discharge planning. SS reviewed pt chart and discussed with pt RN. Pt is from home and is currently requiring oxygen at two liters nasal canula. Pt has no home oxygen. Pt had femoral endarterectomy, abdominal aortogram, and iliac artery stent placement on 09/21/2021. SS will continue to follow for discharge planning.
--- NOTE | 2021-09-22 10:34 | CONS ---
DATE OF CONSULTATION: 09/22/2021 HISTORY OF PRESENT ILLNESS: This 81 years old female, who is well known to me, was noted to have peripheral artery disease getting worse and has been admitted for bilateral iliofemoral endarterectomy with bilateral common iliac artery stenting and shock wave angioplasty. The patient underwent bilateral common femoral endarterectomies with bovine pericardial patch angioplasty on 09/21/2021. Medical consultation has been obtained for her multiple medical issues including diabetes, hypertension and congestive heart failure. SYSTEMS REVIEW: At present time, the patient admits to lot of pain, especially in the right lower extremity. She denies any nausea, vomiting, abdominal pain, cold, cough, congestion, dyspnea, chest pains, palpitations, dizziness. She admits to joint pains. Other systems reviewed and are negative. 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 PAST SURGICAL HISTORY: Includes history of TAVR, [address] [facility] on 12/06/2016. Had cardiac catheterization and PCI with ANNA in the left circumflex in 09/2017, CTA in 2016 with stents in right and left common iliac artery. The patient also had cataract extraction, cholecystectomy and appendectomy. She is known to have abdominal aortic aneurysm, infrarenal. ALLERGIES: No known any. MEDICATIONS: Reviewed and reconciled. FAMILY HISTORY: Mother has hypertension and diabetes mellitus type 2. SOCIAL HISTORY: The patient has quit smoking previously. No history of alcoholism or drug abuse. PHYSICAL EXAMINATION: GENERAL: The patient is an elderly female who is alert, oriented x 3 and not in acute distress. VITAL SIGNS: Temperature 98.3, pulse 58 per minute, respirations 20 per minute, blood pressure 120/67 mmHg. EYES: Pupils reactive to light. Conjunctivae pink. Sclerae white. HENT: Unremarkable. NECK: Supple. JVP normal. No thyromegaly. Trachea midline. LUNGS: Clear with decreased breath sounds at bases. CARDIOVASCULAR: S1, S2, regular. ABDOMEN: Soft, nontender. No guarding, no rigidity. Bowel sounds present. EXTREMITIES: No edema, no cyanosis, no calf tenderness. The patient is status post surgery. CENTRAL NERVOUS SYSTEM: Alert and oriented. Generalized weakness. LABORATORY FINDINGS: WBC count 9 yesterday, hemoglobin 12.7 yesterday. WBC count is 11.2 today and hemoglobin 11.6 today. Sodium 138, potassium 4.4, BUN 16, creatinine 0.9, calcium 8.6, glucose 130. Glucose is 98 today. IMPRESSION: 1. Diabetes mellitus type 2, tightly controlled. 2. Hypertension. 3. Coronary artery disease. 4. Diastolic congestive heart failure. 5. Chronic obstructive pulmonary disease. 6. Abdominal aortic aneurysm. 7. Hyperlipidemia. 8. Osteoarthritis. 9. History of aortic stenosis with bioprosthetic valve. 10. History of meningioma. 11. Carotid artery disease. 12. Peripheral artery disease, status post bilateral common femoral endarterectomies with bovine pericardial patch angioplasty and bilateral common iliac stent placement. PLAN: Decrease glimepiride to 4 mg daily. Monitor blood sugars with Accu-Cheks a.c. and at bedtime. Monitor blood pressures. Recheck labs in a.m. I will not put on any sliding scale insulin at this time. Continue metformin. For details, please refer to the orders. Dr. Ziegler, thank you very much for letting me participate in the care of this patient. KATY DR: Sha TID: [id number]
[2021-09-22 11:00] VITALS: BP 105/52
[2021-09-22] MEDS: HYDROcodone/APAP 7.5/325MG 1 TAB TABLET PO PRN (12:40)
[2021-09-22 15:00] VITALS: BP 130/70
--- NOTE | 2021-09-22 16:02 | EKG ---
[facility] [address] [place] [address] Test Date: 2021-09-21 Test Time: 11:27:23 Pat Name: MIRTHA REYES Department: Room: 2 Gender: F Product Lister: : 1940 Requested By: TOYIN COSME Order Number: [id number] Reading MD: Amandeep Jeffrey MD Measurements Intervals [place] Rate: 69 P: 35 MA: 162 QRS: -43 QRSD: 136 T: 87 QT: 452 QTc: 486 Interpretive Statements SINUS RHYTHM LBBB NON-SPECIFIC ST/T CHANGES Electronically Signed On 09-27-2021 11:51:21 YARD MOTOR OPERATOR by Amandeep Jeffrey MD
[2021-09-22 19:21] VITALS: BP 115/75
[2021-09-22] MEDS: ATORVASTATIN CALCIUM 40 MG TABLET. PO SCH (20:02)
[2021-09-22 22:09] VITALS: BP 113/55
[2021-09-23 03:00] VITALS: BP 102/64
[2021-09-23] MEDS: MORPHINE SULFATE 2 MG/ML INJ. IV PRN (05:00)
[2021-09-23] MEDS: ACETAMINOPHEN 325 MG TABLET. PO SCH ×3 (06:00→20:40)
[2021-09-23 06:24] LABS: BASO # 0.1 x10^3/uL (0.0-0.2); BASO % 1 % (0-3); EOS # 0.4 x10^3/uL (0.0-0.7); EOS % 4 % (0-3); HEMATOCRIT 36.3 % (36.0-47.0); HEMOGLOBIN 11.5 g/dL (12.0-15.5); LYMPH # 1.6 x10^3/uL (1.0-4.8); LYMPH % 17 % (24-48); MEAN CORPUSCULAR HEMOGLOBIN 28 pg (25-35); MEAN CORPUSCULAR HGB CONC 32 g/dL (31-37); MEAN CORPUSCULAR VOLUME 87 fL (79-100); MONO % 10 % (0-9); NEUT # 6.4 x10^3/uL (1.8-7.7); NEUT % 68 % (31-73); PLATELET COUNT 204 x10^3/uL (140-400); RED BLOOD COUNT 4.17 x10^6/uL (3.50-5.40); RED CELL DISTRIBUTION WIDTH 16.3 % (11.5-14.5); WHITE BLOOD COUNT 9.4 x10^3/uL (4.0-11.0)
[2021-09-23 06:43] LABS: ALBUMIN 2.8 g/dL (3.4-5.0); ALBUMIN/GLOBULIN RATIO 0.8 (1.0-1.7); CALCIUM 7.8 mg/dL (8.5-10.1); CREATININE 0.9 mg/dL (0.6-1.0); GFR 59.9; POTASSIUM 3.9 mmol/L (3.5-5.1); TOTAL BILIRUBIN 0.4 mg/dL (0.2-1.0); TOTAL PROTEIN 6.3 g/dL (6.4-8.2)
[2021-09-23 07:00] VITALS: BP 113/69
[2021-09-23] MEDS ORDERED: BUDESONIDE 0.5 MG/2 ML NEBU. NEB PRN (07:15)
[2021-09-23] MEDS ORDERED: ALBUTEROL SULFATE 2.5 MG/3 ML NEBU. NEB PRN (07:30)
[2021-09-23] MEDS: GLIMEPIRIDE 2 MG TABLET. PO SCH (08:00)
[2021-09-23] MEDS: metFORMIN 500 MG TABLET PO SCH ×2 (08:00→17:13)
[2021-09-23] MEDS: ASPIRIN CHEWABLE 81 MG TABLET. PO SCH (08:00)
[2021-09-23] MEDS: ENOXAPARIN 30 MG/0.3 ML SYRINGE. SQ SCH ×2 (08:01→20:39)
[2021-09-23] MEDS: ELECTROLYTE (NON-ICU) PROTOCOL. MC SCH (09:00)
[2021-09-23] MEDS: FLUTICASONE/VILANTEROL 100/25 INHALER. INH SCH (09:00)
--- NOTE | 2021-09-23 09:54 | NUR ---
SS following up with discharge planning. SS reviewed pt chart and discussed with pt RN. Pt is currently on oxygen at two liters nasal canula. Pt has no home oxygen. Primary PCP, Dr. Irving. Dr. Irving stating home healthcare will be beneficial to pt for home. PT/OT orders requested. SS met with pt to discuss discharge planning and home healthcare services. Pt agreeable to home healthcare with no preference of company. Referral sent to [facility], ; fax [phone]. Vascular following. SS will continue to follow for discharge planning.
--- NOTE | 2021-09-23 09:56 | PDOC ---
Provider Note Date of Service: DATE: 09/23/21 TIME: 09:51 Provider Note Provider Note S: Patient reports pain mainly in rt groin that is slowly improving. Otherwise vital signs stable overnight. Prevena vacs in place, right one was off upon our exam, however returned back on and ensured adequate seal. She is ambulating in the room well. O: GEN: awake, alert, conversant CV: RRR, palpable DP pulse bilaterally RESP: On 2 L NC althuogh O2 was not being worn, no respiratory distress MSK: Normal strength ble SKIN: prevena vacs in place, groins soft. Some ecchymosis present in right groin. A: POD 2 bilateral iliofemoral endarterectomy and bilateral LUIS stent placement Diabetes mellitus, a1c 7.5 on oral medications Disucssed postoperative care instructions. Prevena wound vacs may be removed monday evening (at home) PT, ambulate in halls PO analgesia Appreciate assistance of hospitalist ASA/plavix. Plavix for 3 months postoperatively then aspirin lifelong DVT chemoppx Anticipate okay for discharge from our standpoint tomorrow if good progress today. Justicifation of Admission Dx: Justifications for Admission: Justification of Admission Dx: N/A AYESHA VILLA Sep 23, 2021 09:56
--- NOTE | 2021-09-23 10:06 | PDOC ---
IM PROGRESS NOTES- Subjective Subjective Has some back pain and joint pains. Objective Vitals/I&O Vital Signs Date Time Temp Pulse Resp B/P (MAP) Pulse Ox O2 Delivery O2 Flow Rate FiO2 09/23/21 08:05 Nasal Cannula 3.0 09/23/21 07:00 98.0 80 18 113/69 (84) 93 98.0 I & O0 09/22/21 09/22/21 09/23/21 15:00 23:00 07:00 Intake Total 300 ml 200 ml Output Total 250 ml Balance 50 ml 200 ml Physical Exam Physical Exam General Appearance - alert and in no distress Chest - decreased breath sounds at bases Heart - S1 and S2 normal Abdomen - soft, non tender Neurological - alert and oriented Musculoskeletal - generalized weakness Extremities -status post bilateral lower extremity surgery Labs Laboratory Tests Test 09/22/21 11:55 09/22/21 17:10 09/22/21 20:13 09/23/21 04:45 Glucose (Fingerstick) 158 mg/dL (70-99) H 158 mg/dL (70-99) H 162 mg/dL (70-99) H White Blood Count 9.4 x10^3/uL (4.0-11.0) Red Blood Count 4.17 x10^6/uL (3.50-5.40) Hemoglobin 11.5 g/dL (12.0-15.5) L Hematocrit 36.3 % (36.0-47.0) Mean Corpuscular Volume 87 fL (79-100) Mean Corpuscular Hemoglobin 28 pg (25-35) Mean Corpuscular Hemoglobin Concent 32 g/dL (31-37) Red Cell Distribution Width 16.3 % (11.5-14.5) H Platelet Count 204 x10^3/uL (140-400) Neutrophils (%) (Auto) 68 % (31-73) Lymphocytes (%) (Auto) 17 % (24-48) L Monocytes (%) (Auto) 10 % (0-9) H Eosinophils (%) (Auto) 4 % (0-3) H Basophils (%) (Auto) 1 % (0-3) Neutrophils # (Auto) 6.4 x10^3/uL (1.8-7.7) Lymphocytes # (Auto) 1.6 x10^3/uL (1.0-4.8) Monocytes # (Auto) 1.0 x10^3/uL (0.0-1.1) Eosinophils # (Auto) 0.4 x10^3/uL (0.0-0.7) Basophils # (Auto) 0.1 x10^3/uL (0.0-0.2) Sodium Level 139 mmol/L (136-145) Potassium Level 3.9 mmol/L (3.5-5.1) Chloride Level 102 mmol/L (98-107) Carbon Dioxide Level 27 mmol/L (21-32) Anion Gap 10 (6-14) Blood Urea Nitrogen 11 mg/dL (7-20) Creatinine 0.9 mg/dL (0.6-1.0) Estimated GFR (Cockcroft-Gault) 59.9 BUN/Creatinine Ratio 12 (6-20) Glucose Level 129 mg/dL (70-99) H Calcium Level 7.8 mg/dL (8.5-10.1) L Total Bilirubin 0.4 mg/dL (0.2-1.0) Aspartate Amino Transferase (AST) 17 U/L (15-37) Alanine Aminotransferase (ALT) 20 U/L (14-59) Alkaline Phosphatase 116 U/L (46-116) Total Protein 6.3 g/dL (6.4-8.2) L Albumin 2.8 g/dL (3.4-5.0) L Albumin/Globulin Ratio 0.8 (1.0-1.7) L Test 09/23/21 07:39 Glucose (Fingerstick) 157 mg/dL (70-99) H Laboratory Tests 09/23/21 04:45 Laboratory Tests 09/23/21 04:45 Meds Current Medications Medications (Trade) Dose Ordered Sig/Lusiito Route PRN Reason Start Time Stop Time Status Last Admin Dose Admin Glimepiride (Amaryl) 4 mg DAILY08 PO 09/23/21 08:00 09/23/21 08:00 Assessment Assessment 1. Diabetes mellitus type 2, tightly controlled. 2. Hypertension. 3. Coronary artery disease. 4. Diastolic congestive heart failure. 5. Chronic obstructive pulmonary disease. 6. Abdominal aortic aneurysm. 7. Hyperlipidemia. 8. Osteoarthritis. 9. History of aortic stenosis with bioprosthetic valve. 10. History of meningioma. 11. Carotid artery disease. 12. Peripheral artery disease, status post bilateral common femoral endarterectomies with bovine pericardial patch angioplasty and bilateral common iliac stent placement. PLAN: Decrease glimepiride to 4 mg daily. Monitor blood sugars with Accu-Cheks a.c. and at bedtime. Monitor blood pressures. I will not put on any sliding scale insulin at this time. Continue metformin. Leukocytosis is improving. Labs are stable. Plan is to discharge her tomorrow with home health services. Discussed with child welfare social worker. For details, please refer to the orders. Plan Plan For more details regarding further plans, please refer to the orders. Justifications for Admission Other Justification CARMEN MARTINEZ MD Sep 23, 2021 10:06
[2021-09-23] MEDS: HYDROcodone/APAP 7.5/325MG 1 TAB TABLET PO PRN (10:22)
[2021-09-23 11:00] VITALS: BP 133/67
[2021-09-23] MEDS: oxyCODONE IR 5 MG TABLET PO PRN ×2 (14:36→20:40)
[2021-09-23 15:00] VITALS: BP 125/69
[2021-09-23 19:40] VITALS: BP 122/56
[2021-09-23] MEDS: ATORVASTATIN CALCIUM 40 MG TABLET. PO SCH (20:39)
--- NOTE | 2021-09-23 21:41 | NUR ---
SEE STRIP IN CHARP. PT AND A SMALL EPISODE OF VT/SVT. SHE WASNT SYMPTOMATIC. LUKE Addendum: 09/24/21 at 0013 by Veronica Allred RN SEE STRIP IN CHART. PT HAD A SMALL EPISODE OF SVT/VT . SHE WASNT SYMPTOMATIC. LUKE
[2021-09-23 22:22] VITALS: BP 102/61
--- NOTE | 2021-09-24 00:04 | NUR ---
PT WAS ON RA AND DESATED TO 83%, WAS SITTING ON THE SIDE OF THE BED, JUST CAME BACK FROM WALKING AND WAS SOB. PLACED ON 2 LITERS AND WAS SATING 90%, CALLED RT AND GAVE PT AN IS AND RT TAUGHT HER HOW TO USE IT. BASE ON IS IS 1000 .INCREASED O2 TO 2.5 LITERS.LCRN
[2021-09-24 02:00] VITALS: BP 115/67
[2021-09-24] MEDS: oxyCODONE IR 5 MG TABLET PO PRN ×2 (05:56→13:20)
[2021-09-24] MEDS: ACETAMINOPHEN 325 MG TABLET. PO SCH ×2 (05:58→13:20)
[2021-09-24 07:00] VITALS: BP 104/62
[2021-09-24] MEDS: metFORMIN 500 MG TABLET PO SCH (08:22)
[2021-09-24] MEDS: GLIMEPIRIDE 2 MG TABLET. PO SCH (08:22)
[2021-09-24] MEDS: ASPIRIN CHEWABLE 81 MG TABLET. PO SCH (08:22)
[2021-09-24] MEDS: ENOXAPARIN 30 MG/0.3 ML SYRINGE. SQ SCH (08:26)
[2021-09-24] MEDS: ELECTROLYTE (NON-ICU) PROTOCOL. MC SCH (08:26)
[2021-09-24] MEDS: FLUTICASONE/VILANTEROL 100/25 INHALER. INH SCH (09:00)
--- NOTE | 2021-09-24 09:22 | PDOC ---
PROGRESS NOTES- Subjective Subjective Has some back pain and joint pains. She was started on oxygen last night because of decreased oxygen saturation. She states that she feels fine and she does not think she needs oxygen. Objective Vitals/I&O Vital Signs Date Time Temp Pulse Resp B/P (MAP) Pulse Ox O2 Delivery O2 Flow Rate FiO2 09/24/21 08:00 Nasal Cannula 2.5 09/24/21 07:00 98.3 73 18 104/62 (76) 100 98.3 I & O 09/23/21 09/23/21 09/24/21 15:00 23:00 07:00 Intake Total 560 ml 420 ml 0 ml Balance 560 ml 420 ml 0 ml Physical Exam Physical Exam General Appearance - alert and in no distress Chest - decreased breath sounds at bases Heart - S1 and S2 normal Abdomen - soft, non tender Neurological - alert and oriented Musculoskeletal - generalized weakness Extremities - no edema Labs Laboratory Tests Test 09/23/21 11:44 09/23/21 16:59 09/23/21 20:47 09/24/21 07:28 Glucose (Fingerstick) 137 mg/dL (70-99) H 187 mg/dL (70-99) H 151 mg/dL (70-99) H 150 mg/dL (70-99) H Assessment Assessment 1. Diabetes mellitus type 2 2. Hypertension. 3. Coronary artery disease. 4. Diastolic congestive heart failure. 5. Chronic obstructive pulmonary disease. 6. Abdominal aortic aneurysm. 7. Hyperlipidemia. 8. Osteoarthritis. 9. History of aortic stenosis with bioprosthetic valve. 10. History of meningioma. 11. Carotid artery disease. 12. Peripheral artery disease, status post bilateral common femoral endarterectomies with bovine pericardial patch angioplasty and bilateral common iliac stent placement. PLAN: Decrease glimepiride to 4 mg daily. Monitor blood sugars with Accu-Cheks a.c. and at bedtime. Monitor blood pressures. I will not put on any sliding scale insulin at this time. Continue metformin. Diabetes is controlled. Hypertension is controlled. Leukocytosis is improving. Labs are stable. Plan is to discharge her tomorrow with home health services. Discussed with social welfare research worker. Check oxygen levels with a 6-minute walk. Check oxygen on room air. We will start her on oxygen by nasal cannula at home if needed. Discussed with patient and her boyfriend. For details, please refer to the orders. Plan Plan For more details regarding further plans, please refer to the orders. Justifications for Admission Other Justification CARMEN MARTINEZ MD Sep 24, 2021 09:22
[2021-09-24 10:23] VITALS: BP 140/58
--- NOTE | 2021-09-24 10:25 | SNU/HH DC ---
DISCHARGE WITH HOME HEALTH DISCHARGE INFORMATION: Condition on Discharge: Stable HOME HEALTH: Face to Face: I certify this patient is under my care and that I, or a nurse practitioner or physician's visual merchandising assistant working with me, had a face to face encounter that meets the physician face to face encounter requirements with this patient on September 24, 2021. Medical Complications: ROYCE RN For Eval/Treatment: Yes Physical Therapy For: Evalulation/Treatment Occupational Therapy For: Evaluation/Treatment Pt Meets Homebound Status: Poor coordination w/ amb. POST DISCHARGE ORDERS: Activity Instructions for Disc: Avoid exertion Weight Bearing Status after Di: Full weight bearing Bathing Instructions: Shower-keep dressing dry DIET AFTER DISCHARGE: ADA (Cardiac) Other wound/incision instructi: Continue wound care CHECKS AFTER DISCHARGE: Checks after discharge: Check blood press - daily, Check blood sugar, ac/hs FOLLOW-UP: PCP to follow Home Health: Yes Follow up with: Dr. Carmen Martinez in 5 days. Follow Up With: Dr. Ziegler TREATMENT/EQUIPMENT ORDERS: Discharge Respiratory Equipmen: Oxygen CERTIFICATION STATEMENT: Certification Statement: Certification Statement: Based on the above finding, I certify that this patient is confined to the home and needs intermittent usp care, physical therapy and/or speech therapy, or continues to need occupational therapy.~ This patient is under my care, and I have initiated the establishment of the plan of care.~ This patient will be followed by myself or a community physician who will periodically review the plan of care. Home Meds Active Scripts Hydrocodone Bit/Acetaminophen (HYDROCODONE-APAP 7.5-325 ) 1 Tab Tablet, 1 TAB PO PRN Q6HRS PRN for PAIN for 5 Days, #30 TAB 0 Refills Prov:KAREN PAYTON TREE THINNER 09/21/21 Reported Medications Fluticasone/Umeclidin/Vilanter (Trelegy Ellipta 100-62.5-25) 1 Each Blst.w.dev, 1 EACH IH DAILY for breathing 08/02/19 Atorvastatin Calcium (LIPITOR) 40 Mg Tablet, 1 TAB PO QHS for chilester, #90 TAB 1 Refill 08/02/19 Aspirin (Children's Aspirin) 81 Mg Tab.chew, 1 TAB PO DAILY for antiplate for 30 Days, #30 TAB 0 Refills 08/02/19 Glimepiride (GLIMEPIRIDE) 4 Mg Tablet, 1 TAB PO BID for diabetic, #180 TAB 1 Refill 08/02/19 Metformin Hcl (METFORMIN HCL) 1,000 Mg Tablet, 1000 PO BID, #60 05/15/17 CARMEN MARTINEZ MD Sep 24, 2021 10:25
--- NOTE | 2021-09-24 12:04 | NUR ---
SS following up with discharge planning. SS reviewed pt chart and discussed with pt RN. Pt is currently requiring oxygen at two and half liters nasal canula. COVID19 negative. Pt does not have home oxygen. Six minute walk ordered. PT recommended home with home healthcare. Pt accepted on services with [facility], ; fax [phone]. Discharge orders received for home healthcare and sent to [facility]. Currently awaiting results of 6 minute walk at this time and will proceed accordingly. Addendum: 09/24/21 at 1340 by JEVON GRIFFITH Six minute walk completed. No home oxygen required.
--- NOTE | 2021-09-24 15:10 | PDOC ---
Provider Note Date of Service: DATE: 09/24/21 TIME: 15:09 Provider Note Provider Note S: Pt doing well, awaiting to go home. O: GEN: awake, alert, conversant CV: RRR, palpable DP pulse bilaterally RESP: On 2 L NC althuogh O2 was not being worn, no respiratory distress MSK: Normal strength ble SKIN: prevena vacs in place, groins soft. Some ecchymosis present in right groin. A: POD 3 bilateral iliofemoral endarterectomy and bilateral LUIS stent placement Disucssed postoperative care instructions. Prevena wound vacs may be removed monday evening (at home) ASA/plavix. Plavix for 3 months postoperatively then aspirin lifelong DVT chemoppx Okay for discharge from our standpoint once medically stable. F/u as scheduled. Justicifation of Admission Dx: Justifications for Admission: Justification of Admission Dx: N/A AYESHA VILLA Sep 24, 2021 15:10
--- NOTE | 2021-09-24 15:20 | NUR ---
Discharge Note: MIRTHA REYES [address] [place] [address] Discharge instructions and discharge home medications reviewed with Patient and a copy given. All questions have been answered and understanding verbalized. The following instructions and handouts were given: Diet, activity, medication list and follow up instructions provided to patient. Discontinued lines and drains: Peripheral IV discontinued and catheter intact. Patient discharged to Home w/services with Significant Other via Wheelchair
== END 2021-09-24 15:10 | disposition home health service (06) | DRG 271 ==
LOC: OPSVCIP 10:12 → 6 SOUTH 16:36
PROVIDERS: ADMIT Surgery Vascular Surgery; ATTEND Surgery Vascular Surgery
PROC: 04CK3ZZ Extirpation of Matter from Right Femoral Artery, Percutaneous Approach (ICD-10-PCS; 2021-09-21)
PROC: 047D3DZ Dilation of Left Common Iliac Artery with Intraluminal Device, Percutaneous Approach (ICD-10-PCS; 2021-09-21)
PROC: 047C3DZ Dilation of Right Common Iliac Artery with Intraluminal Device, Percutaneous Approach (ICD-10-PCS; 2021-09-21)
PROC: 04UL3KZ Supplement Left Femoral Artery with Nonautologous Tissue Substitute, Percutaneous Approach (ICD-10-PCS; 2021-09-21)
PROC: 04UK3KZ Supplement Right Femoral Artery with Nonautologous Tissue Substitute, Percutaneous Approach (ICD-10-PCS; 2021-09-21)
PROC: 04CL3ZZ Extirpation of Matter from Left Femoral Artery, Percutaneous Approach (ICD-10-PCS; principal; 2021-09-21 12:30)
DX: I70.209 Unspecified atherosclerosis of native arteries of extremities, unspecified extremity (principal); I50.32 Chronic diastolic (congestive) heart failure; I11.0 Hypertensive heart disease with heart failure; E11.51 Type 2 diabetes mellitus with diabetic peripheral angiopathy without gangrene; E78.5 Hyperlipidemia, unspecified; I25.10 Atherosclerotic heart disease of native coronary artery without angina pectoris; I25.2 Old myocardial infarction; I35.0 Nonrheumatic aortic (valve) stenosis; I70.1 Atherosclerosis of renal artery; I70.8 Atherosclerosis of other arteries; I71.4 Abdominal aortic aneurysm, without rupture; J44.9 Chronic obstructive pulmonary disease, unspecified; J84.10 Pulmonary fibrosis, unspecified; M19.90 Unspecified osteoarthritis, unspecified site; Z82.49 Family history of ischemic heart disease and other diseases of the circulatory system; Z83.3 Family history of diabetes mellitus; Z86.011 Personal history of benign neoplasm of the brain; Z86.74 Personal history of sudden cardiac arrest; Z87.891 Personal history of nicotine dependence; Z95.2 Presence of prosthetic heart valve; G89.29 Other chronic pain; Z90.49 Acquired absence of other specified parts of digestive tract
CPT/HCPCS: 36415; 37221; 37223; 80048; 80053; 82962; 83735; 84100; 85025; 86850; 86900; 86901; 93005; 94618; 94640; 94760; A4213; A4364; A4452; A4930; A6213; A6402; C1713; C1768; C1769; C1894; J0690; J1100; J1644; J1650; J1815; J2250; J2270; J2440; J2704; J3010; J7030; J7040; J7120; Q9967; 97116-GP; 97530-GP; G0378; J7644

== ENCOUNTER 2022-03-05 09:34 | Inpatient (IN) | payer MEDICARE, MEDICAID ==
[~2022-03-05] VITALS: Ht 157.5 cm; Wt 68.2 kg
[~2022-03-05 09:34] MED LIST changes: -HEPARIN SODIUM 5,000 UNIT in IV NORMAL SALINE 500ML BAG 500 ML IRR ONE; -HYDROmorphone 2 MG/ML VIAL IVP PRN; -IV RINGERS,LACTATED 1000ML 1,000 ML IV SCH; -PROCHLORPERAZINE 10 MG/2 ML VIAL. IVP PRN; -fentaNYL PF VIAL 100 MCG/2 ML VIAL IVP PRN
--- NOTE | 2022-03-05 10:22 | RAD ---
EXAM: Chest, single view. HISTORY: Chest pain. COMPARISON: 08/25/2021 FINDINGS: A frontal view of the chest is obtained. There are chronic appearing diffuse interstitial c hanges. There is no consolidation, pleural effusion or pneumothorax. The heart is normal in size. The re are postoperative changes involving the aortic valve. IMPRESSION: Chronic appearing interstitial changes. No acute pulmonary finding. Electronically signed by: Lisa Valdez MD (03/05/2022 10:19 AM) [id number]
[2022-03-05] MEDS ORDERED: ASPIRIN CHEWABLE 81 MG TABLET. PO ONE (10:30)
--- NOTE | 2022-03-05 10:50 | RAD ---
CT chest without contrast: Reason for examination: Chest pain. History of peripheral vascular disease and COPD. Comparison is made to previous examination dated 09/07/2019. Helical images were obtained through the chest with no contrast administered. Reconstruction was perf ormed in sagittal and coronal planes. Exposure: One or more of the following individualized dose reduction techniques were utilized for thi s examination: 1. Automated exposure control 2. Adjustment of the mA and/or kV according to patient size 3. Use of iterative reconstruction technique. No abnormality seen at the thyroid gland. The trachea and mainstem bronchi show no intraluminal lesions. No abnormality seen at the esophagus. There continue to be a a few small lymph nodes in the mediastinum which are stable. The thoracic aorta shows no aneurysmal dilatation but does show arteriosclerotic vascular calcificati on. The heart size is normal with no pericardial effusion. There is mitral valvular calcification pre sent. Aortic valve stent is in place. There is also coronary artery calcification present. The lung wilson show severe emphysematous changes. A few calcified granuloma are present. No consolid ated infiltrates, pleural effusions or pneumothorax are seen. No abnormality is seen at the liver, spleen, adrenal glands or pancreas. No acute bony abnormalities are seen. IMPRESSION: Severe emphysematous changes. No acute infiltrates or pleural effusions. Electronically signed by: Yadi Pickett MD (03/05/2022 10:48 AM) [email or web address]
--- NOTE | 2022-03-05 10:53 | EKG ---
[facility] [address] [place] [address] Test Date: 2022-03-05 Test Time: 09:43:18 Pat Name: MIRTHA REYES Department: Room: Gender: F Batt Packer: : 1940 Requested By: MI BERG Order Number: [id number] Reading MD: Morales Oropeza Measurements Intervals [place] Rate: 65 P: 8 DE: 156 QRS: -45 QRSD: 140 T: 66 QT: 450 QTc: 469 Interpretive Statements SINUS RHYTHM LEFT BUNDLE BRANCH BLOCK Electronically Signed On 03-07-2022 10:10:36 CDT by Morales Oropeza
--- NOTE | 2022-03-05 11:19 | PHYS DOC ---
Past Medical History Past Medical History: CAD, COPD, Diabetes-Type II Additional Past Medical Histor: CHRONIC BACK PAIN, pulmonary fibrosis Past Surgical History: Angioplasty, Cholecystectomy, Other Additional Past Surgical Histo: hernia repair,heart valve replacement,femoral stents Smoking Status: Former Smoker Alcohol Use: None Drug Use: None General Adult EDM: Chief Complaint: CHEST PAIN HPI: HPI: Patient is a 81 year old [f__sex] who presents with [] Review of Systems: Review of Systems: Constitutional: Denies fever or chills. [] Eyes: Denies change in visual acuity. [] HENT: Denies nasal congestion or sore throat. [] Respiratory: Denies cough or shortness of breath. [] Cardiovascular: Denies chest pain or edema. [] GI: Denies abdominal pain, nausea, vomiting, bloody stools or diarrhea. [] : Denies dysuria. [] Musculoskeletal: Denies back pain or joint pain. [] Integument: Denies rash. [] Neurologic: Denies headache, focal weakness or sensory changes. [] Endocrine: Denies polyuria or polydipsia. [] Lymphatic: Denies swollen glands. [] Psychiatric: Denies depression or anxiety. [] Heart Score: C/O Chest Pain: Yes HEART Score for Chest Pain: HEART Score for Chest Pain Response (Comments) Value History Slighlty/Non-Suspicious 0 ECG Normal 0 Age > 65 2 Risk Factors >3 Risk Factors or Hx CAD 2 Total 4 Risk Factors: Risk Factors: DM, Current or recent (<one month) smoker, HTN, HLP, family history of CAD, obesity. Risk Scores: Score 0 - 3: 2.5% MACE over next 6 weeks - Discharge Home Score 4 - 6: 20.3% MACE over next 6 weeks - Admit for Clinical Observation Score 7 - 10: 72.7% MACE over next 6 weeks - Early Invasive Strategies Current Medications: Current Medications Medications (Trade) Dose Ordered Sig/Luisito Start Time Stop Time Status Last Admin Dose Admin Aspirin (Aspirin Chewable) 324 mg 1X ONCE 03/05/22 10:30 03/05/22 10:31 DC 03/05/22 10:33 324 MG Allergies: Allergies: Allergies Coded Allergies Type Severity Reaction Last Updated Verified No Known Drug Allergies 03/05/22 No Physical Exam: PE: Constitutional: Well developed, well nourished, no acute distress, non-toxic appearance. [] HENT: Normocephalic, atraumatic, bilateral external ears normal, oropharynx moist, no oral exudates, nose normal. [] Eyes: PERRLA, EOMI, conjunctiva normal, no discharge. [] Neck: Normal range of motion, no tenderness, supple, no stridor. [] Cardiovascular:Heart rate regular rhythm, no murmur [] Lungs & Thorax: Bilateral breath sounds clear to auscultation [] Abdomen: Bowel sounds normal, soft, no tenderness, no masses, no pulsatile masses. [] Skin: Warm, dry, no erythema, no rash. [] Back: No tenderness, no CVA tenderness. [] Extremities: No tenderness, no cyanosis, no clubbing, ROM intact, no edema. [] Neurologic: Alert and oriented X 3, normal motor function, normal sensory function, no focal deficits noted. [] Psychologic: Affect normal, judgement normal, mood normal. [] Current Patient Data: Labs: Laboratory Tests Test 03/05/22 12:05 White Blood Count 8.1 x10^3/uL Red Blood Count 4.45 x10^6/uL Hemoglobin 11.8 g/dL Hematocrit 35.9 % Mean Corpuscular Volume 81 fL Mean Corpuscular Hemoglobin 27 pg Mean Corpuscular Hemoglobin Concent 33 g/dL Red Cell Distribution Width 18.2 % Platelet Count 178 x10^3/uL Neutrophils (%) (Auto) 61 % Lymphocytes (%) (Auto) 26 % Monocytes (%) (Auto) 8 % Eosinophils (%) (Auto) 4 % Basophils (%) (Auto) 1 % Neutrophils # (Auto) 4.9 x10^3/uL Lymphocytes # (Auto) 2.1 x10^3/uL Monocytes # (Auto) 0.7 x10^3/uL Eosinophils # (Auto) 0.3 x10^3/uL Basophils # (Auto) 0.1 x10^3/uL Prothrombin Time 13.3 SEC Prothromb Time International Ratio 1.0 Sodium Level 138 mmol/L Potassium Level 5.0 mmol/L Chloride Level 103 mmol/L Carbon Dioxide Level 23 mmol/L Anion Gap 12 Blood Urea Nitrogen 20 mg/dL Creatinine 1.0 mg/dL Estimated GFR (Cockcroft-Gault) 53.1 BUN/Creatinine Ratio 20 Glucose Level 95 mg/dL Calcium Level 8.5 mg/dL Magnesium Level 1.8 mg/dL Total Bilirubin 0.3 mg/dL Aspartate Amino Transf (AST/SGOT) 18 U/L Alanine Aminotransferase (ALT/SGPT) 25 U/L Alkaline Phosphatase 99 U/L Troponin I High Sensitivity 283 ng/L [id number] Natriuretic Peptide 246 pg/mL Total Protein 7.1 g/dL Albumin 3.4 g/dL Albumin/Globulin Ratio 0.9 Lipase 105 U/L Current Medications Medications (Trade) Dose Ordered Sig/Luisito Route PRN Reason Start Time Stop Time Status Last Admin Dose Admin Aspirin (Aspirin Chewable) 324 mg 1X ONCE PO 03/05/22 10:30 03/05/22 10:31 DC 03/05/22 10:33 Vital Signs: Vital Signs Date Time Temp Pulse Resp B/P (MAP) Pulse Ox O2 Delivery O2 Flow Rate FiO2 03/05/22 12:25 64 20 142/58 (86) 90 Room Air 03/05/22 11:55 62 18 147/69 (95) 93 Room Air 03/05/22 11:26 66 16 132/81 (98) 95 Room Air 03/05/22 10:41 70 29 157/70 (99) 92 Room Air 03/05/22 10:34 70 14 145/70 (95) 94 Room Air 03/05/22 09:40 97.8 64 18 162/72 (102) 94 Room Air 97.8 Vital Signs Date Time Temp Pulse Resp B/P (MAP) Pulse Ox O2 Delivery O2 Flow Rate FiO2 03/05/22 10:34 70 14 145/70 (95) 94 Room Air 03/05/22 09:40 97.8 97.8 EKG: EKG: EKG done at [address] Aden at 1105 shows sinus rhythm with PACs at a rate of 70 with a SD interval of 162 ms with a QTC of 489 ms no STEMI [] Radiology/Procedures: Radiology/Procedures: REASON: chest pain hx PVD PROCEDURE: CT CHEST WO CONTRAST CT chest without contrast: Reason for examination: Chest pain. History of peripheral vascular disease and COPD. Comparison is made to previous examination dated 09/07/2019. Helical images were obtained through the chest with no contrast administered. Reconstruction was performed in sagittal and coronal planes. Exposure: One or more of the following individualized dose reduction techniques were utilized for this examination: 1. Automated exposure control 2. Adjustment of the mA and/or kV according to patient size 3. Use of iterative reconstruction technique. No abnormality seen at the thyroid gland. The trachea and mainstem bronchi show no intraluminal lesions. No abnormality seen at the esophagus. There continue to be a a few small lymph nodes in the mediastinum which are stable. The thoracic aorta shows no aneurysmal dilatation but does show arteriosclerotic vascular calcification. The heart size is normal with no pericardial effusion. There is mitral valvular calcification present. Aortic valve stent is in place. There is also coronary artery calcification present. The lung wilson show severe emphysematous changes. A few calcified granuloma are present. No consolidated infiltrates, pleural effusions or pneumothorax are seen. No abnormality is seen at the liver, spleen, adrenal glands or pancreas. No acute bony abnormalities are seen. IMPRESSION: Severe emphysematous changes. No acute infiltrates or pleural effusions. Electronically signed by: Yadi Pickett MD (03/05/2022 10:48 AM) [facility] REASON: chest pain PROCEDURE: PORTABLE CHEST 1V EXAM: Chest, single view. HISTORY: Chest pain. COMPARISON: 08/25/2021 FINDINGS: A frontal view of the chest is obtained. There are chronic appearing diffuse interstitial changes. There is no consolidation, pleural effusion or pneumothorax. The heart is normal in size. There are postoperative changes involving the aortic valve. IMPRESSION: Chronic appearing interstitial changes. No acute pulmonary finding. Electronically signed by: Lisa Valdez MD (03/05/2022 10:19 AM) [id number] [] Course & Med Decision Making: Course & Med Decision Making Pertinent Labs and Imaging studies reviewed. (See chart for details) [address] Villegas who is taking call for Dr. Irving, he is agreeable to admitting this patient for elevated troponin and chest pain, he asked that cardiology be consulted for further evaluation and management of this as well. Patient was informed of the decision to admit and she is agreeable to the plan of care. [address] Jeffrey about this patient and she is well-known to their practice and he will see her in consultation. Lisha Disclaimer: Lisha Disclaimer: This electronic medical record was generated, in whole or in part, using a voice recognition dictation system. Departure Departure Impression: Primary Impression: Chest pain Qualified Codes: R07.9 - Chest pain, unspecified Additional Impression: Elevated troponin Disposition: ADMITTED INPATIENT Admitting Physician: Carmen Irving Condition: STABLE Referrals: CARMEN IRVING MD (PCP) [place] BERG [employer]HER March 05, 2022 11:19
[2022-03-05 12:17] LABS: BASO # 0.1 x10^3/uL (0.0-0.2); BASO % 1 % (0-3); EOS # 0.3 x10^3/uL (0.0-0.7); EOS % 4 % (0-3); HEMATOCRIT 35.9 % (36.0-47.0); HEMOGLOBIN 11.8 g/dL (12.0-15.5); LYMPH # 2.1 x10^3/uL (1.0-4.8); LYMPH % 26 % (24-48); MEAN CORPUSCULAR HEMOGLOBIN 27 pg (25-35); MEAN CORPUSCULAR HGB CONC 33 g/dL (31-37); MEAN CORPUSCULAR VOLUME 81 fL (79-100); MONO # 0.7 x10^3/uL (0.0-1.1); MONO % 8 % (0-9); NEUT # 4.9 x10^3/uL (1.8-7.7); NEUT % 61 % (31-73); PLATELET COUNT 178 x10^3/uL (140-400); RED BLOOD COUNT 4.45 x10^6/uL (3.50-5.40); RED CELL DISTRIBUTION WIDTH 18.2 % (11.5-14.5); WHITE BLOOD COUNT 8.1 x10^3/uL (4.0-11.0)
[2022-03-05 12:24] LABS: PROTHROMBIN TIME PATIENT 13.3 SEC (11.7-14.0)
[2022-03-05 12:28] LABS: CALCIUM 8.5 mg/dL (8.5-10.1); GFR 53.1
[2022-03-05 12:35] LABS: ALBUMIN 3.4 g/dL (3.4-5.0); ALBUMIN/GLOBULIN RATIO 0.9 (1.0-1.7); MAGNESIUM 1.8 mg/dL (1.8-2.4); TOTAL BILIRUBIN 0.3 mg/dL (0.2-1.0); TOTAL PROTEIN 7.1 g/dL (6.4-8.2)
[2022-03-05 13:44] LABS: BACTERIA,URINE MANY /HPF (0-FEW)
[2022-03-05 13:47] LABS: RBC,URINE 0 /HPF (0-2)
--- NOTE | 2022-03-05 14:15 | NUR ---
Patient arrives to room 667 via wheelchair assisted by emergency dept staff.
[2022-03-05 14:20] VITALS: BP 146/67
--- NOTE | 2022-03-05 14:32 | EKG ---
[facility] [address] [place] [address] Test Date: 2022-03-05 Test Time: 10:59:17 Pat Name: MIRTHA REYES Department: Room: [facility] Gender: F [employer]: : 1940 Requested By: MI BERG Order Number: [id number] Reading MD: Amandeep Jeffrey MD Measurements Intervals [place] Rate: 70 P: 18 [place]: 162 QRS: -45 QRSD: 142 T: 64 QT: 450 QTc: 489 Interpretive Statements SINUS RHYTHM LBBB POOR R WAVE PROGRESSION Electronically Signed On 03-06-2022 13:29:28 CDT by Amandeep Jeffrey MD
[2022-03-05] MEDS ORDERED: NITR0.4T22 SL (16:11)
[2022-03-05] MEDS ORDERED: ATOR20TA58 PO (18:00)
--- NOTE | 2022-03-05 18:04 | NUR ---
Patient's pharmacy called et home medications verified.
[2022-03-05 19:21] VITALS: BP 136/77
--- NOTE | 2022-03-05 19:40 | NUR ---
Dr. Bradley paged for orders. Home meds restarted, code status changed to DNI per patient wishes.
[2022-03-05] MEDS ORDERED: POLYETHYLENE GLYCOL 3350 17 GM PACKET. PO PRN (19:45)
[2022-03-05] MEDS ORDERED: DOCUSATE SODIUM 100 MG CAPSULE. PO PRN (19:45)
[2022-03-05] MEDS ORDERED: DEXTROSE 50% 25 GM / 50ML DISP.SYRIN. IV PRN (19:45)
[2022-03-05] MEDS ORDERED: NITROGLYCERIN SUBLINGUAL 0.4 MG BOTTLE OF 25. SL PRN (19:45)
[2022-03-05] MEDS: ATORVASTATIN CALCIUM 20 MG TABLET PO SCH (20:33)
[2022-03-05] MEDS: HYDROcodone/APAP 7.5/325MG 1 TAB TABLET PO PRN (20:34)
[2022-03-05] MEDS: GLIMEPIRIDE 2 MG TABLET. PO SCH (20:34)
[2022-03-05] MEDS: BUDESONIDE 0.5 MG/2 ML NEBU. NEB SCH (21:00)
[2022-03-05 23:08] VITALS: BP 94/53
[2022-03-06 03:40] VITALS: BP 125/69
[2022-03-06 07:00] VITALS: BP 131/76
[2022-03-06] MEDS: BUDESONIDE 0.5 MG/2 ML NEBU. NEB SCH ×2 (07:29→20:47)
[2022-03-06] MEDS: INSULIN LISPRO 300 UNITS/3 ML VIAL. SQ SCH ×3 (08:00→17:00)
[2022-03-06] MEDS: GLIMEPIRIDE 2 MG TABLET. PO SCH ×2 (08:16→20:31)
[2022-03-06] MEDS: ASPIRIN CHEWABLE 81 MG TABLET. PO SCH (08:16)
[2022-03-06] MEDS: metFORMIN 500 MG TABLET PO SCH ×2 (08:16→17:05)
[2022-03-06] MEDS: HYDROcodone/APAP 7.5/325MG 1 TAB TABLET PO PRN ×2 (08:22→20:31)
[2022-03-06] MEDS ORDERED: ACETAMINOPHEN 325 MG TABLET. PO PRN (08:45)
[2022-03-06] MEDS ORDERED: NON FORMULARY ITEM (Fluticasone/Umeclidin/Vilanter (Trelegy Ellipta 100-62.5-25) 1 EACH) IH SCH (09:00)
--- NOTE | 2022-03-06 09:51 | PDOC ---
Provider Note Date of Service: DATE: 03/06/22 TIME: 09:50 Provider Note H&P dictated #[id number] Justifications for Admission Other Justification CARMEN MARTINEZ MD March 06, 2022 09:50
--- NOTE | 2022-03-06 10:51 | HP ---
DATE OF SERVICE: 03/06/2022 ADMIT DATE: 03/05/2022 HISTORY OF PRESENT ILLNESS: This 81-year-old female who has a history of coronary artery disease, COPD, peripheral artery disease, non-ST elevation myocardial infarction in 07/2019 and who recently had bilateral common femoral endarterectomies with bovine pericardial patch angioplasty and bilateral common iliac stent placement, started having chest pains for the last 2 days. Pain is worse even when she is resting and it happened twice while she was lying down in bed. Because of the persistent and recurrent chest pain, she came to the Emergency Room. In the Emergency Room, she was noted to have elevated troponin level of 283. Sodium was 138, potassium 5, BUN 20, creatinine 1. WBC count 8.1, hemoglobin 11.8. CT scan of chest was negative for any acute changes. She was noted to have severe emphysematous changes, no acute infiltrates or pleural effusion. Because of the chest pain with likelihood of unstable angina with elevated troponin with likely non-ST elevation myocardial infarction, the patient was admitted for further evaluation and management. SYSTEMS REVIEW: The patient denies any cold, cough, congestion, vomiting, fever or chills. She denies any heartburn. This morning, the patient also again had chest pains and relieved by pain medications. PAST MEDICAL HISTORY: The patient has a history of coronary artery disease with non-ST elevation myocardial infarction in 07/2019, also had admission with similar issues in 04/2022. Has a history of COPD, chronic diastolic congestive heart failure, aortic stenosis and had TAVR bioprosthetic valve and during that hospitalization, the patient also had cardiac arrest. Has carotid artery disease, [id number] celiac artery disease, peripheral artery disease in both lower extremities, hyperlipidemia, constipation, dry eyes, chronic low back pain, meningioma arising from the sphenoid bone 1.8 cm in size, pulmonary fibrosis, renal artery stenosis, moderate. The patient has diabetes mellitus type 2. PAST SURGICAL HISTORY: Includes history of TAVR, 2 bioprosthetic valves at [facility] on 12/06/2016. Had cardiac catheterization and PCI with ANNA in the left circumflex in 09/2017, CTA in 2016 with stents in right and left iliac artery, also had cataract extraction, cholecystectomy and appendectomy. She is known to have abdominal aortic aneurysm, infrarenal. On 09/21/2021, had bilateral common femoral endarterectomies with bovine pericardial patch angioplasty. ALLERGIES: None known any. MEDICATIONS: Reviewed and reconciled. FAMILY HISTORY: Mother has hypertension and diabetes mellitus type 2. SOCIAL HISTORY: The patient quit smoking previously. No history of alcoholism or drug abuse. PHYSICAL EXAMINATION: GENERAL: The patient is an elderly female who is alert, oriented x 3, and not in acute distress. VITAL SIGNS: On admission, temperature 97.7, pulse 70 per minute, respirations 14 per minute, blood pressure 145/70 mmHg. EYES: Pupils reactive to light. Conjunctivae pink. Sclerae muddy. HENT: Unremarkable. NECK: Supple. JVP normal. No thyromegaly. Trachea midline. LUNGS: Decreased breath sounds at bases. The patient has few right basilar rales. CARDIOVASCULAR SYSTEM: S1, S2, regular. ABDOMEN: Soft, nontender, no guarding, no rigidity. Bowel sounds present. EXTREMITIES: No edema, no cyanosis, no calf tenderness. CENTRAL NERVOUS SYSTEM: Alert and oriented, generalized weakness. No acute changes. SKIN: Warm and dry. There is no cyanosis. LABORATORY FINDINGS: As noted earlier. IMPRESSION: 1. Chest pain, possibly due to unstable angina and non-ST elevation myocardial infarction with elevated troponin. Troponin was 283 on admission. The last troponin level is 232. 2. Coronary artery disease. 3. Diabetes mellitus type 2. 4. Hypertension. 5. Diastolic congestive heart failure. 6. Chronic obstructive pulmonary disease with emphysema. 7. Abdominal aortic aneurysm. 8. Hyperlipidemia. 9. Osteoarthritis. 10. History of aortic stenosis with bioprosthetic valve. 11. History of meningioma. 12. Carotid artery disease. 13. Peripheral artery disease, recently status post bilateral common femoral endarterectomies with bovine pericardial patch angioplasty and bilateral common iliac stent placement. PLAN: 1. Chest pain, rule out myocardial infarction. The patient likely has non-ST elevation myocardial infarction. Consult Dr. Jeffrey for cardiology evaluation and management. Use nitroglycerin as needed. 2. Diabetes mellitus. Continue glimepiride 4 mg twice daily and sliding scale insulin. Monitor blood sugar. 3. COPD. Continue breathing treatment. 4. Coronary artery disease. 5. Peripheral artery disease. 6. Diastolic congestive heart failure, stable. For details, please refer to the orders. LAYLA/RAPHAEL/JOLIE DR: LAYLA/erinn TID: [id number]
[2022-03-06 11:00] VITALS: BP 120/70
[2022-03-06] MEDS: PANTOPRAZOLE 40 MG TABLET.DR. PO SCH (11:13)
[2022-03-06] MEDS: HEPARIN for SUB-Q USE 5,000 UNIT/ML VIAL. SQ SCH ×2 (11:17→20:33)
--- NOTE | 2022-03-06 14:25 | PDOC2 ---
CARDIOLOGY CONSULT NOTE DATE OF SERVICE: DATE: 03/06/22 TIME: 14:19 CHIEF COMPLAINT: Chest pain HPI: 81-year-old woman with a past medical history as noted below who presents to the hospital in the setting of chest pain. She reports 2 different types of chest pain 1 which appears to be anginal in nature, which appears to be pleuritic in nature. The patient has been in usual state of health until recently and began to have this pain yesterday. No associated palpitations, syncope, orthopnea or PND. No other recent hospitalizations or ER visits for any cardiac issues. Of note, patient did undergo bilateral femoral endarterectomies and intervention for lifestyle limiting claudication recently through vascular surgery service. Does not report any new claudication issues. PMHX: Hypertension Dyslipidemia Peripheral arterial disease SOCHX: No alcohol, tobacco or illicit drug use FAMHX: Noncontributory CURRENT MEDS: Aspirin, atorvastatin ALLERGIES: Allergies Coded Allergies Type Severity Reaction Last Updated Verified No Known Drug Allergies 03/05/22 No ROS: Negative for 10-14 systems reviewed unless otherwise mentioned above in HPI PHYSICAL EXAM: Vital Signs/I&O: Vital Signs Date Time Temp Pulse Resp B/P (MAP) Pulse Ox O2 Delivery O2 Flow Rate FiO2 03/06/22 11:00 97.9 85 16 120/70 (87) 92 Room Air 97.9 I & O 03/05/22 03/05/22 03/06/22 15:00 23:00 07:00 Intake Total 480 ml 100 ml Balance 480 ml 100 ml Physical Exam: GEN.: No apparent distress. Alert and oriented. HEENT: Head is normocephalic, atraumatic NECK: Supple. LUNGS: Clear to auscultation. HEART: RRR, S1, S2 present. Peripheral pulses intact ABDOMEN: Soft, nontender. Positive bowel sounds. EXTREMITIES: Without any cyanosis. Diminished pedal pulses NEUROLOGIC: Normal speech, normal tone PSYCHIATRIC: Normal affect, normal mood. SKIN: No ulcerations DIAGNOSTIC TESTING: EKG and cardiac enzymes reviewed Lab Laboratory Tests Test 03/05/22 16:10 03/05/22 16:16 03/05/22 20:50 03/06/22 03:00 Troponin I High Sensitivity 264 ng/L (4-50) H 232 ng/L (4-50) H Glucose (Fingerstick) 212 mg/dL (70-99) H 138 mg/dL (70-99) H Test 03/06/22 07:24 03/06/22 11:43 Glucose (Fingerstick) 140 mg/dL (70-99) H 156 mg/dL (70-99) H ASSESSMENT: 1. Non-STEMI, symptoms are concerning for possible underlying coronary disease especially in light of her significant risk factors 2. Severe PAD status post recent intervention 3. Dyslipidemia 4. Hypertension PLAN: 1. We will plan for a heart catheterization tomorrow for evaluation of any coronary disease. 2. For now continue aspirin and statin therapies. Blood pressure appears to be stable. Patient is currently chest pain-free. Thank you for this consultation we will follow along closely. WENDIE VINCENT MD March 06, 2022 14:25
[2022-03-06 15:00] VITALS: BP 137/79
[2022-03-06 19:00] VITALS: BP 140/73
[2022-03-06] MEDS: SENNOSIDES 8.6 MG TABLET PO PRN (20:30)
[2022-03-06] MEDS: ATORVASTATIN CALCIUM 20 MG TABLET PO SCH (20:30)
[2022-03-06] MEDS: IPRATRPIUM/ALBUTEROL 0.5/2.5MG 3 ML NEBU. NEB SCH (20:47)
[2022-03-06 20:53] LABS: BASO # 0.1 x10^3/uL (0.0-0.2); BASO % 2 % (0-3); EOS # 0.3 x10^3/uL (0.0-0.7); EOS % 4 % (0-3); HEMOGLOBIN 11.2 g/dL (12.0-15.5); LYMPH # 1.9 x10^3/uL (1.0-4.8); LYMPH % 26 % (24-48); MEAN CORPUSCULAR HEMOGLOBIN 26 pg (25-35); MEAN CORPUSCULAR HGB CONC 32 g/dL (31-37); MEAN CORPUSCULAR VOLUME 82 fL (79-100); MONO # 0.6 x10^3/uL (0.0-1.1); MONO % 8 % (0-9); NEUT # 4.5 x10^3/uL (1.8-7.7); NEUT % 61 % (31-73); PLATELET COUNT 187 x10^3/uL (140-400); RED BLOOD COUNT 4.27 x10^6/uL (3.50-5.40); RED CELL DISTRIBUTION WIDTH 18.2 % (11.5-14.5); WHITE BLOOD COUNT 7.5 x10^3/uL (4.0-11.0)
[2022-03-06 21:01] LABS: ALBUMIN 3.3 g/dL (3.4-5.0); CALCIUM 8.3 mg/dL (8.5-10.1); CREATININE 1.1 mg/dL (0.6-1.0); GFR 47.6; POTASSIUM 4.3 mmol/L (3.5-5.1); TOTAL BILIRUBIN 0.2 mg/dL (0.2-1.0); TOTAL PROTEIN 6.5 g/dL (6.4-8.2)
[2022-03-06 23:00] VITALS: BP 118/57
[2022-03-07] VITALS (15 sets, daily range): BP systolic 110–146; BP diastolic 60–78
[2022-03-07] MEDS: IPRATRPIUM/ALBUTEROL 0.5/2.5MG 3 ML NEBU. NEB SCH ×4 (03:15→21:00)
[2022-03-07] MEDS: BUDESONIDE 0.5 MG/2 ML NEBU. NEB SCH ×2 (07:14→21:00)
[2022-03-07] MEDS ORDERED: LIDOCAINE 1% PF 2 ML VIAL. ONE (07:55)
[2022-03-07] MEDS ORDERED: HEPARIN for ARTERIAL LINE 1,500 ML ONE (07:56)
[2022-03-07] MEDS ORDERED: IODIXANOL 320 MG/ML 50ML VIAL. ONE (07:58)
[2022-03-07] MEDS: INSULIN LISPRO 300 UNITS/3 ML VIAL. SQ SCH ×3 (08:00→17:00)
[2022-03-07] MEDS: metFORMIN 500 MG TABLET PO SCH (08:00)
[2022-03-07] MEDS ORDERED: fentaNYL PF VIAL 100 MCG/2 ML VIAL ONE (08:14)
[2022-03-07] MEDS ORDERED: HEPARIN for IV BOLUS 10,000 UNIT/10 ML VIAL. ONE (08:15)
[2022-03-07] MEDS ORDERED: VERAPAMIL 5 MG/2 ML VIAL. ONE (08:15)
[2022-03-07] MEDS: PANTOPRAZOLE 40 MG TABLET.DR. PO SCH (08:15)
[2022-03-07] MEDS: ASPIRIN CHEWABLE 81 MG TABLET. PO SCH (08:15)
[2022-03-07] MEDS ORDERED: NITROGLYCERIN 200 MCG/2 ML SYRINGE FOR CATH/VASC LAB. ONE (08:15)
[2022-03-07] MEDS ORDERED: MIDAZOLAM HCL/PF 2 MG/2 ML VIAL. ONE (08:15)
--- NOTE | 2022-03-07 08:50 | PDOC ---
Provider Note Date of Service: DATE: 03/07/22 TIME: 08:50 Provider Note Patient is in [employer]. Chart reviewed. Justifications for Admission Other Justification CARMEN MARTINEZ MD March 07, 2022 08:50
[2022-03-07] MEDS ORDERED: MIDAZOLAM HCL/PF 2 MG/2 ML VIAL. IV ONE ×2 (09:00→12:30)
[2022-03-07] MEDS ORDERED: HEPARIN for IV BOLUS 10,000 UNIT/10 ML VIAL. IART ONE ×2 (09:00→12:30)
[2022-03-07] MEDS ORDERED: fentaNYL PF VIAL 100 MCG/2 ML VIAL IV ONE ×2 (09:00→12:30)
[2022-03-07] MEDS ORDERED: NITROGLYCERIN 200 MCG/2 ML SYRINGE FOR CATH/VASC LAB. IART ONE ×2 (09:00→12:30)
[2022-03-07] MEDS ORDERED: LIDOCAINE 1% PF 2 ML VIAL. INJ ONE ×2 (09:00→12:30)
[2022-03-07] MEDS ORDERED: VERAPAMIL 5 MG/2 ML VIAL. IART ONE ×2 (09:00→12:30)
[2022-03-07] MEDS ORDERED: IODIXANOL 320 MG/ML 100 ML VIAL. IART ONE (09:00)
--- NOTE | 2022-03-07 09:27 | PDOC ---
IM PROGRESS NOTES- Subjective Subjective She still has chest pains and pain gets worse with breathing treatment. Objective Vitals/I&O Vital Signs Date Time Temp Pulse Resp B/P (MAP) Pulse Ox O2 Delivery O2 Flow Rate FiO2 03/07/22 09:09 81 12 99 Room Air 03/07/22 07:00 97.9 122/74 (90) 97.9 I & O 03/06/22 03/06/22 03/07/22 15:00 23:00 07:00 Intake Total 200 ml 420 ml 200 ml Balance 200 ml 420 ml 200 ml Physical Exam Physical Exam General Appearance - alert and in no distress Chest - decreased breath sounds at bases Heart - S1 and S2 normal Abdomen - soft, non tender Neurological - alert and oriented Musculoskeletal - generalized weakness Extremities - no edema Labs Laboratory Tests Test 03/06/22 11:43 03/06/22 16:44 03/06/22 19:32 03/07/22 07:26 Glucose (Fingerstick) 156 mg/dL (70-99) H 72 mg/dL (70-99) 153 mg/dL (70-99) H 160 mg/dL (70-99) H Meds Current Medications Medications (Trade) Dose Ordered Sig/Luisito Route PRN Reason Start Time Stop Time Status Last Admin Dose Admin Albuterol/ Ipratropium (Duoneb) 3 ml Q6H NEB 03/06/22 21:00 03/07/22 03:15 Nitroglycerin (Nitroglycerin) 200 mcg 1X ONCE IART 03/07/22 09:00 03/07/22 09:03 DC 03/07/22 08:44 Verapamil HCl (Verapamil) 2.5 mg 1X ONCE IART 03/07/22 09:00 03/07/22 09:03 DC 03/07/22 08:44 Heparin Sodium (Porcine) (Heparin Sodium) 2,500 unit 1X ONCE IART 03/07/22 09:00 03/07/22 09:03 DC 03/07/22 09:00 Heparin Sodium/ Sodium Chloride (HEPARIN for ARTERIAL LINE FLUSH) 1,000 unit 1X ONCE IART 03/07/22 09:00 03/07/22 09:03 DC 03/07/22 09:00 Heparin Sodium/ Sodium Chloride (HEPARIN for ARTERIAL LINE FLUSH) 1,000 unit 1X ONCE IART 03/07/22 09:00 03/07/22 09:03 DC 03/07/22 09:00 Midazolam HCl (Versed) 1.5 mg 1X ONCE IV 03/07/22 09:00 03/07/22 09:03 DC 03/07/22 08:47 Fentanyl Citrate (Fentanyl 2ml Vial) 75 mcg 1X ONCE IV 03/07/22 09:00 03/07/22 09:03 DC 03/07/22 08:47 Iodixanol (Visipaque 320) 21 ml 1X ONCE IART 03/07/22 09:00 03/07/22 09:04 DC 03/07/22 09:00 Assessment Assessment 1. Chest pain, possibly due to unstable angina and non-ST elevation myocardial infarction with elevated troponin. Troponin was 283 on admission. The last troponin level is 232. 2. Coronary artery disease. 3. Diabetes mellitus type 2. 4. Hypertension. 5. Diastolic congestive heart failure. 6. Chronic obstructive pulmonary disease with emphysema. 7. Abdominal aortic aneurysm. 8. Hyperlipidemia. 9. Osteoarthritis. 10. History of aortic stenosis with bioprosthetic valve. 11. History of meningioma. 12. Carotid artery disease. 13. Peripheral artery disease, recently status post bilateral common femoral endarterectomies with bovine pericardial patch angioplasty and bilateral common iliac stent placement. PLAN: 1. Chest pain, rule out myocardial infarction. The patient likely has non-ST elevation myocardial infarction. Consult Dr. Jeffrey for cardiology evaluation and management. Use nitroglycerin as needed. She had cardiac catheterization today. Final report is pending. No new intervention recommended. Creatinine is 1.1. Give IV fluids and monitor for renal insufficiency. Hold metformin. 2. Diabetes mellitus. Continue glimepiride 4 mg twice daily and sliding scale insulin. Monitor blood sugar. 3. COPD. Continue breathing treatment. Chest pain is not better. She has worsening chest pains with breathing cesar atment. Consult Dr. Polk. 4. Coronary artery disease. 5. Peripheral artery disease. 6. Diastolic congestive heart failure, stable. Plan Plan For more details regarding further plans, please refer to the orders. Justifications for Admission Other Justification CARMEN MARTINEZ MD March 07, 2022 09:27
--- NOTE | 2022-03-07 09:47 | PDOC ---
PULMONARY PROGRESS NOTES DATE: 03/07/22 TIME: 09:47 Vitals Vital Signs Date Time Temp Pulse Resp B/P (MAP) Pulse Ox O2 Delivery O2 Flow Rate FiO2 03/07/22 09:09 81 12 99 Room Air 03/07/22 07:00 97.9 122/74 (90) 97.9 General: Alert, No acute distress Lungs: Clear Cardiovascular: S1, S2 Abdomen: Soft, Non-tender Extremities: No Edema Labs Laboratory Tests Test 03/05/22 11:15 03/05/22 12:05 03/05/22 16:10 03/05/22 16:16 Urine Collection Type Unknown Urine Color (Auto) Light yellow Urine Turbidity Hazy Urine pH (Auto) 5.0 (<5.0-8.0) Urine Specific [place] 1.014 (1.000-1.030) Urine Protein (Auto) Negative mg/dL (Negative) Urine Glucose (Auto)(UA) Negative mg/dL (Negative) Urine Ketones (Auto) Negative mg/dL (Negative) Urine Blood (Auto) Negative (Negative) Urine Nitrite (Auto) Negative (Negative) Urine Bilirubin (Auto) Negative (Negative) Urine Urobilinogen (Auto) Normal mg/dL (Normal) Urine Leukocyte Esterase (Auto) Moderate (Negative) Urine RBC 0 /HPF (0-2) Urine WBC 5-10 /HPF (0-4) Urine Squamous Epithelial Cells Few /LPF Urine Bacteria Many /HPF (0-FEW) White Blood Count 8.1 x10^3/uL (4.0-11.0) Red Blood Count 4.45 x10^6/uL (3.50-5.40) Hemoglobin 11.8 g/dL (12.0-15.5) Hematocrit 35.9 % (36.0-47.0) Mean Corpuscular Volume 81 fL (79-100) Mean Corpuscular Hemoglobin 27 pg (25-35) Mean Corpuscular Hemoglobin Concent 33 g/dL (31-37) Red Cell Distribution Width 18.2 % (11.5-14.5) Platelet Count 178 x10^3/uL (140-400) Neutrophils (%) (Auto) 61 % (31-73) Lymphocytes (%) (Auto) 26 % (24-48) Monocytes (%) (Auto) 8 % (0-9) Eosinophils (%) (Auto) 4 % (0-3) Basophils (%) (Auto) 1 % (0-3) Neutrophils # (Auto) 4.9 x10^3/uL (1.8-7.7) Lymphocytes # (Auto) 2.1 x10^3/uL (1.0-4.8) Monocytes # (Auto) 0.7 x10^3/uL (0.0-1.1) Eosinophils # (Auto) 0.3 x10^3/uL (0.0-0.7) Basophils # (Auto) 0.1 x10^3/uL (0.0-0.2) Prothrombin Time 13.3 SEC (11.7-14.0) Prothromb Time International Ratio 1.0 (0.8-1.1) Sodium Level 138 mmol/L (136-145) Potassium Level 5.0 mmol/L (3.5-5.1) Chloride Level 103 mmol/L (98-107) Carbon Dioxide Level 23 mmol/L (21-32) Anion Gap 12 (6-14) Blood Urea Nitrogen 20 mg/dL (7-20) Creatinine 1.0 mg/dL (0.6-1.0) Estimated GFR (Cockcroft-Gault) 53.1 BUN/Creatinine Ratio 20 (6-20) Glucose Level 95 mg/dL (70-99) Calcium Level 8.5 mg/dL (8.5-10.1) Magnesium Level 1.8 mg/dL (1.8-2.4) Total Bilirubin 0.3 mg/dL (0.2-1.0) Aspartate Amino Transf (AST/SGOT) 18 U/L (15-37) Alanine Aminotransferase (ALT/SGPT) 25 U/L (14-59) Alkaline Phosphatase 99 U/L (46-116) Troponin I High Sensitivity 283 ng/L (4-50) 264 ng/L (4-50) WU-Jwz-[id number]-Type Natriuretic Peptide 246 pg/mL (0-449) Total Protein 7.1 g/dL (6.4-8.2) Albumin 3.4 g/dL (3.4-5.0) Albumin/Globulin Ratio 0.9 (1.0-1.7) Lipase 105 U/L (73-393) Glucose (Fingerstick) 212 mg/dL (70-99) Test 03/05/22 20:50 03/06/22 01:50 03/06/22 03:00 03/06/22 07:24 Glucose (Fingerstick) 138 mg/dL (70-99) 140 mg/dL (70-99) White Blood Count 7.5 x10^3/uL (4.0-11.0) Red Blood Count 4.27 x10^6/uL (3.50-5.40) Hemoglobin 11.2 g/dL (12.0-15.5) Hematocrit 35.0 % (36.0-47.0) Mean Corpuscular Volume 82 fL (79-100) Mean Corpuscular Hemoglobin 26 pg (25-35) Mean Corpuscular Hemoglobin Concent 32 g/dL (31-37) Red Cell Distribution Width 18.2 % (11.5-14.5) Platelet Count 187 x10^3/uL (140-400) Neutrophils (%) (Auto) 61 % (31-73) Lymphocytes (%) (Auto) 26 % (24-48) Monocytes (%) (Auto) 8 % (0-9) Eosinophils (%) (Auto) 4 % (0-3) Basophils (%) (Auto) 2 % (0-3) Neutrophils # (Auto) 4.5 x10^3/uL (1.8-7.7) Lymphocytes # (Auto) 1.9 x10^3/uL (1.0-4.8) Monocytes # (Auto) 0.6 x10^3/uL (0.0-1.1) Eosinophils # (Auto) 0.3 x10^3/uL (0.0-0.7) Basophils # (Auto) 0.1 x10^3/uL (0.0-0.2) Sodium Level 138 mmol/L (136-145) Potassium Level 4.3 mmol/L (3.5-5.1) Chloride Level 104 mmol/L (98-107) Carbon Dioxide Level 23 mmol/L (21-32) Anion Gap 11 (6-14) Blood Urea Nitrogen 22 mg/dL (7-20) Creatinine 1.1 mg/dL (0.6-1.0) Estimated GFR (Cockcroft-Gault) 47.6 BUN/Creatinine Ratio 20 (6-20) Glucose Level 198 mg/dL (70-99) Calcium Level 8.3 mg/dL (8.5-10.1) Total Bilirubin 0.2 mg/dL (0.2-1.0) Aspartate Amino Transf (AST/SGOT) 14 U/L (15-37) Alanine Aminotransferase (ALT/SGPT) 22 U/L (14-59) Alkaline Phosphatase 90 U/L (46-116) Total Protein 6.5 g/dL (6.4-8.2) Albumin 3.3 g/dL (3.4-5.0) Albumin/Globulin Ratio 1.0 (1.0-1.7) Troponin I High Sensitivity 232 ng/L (4-50) Test 03/06/22 11:43 03/06/22 16:44 03/06/22 19:32 03/07/22 07:26 Glucose (Fingerstick) 156 mg/dL (70-99) 72 mg/dL (70-99) 153 mg/dL (70-99) 160 mg/dL (70-99) Laboratory Tests Test 03/06/22 11:43 03/06/22 16:44 03/06/22 19:32 03/07/22 07:26 Glucose (Fingerstick) 156 mg/dL (70-99) 72 mg/dL (70-99) 153 mg/dL (70-99) 160 mg/dL (70-99) Medications Active Scripts Medications Dose Route/Sig Max Daily Dose Days Date Category Atorvastatin Calcium 20 Mg Tablet 20 Mg PO DAILY 03/05/22 Reported NITROGLYCERIN SubLingual (Nitroglycerin) 0.4 Mg Tab.subl 0.4 Mg SL PRN Q5MIN PRN 03/05/22 Reported Hydrocodone-Apap 7.5-325 (Hydrocodone Bit/Acetaminophen) 1 Tab Tablet 1 Tab PO PRN Q6HRS PRN 5 09/21/21 Rx Trelegy Ellipta 100-62.5-25 (Fluticasone/Umeclidin/Vilanter) 1 Each Blst.w.dev 1 Each IH DAILY 08/02/19 Reported Children's Aspirin (Aspirin) 81 Mg Tab.chew 1 Tab PO DAILY 30 08/02/19 Reported Glimepiride 4 Mg Tablet 1 Tab PO BID 08/02/19 Reported Metformin Hcl 1,000 Mg Tablet 1,000 PO BID 05/15/17 Reported Impression . Full note dictated 6min walk ok to dc in am if ok with card BASSEM ROSAS MD March 07, 2022 09:47
[2022-03-07] MEDS: GLIMEPIRIDE 2 MG TABLET. PO SCH ×2 (10:17→20:37)
[2022-03-07] MEDS: IV NORMAL SALINE 1000ML BAG 1,000 ML IV SCH ×2 (10:19→21:06)
[2022-03-07] MEDS: HEPARIN for SUB-Q USE 5,000 UNIT/ML VIAL. SQ SCH ×2 (10:24→20:38)
[2022-03-07] MEDS ORDERED: IODIXANOL 320 MG/ML 50ML VIAL. IART ONE (12:30)
[2022-03-07] MEDS ORDERED: CONTRAST GIVEN. MC PRN (12:45)
[2022-03-07] MEDS: HYDROcodone/APAP 7.5/325MG 1 TAB TABLET PO PRN ×2 (13:04→20:37)
[2022-03-07] MEDS: ATORVASTATIN CALCIUM 20 MG TABLET PO SCH (20:37)
[2022-03-07] MEDS: SENNOSIDES 8.6 MG TABLET PO PRN (20:37)
[2022-03-08] MEDS: IPRATRPIUM/ALBUTEROL 0.5/2.5MG 3 ML NEBU. NEB SCH (00:38)
[2022-03-08] MEDS ORDERED: IPRATRPIUM/ALBUTEROL 0.5/2.5MG 3 ML NEBU. NEB PRN (00:45)
[2022-03-08 07:00] VITALS: BP 179/93
[2022-03-08] MEDS ORDERED: BUDESONIDE 0.5 MG/2 ML NEBU. NEB PRN (07:00)
[2022-03-08] MEDS: INSULIN LISPRO 300 UNITS/3 ML VIAL. SQ SCH (07:42)
--- NOTE | 2022-03-08 07:47 | CONS ---
DATE OF CONSULTATION: 03/07/2022 ATTENDING PHYSICIAN: Lanie Irving MD CONSULTING PHYSICIAN: Richard Briggs MD REASON FOR CONSULTATION: The patient is seen in pulmonary consultation at the request of Dr. Irving for increasing shortness of breath. HISTORY OF PRESENT ILLNESS: The patient is an 81-year-old that presented with some chest discomfort. She has a history of coronary artery disease with previous myocardial infarction. She was also short of air. She underwent a CT chest. I reviewed the CT, which showed severe emphysema. In comparison to the previous CT of the chest, there has been some progression. There is no consolidation, no effusion, no lung masses. The patient quit tobacco 19 years ago. Uses Trilogy at home. She has been short of breath and having some chest discomfort. She actually underwent a cardiac catheterization earlier today, results are unavailable. Apparently, according to the patient she does not have any blockages. PAST MEDICAL HISTORY: Otherwise remarkable for hypertension, hyperlipidemia, peripheral vascular disease, coronary artery disease with previous non-ST segment elevation in 2019. She has a history of chronic diastolic heart failure. She has had previous TAVR. There is also history of peripheral arterial disease and hyperlipidemia. PAST SURGICAL HISTORY: TAVR, 2 bioprosthetic valves at [facility] in 2017. She also had previous PCI and drug-eluting stent to the left circumflex in 2017. ALLERGIES: No known drug allergies. REVIEW OF SYSTEMS: As indicated above, otherwise a 10-point system was reviewed and negative. FAMILY HISTORY: Type 2 diabetes and hypertension. SOCIAL HISTORY: Quit tobacco about 19 years ago. CURRENT MEDICATIONS: List was reviewed. PHYSICAL EXAMINATION: VITAL SIGNS: Stable. O2 saturations greater than 92%, currently on 2 liters. LUNGS: Clear to auscultation. No wheezes. CARDIOVASCULAR: Regular rate and rhythm with S1, S2. ABDOMEN: Soft, nontender. EXTREMITIES: No clubbing or cyanosis. No pitting edema. NEUROLOGIC: The patient was awake, alert, following commands. A detailed neuro exam was not performed. LABORATORY DATA: Reviewed. White count and hemoglobin were noted. Electrolytes were noted. BUN and creatinine were slightly elevated. INR was 1.0. CT as indicated above. IMPRESSION: 1. 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 2. Non-ST segment elevation myocardial infarction. 3. Coronary artery disease with previous drug-eluting stent in the left circumflex. 4. Dyslipidemia. 5. Hypertension. 6. Chronic obstructive pulmonary disease, unknown FEV1. PLAN: 1. Respiratory status appears to be compensated. 2. The patient underwent cardiac catheterization today, results are pending. According to the patient, she did not have any new blockages. 3. Continue home Trelegy. 4. A 6-minute walk prior to discharge. 5. Follow up with Dr. Polk in the office upon discharge. I do appreciate the privilege in sharing in patient's care. ANT ZAPATA: Elinor TID: [id number]
[2022-03-08] MEDS: ASPIRIN CHEWABLE 81 MG TABLET. PO SCH (08:22)
[2022-03-08] MEDS: PANTOPRAZOLE 40 MG TABLET.DR. PO SCH (08:22)
[2022-03-08] MEDS: GLIMEPIRIDE 2 MG TABLET. PO SCH (08:23)
[2022-03-08] MEDS: HEPARIN for SUB-Q USE 5,000 UNIT/ML VIAL. SQ SCH (08:27)
--- NOTE | 2022-03-08 09:09 | CARD ---
MR#: [id number] Date of Study: 03/07/2022 Ordering Physician: AMANDEEP JEFFREY, Referring Physician: AMANDEEP JEFFREY, Tech: FABIANO KAYE SUPERVISOR AIR CONDITIONING INSTALLER APPROVED REPORT Technologist: FABIANO ALTMAN RTR SUPERVISOR AIR CONDITIONING INSTALLER Nurse: Tana Whiting RN Procedure(s) performed: MODERATE SEDATION TIME: 25 MINUTES FLUORO TIME: 4.6 MIN DOSE: 30.6 GYCM2 CONTRAST: 21CC VISI Coronary angiography INDICATION The indication(s) include : non-STEMI . [facility] Clinical Frailty Scale [facility] Clinical Frailty Scale: Moderately Frail Heart Failure Heart Failure: Yes If Yes, Newly Diagnosed: No If Yes, HF Type: Diastolic If Yes, NYHA Class: Class II CASE TECHNIQUE IV conscious sedation was used throughout procedure with appropriate monitoring and was performed in the presence of a registered nurse who was an independent trained observer other than the physician p erforming the procedure. During this case, Fluoroscopy and low osmolar contrast were used for imaging . Specimen(s) Removed: N/A Estimated Blood loss: 15 cc's. PROCEDURE NARRATIVE Clinical remission: 81-year-old woman comes into the hospital with chest discomfort and elevated troponin and was taken t o the catheterization laboratory for further evaluation. Procedure details: Under 1% lidocaine local anesthesia a 6 Portuguese sheath was placed in the right radial artery. Diagnos tic angiography was then performed with a 5 Portuguese TIG catheter. At case completion catheters and sh eaths were removed and hemostasis was achieved via Terumo radial band. No acute complications. Findings: Aorta 120/80 Coronary angiography: Left main is a large-caliber vessel with normal angiographic appearance LAD is a moderate caliber vessel with mild luminal irregularities Left circumflex is a moderate to large caliber vessel with mild luminal irregularities RCA is a moderate to large caliber dominant vessel with mild luminal irregularities Conclusion 1. Minimal nonobstructive coronary artery disease Recommendations Aggressive medical therapy for likely type II non-STEMI Signed by : Amandeep Jeffrey, Electronically Approved : 03/08/2022 09:09:18
--- NOTE | 2022-03-08 09:09 | PDOC ---
PULMONARY PROGRESS NOTES DATE: 03/08/22 TIME: 09:09 Subjective Patient feels better, no short of air, no chest pain no pressure Vitals Vital Signs Date Time Temp Pulse Resp B/P (MAP) Pulse Ox O2 Delivery O2 Flow Rate FiO2 03/08/22 08:30 98 Nasal Cannula 2.0 03/08/22 07:00 97.2 67 20 179/93 (121) 97.2 ROS: No Nausea, No Chest Pain, No Abdominal Pain, No Increase Cough General: Alert, No acute distress Lungs: Clear Cardiovascular: S1, S2 Abdomen: Soft, Non-tender Neuro Exam: Alert Extremities: No Edema Skin: Warm Labs Laboratory Tests Test 03/06/22 11:43 03/06/22 16:44 03/06/22 19:32 03/07/22 07:26 Glucose (Fingerstick) 156 mg/dL (70-99) 72 mg/dL (70-99) 153 mg/dL (70-99) 160 mg/dL (70-99) Test 03/07/22 11:28 03/07/22 16:34 03/07/22 20:55 03/08/22 07:28 Glucose (Fingerstick) 216 mg/dL (70-99) 114 mg/dL (70-99) 131 mg/dL (70-99) 132 mg/dL (70-99) Laboratory Tests Test 03/07/22 11:28 03/07/22 16:34 03/07/22 20:55 03/08/22 07:28 Glucose (Fingerstick) 216 mg/dL (70-99) 114 mg/dL (70-99) 131 mg/dL (70-99) 132 mg/dL (70-99) Medications Active Scripts Medications Dose Route/Sig Max Daily Dose Days Date Category Atorvastatin Calcium 20 Mg Tablet 20 Mg PO DAILY 03/05/22 Reported NITROGLYCERIN SubLingual (Nitroglycerin) 0.4 Mg Tab.subl 0.4 Mg SL PRN Q5MIN PRN 03/05/22 Reported Hydrocodone-Apap 7.5-325 (Hydrocodone Bit/Acetaminophen) 1 Tab Tablet 1 Tab PO PRN Q6HRS PRN 5 09/21/21 Rx Trelegy Ellipta 100-62.5-25 (Fluticasone/Umeclidin/Vilanter) 1 Each Blst.w.dev 1 Each IH DAILY 08/02/19 Reported Children's Aspirin (Aspirin) 81 Mg Tab.chew 1 Tab PO DAILY 30 08/02/19 Reported Glimepiride 4 Mg Tablet 1 Tab PO BID 08/02/19 Reported Metformin Hcl 1,000 Mg Tablet 1,000 PO BID 05/15/17 Reported Impression . 1. 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 2. Non-ST segment elevation myocardial infarction. 3. Coronary artery disease with previous drug-eluting stent in the left circumflex. 4. Dyslipidemia. 5. Hypertension. 6. Chronic obstructive pulmonary disease, unknown FEV1. Coronary angiography: Left main is a large-caliber vessel with normal angiographic appearance LAD is a moderate caliber vessel with mild luminal irregularities Left circumflex is a moderate to large caliber vessel with mild luminal irregularities RCA is a moderate to large caliber dominant vessel with mild luminal irregularities Conclusion 1. Minimal nonobstructive coronary artery disease Plan . Updated 03/08 Underwent 6-minute walk requires oxygen Discussed with discharge home Follow-up in the office Discussed with consulting services project manager 03/07 PLAN: 1. Respiratory status appears to be compensated. 2. The patient underwent cardiac catheterization today, results are pending. According to the patient, she did not have any new blockages. 3. Continue home Trelegy. 4. A 6-minute walk prior to discharge. 5. Follow up with Dr. Polk in the office upon discharge. I do appreciate the privilege in sharing in patient's care. BASSEM ROSAS MD March 08, 2022 09:09
[2022-03-08 09:22] LABS: BASO # 0.1 x10^3/uL (0.0-0.2); BASO % 1 % (0-3); EOS # 0.4 x10^3/uL (0.0-0.7); EOS % 6 % (0-3); HEMATOCRIT 33.6 % (36.0-47.0); LYMPH # 1.3 x10^3/uL (1.0-4.8); LYMPH % 21 % (24-48); MEAN CORPUSCULAR HEMOGLOBIN 27 pg (25-35); MEAN CORPUSCULAR HGB CONC 33 g/dL (31-37); MEAN CORPUSCULAR VOLUME 82 fL (79-100); MONO # 0.5 x10^3/uL (0.0-1.1); MONO % 8 % (0-9); NEUT % 64 % (31-73); PLATELET COUNT 177 x10^3/uL (140-400); RED BLOOD COUNT 4.12 x10^6/uL (3.50-5.40); RED CELL DISTRIBUTION WIDTH 18.5 % (11.5-14.5); WHITE BLOOD COUNT 6.3 x10^3/uL (4.0-11.0)
[2022-03-08 09:40] LABS: CALCIUM 8.1 mg/dL (8.5-10.1); GFR 53.1; POTASSIUM 4.5 mmol/L (3.5-5.1)
[2022-03-08] MEDS: HYDROcodone/APAP 7.5/325MG 1 TAB TABLET PO PRN (10:08)
--- NOTE | 2022-03-08 10:14 | DISCH ---
DISCHARGE INSTRUCTIONS Condition on Discharge Condition on Discharge: Stable Activity After Discharge Activity Instructions for Disc: Activity as tolerated Lifting Instructions after Dis: No heavy lifting, Do not lift >10 pounds Exercise Instruction after Dis: Progress as tolerated Weight Bearing Status after Di: Full weight bearing Diet after Discharge Diet after Discharge: Cardiac (ADA) Diet Texture: Regular Checks after Discharge Checks after discharge: Check blood press - daily, Check blood sugar, ac/hs Contacting the DR. after DC Call your doctor for: Concerns you may have Follow-Up Follow up with: Dr. Carmen Martinez in 1 week Follow Up With: Dr. Oropeza Treatment/Equipment after DC Discharge Respiratory Equipmen: Oxygen (2 L/min with exertion) CARMEN MARTINEZ MD March 08, 2022 10:14
--- NOTE | 2022-03-08 10:19 | PDOC3 ---
IM DISCHARGE SUMMARY Date of Admission Date of Admission Date of Admission: March 05, 2022 at 13:25 Date of Discharge Date of Discharge March 07, 2022 Primary Diagnosis Primary Diagnosis 1. Chest pain, possibly due to unstable angina and non-ST elevation myocardial infarction with elevated troponin. Troponin was 283 on admission. The last troponin level is 232. 2. Coronary artery disease. 3. Diabetes mellitus type 2. 4. Hypertension. 5. Diastolic congestive heart failure. 6. Chronic obstructive pulmonary disease with emphysema. 7. Abdominal aortic aneurysm. 8. Hyperlipidemia. 9. Osteoarthritis. 10. History of aortic stenosis with bioprosthetic valve. 11. History of meningioma. 12. Carotid artery disease. 13. Peripheral artery disease, recently status post bilateral common femoral endarterectomies with bovine pericardial patch angioplasty and bilateral common iliac stent placement. Consults Consults Ramon Polk MD; Amanedep Jeffrey MD Labs Labs Laboratory Tests Test 03/07/22 11:28 03/07/22 16:34 03/07/22 20:55 03/08/22 07:28 Glucose (Fingerstick) 216 mg/dL (70-99) H 114 mg/dL (70-99) H 131 mg/dL (70-99) H 132 mg/dL (70-99) H Test 03/08/22 08:50 White Blood Count 6.3 x10^3/uL (4.0-11.0) Red Blood Count 4.12 x10^6/uL (3.50-5.40) Hemoglobin 11.0 g/dL (12.0-15.5) L Hematocrit 33.6 % (36.0-47.0) L Mean Corpuscular Volume 82 fL (79-100) Mean Corpuscular Hemoglobin 27 pg (25-35) Mean Corpuscular Hemoglobin Concent 33 g/dL (31-37) Red Cell Distribution Width 18.5 % (11.5-14.5) H Platelet Count 177 x10^3/uL (140-400) Neutrophils (%) (Auto) 64 % (31-73) Lymphocytes (%) (Auto) 21 % (24-48) L Monocytes (%) (Auto) 8 % (0-9) Eosinophils (%) (Auto) 6 % (0-3) H Basophils (%) (Auto) 1 % (0-3) Neutrophils # (Auto) 4.0 x10^3/uL (1.8-7.7) Lymphocytes # (Auto) 1.3 x10^3/uL (1.0-4.8) Monocytes # (Auto) 0.5 x10^3/uL (0.0-1.1) Eosinophils # (Auto) 0.4 x10^3/uL (0.0-0.7) Basophils # (Auto) 0.1 x10^3/uL (0.0-0.2) Sodium Level 142 mmol/L (136-145) Potassium Level 4.5 mmol/L (3.5-5.1) Chloride Level 107 mmol/L (98-107) Carbon Dioxide Level 24 mmol/L (21-32) Anion Gap 11 (6-14) Blood Urea Nitrogen 14 mg/dL (7-20) Creatinine 1.0 mg/dL (0.6-1.0) Estimated GFR (Cockcroft-Gault) 53.1 Glucose Level 208 mg/dL (70-99) H Calcium Level 8.1 mg/dL (8.5-10.1) L Laboratory Tests 03/08/22 08:50 Laboratory Tests 03/08/22 08:50 Brief hospital course Brief hospital course 1. Chest pain, due to unstable angina and non-ST elevation myocardial infarction with elevated troponin. Troponin was 283 on admission. The last troponin level is 232. 2. Coronary artery disease. 3. Diabetes mellitus type 2. 4. Hypertension. 5. Diastolic congestive heart failure. 6. Chronic obstructive pulmonary disease with emphysema. 7. Abdominal aortic aneurysm. 8. Hyperlipidemia. 9. Osteoarthritis. 10. History of aortic stenosis with bioprosthetic valve. 11. History of meningioma. 12. Carotid artery disease. 13. Peripheral artery disease, recently status post bilateral common femoral endarterectomies with bovine pericardial patch angioplasty and bilateral common iliac stent placement. For more details regarding the past history, family history, social history, surgical history and other details, please refer to the H&P. 1. Chest pain, rule out myocardial infarction. The patient likely has non-ST elevation myocardial infarction. Consult Dr. Jeffrey for cardiology evaluation and management. Use nitroglycerin as needed. She had cardiac catheterization today. Final report is pending. No new intervention recommended. Creatinine is 1.1. Give IV fluids and monitor for renal insufficiency. Hold metformin. Creatinine is 1.0 today 2. Diabetes mellitus. Continue glimepiride 4 mg twice daily and sliding scale insulin. Monitor blood sugar. 3. COPD. Continue breathing treatment. Chest pain is not better. She has worsening chest pains with breathing treatment. Consult Dr. Polk. 4. Coronary artery disease. 5. Peripheral artery disease. 6. Diastolic congestive heart failure, stable. Patient is feeling better and is stable for discharge. Medications Medications reviewed and reconciled for discharge. Home Meds Active Scripts Hydrocodone Bit/Acetaminophen (HYDROCODONE-APAP 7.5-325 ) 1 Tab Tablet, 1 TAB PO PRN Q6HRS PRN for PAIN for 5 Days, #30 TAB 0 Refills Prov:KAREN PAYTON IT MANAGER 09/21/21 Reported Medications Atorvastatin Calcium (ATORVASTATIN CALCIUM) 20 Mg Tablet, 20 MG PO DAILY for FOR CHOLESTEROL, #30 TAB 0 Refills 03/05/22 Nitroglycerin (NITROGLYCERIN SubLingual) 0.4 Mg Tab.subl, 0.4 MG SL PRN Q5MIN PRN for CHEST PAIN, ML 03/05/22 Fluticasone/Umeclidin/Vilanter (Trelegy Ellipta 100-62.5-25) 1 Each Blst.w.dev, 1 EACH IH DAILY for breathing 08/02/19 Aspirin (Children's Aspirin) 81 Mg Tab.chew, 1 TAB PO DAILY for antiplate for 30 Days, #30 TAB 0 Refills 08/02/19 Glimepiride (GLIMEPIRIDE) 4 Mg Tablet, 1 TAB PO BID for diabetic, #180 TAB 1 Refill 08/02/19 Metformin Hcl (METFORMIN HCL) 1,000 Mg Tablet, 1000 PO BID, #60 05/15/17 Allergy Allergies Coded Allergies Type Severity Reaction Last Updated Verified No Known Drug Allergies 03/05/22 No Follow up in 7 days. DISPOSITION: Home Comments Discharge Management - 35 minutes. For other details please refer to discharge instructions Justicifation of Admission Dx: Justifications for Admission: Justification of Admission Dx: N/A CARMEN MARTINEZ MD March 08, 2022 10:19
[2022-03-08 10:45] VITALS: BP 144/69
--- NOTE | 2022-03-08 10:47 | NUR ---
SS following for discharge planning. SS reviewed pt chart and discussed with pt RN. Pt is from home and is currently requiring oxygen at two liters nasal canula. Pt has no home oxygen. Six minute walk completed. Script for oxygen received and sent with clinical to [facility], ; fax [phone]. Oxygen tank provide to pt for home. Pt's RN notified.
--- NOTE | 2022-03-08 11:23 | PDOC ---
RADHA RIVAS WASTEWATER DESIGN ENGINEER 03/08/22 1123: CARDIO Progress Notes Date and Time Date of Service 03/08/2022 Time of Evaluation 1000 Subjective Subjective: No Chest Pain, No shortness of breath, No Palpitations Vitals Vitals Vital Signs Date Time Temp Pulse Resp B/P (MAP) Pulse Ox O2 Delivery O2 Flow Rate FiO2 03/08/22 10:45 97.7 67 18 144/69 (94) 98 Nasal Cannula 2.0 97.7 Weight Weight [ ] Input and Output Intake and Output Intake and Output 03/08/22 06:59 Intake Total 1590 ml Balance 1590 ml Intake Oral 590 ml IV Total 1000 ml # Voids 3 Laboratory Labs Laboratory Tests Test 03/07/22 11:28 03/07/22 16:34 03/07/22 20:55 03/08/22 07:28 Glucose (Fingerstick) 216 mg/dL (70-99) 114 mg/dL (70-99) 131 mg/dL (70-99) 132 mg/dL (70-99) Test 03/08/22 08:50 White Blood Count 6.3 x10^3/uL (4.0-11.0) Red Blood Count 4.12 x10^6/uL (3.50-5.40) Hemoglobin 11.0 g/dL (12.0-15.5) Hematocrit 33.6 % (36.0-47.0) Mean Corpuscular Volume 82 fL (79-100) Mean Corpuscular Hemoglobin 27 pg (25-35) Mean Corpuscular Hemoglobin Concent 33 g/dL (31-37) Red Cell Distribution Width 18.5 % (11.5-14.5) Platelet Count 177 x10^3/uL (140-400) Neutrophils (%) (Auto) 64 % (31-73) Lymphocytes (%) (Auto) 21 % (24-48) Monocytes (%) (Auto) 8 % (0-9) Eosinophils (%) (Auto) 6 % (0-3) Basophils (%) (Auto) 1 % (0-3) Neutrophils # (Auto) 4.0 x10^3/uL (1.8-7.7) Lymphocytes # (Auto) 1.3 x10^3/uL (1.0-4.8) Monocytes # (Auto) 0.5 x10^3/uL (0.0-1.1) Eosinophils # (Auto) 0.4 x10^3/uL (0.0-0.7) Basophils # (Auto) 0.1 x10^3/uL (0.0-0.2) Sodium Level 142 mmol/L (136-145) Potassium Level 4.5 mmol/L (3.5-5.1) Chloride Level 107 mmol/L (98-107) Carbon Dioxide Level 24 mmol/L (21-32) Anion Gap 11 (6-14) Blood Urea Nitrogen 14 mg/dL (7-20) Creatinine 1.0 mg/dL (0.6-1.0) Estimated GFR (Cockcroft-Gault) 53.1 Glucose Level 208 mg/dL (70-99) Calcium Level 8.1 mg/dL (8.5-10.1) Physical Exam HEENT: Neck Supple W Full Motion Chest: Symmetric LUNGS: Other (diminished bases) Heart: RRR (SR) Abdomen: Soft N/T Extremities: No Edema, No Calf Tenderness Neurology: alert, oriented, follow commands Assessment Assessment 1. Chest pain: noted with UA features. LHC revealed mild CAD 2. NSTEMI: type 2 demand mediated 3. Diabetes mellitus type 2. 4. Hypertension: controlled. 5. Diastolic congestive heart failure: compensated 6. COPD:: needing O2 supplement 7. Small AAA 8. Hyperlipidemia. 9. History of aortic stenosis with bioprosthetic valve. 10. Bilateral LE PAD: past revascularization, clinically stable Recommendations' 1. Continue secondary prevention measures 2. Home o2 3. Follow up in office as scheduled 4. HBPM and will address if any need for BP regimen as an outpt particularly BB 5. Continue outpt AAA surveillance Justicifation of Admission Dx: Justifications for Admission: Justification of Admission Dx: N/A WENDIE VINCENT MD 03/09/22 1141: CARDIO Progress Notes Plan Plan Late entry for 03/08/2022 The patient was seen and interviewed as well as examined at the bedside. The c montiel was reviewed. The case was discussed. Agree with the plan of care. RADHA RIVAS APRN March 08, 2022 11:23 WENDIE VINCENT MD March 09, 2022 11:41
--- NOTE | 2022-03-08 12:24 | NUR ---
Discharge Note: MIRTHA REYES [facility] Discharge instructions and discharge home medications reviewed with Patient and a copy given. All questions have been answered and understanding verbalized. 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
[2022-03-09] MEDS ORDERED: metFORMIN 500 MG TABLET PO SCH (17:00)
== END 2022-03-08 12:20 | disposition home or self-care (01) | DRG 281 ==
LOC: ER 09:34 → 6 SOUTH 13:25
PROVIDERS: ADMIT Internal Medicine; ATTEND Internal Medicine
PROC: 4A023N7 Measurement of Cardiac Sampling and Pressure, Left Heart, Percutaneous Approach (ICD-10-PCS; principal; 2022-03-08)
PROC: B211YZZ Fluoroscopy of Multiple Coronary Arteries using Other Contrast (ICD-10-PCS; 2022-03-08)
DX: I25.110 Atherosclerotic heart disease of native coronary artery with unstable angina pectoris (principal); I21.A1 Myocardial infarction type 2; I50.32 Chronic diastolic (congestive) heart failure; Z79.01 Long term (current) use of anticoagulants; E11.51 Type 2 diabetes mellitus with diabetic peripheral angiopathy without gangrene; E78.5 Hyperlipidemia, unspecified; I11.0 Hypertensive heart disease with heart failure; I25.2 Old myocardial infarction; I35.0 Nonrheumatic aortic (valve) stenosis; I70.1 Atherosclerosis of renal artery; I71.4 Abdominal aortic aneurysm, without rupture; J43.9 Emphysema, unspecified; J84.10 Pulmonary fibrosis, unspecified; M19.90 Unspecified osteoarthritis, unspecified site; Z79.84 Long term (current) use of oral hypoglycemic drugs; Z82.49 Family history of ischemic heart disease and other diseases of the circulatory system; Z83.3 Family history of diabetes mellitus; Z86.011 Personal history of benign neoplasm of the brain; Z86.74 Personal history of sudden cardiac arrest; Z87.891 Personal history of nicotine dependence; Z95.2 Presence of prosthetic heart valve; Z95.5 Presence of coronary angioplasty implant and graft; Z90.49 Acquired absence of other specified parts of digestive tract
CPT/HCPCS: 36415; 71045; 71250; 80048; 80053; 81001; 82962; 83690; 83735; 83880; 84484; 85025; 85610; 93005; 93454; 94618; 94640; 94760; 99152; 99153; C1769; C1894; J1644; J1815; J2250; J3010; J3490; J7030; Q9967; 99285-25; G0378; J7626